=== PATIENT | female | born 1935 ===

== ENCOUNTER 2018-12-07 13:32 | Inpatient (IN) | payer MEDICARE, OTHER ==
[~2018-12-07] VITALS: Ht 149.9 cm; Wt 75.8 kg
[2018-12-07] MEDS ORDERED: ALPRAZolam 0.25 MG (XANAX) TAB PO PRN (14:30)
[2018-12-07] MEDS ORDERED: MELATONIN 3 MG TABLET PO PRN (14:30)
[2018-12-07] MEDS ORDERED: CALCIUM CARBONATE 500 MG (TUMS) TAB.CHEW PO PRN (14:30)
[2018-12-07] MEDS ORDERED: ONDANSETRON 4 MG (ZOFRAN) ORAL DISSOLVE TAB PO PRN ×2 (14:30→17:15)
[2018-12-07] MEDS ORDERED: RX-TRAMADOL 50 MG (ULTRAM) TAB PPK#4 PO PRN (14:30)
[2018-12-07] MEDS ORDERED: LOPERAMIDE 2 MG (IMODIUM) CAP PO PRN (14:30)
[2018-12-07] MEDS ORDERED: ACETAMINOPHEN 500 MG TAB (TYLENOL) PO PRN (14:30)
[2018-12-07] MEDS ORDERED: diphenhydrAMINE 25 MG TAB (BENADRYL) PO PRN (14:30)
[2018-12-07] MEDS ORDERED: CARV25TA PO (16:21)
[2018-12-07] MEDS ORDERED: TIOT4MIS5 INH (16:21)
[2018-12-07] MEDS ORDERED: PARO20TA5 PO (16:21)
[2018-12-07] MEDS ORDERED: NIAC500T2 PO (16:21)
[2018-12-07] MEDS ORDERED: LOSA100T57 PO (16:21)
[2018-12-07] MEDS ORDERED: GABA-486 PO (16:21)
[2018-12-07] MEDS ORDERED: LANS30CA PO (16:21)
[2018-12-07] MEDS ORDERED: AMLO10TA7 PO (16:21)
[2018-12-07] MEDS ORDERED: FOLI1TAB24 PO (16:21)
[2018-12-07] MEDS ORDERED: RT-ALBUINH INH (16:21)
[2018-12-07] MEDS ORDERED: MONT10TA24 PO (16:21)
[2018-12-07] MEDS ORDERED: CLON0.1T PO (16:21)
[2018-12-07] MEDS ORDERED: OXYB5TAB9 PO (16:21)
[2018-12-07] MEDS ORDERED: HYDR25TA4 PO (16:21)
--- NOTE | 2018-12-07 16:21 | NUR ---
PATIENT DID NOT ARRIVE PRIOR TO THE END OF MY SHIFT AND NO PAPERWORK HAD BEEN SENT. I UPDATED THE MED REC WITH THE EXT MED HX HOWEVER DID NOT REVIEW IT DUE TO NO BEING ABLE TO VERIFY IT. I WILL UPDATE THE MED REC IN DETAIL ON MONDAY. Addendum: 12/10/18 at 1101 by PENNY ZAVALA [facility] UPDATED MED REC THIS MORNING AFTER RECEIVING THE DISCHARGE MEDICATION LIST FROM [facility]. NOTE THE FOLLOWING CHANGES WERE MADE WHEN THE PATIENT DISCHARGED FROM [facility] TO [facility] THAT ARE NOT CURRENTLY REFLECTED ON THE HOME MED REC: START TAKING: VITAMIN D3 5000 UNITS DAILY FAMOTIDINE 20MG BID SENNA 8.6MG DAILY PRN CONSTIPATION I ADDED THE FOLLOWING MEDICATIONS TO THE HOME MED REC AT THIS TIME: MULTIVITAMIN DAILY ZOFRAN 4MG Q6H PRN TRAMADOL 50MG 2 Q6H PRN COLACE 100MG DAILY DUONEB Q4H PRN LORATADINE 10MG DAILY TYLENOL 650MG DAILY PRN ASPIRIN 325MG DAILY CALCIUM 600MG BID VOLTAREN GEL QID ADDITIONALLY THE MED LIST FROM [facility] DOES NOT ADDRESS SPIRIVA RESPIMAT HOWEVER IT WAS FILLED 09-02-18 FOR A 90 DAY SUPPLY AND HAD BEEN FILLED PRIOR TO THAT FILL. I LEFT IT ON THE MED REC AT THIS TIME. I ADJUSTED THE TIMING ON A FEW MEDICATIONS THAT I ENTERED MONDAY FROM THE MED REC: NIACIN TO HS, OXYBUTYNIN TO HS, AND ALBUTEROL Q4H PRN.
[2018-12-07] MEDS ORDERED: DOCUSATE SODIUM 100 MG (COLACE) CAP PO PRN (17:15)
[2018-12-07] MEDS ORDERED: RT-ALBUTEROL/IPRATROPIUM 3 ML (DUONEB) VIAL INH PRN (17:15)
[2018-12-07] MEDS ORDERED: RT-ALBUTEROL/IPRATROPIUM 3 ML (DUONEB) VIAL INH SCH (17:15)
--- NOTE | 2018-12-07 17:30 | NUR ---
Admitted to room 228-1, with an admitting diagnosis of debility[facility] accompanied by .DARRIAN HAINES introduced to surroundings, call light, bed controls, phone, TV, temperature control, lights, meal times, smoking policy, visitor policy, side rail policy, bathrooms and showers. Patient Rights given to patient in the handbook.DARRIAN HAINES verbalizes understanding that [facility] is not responsible for the loss or damage to any personal effects or valuables that are kept in the patients posession during their hospitalization. The following Patient Care Plans were discussed with the : Discharge Planning, ,[self care deficit, and [potential for injury]. DARRAIN HAINES verbalizes understanding of Interdisciplinary Patient Education. Patient and/or family were informed about the Rapid Response Team and its purpose. Patient received Patient Rights Booklet, which includes Privacy Act Statement and Data Collection Information Summary.
[2018-12-07] MEDS ORDERED: SENNA W/DOCUSATE (SENOKOT S) TABLET PO NR (18:00)
[2018-12-07] MEDS: CALCIUM CARBONATE 600 MG (CALCARB) TAB PO SCH (19:04)
[2018-12-07] MEDS: NIACIN ER (NIASPAN) 500 MG TAB PO SCH (20:42)
[2018-12-07] MEDS: MONTELUKAST 10 MG (SINGULAIR) TAB PO SCH (20:42)
[2018-12-07] MEDS: GABAPENTIN 100 MG (NEURONTIN) CAP PO SCH (20:42)
[2018-12-07] MEDS: FAMOTIDINE 20 MG (PEPCID) TABLET PO SCH (20:42)
[2018-12-07] MEDS: cloNIDine 0.1 MG (CATAPRES) TAB PO SCH (20:42)
[2018-12-07] MEDS: OXYBUTYNIN (DITROPAN) 5 MG TAB PO SCH (20:42)
[2018-12-07] MEDS: DICLOFENAC 1% GEL 100 GM (VOLTAREN) TUBE TOP SCH (20:43)
[2018-12-08 05:05] VITALS: BP 124/71
[2018-12-08 05:19] LABS: BASOPHILS % (AUTO) 1 % (0-10); EOSINOPHILS # (AUTO) 0.3 10^3/uL (0.0-0.3); EOSINOPHILS % (AUTO) 6 % (0-10); HEMATOCRIT 32 % (35-52); HEMOGLOBIN 10.7 G/DL (11.5-16.0); LYMPHOCYTES # (AUTO) 1.5 X 10^3 (1.0-4.0); LYMPHOCYTES % (AUTO) 27 % (12-44); MEAN CORPUSCULAR HEMOGLOBIN 31 PG (25-34); MEAN CORPUSCULAR HGB CONC 33 G/DL (32-36); MEAN CORPUSCULAR VOLUME 94 FL (80-99); MEAN PLATELET VOLUME 8.7 FL (7.4-10.4); MONOCYTES # (AUTO) 1.3 X 10^3 (0.0-1.0); MONOCYTES % (AUTO) 23 % (0-12); NEUTROPHILS # (AUTO) 2.5 X 10^3 (1.8-7.8); NEUTROPHILS % (AUTO) 44 % (42-75); PLATELET COUNT 258 10^3/uL (130-400); RED CELL DISTRIBUTION WIDTH 14.9 % (10.0-14.5); WHITE BLOOD COUNT 5.7 10^3/uL (4.3-11.0)
[2018-12-08 05:39] LABS: ALBUMIN 3.3 GM/DL (3.2-4.5); BILIRUBIN,TOTAL 0.6 MG/DL (0.1-1.0); CALCIUM 9.4 MG/DL (8.5-10.1); CREATININE SERUM 1.15 MG/DL (0.60-1.30); POTASSIUM 4.5 MMOL/L (3.6-5.0); TOTAL PROTEIN 6.1 GM/DL (6.4-8.2)
[2018-12-08 06:09] LABS: EOSINOPHILS % (MANUAL) 6 %; LYMPHOCYTES % (MANUAL) 26 %; MONOCYTES % (MANUAL) 20 %; NEUTROPHILS % (MANUAL) 48 %
[2018-12-08] MEDS: PANTOPRAZOLE 40 MG (PROTONIX) TAB PO SCH (06:21)
[2018-12-08] MEDS: CARVEDILOL 12.5 MG (COREG) TABLET PO SCH ×2 (06:21→17:59)
[2018-12-08] MEDS: CALCIUM CARBONATE 600 MG (CALCARB) TAB PO SCH ×2 (06:21→17:58)
[2018-12-08] MEDS: MULTIVIT W/MINERALS TAB (THERAGRAN M) PO SCH (06:21)
[2018-12-08 09:00] VITALS: BP 126/74
--- NOTE | 2018-12-08 09:07 | Occupational Therapy Eval ---
OT Evaluation-General/PLF Medical Diagnosis Admission Date Dec 07, 2018 at 15:13 Medical Diagnosis: debility Onset Date: Dec 04, 2018 Therapy Diagnosis Therapy Diagnosis: decr self care, weakness, decr funct mob, decr act cora Height/Weight Height (Feet): 4 Height (Inches): 11.00 Weight (Pounds): 164 Weight (Ounces): 0.0 Precautions Precautions/Isolations: Fall Prevention, Standard Precautions Safety Interventions: None Weight Bear Status Weight Bearing Restriction: Full Weight Bearing Referral Physician: Lisa Referral Reason: Evaluation/Treatment Medical History Pertinent Medical History: Arthritis (psoriatic), CAD, COPD, CVA (2018), GERD, HTN Additional Medical History Cardiac stent 2007. LILI with CPAP at night. Bilat cataract surgery. Rotator cuff repair R shoulder, R elbow fx, R humeral fx with michael, R ankle fx, kyphoplasty, 4 back surgeries, R total shoulder. Osteoporosis. Asthma. Anxiety disorder Current History Admitted to [facility] with weakness and hyponatremia. She reported an exacerbation of R shoulder pain and decreased movement aggravated at [facility]. Reviewed History: Yes Social History Home: Single Level Current Living Status: Alone Entry Into Home: [facility] ADL-Prior Level of Function Therapy Code Descriptions/Definitions Functional [place] Measure: 0=Not Assessed/NA 4=Minimal Assistance 1=Total Assistance 5=Supervision or Setup 2=Maximal Assistance 6=Modified [place] 3=Moderate Assistance 7=Complete [place] Therapy Quality Codes: 6 Independent with activity with or without an assistive device 5 Patient requires set up or clean up by helper. Patient completes activity by themselves 4 Supervision or touching assist (CGA). [place] provide cues , steadying assist 3 The helper provides less than half the effort to complete the activity 2 The helper provides more than half the effort to complete the activity 1 Dependent. The helper does all the effort to complete an activity 7 Patient refused to complete or attempt activity 9 The patient did not perform the activity before the current illness or injury 88 Not attempted due to Medical conditions or safety concerns Functional Abilities and Goals: Independent: Patient completed the activities by him/herself, with or without an assistive device, with no assistance from a helper. Needed Some Help: Patient needed partial assistance from another person to complete activities. Dependent: A helper completed the activities for the patient. Unknown: Not Applicable: ADL PLOF Comments Pt reported that she has been able to manage her basic self care needs, pay bills, manage meds but has in-home assistance 9 hours a week for cleaning, laundry, cooking, etc. She no longer drives but hopes to again some day. 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 Self Care: Independent Functional Cognition: Independent DME/Equipment: Grab Bars, Reachers, Shower OT Current Status Subjective Pt seen in room, up in w/c, agreeable to OT. Pain in low back reported as chronic and rated 5/10. Appearance Alert, cooperative Mental Status/Objective Patient Orientation: Person, Place, Time, Situation Current Glasses/Contacts: Yes Hearing Aids: No Dentures/Partials: No Hand Dominance: Right Upper Extremity ROM L shoulder limited to 80-90 degrees flex and abd, active and passive. R shoulder with almost no active movement, passive flex to approx 45 degrees, guarded. R elbow extension limited to approx -30-40 degrees. Rest of UEs grossly WFL. Arthritic changes noted in hands Upper Extremity Sensation No problems per pt report Upper Extremity Strength Grossly 4/5 within ranges, bilat. ADL-Treatment ADL-Current Per physical therapy, sit to stand mod assist. Pulling up is more comfortable to R shoulder. ADLs to follow Education OT Patient Education: Purpose of tx/functional activities, Rehab process Teaching Recipient: Patient Teaching Methods: Discussion Response to Teaching: Verbalize Understanding OT Short Term Goals Short Term Goals Time Frame: Dec 15, 2018 Eating(FIM): 7 Grooming(FIM): 6 (w/c level) Toilet/Commode Transfer(FIM): 3 Additional Short Term Goals: 1-Demonstrate ADL Tasks, 2-Verbalize Understanding , 3-ImproveStrength/Kandi 1=Demonstrate adherence to instructed precautions during ADL tasks. 2=Patient will verbalize/demonstrate understanding of assistive devices/ modifications for ADL. 3=Patient will improve strength/tolerance for activity to enable patient to perform ADL's. OT Rehabilitation Consultant Goals Correction Goals Time Frame: Dec 29, 2018 Eating (FIM): 7 Eating (QC): 6 Groomin Oral Hygiene (QC): 6 Bathing(FIM): 6 Shower/Bathe Self (QC): 6 Upper Body Dressing(FIM): 6 Upper Body Dressing (QC): 6 Lower Body Dressing(FIM): 6 Lower Body Dressing (QC): 6 On/Off Footwear (QC): 6 Toileting(FIM): 6 Toileting Hygiene (QC): 6 Toilet/Commode Transfer(FIM): 6 Toilet/Commode Transfer (QC): 6 Shower Transfer(FIM): 6 Additional Goals: 1-Demonstrate ADL Tasks, 2-Verbalize Understanding, 3- ImproveStrength/Kandi 1=Demonstrate adherence to instructed precautions during ADL tasks. 2=Patient will verbalize/demonstrate understanding of assistive devices/ modifications for ADL. 3=Patient will improve strength/tolerance for activity to enable patient to perform ADL's. OT Education/Plan Problem List/Assessment Assessment: Decreased Activ Tolerance, Decreased UE Strength, Dependent Transfers, Impaired Self-Care Skills, Restricted Funct UE ROM Pt would benefit from skilled OT to increase her independence in basic self care. Discharge Recommendations Plan/Recommendations: Continue POC Treatment Plan/Plan of Care Treatment,Training & Education: Yes Patient would benefit from OT for education, treatment and training to promote independence in ADL's, mobility, safety and/or upper extremity function for ADL' s. Plan of Care: ADL Retraining, Functional Mobility, Group Exercise/Act as Ind ( education, exercise, functional activity, activity tolerance, funct mobility), UE Funct Exercise/Act, UE Neuromus Re-Ed/Coord Treatment Duration: Dec 29, 2018 Frequency: At least 5 of 7 days/Wk (IRF) Estimated Hrs Per Day: 1.5 hours per day Agreement: Yes Rehab Potential: Good Time/GCodes Start Time: 08:30 Stop Time: 08:50 Total Time Billed (hr/min): 20 Billed Treatment Time visit, 20 minutes evaluation moderate intensity REYES SPRINGER OT Dec 08, 2018 09:07
[2018-12-08] MEDS: GABAPENTIN 100 MG (NEURONTIN) CAP PO SCH ×2 (09:09→20:41)
[2018-12-08] MEDS: LORATADINE (CLARITIN) 10 MG TAB PO SCH (09:10)
[2018-12-08] MEDS: FAMOTIDINE 20 MG (PEPCID) TABLET PO SCH ×2 (09:10→20:41)
[2018-12-08] MEDS: VITAMIN D3 5,000 UNITS (CHOLECALCIFEROL ) CAPSULE PO SCH (09:10)
[2018-12-08] MEDS: FOLIC ACID 1 MG TAB PO SCH (09:10)
[2018-12-08] MEDS: amLODIPine 10 MG (NORVASC) TAB PO SCH (09:10)
[2018-12-08] MEDS: LOSARTAN 100 MG (COZAAR) TABLET PO SCH (09:10)
[2018-12-08] MEDS: cloNIDine 0.1 MG (CATAPRES) TAB PO SCH (09:11)
--- NOTE | 2018-12-08 09:20 | NUR ---
COMPLAIN BACK PAIN AND MEDICATED WITH ULTRAM. STATES PAIN WITH MOVEMENT ONLY. BILATERAL, EQUAL WEAKNESS IN LEGS. RIGHT ARM WEAKNESS DUE TO PREVIOUS ELBOW BREAK. FEELS VOICE IS HOARSE, OTHERWISE DENIES SPEECH OR SWALLOWING DIFFICULTIES. ADMITS TO SOB WITH EXERTION.
--- NOTE | 2018-12-08 09:33 | Physical Therapy Evaluation ---
PT Evaluation-General Medical Diagnosis Admission Date Dec 07, 2018 at 15:13 Medical Diagnosis: debility Onset Date: Dec 04, 2018 Therapy Diagnosis Therapy Diagnosis: generalized weakness/debility Height/Weight Height (Feet): 4 Height (Inches): 11.00 Weight (Pounds): 164 Weight (Ounces): 0.0 Precautions Precautions/Isolations: Fall Prevention, Standard Precautions Referral Physician: Lisa Reason for Referral: Evaluation/Treatment Medical History Pertinent Medical History: Arthritis (psoriatic), CAD, COPD, CVA (2018), GERD, HTN Additional Medical History recent 4 month stay at [facility] and home x 6 weeks (patient reports she didn't do much physically when she returned home) Reviewed History: Yes Social History Home: Single Level Current Living Status: Alone Entry Into Home: Ramp Patient does not use steps prior to this admit: reports she will not perform steps Prior/Core FIM Prior Level of Function Therapy Code Descriptions/Definitions Functional [place] Measure: 0=Not Assessed/NA 4=Minimal Assistance 1=Total Assistance 5=Supervision or Setup 2=Maximal Assistance 6=Modified [place] 3=Moderate Assistance 7=Complete [place] Therapy Quality Codes: 6 Independent with activity with or without an assistive device 5 Patient requires set up or clean up by helper. Patient completes activity by themselves 4 Supervision or touching assist (CGA). [place] provide cues , steadying assist 3 The helper provides less than half the effort to complete the activity 2 The helper provides more than half the effort to complete the activity 1 Dependent. The helper does all the effort to complete an activity 7 Patient refused to complete or attempt activity 9 The patient did not perform the activity before the current illness or injury 88 Not attempted due to Medical conditions or safety concerns Functional Abilities and Goals: Independent: Patient completed the activities by him/herself, with or without an assistive device, with no assistance from a helper. Needed Some Help: Patient needed partial assistance from another person to complete activities. Dependent: A helper completed the activities for the patient. Unknown: Not Applicable: Bed Mobility: 4 Transfers (B,C,W/C) (FIM): 4 Gait: 4 Stairs: 0 Indoor Mobility (Ambulation): Needed Some Help Stairs: Needed Some Help Prior Devices Use: Walker Prior Device Use: 4WW PT Evaluation-Current Subjective Patient agrees to PT. Pain Numeric Pain Scale: 5-Moderate Pain Location: Right Location Body Site: Shoulder Pain Description: Chronic Objective Patient Orientation: Normal For Age Problem Solving: Fair ROM/Strength ROM Lower Extremities bilateral LE WFL Strenght Lower Extremities right knee flexion 3-/5/extension 3/5; hip flexion 3/5; DF/PF 4/5 left knee flexion 3-/5;extension 3/5; hip flexion 3/5; DP/PF 4/5 Integumentary/Posture Integumentary refer to nursing notes Bowel Incontinence: No Bladder Incontinence: Yes Posture slightly kyphotic Neuromuscular (Tone, Coordination, Reflexes) diminished coordination due to age and debility Sensory Vision: Functional Hearing: Functional Hand Dominance: Right Sensation Right Lower Extremit: Intact Sensation Left Lower Extremity: Intact Transfers Therapy Code Descriptions/Definitions Functional [place] Measure: 0=Not Assessed/NA 4=Minimal Assistance 1=Total Assistance 5=Supervision or Setup 2=Maximal Assistance 6=Modified [place] 3=Moderate Assistance 7=Complete [place] Therapy Quality Codes: 6 Independent with activity with or without an assistive device 5 Patient requires set up or clean up by helper. Patient completes activity by themselves 4 Supervision or touching assist (CGA). [place] provide cues , steadying assist 3 The helper provides less than half the effort to complete the activity 2 The helper provides more than half the effort to complete the activity 1 Dependent. The helper does all the effort to complete an activity 7 Patient refused to complete or attempt activity 9 The patient did not perform the activity before the current illness or injury 88 Not attempted due to Medical conditions or safety concerns Transfers (B, C, W/C) (FIM): 3 Scootin Rollin Roll Left to Right (QC): 3 Supine to/from Sit: 3 Sit to/from Stand: 3 bed t/f WC(FIM only if WC use): 3 Sit to Lying (QC): 3 Lying to Sitting/Side of Bed(Q: 3 Sit to Stand (QC): 3 Chair/Fpx-mp-Tvxta Xfer(QC): 3 Car Transfer (QC): 2 Gait Does the Patient Walk?: Yes Mode of Locomotion: Both Anticipated Mode of Locomotion: Both Gait (FIM): 1 Distance (FIM): 1=up to 49 ft Walk 10 feet (QC): 3 Walk 50 ft with 2 Turns(QC): 88 Walk 150 ft (QC): 88 Walking 10ft/uneven surface-QC: 3 Distance: 15' x 6 Gait Level of Assist: 3 Gait Persons Needed: 1 Gait Assistive Device: FWW Comments/Gait Description very slow, step to gait sequence Wheelchair Training Does the Pt Use a Wheelchair?: Yes Wheelchair (FIM): 1 Wheelchair Distance (FIM): 1=up to 49 ft Distance: 15' Wheelchair Level of Assist: 3 Wheel 50 ft with 2 turns (QC): 88 Wheel 150 ft (QC): 88 Type of Wheelchair: Manual Stairs Stairs (FIM): 0 Level of Assist: 9 1 Step (curb) (QC): 9 4 Steps (QC): 9 12 Steps (QC): 9 If not tested on admit;explain Patient reports she has not and will not utilize steps in the community Balance Sitting Static: Fair Sitting Dynamic: Fair Standing Static: Fair Standing Dynamic: Fair Treatment bilateral LE exercises in supine AAROM 15 reps x 2 sets AP, HS, SLR, abd/add; sit AP, LAQ; sit to commissioning engineer parallel bars x 8 sets with stand x 3 minutes Assessment/Needs 83 y.o. female, severely debilitated, will benefit from skilled PT to address functional strength and mobility to improve current LOF to safely return to home or care facility at maximum LOF. Rehab Potential: Fair PT Mutuel Cashier Goals Mutuel Cashier Goals PT Mutuel Cashier Goals Time Frame: Dec 29, 2018 Transfers (B,C,W/C) (FIM): 5 Sit to Lying (QC): 5 Lying-Sitting on Side/Bed(QC): 5 Sit to Stand (QC): 5 Rollin Roll Left to Right (QC): 5 Chair/Nfp-dj-Vbpoe Xfer(QC): 5 Car Transfer (QC): 5 Does the Patient Walk: Yes Gait (FIM): 2 Distance: 125' Walk 10 feet (QC): 5 Walk 10ft-Uneven Surface(QC): 5 Walk 50ft with 2 Turns (QC): 5 Walk 150 ft (QC): 88 Gait Level of Assist: 5 Gait Assistive Device: Walker 4 Wheeled, FWW Wheelchair (FIM): 2 Wheelchair distance (FIM): 1=up to 49 ft Distance: 100' Wheelchair Level of Assist: 5 Wheel 50 feet with 2 turns (QC: 5 Stairs (FIM): 1 PT Plan Problem List Problem List: Activity Tolerance, Functional Strength, Safety, Balance, Gait, Transfer, Bed Mobility Treatment/Plan Treatment Plan: Continue Plan of Care Treatment Plan: Bed Mobility, Education, Functional Activity Kandi, Functional Strength, Group Therapy, Gait, Safety, Therapeutic Exercise, Transfers Treatment Duration: Dec 01, 2018 Frequency: At least 5 of 7 days/Wk (IRF) Estimated Hrs Per Day: 1.5 hours per day Patient and/or Family Agrees t: Yes Discharge Recommendations Therapy D/C Recommendations: Assisted Living, Home Independently, Physical Therapy Home Care, Care Home Placement Time/GCodes Time In: 700 Time Out: 830 Total Billed Treatment Time: 90 Total Billed Treatment 1 visit EVModC 30 min EX x 2 30 min GT x 2 30 min NU LITTLE PT Dec 08, 2018 09:33
--- NOTE | 2018-12-08 10:03 | Occupational Ther Daily Note ---
OT Current Status-Daily Note Subjective Pt alert, finishing up with OTR/L eval. MANCILLA took over care. Pt agrees to therapy. No c/o pain. Mental Status/Objective Patient Orientation: Person, Place, Time, Situation Therapy Code Descriptions/Definitions Functional [place] Measure: 0=Not Assessed/NA 4=Minimal Assistance 1=Total Assistance 5=Supervision or Setup 2=Maximal Assistance 6=Modified [place] 3=Moderate Assistance 7=Complete [place] ADL-Treatment Therapy Code Descriptions/Definitions Functional [place] Measure: 0=Not Assessed/NA 4=Minimal Assistance 1=Total Assistance 5=Supervision or Setup 2=Maximal Assistance 6=Modified [place] 3=Moderate Assistance 7=Complete [place] Therapy Quality Codes: 6 Independent with activity with or without an assistive device 5 Patient requires set up or clean up by helper. Patient completes activity by themselves 4 Supervision or touching assist (CGA). [place] provide cues , steadying assist 3 The helper provides less than half the effort to complete the activity 2 The helper provides more than half the effort to complete the activity 1 Dependent. The helper does all the effort to complete an activity 7 Patient refused to complete or attempt activity 9 The patient did not perform the activity before the current illness or injury 88 Not attempted due to Medical conditions or safety concerns Eating (FIM): 5 Eating (QC): 5 Grooming (FIM): 6 (Sitting at sink in w/c, pt completed by self.) Oral Hygiene (QC): 6 Bathing (FIM): 3 (Using shower bench, grabbar and hand held shower pt able to complete by self. Pt will need AE for lower body bathing. Pt leans side to side to cleanse buttocks/rick area.) Bathing Location: L Arm, R Arm, L Upper Leg, R Upper Leg, Chest, Abdomen, Buttocks, Perineal Area Shower/Bathe Self (QC): 3 Upper Body (FIM): 4 (Set up and assist to pull down in back.) Upper Body Dressing (QC): 3 Lower Body Dressing (FIM): 2 (Assist to don over feet and hike up pants over hips. Pt able to stand with FWW. Assist to doff lower body clothing.) Lower Body Dressing (QC): 2 On/Off Footwear (QC): 2 Toileting (FIM): 3 (Assist to manipulate clothing. Able to cleanse self sitting on toilet.) Toileting Hygiene (QC): 3 Transfers (B, C, W/C) (FIM): 3 (Mod A for sit to standing due to decreased AROM of R UE and strength. Pt is able to pull to stand with less difficulty.) Toilet/Commode Transfer (FIM): 4 (Pulling to stand with grabbars and min A for SPT pt able to complete.) Toilet Transfer (QC): 3 Shower Transfer(FIM): 4 (Using grabbar, w/c and shower bench pt able to complete with min A with pulling to stand.) Pt takes increased time to complete ADLs due to decreased strength and AROM of UE's. Pt will need lower body AE for dressing and bathing. After therapy, pt lying in bed with call light/phone in reach. All needs met in room. OT Short Term Goals Short Term Goals Time Frame: Dec 15, 2018 Eating(FIM): 7 Grooming(FIM): 6 (w/c level) Toilet/Commode Transfer(FIM): 3 Additional Short Term Goals: 1-Demonstrate ADL Tasks, 2-Verbalize Understanding , 3-ImproveStrength/Kandi 1=Demonstrate adherence to instructed precautions during ADL tasks. 2=Patient will verbalize/demonstrate understanding of assistive devices/ modifications for ADL. 3=Patient will improve strength/tolerance for activity to enable patient to perform ADL's. OT Drafter Topographical Goals Correction Goals Time Frame: Dec 29, 2018 Eating (FIM): 7 Eating (QC): 6 Groomin Oral Hygiene (QC): 6 Bathing(FIM): 6 Shower/Bathe Self (QC): 6 Upper Body Dressing(FIM): 6 Upper Body Dressing (QC): 6 Lower Body Dressing(FIM): 6 Lower Body Dressing (QC): 6 On/Off Footwear (QC): 6 Toileting(FIM): 6 Toileting Hygiene (QC): 6 Toilet/Commode Transfer(FIM): 6 Toilet/Commode Transfer (QC): 6 Shower Transfer(FIM): 6 Additional Goals: 1-Demonstrate ADL Tasks, 2-Verbalize Understanding, 3- ImproveStrength/Kandi 1=Demonstrate adherence to instructed precautions during ADL tasks. 2=Patient will verbalize/demonstrate understanding of assistive devices/ modifications for ADL. 3=Patient will improve strength/tolerance for activity to enable patient to perform ADL's. OT Education/Plan Problem List/Assessment Pt would benefit from skilled OT to increase her independence in basic self care. Discharge Recommendations Plan/Recommendations: Continue POC Treatment Plan/Plan of Care Patient would benefit from OT for education, treatment and training to promote independence in ADL's, mobility, safety and/or upper extremity function for ADL' s. Plan of Care: ADL Retraining, Functional Mobility, Group Exercise/Act as Ind ( education, exercise, functional activity, activity tolerance, funct mobility), UE Funct Exercise/Act, UE Neuromus Re-Ed/Coord Treatment Duration: Dec 29, 2018 Frequency: At least 5 of 7 days/Wk (IRF) Estimated Hrs Per Day: 1.5 hours per day Agreement: Yes Rehab Potential: Fair Time/GCodes Start Time: 08:50 Stop Time: 10:15 Total Time Billed (hr/min): 85 Billed Treatment Time 1 visit-ADL 6 (85 min) DEEPA DE LA VEGA Dec 08, 2018 10:03
--- NOTE | 2018-12-08 10:30 | NUR ---
DR. ROBERTS HERE. INFORMED OF PATIENT STATING TAKES CLONIDINE PRN ONLY. FAUSTINO HOSE WILL BE USED PRN EDEMA.
[2018-12-08] MEDS: PARoxetine 20 MG (PAXIL) TAB PO SCH (10:53)
[2018-12-08] MEDS: DICLOFENAC 1% GEL 100 GM (VOLTAREN) TUBE TOP SCH ×4 (10:54→20:44)
[2018-12-08] MEDS ORDERED: cloNIDine 0.1 MG (CATAPRES) TAB PO PRN (11:30)
--- NOTE | 2018-12-08 12:35 | PM&R H&P / Post Admit Assess ---
History of Present Illness HPI/Chief Complaint CC: Debility HPI: This is an 83-year-old white female clinic patient of Dr. Post in [place] just recently moved from [facility] to [place] to be close to her 2 grandchildren since her daughter is a nurse in [employer] who works may shifts per week and her son lives in [place] and she previously lived in [place] from [phone] who presents after a [facility] stay for 3 days due to severe weakness. Hyponatremia noted acute on chronic while she was there which could be contributing to the weakness (I will stop HCTZ and place on fluid restriction). She had a history of a CVA July 2018 went to [facility] for 3 months and just was discharged to her own home with her grandchildren watching over her. She began having weakness full evaluation included a CT scan and multiple labs revealing no source of weakness so she was placed in physical therapy and found to meet criteria for intensive therapies with inpatient rehabilitation center at [facility] here. She usually sees cardiology for a cardiac murmur and pulmonology for severe asthma and rheumatology for psoriatic arthritis and she is just in the midst of getting that set up since moving to [place] in the last 6 months. Her May 2018. 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 She would like to return to live alone. Source: patient, old records Exam Limitations: clinical condition Date Seen 12/08/18 Time Seen by a Provider: 10:30 Attending Physician Erin Gonzalez DO PCP Pierre Post DO Referring Physician Date of Admission Dec 07, 2018 at 15:13 Home Medications & Allergies Home Medications Reviewed patient Home Medication Reconciliation performed by pharmacy medication reconciliations aircraft ordnance technician and/or nursing. Patients Allergies have been reviewed. 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) Alcohol Use: Denies Use Recreational Drug Use: No Smoking Status: Never a Smoker Physical Abuse Screen: No Sexual Abuse: No Recent Foreign Travel: No Contact w/other who traveled: No Recent Hopitalizations: Yes Recent Infectious Disease Expo: No Immunizations Up To Date Pediatric: Yes Date of Influenza Vaccine: Sep 06, 2018 Past Medical History Surgeries: Orthopedic Respiratory: Asthma Currently Using CPAP: Yes Currently Using BIPAP: No Cardiac: High Cholesterol, Hypertension, Valvular Heart Disease Neurological: Neuropathy, Stroke (07/31) Sexually Transmitted Disease: No HIV/AIDS: No Female Reproductive Disorders: Denies Gastrointestinal: Gastroesophageal Reflux Musculoskeletal: Osteoporosis, Chronic Back Pain Psoriatic arthritis HEENT: Cataract Loss of Vision: Bilateral Hearing Impairment: Denies Psychosocial: Anxiety History of Blood Disorders: Yes Adverse Reaction to Blood Lanza: No Family History Arthritis 19 FATHER Hypertension 19 FATHER 19 MOTHER Respiratory disorder 19 MOTHER Review of Systems Constitutional: see HPI, malaise, weakness EENTM: no symptoms reported Respiratory: no symptoms reported Cardiovascular: no symptoms reported Gastrointestinal: no symptoms reported Genitourinary: no symptoms reported Musculoskeletal: joint pain, muscle pain Skin: no symptoms reported Psychiatric/Neurological: No Symptoms Reported Physical Exam Physical Exam Vital Signs Vital Signs - First Documented 12/07/18 12/08/18 19:45 05:05 Temp 97.4 Pulse 57 Resp 15 B/P (MAP) 124/71 (88) Pulse Ox 95 O2 Delivery Room Air O2 Flow Rate 0.00 Capillary Refill : Height, Weight, BMI Height: 4'11.00" Weight: 164lbs. 0.0oz. 74.669494au; 33.1 BMI Method: General Appearance: No Apparent Distress, WD/WN, Chronically ill, Obese Eyes: Bilateral Eye Normal Inspection, Bilateral Eye PERRL HEENT: PERRL/EOMI, Normal ENT Inspection, Pharynx Normal Neck: Full Range of Motion, Normal Inspection, Non Tender, Supple, Carotid Bruit Respiratory: Chest Non Tender, Lungs Clear, Normal Breath Sounds, No Accessory Muscle Use, No Respiratory Distress Cardiovascular: Regular Rate, Rhythm, No Edema, No Gallop, No JVD, Normal Peripheral Pulses, Systolic Murmur Gastrointestinal: Normal Bowel Sounds, No Organomegaly, No Pulsatile Mass, Non Tender, Soft Back: Normal Inspection, No CVA Tenderness, No Vertebral Tenderness Extremity: Normal Capillary Refill, Normal Inspection, Normal Range of Motion, Non Tender, No Calf Tenderness, No Pedal Edema Neurologic/Psychiatric: Alert, Oriented x3, No Motor/Sensory Deficits, Normal Mood/Affect, Other (global weakness of extremities) Skin: Normal Color, Warm/Dry Lymphatic: No Adenopathy Results Results/Procedures Labs Laboratory Tests 12/08/18 04:30 Patient resulted labs reviewed. Assessment/Plan Admission Diagnosis Assessment: Debility Severe weakness Acute on chronic hyponatremia holding hydrochlorothiazide and placing fluid restriction Moderate persistent asthma usually sees pulmonology Psoriatic arthritis on immunosuppressive biologic managed by rheumatology Chronic cardiac murmur usually sees cardiology History of CVA July 2018 spent 3 months at [facility] Acute right shoulder pain related to therapy last month History of compression fractures of the back 4 times Plan: Start intensive therapies Evaluate right shoulder pain if becomes a restriction in therapy services Continue home medications Spiriva Ring immunological biological med from home and take every Monday Monitor cardiac and pulmonary systems closely Patient lives alone Admission Status: Inpatient Order (span 2 midnights) Reason for Inpatient Admission: IRF Diagnosis/Problems Diagnosis/Problems (1) Debility Status: Acute (2) Psoriatic arthritis Status: Chronic (3) Immunosuppression Status: Chronic (4) History of CVA (cerebrovascular accident) Status: Chronic (5) Asthma Status: Chronic Qualifiers: Asthma severity: moderate Asthma persistence: persistent Asthma complication type: unspecified Qualified Codes: J45.40 - Moderate persistent asthma, uncomplicated (6) Cardiac murmur Status: Chronic (7) Compression fracture Status: Chronic (8) Hypertension Status: Chronic Qualifiers: Hypertension type: essential hypertension Qualified Codes: I10 - Essential (primary) hypertension (9) Right anterior shoulder pain Status: Acute (10) Hyponatremia Status: Chronic (11) Weakness Status: Acute Post Admission Physician Asses Date seen by provider: Dec 08, 2018 Time seen by provider: 10:30 The preadmission screen agrees with the post admission assessment that the patient is a good candidate for inpatient rehabilitation. The patient will have a comprehensive program of inpatient rehabilitation with a goal of maximizing level of functional independence prior to discharge home to live along with 2 grandchildren involved in her care. The patient will have PT/OT ninety minutes per day, each discipline, five days a week for gait, strengthening, conditioning, balance, ADLs, any patient/family/caregiver training as necessary. Speech therapy to do cognitive assessment and treat as indicated. Rehabilitation nursing to assist with bowel, bladder, skin, wound care, medication administration, pain management. Senior Python Developer to assist with discharge planning, community reentry. SCD's for DVT prophylaxis. She appears to be well motivated to participate in three hours of therapy a day. She should be able to tolerate three hours of therapy a day from a medical standpoint. She should benefit from the three hours of therapy a day. She has a reasonable discharge plan, reasonable discharge rehabilitation goals and a supportive family. She has various comorbidities that need to be closely monitored with medications and treatments adjusted on a daily basis as needed. These include: see list above Barriers to discharge for this patient who had been independent prior to this are for her to be modified independent to supervision for ADLs and mobility skills prior to discharge home with [family], so as to lessen the burden of the caregivers. Risks for this patient include: 1. Fall 2. Fracture 3. DVT 4. Pulmonary embolism 5. Wound infection 6. Skin breakdown 7. Contractures 8. Poorly controlled pain 9. Urinary retention 10. UTI 11. Respiratory infection 12. Aspiration Estimated Length of Stay: 10 days Prognosis: Rehab prognosis appears good for goal of discharge home with family modified independent to supervision for ADLs and mobility skills. Date Identified: Dec 08, 2018 Time Identified: 10:30 General: Alert, Oriented X3, Cooperative, No Acute Distress HEENT: Atraumatic, PERRLA Neck: Supple, No JVD, No Thyromegaly, +2 Carotid Pulse No Bruit, No LAD Lungs: Clear to Auscultation, Normal Air Movement Heart: Regular Rate, Normal S1, Normal S2, Other (murmur noted) Abdomen: Normal Bowel Sounds, Soft, No Tenderness, No Hepatosplenomegaly, No Masses Extremities: No Clubbing, No Cyanosis, No Edema, Normal Pulses, No Tenderness/ Swelling Skin: No Rashes, No Breakdown, No Significant Lesion Neuro: Normal Speech, Strength at 5/5 X4 Ext (global weakness), Normal Tone, Sensation Intact, Cranial Nerves 3-12 NL, Reflexes 2+ Psych/Mental Status: Mental Status NL, Mood NL ERIN GONZALEZ DO Dec 08, 2018 12:35
[2018-12-08] MEDS ORDERED: RT-ALBUTEROL SULF 2.5 MG/3 ML PRE-MIX VIAL INH PRN (15:15)
[2018-12-08] MEDS: ASPIRIN E.C. 325 MG (ECOTRIN) TABLET PO SCH (17:59)
[2018-12-08 18:00] VITALS: BP 111/65
[2018-12-08] MEDS: NIACIN ER (NIASPAN) 500 MG TAB PO SCH (20:40)
[2018-12-08] MEDS: MONTELUKAST 10 MG (SINGULAIR) TAB PO SCH (20:41)
[2018-12-08] MEDS: OXYBUTYNIN (DITROPAN) 5 MG TAB PO SCH (20:41)
[2018-12-08] MEDS ORDERED: GABAPENTIN 100 MG (NEURONTIN) CAP PO SCH (21:00)
[2018-12-08] MEDS ORDERED: NON-FORMULARY MEDICATION 1 EA EA (Carvedilol 25 MG) PO SCH (21:00)
[2018-12-08] MEDS ORDERED: MONTELUKAST 10 MG (SINGULAIR) TAB PO SCH (21:00)
[2018-12-09 05:06] VITALS: BP 113/64
[2018-12-09] MEDS: CALCIUM CARBONATE 600 MG (CALCARB) TAB PO SCH ×2 (06:14→16:15)
[2018-12-09] MEDS: MULTIVIT W/MINERALS TAB (THERAGRAN M) PO SCH (06:14)
[2018-12-09] MEDS: PANTOPRAZOLE 40 MG (PROTONIX) TAB PO SCH (06:14)
[2018-12-09] MEDS: CARVEDILOL 12.5 MG (COREG) TABLET PO SCH ×2 (06:15→18:02)
[2018-12-09] MEDS: UMECLIDINIUM BROMIDE (INCRUSE ELLIPTA) 7'S IH SCH (07:56)
[2018-12-09] MEDS ORDERED: NON-FORMULARY MEDICATION 1 EA EA (Amlodipine Besylate 10 MG) PO SCH (09:00)
[2018-12-09] MEDS ORDERED: NON-FORMULARY MEDICATION 1 EA EA (Oxybutynin Chloride 5 MG) PO SCH (09:00)
[2018-12-09] MEDS ORDERED: FOLIC ACID 1 MG TAB PO SCH (09:00)
[2018-12-09] MEDS ORDERED: PARoxetine 20 MG (PAXIL) TAB PO SCH (09:00)
[2018-12-09] MEDS ORDERED: LOSARTAN 100 MG (COZAAR) TABLET PO SCH (09:00)
[2018-12-09] MEDS: FOLIC ACID 1 MG TAB PO SCH (09:39)
[2018-12-09] MEDS: PARoxetine 20 MG (PAXIL) TAB PO SCH (09:39)
[2018-12-09] MEDS: VITAMIN D3 5,000 UNITS (CHOLECALCIFEROL ) CAPSULE PO SCH (09:40)
[2018-12-09] MEDS: LORATADINE (CLARITIN) 10 MG TAB PO SCH (09:40)
[2018-12-09] MEDS: amLODIPine 10 MG (NORVASC) TAB PO SCH (09:40)
[2018-12-09] MEDS: LOSARTAN 100 MG (COZAAR) TABLET PO SCH (09:40)
[2018-12-09] MEDS: GABAPENTIN 100 MG (NEURONTIN) CAP PO SCH ×2 (09:40→20:13)
[2018-12-09] MEDS: FAMOTIDINE 20 MG (PEPCID) TABLET PO SCH ×2 (09:40→20:13)
[2018-12-09] MEDS: DICLOFENAC 1% GEL 100 GM (VOLTAREN) TUBE TOP SCH ×4 (09:43→20:16)
--- NOTE | 2018-12-09 12:00 | NUR ---
VOICE IS HOARSE. FEELS HAS A DRY MOUTH. REQUESTED BIOTINE AND ORDERED RECEIVED. FAMILY BROUGHT IN COPY OF LIVING WILL AND PLACED ON CHART.
[2018-12-09] MEDS: DOCUSATE SODIUM 100 MG (COLACE) CAP PO PRN ×2 (12:45→16:10)
[2018-12-09] MEDS ORDERED: PATIENT MAY USE OWN MED,SINGLE MED PO SCH (12:45)
--- NOTE | 2018-12-09 13:20 | PM&R Progress Note ---
Subjective HPI/CC On Admission Date Seen by Provider: Dec 09, 2018 Time Seen by Provider: 12:15 CC: Debility HPI: This is an 83-year-old white female clinic patient of Dr. Post in [place] just recently moved from [facility] to [place] to be close to her 2 grandchildren since her daughter is a nurse in [place] who works may shifts per week and her son lives in [place] and she previously lived in [place] from [phone] who presents after a [facility] stay for 3 days due to severe weakness. Hyponatremia noted acute on chronic while she was there which could be contributing to the weakness (I will stop HCTZ and place on fluid restriction). She had a history of a CVA July 2018 went to [facility] for 3 months and just was discharged to her own home with her grandchildren watching over her. She began having weakness full evaluation included a CT scan and multiple labs revealing no source of weakness so she was placed in physical therapy and found to meet criteria for intensive therapies with inpatient rehabilitation center at [facility] here. She usually sees cardiology for a cardiac murmur and pulmonology for severe asthma and rheumatology for psoriatic arthritis and she is just in the midst of getting that set up since moving to [place] in the last 6 months. Her May 2018. 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 She would like to return to live alone. Subjective/Events-last exam Patient doing much better Thrilled to be here to work on intensive therapy Family broad in her immunosuppressive biological injection Enbrel so she will start on that No BM for 2 days and once prune juice and cashews that usually helps her Dry mouth will be treated with Biotene No asthma related issues today Monitor closely Fluid restriction DC hydrochlorothiazide Review of Systems General: Fatigue Neurological: Weakness, Incoordination Objective Exam Vital Signs Vital Signs Date Time Temp Pulse Resp B/P (MAP) Pulse Ox O2 Delivery O2 Flow Rate FiO2 12/09/18 09:00 Room Air 12/09/18 07:56 90 12/09/18 05:06 98.5 68 20 113/64 (80) 12/08/18 05:05 0.00 Capillary Refill : General Appearance: No Apparent Distress, WD/WN, Chronically ill Respiratory: Chest Non Tender, Lungs Clear, Normal Breath Sounds, No Accessory Muscle Use, No Respiratory Distress, Decreased Breath Sounds Cardiovascular: Regular Rate, Rhythm, No Edema, No Gallop, No JVD, No Murmur, Normal Peripheral Pulses Neurologic/Psychiatric: Alert, Oriented x3, Normal Mood/Affect, Motor Weakness (lower legs global weakness) Results/Procedures Lab Patient resulted labs reviewed. Assessment/Plan Assessment and Plan Assess & Plan/Chief Complaint Assessment: Debility Severe weakness Acute on chronic hyponatremia holding hydrochlorothiazide and placing fluid restriction Moderate persistent asthma usually sees pulmonology Psoriatic arthritis on immunosuppressive biologic managed by rheumatology Chronic cardiac murmur usually sees cardiology History of CVA July 2018 spent 3 months at [facility] Acute right shoulder pain related to therapy last month History of compression fractures of the back 4 times Constipation acute Plan: Start intensive therapies Evaluate right shoulder pain if becomes a restriction in therapy services Continue home medications Spiriva Enbrel immunological biological med brought from home from family and takes every Monday Monitor cardiac and pulmonary systems closely Patient lives alone Prune juice for constipation Diagnosis/Problems Diagnosis/Problems (1) Debility Status: Acute (2) Psoriatic arthritis Status: Chronic (3) Immunosuppression Status: Chronic (4) History of CVA (cerebrovascular accident) Status: Chronic (5) Asthma Status: Chronic Qualifiers: Asthma severity: moderate Asthma persistence: persistent Asthma complication type: unspecified Qualified Codes: J45.40 - Moderate persistent asthma, uncomplicated (6) Cardiac murmur Status: Chronic (7) Compression fracture Status: Chronic (8) Hypertension Status: Chronic Qualifiers: Hypertension type: essential hypertension Qualified Codes: I10 - Essential (primary) hypertension (9) Right anterior shoulder pain Status: Acute (10) Hyponatremia Status: Chronic (11) Weakness Status: Acute (12) Constipation Status: Acute Qualifiers: Constipation type: slow transit constipation Qualified Codes: K59.01 - Slow transit constipation Clinical Quality Measures DVT/VTE Risk/Contraindication: Risk Factor Score Per Nursin RFS Level Per Nursing on Admit: 4+=Very High JANELLE ROBERTS DO Dec 09, 2018 13:20
--- NOTE | 2018-12-09 13:20 | Individualized Plan of Care ---
Individualized Plan of Care Rehab Nursing IPOC Order Admission Date Dec 07, 2018 at 15:13 Current Orders Orders Admission Order(Inpt,Obs,Sdc) (12/07/18 14:18) Vital Signs: Routine (Order) 08,16,00 (12/07/18 14:18) Sequential Compression Device 08,20 (12/07/18 14:18) Laryngologist-Inpt Rehab Con (12/07/18 14:18) Rehab Nursing Orders-Ipoc (12/07/18 14:18) Physical Therapy Rehab Orders (12/07/18 14:18) Occupational Therapy Rehab Ord (12/07/18 14:18) Speech Therapy Rehab Orders (12/07/18 14:18) General/Regular (12/07/18 Dinner) Intake & Output 06,14,22 (12/07/18 14:18) Precautions (Aru) (12/07/18 14:18) Daily Weight 06 (12/07/18 14:18) Weekly Weight (Lbs) WEEK (12/07/18 14:18) Rehab-Intensity Of Therapy (12/07/18 14:18) Code/Resuscitation (12/07/18 14:18) Initiate Admission Nursing Pro .admission (12/07/18 14:18) Acetaminophen Tablet (Tylenol Tablet) (12/07/18 14:30) Alprazolam Tablet (Xanax Tablet) (12/07/18 14:30) Calcium Carbonate Chew Tablet (Antacid C (12/07/18 14:30) Diphenhydramine Tablet (Benadryl Tablet) (12/07/18 14:30) Docusate Sodium Capsule (Colace Capsule) (12/07/18 14:30) Loperamide Capsule (Imodium Capsule) (12/07/18 14:30) Melatonin Tablet (Melatonin Tablet) (12/07/18 14:30) Ondansetron Oral Dissolve Tab (Zofran (12/07/18 14:30) Rx-Tramadol Hcl (Rx-Ultram) (12/07/18 14:30) Cbc With Automated Diff (12/08/18 06:00) Comprehensive Metabolic Panel (12/08/18 06:00) Fluid Restriction (12/07/18 14:18) Tramadol Tablet (Ultram Tablet) (12/07/18 16:15) Ambulate 08,12,20 (12/07/18 17:57) Sequential Compression Device 08,20 (12/07/18 17:57) Dvt/Vte Risk - Notifiy Physici 08 (12/07/18 17:57) Cholecalciferol Capsule/Tablet (Vitamin (12/08/18 08:00) Famotidine Tablet (Pepcid Tablet) (12/07/18 21:00) Senna S Tablet (Senokot S Tablet) (12/07/18 18:00) Clonidine Tablet (Catapres Tablet) (12/07/18 21:00) Paroxetine Tablet (Paxil Tablet) (12/08/18 09:00) Acetaminophen Tablet/Caplet (Tylenol T (12/07/18 17:15) Albuterol/Ipra Inhalation Soln (Duoneb I (12/07/18 17:15) Svn Small Volume Nebulizer (12/07/18 17:13) Amlodipine Tablet (Norvasc Tablet) (12/08/18 09:00) Aspirin Enteric Coated Tablet (Ecotrin T (12/08/18 17:00) Calcium Carbonate Tablet (Calcarb 600 Ta (12/07/18 18:00) Carvedilol Tablet (Coreg Tablet) (12/08/18 07:00) Diclofenac 1% Gel (Voltaren 1% Gel) (12/07/18 21:00) Docusate Sodium Capsule (Colace Capsule) (12/07/18 17:15) Folic Acid Tablet (Folic Acid Tablet) (12/08/18 09:00) Gabapentin Capsule/Tablet (Neurontin Cap (12/07/18 21:00) Albuterol/Ipra Inhalation Soln (Duoneb I (12/07/18 17:15) Svn Small Volume Nebulizer (12/07/18 17:13) Pantoprazole Tablet (Protonix Tablet) (12/08/18 07:00) Loratadine Tablet (Claritin Tablet) (12/08/18 09:00) Losartan Tablet (Cozaar Tablet) (12/08/18 09:00) Montelukast Tablet (Singulair Tablet) (12/07/18 21:00) Therapeutic Multivitamin Tab (Vitamins, (12/08/18 07:00) Niacin Er Tablet (Niaspan Tablet) (12/07/18 21:00) Ondansetron Oral Dissolve Tab (Zofran (12/07/18 17:15) Oxybutynin Tablet (Ditropan Tablet) (12/07/18 21:00) Tramadol Tablet (Ultram Tablet) (12/07/18 17:15) Heart Healthy (12/07/18 Dinner) Heart Healthy (12/07/18 Dinner) Manual Differential (12/08/18 04:30) Patient Visit (12/08/18 ) Pt Elizabeth Moderate Complexity (12/08/18 ) Exercise Therap, Ea 15 Min (12/08/18 ) Gait Training, Ea 15 Min (12/08/18 ) Clonidine Tablet (Catapres Tablet) (12/08/18 11:30) Sarthak Hosian (12/08/18 11:28) Albuterol Pre-Mix Nebs (Rt) (Proventil (12/08/18 15:15) Folic Acid Tablet (Folic Acid Tablet) (12/09/18 09:00) Gabapentin Capsule/Tablet (Neurontin Cap (12/08/18 21:00) Losartan Tablet (Cozaar Tablet) (12/09/18 09:00) Umeclidinium [place] Inhaler (Incruse El (12/09/18 08:00) Svn Small Volume Nebulizer (12/08/18 15:09) Saliva Stimulant Mouth [place] (Biotene Mo (12/09/18 12:45) Patient May Use Own Med,Single (Patient (12/09/18 12:45) Patient's Own Med(Rx Use Only) (Patient' (12/09/18 13:00) Rehab Nursing Orders: Ongoing Assess. of Function Status, Disease Management & Educaiton, Fall Prevention, Fluid/Electrolyte/Nutrition Mgmt, Infection Prevention, Management of Risks & Complications, Safety Management Intensity of Therapy to be met Patient to be seen: Min.3h per day/5 of 7d PT IPOC Problem List: Activity Tolerance, Functional Strength, Safety, Balance, Gait, Transfer, Bed Mobility Treatment Plan: Continue Plan of Care Bed Mobility, Education, Functional Activity Kandi, Functional Strength, Group Therapy, Gait, Safety, Therapeutic Exercise, Transfers Treatment Duration: Dec 01, 2018 Frequency: At least 5 of 7 days/Wk (IRF) Estimated Hrs Per Day: 1.5 hours per day OT IPOC Problems: Decreased Activ Tolerance, Decreased UE Strength, Dependent Transfers , Impaired Self-Care Skills, Restricted Funct UE ROM OT Treatment, Training and Edu: Yes OT Problems Pt would benefit from skilled OT to increase her independence in basic self care. Plan of Care: ADL Retraining, Functional Mobility, Group Exercise/Act as Ind ( education, exercise, functional activity, activity tolerance, funct mobility), UE Funct Exercise/Act, UE Neuromus Re-Ed/Coord Treatment Duration: Dec 29, 2018 Frequency: At least 5 of 7 days/Wk (IRF) Estimated Hrs Per Day: 1.[address] IPOC Speech Therapy Treatment Plan: Modify Plan, See Comments Treatment Duration: Dec 09, 2018 Frequency: Modified Program (IRF) Estimated Hrs Per Day: Other Laryngologist/Case Mgmt Laryngologist/Case Managemen: Discharge Planning Dietitian/Roving Department Supervisor Dietitian/Roving Department Supervisor to monitor nutritional status and make changes and/or recommendations as needed and work with speech pathology on dietary upgrades as the occur. Physician IPOC Medical Issues being managed closely and that require the 24 hour availability of a physician: Moderate persistent asthma will require close monitoring of any exacerbation while restarting all home meds Fall prevention will be managed aggressively Monitor electrolytes and blood pressure levels Medical Issues: Falls Precautions, Fluid/Electrolyte/Nutrition Balance, Infection Protection Brief Synthesis of Preadmission Screen, Post-Admission Evaluation, and Therapy Evaluations: Physical therapy will work on fall prevention and ambulation with a walker Occupational therapy will focus on increasing independent ADLs Medical Prognosis: good Anticipated Length of Stay: 10 days JANELLE ROBERTS DO Dec 09, 2018 13:20
[2018-12-09] MEDS: SALIVA STIMULANT MOUTH SPRAY (BIOTENE) 1.5 OZ MM PRN (16:10)
[2018-12-09] MEDS: ASPIRIN E.C. 325 MG (ECOTRIN) TABLET PO SCH (16:15)
[2018-12-09] MEDS: ENBREL INJECTION SQ SCH (16:28)
[2018-12-09 17:51] VITALS: BP 118/73
[2018-12-09] MEDS: MONTELUKAST 10 MG (SINGULAIR) TAB PO SCH (20:13)
[2018-12-09] MEDS: NIACIN ER (NIASPAN) 500 MG TAB PO SCH (20:13)
[2018-12-09] MEDS: OXYBUTYNIN (DITROPAN) 5 MG TAB PO SCH (20:13)
[2018-12-10] MEDS: ACETAMINOPHEN 325 MG TABLET PO PRN (02:36)
[2018-12-10 05:59] VITALS: BP 119/53
[2018-12-10] MEDS: MULTIVIT W/MINERALS TAB (THERAGRAN M) PO SCH (06:28)
[2018-12-10] MEDS: PANTOPRAZOLE 40 MG (PROTONIX) TAB PO SCH (06:28)
[2018-12-10] MEDS: CALCIUM CARBONATE 600 MG (CALCARB) TAB PO SCH ×2 (06:28→17:38)
[2018-12-10] MEDS: CARVEDILOL 12.5 MG (COREG) TABLET PO SCH ×2 (06:28→17:38)
[2018-12-10] MEDS: UMECLIDINIUM BROMIDE (INCRUSE ELLIPTA) 7'S IH SCH (07:27)
[2018-12-10 08:14] VITALS: BP 114/58
[2018-12-10] MEDS ORDERED: MILK OF MAGNESIA 400 MG/5 ML 30 ML UDC ONE (08:14)
[2018-12-10] MEDS: VITAMIN D3 5,000 UNITS (CHOLECALCIFEROL ) CAPSULE PO SCH (08:18)
[2018-12-10] MEDS: LOSARTAN 100 MG (COZAAR) TABLET PO SCH (08:18)
[2018-12-10] MEDS: amLODIPine 10 MG (NORVASC) TAB PO SCH (08:18)
[2018-12-10] MEDS: PARoxetine 20 MG (PAXIL) TAB PO SCH (08:18)
[2018-12-10] MEDS: FOLIC ACID 1 MG TAB PO SCH (08:18)
[2018-12-10] MEDS: FAMOTIDINE 20 MG (PEPCID) TABLET PO SCH ×2 (08:18→20:52)
[2018-12-10] MEDS: LORATADINE (CLARITIN) 10 MG TAB PO SCH (08:18)
[2018-12-10] MEDS: DICLOFENAC 1% GEL 100 GM (VOLTAREN) TUBE TOP SCH ×4 (08:19→20:55)
[2018-12-10] MEDS: GABAPENTIN 100 MG (NEURONTIN) CAP PO SCH ×2 (08:20→20:52)
--- NOTE | 2018-12-10 08:37 | PM&R Progress Note ---
Subjective HPI/CC On Admission Date Seen by Provider: Dec 10, 2018 Time Seen by Provider: 08:10 CC: Debility HPI: This is an 83-year-old white female clinic patient of Dr. Post in [place] just recently moved from [facility] to [place] to be close to her 2 grandchildren since her daughter is a nurse in [employer] who works may shifts per week and her son lives in [place] and she previously lived in [place] from [id number] who presents after a [facility] stay for 3 days due to severe weakness. Hyponatremia noted acute on chronic while she was there which could be contributing to the weakness (I will stop HCTZ and place on fluid restriction). She had a history of a CVA July 2018 went to [facility] for 3 months and just was discharged to her own home with her grandchildren watching over her. She began having weakness full evaluation included a CT scan and multiple labs revealing no source of weakness so she was placed in physical therapy and found to meet criteria for intensive therapies with inpatient rehabilitation center at [facility] here. She usually sees cardiology for a cardiac murmur and pulmonology for severe asthma and rheumatology for psoriatic arthritis and she is just in the midst of getting that set up since moving to [place] in the last 6 months. Her May 2018. 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 She would like to return to live alone. Subjective/Events-last exam Patient doing very well No BM yet even after prune juice so will initiate milk of magnesia since MiraLAX can be too aggressive for her Review meds Reviewed labs Denies any pain Ready to participate in therapy Still remains a fall risk Review of Systems General: Fatigue Neurological: Weakness Objective Exam Vital Signs Vital Signs Date Time Temp Pulse Resp B/P (MAP) Pulse Ox O2 Delivery O2 Flow Rate FiO2 12/10/18 08:14 66 114/58 (76) 12/10/18 08:00 Room Air 12/10/18 07:27 94 12/10/18 05:59 97.4 18 12/08/18 05:05 0.00 Capillary Refill : General Appearance: No Apparent Distress, WD/WN Neck: Full Range of Motion, Normal Inspection, Non Tender, Supple, Carotid Bruit Respiratory: Chest Non Tender, Lungs Clear, Normal Breath Sounds, No Accessory Muscle Use, No Respiratory Distress Cardiovascular: Regular Rate, Rhythm, No Edema, No Gallop, No JVD, No Murmur, Normal Peripheral Pulses Neurologic/Psychiatric: Alert, Oriented x3, No Motor/Sensory Deficits, Normal Mood/Affect, Motor Weakness (global) Skin: Normal Color, Warm/Dry Results/Procedures Lab Patient resulted labs reviewed. Assessment/Plan Assessment and Plan Assess & Plan/Chief Complaint Assessment: Debility Severe weakness Acute on chronic hyponatremia holding hydrochlorothiazide and placing fluid restriction Moderate persistent asthma usually sees pulmonology Psoriatic arthritis on immunosuppressive biologic managed by rheumatology Chronic cardiac murmur usually sees cardiology History of CVA July 2018 spent 3 months at [facility] Acute right shoulder pain related to therapy last month History of compression fractures of the back 4 times Constipation acute ordering MOM today LILI compliant on CPAP Plan: Start intensive therapies Evaluate right shoulder pain if becomes a restriction in therapy services Continue home medications Spiriva Enbrel immunological biological med brought from home from family and takes every Monday Monitor cardiac and pulmonary systems closely Patient lives alone Prune juice for constipation along with MOM Diagnosis/Problems Diagnosis/Problems (1) Debility Status: Acute (2) Psoriatic arthritis Status: Chronic (3) Immunosuppression Status: Chronic (4) History of CVA (cerebrovascular accident) Status: Chronic (5) Asthma Status: Chronic Qualifiers: Asthma severity: moderate Asthma persistence: persistent Asthma complication type: unspecified Qualified Codes: J45.40 - Moderate persistent asthma, uncomplicated (6) Cardiac murmur Status: Chronic (7) Compression fracture Status: Chronic (8) Hypertension Status: Chronic Qualifiers: Hypertension type: essential hypertension Qualified Codes: I10 - Essential (primary) hypertension (9) Right anterior shoulder pain Status: Acute (10) Hyponatremia Status: Chronic (11) Weakness Status: Acute (12) Constipation Status: Acute Qualifiers: Constipation type: slow transit constipation Qualified Codes: K59.01 - Slow transit constipation (13) LILI on CPAP Status: Chronic Clinical Quality Measures DVT/VTE Risk/Contraindication: Risk Factor Score Per Nursin RFS Level Per Nursing on Admit: 4+=Very High JANELLE ROBERTS DO Dec 10, 2018 08:37
--- NOTE | 2018-12-10 08:55 | ST Cognitive Linguistic Eval ---
Speech Evaluation-General Medical Diagnosis debility Onset Date: Dec 04, 2018 Therapy Diagnosis Therapy Diagnosis: Cognitive-communication Precautions Precautions/Isolations: Fall Prevention, Standard Precautions Medical History Pertinent Medical History: Arthritis (psoriatic), CAD, COPD, CVA (2018), GERD, HTN Reviewed History: Yes Social History Current Living Status: Alone Speech PLF-Current Status Prior Level of Function Patient lived alone prior to her stroke in July,. At that time she was able to take care of most of her daily needs. She has two grown grandchildren who are available to help her as needed. Subjective Patient was pleasant and attentive during the evaluation process. Language Eval: Auditory Comprehends Simple Yes/No Ques: Functional Indent/Objects Multiple [place]: Functional Ident/Pics in Multiple [place]: Functional Follows 1-Step Commands: Functional Follows Complex Directions: Functional Follows General Conversations: Functional Language Eval: Verbal Language Completes Spontaneous Greeting: Functional Produces Auto, Serial Info: Functional Imitates Simple Words/Phrases: Functional Word Finding: Functional Requests Basic Needs: Functional States Basic Personal Info: Functional Expresses Complex Ideas: Functional Cognitive Patient Orientation Patient is oriented to all concepts. Objective Cognitive Domain Attention: WNL Memory: WNL Problem Solving: Functional Executive Functions: WNL Objective Formal/Standardized Tests Wesley Cognitive Assessment (MOCA) Results Visuospatial/Executive: 5/5, Namin/3, Memory: Immediate: 3/3, Delayed: 3/3, Attention: 6/6, Language: 3/3, Abstraction: 2/2, Delayed Recall: 5/5, Orientation: 6/6 Oral Motor/Speech Production W Impression Within Functional Limits Communication/Social Cognition Comprehension: 7 Expression: 7 Social Interaction: 7 Problem Solvin Memory: 7 Speech Patient Assess Expression of Ideas/Wants: Expression (4) Understanding Verbal Content: Understands (4) Brief Interview-Mental Status: Yes Repetition of Three Words: Three (3) Temporal Orientation: Year: Correct (3) Temporal Orientation: Month: Accurate within 5 days(2) Temporal Orientation: Day: Correct (1) Recall : Wear to say "Sock": Yes, no cue required (2) Recall : Color: Yes, no cue required (2) Recall : Bed: Yes, no cue required (2) Memory/Recall Ability: Current season, That he or she is in a hsp/hsp unit Speech-Plan Patient/Family Goals Patient/Family Goals: Patient plans to move to assisted living post rehab. Treatment Plan Speech Therapy Treatment Plan: Discontinue ST, Goals Met Patient is not recommended for skilled ST services at this time. Treatment Duration: Dec 09, 2018 Frequency: Modified Program (IRF) Estimated Hrs Per Day: Other Rehab Potential: Fair Barriers to Learning: Patient is weak. Pt/Family Agrees to Plan: Yes Safety Risks/Education Teaching Recipient: Patient Teaching Methods: Discussion Response to Teaching: Verbalize Understanding Education Topics Provided: Safety within her room. Time Speech Therapy Time In: 08:30 Speech Therapy Time Out: 08:45 Total Billed Time: 15 Billed Treatment Time 1, SPSNDCOMP BRENDA Slater Dec 10, 2018 08:55
[2018-12-10] MEDS ORDERED: MILK OF MAGNESIA 400 MG/5 ML 30 ML UDC PO ONE (09:00)
[2018-12-10] MEDS ORDERED: IPRA3AMP31 IH (10:51)
[2018-12-10] MEDS ORDERED: TRAM50TA2 PO (10:51)
[2018-12-10] MEDS ORDERED: DICL100G18 TP (10:51)
[2018-12-10] MEDS ORDERED: LORA10TA7 PO (10:51)
[2018-12-10] MEDS ORDERED: ONDN4T PO (10:51)
[2018-12-10] MEDS ORDERED: CALC600T12 PO (10:51)
[2018-12-10] MEDS ORDERED: ACET325T38 PO (10:51)
[2018-12-10] MEDS ORDERED: MULT1CAP27 PO (10:51)
[2018-12-10] MEDS ORDERED: DOCU-143 PO (10:51)
[2018-12-10] MEDS ORDERED: ASPI-808 PO (10:51)
--- NOTE | 2018-12-10 11:20 | NUR ---
Pastoral Care Visit.
--- NOTE | 2018-12-10 12:09 | Physical Therapy Daily Note ---
PT Daily Note-Current Subjective Pt had just completed OT and agreed to PT. Pain Numeric Pain Scale: 0-No Pain Location: No Pain Reported Mental Status Patient Orientation: Person, Place, Situation, Normal For Age Transfers Therapy Code Descriptions/Definitions Functional [place] Measure: 0=Not Assessed/NA 4=Minimal Assistance 1=Total Assistance 5=Supervision or Setup 2=Maximal Assistance 6=Modified [place] 3=Moderate Assistance 7=Complete [place] Therapy Quality Codes: 6 Independent with activity with or without an assistive device 5 Patient requires set up or clean up by helper. Patient completes activity by themselves 4 Supervision or touching assist (CGA). [place] provide cues , steadying assist 3 The helper provides less than half the effort to complete the activity 2 The helper provides more than half the effort to complete the activity 1 Dependent. The helper does all the effort to complete an activity 7 Patient refused to complete or attempt activity 9 The patient did not perform the activity before the current illness or injury 88 Not attempted due to Medical conditions or safety concerns Transfers (B, C, W/C) (FIM): 3 Scootin Rollin Roll Left to Right (QC): 3 Supine to/from Sit: 3 Sit to/from Stand: 4 Sit to Lying (QC): 3 Sit to Stand (QC): 4 Weight Bearing Right Lower Extremity: Right Full Weight Bearing Left Lower Extremity: Left Full Weight Bearing Gait Training Does the Patient Walk?: Yes Gait (FIM): 1 Distance (FIM): 1=up to 49 ft Distance: 10' x 4; 15' x 3 Walk 10 feet (QC): 4 Gait Level of Assist: 4 Gait Persons Needed: 1 Gait Assistive Device: FWW Exercises Standing: Sit to Stand Standing Reps: 10 Assessment Current Status: Fair Progress Pt ranges during sit<>stand transfers from min A to CGA. Pt is mod A in bed mobility due to weakness. Pt was able to perform 2x5 of sit<>sweeping compound blender parallel bars. Pt was able to amb with FWW or in parallel bars and w/c follow close behind for 10' x4 and 15' x3. Pt with all amb needed CGA and VC for posture. Pt returned to room and is in bed with all needs met. PT Short Term Goals Short Term Goals Wheelchair Distance: 15' PT Primary Montessori Teacher Goals Shelter Goals PT Primary Montessori Teacher Goals Time Frame: Dec 29, 2018 Transfers (B,C,W/C) (FIM): 5 Sit to Lying (QC): 5 Lying-Sitting on Side/Bed(QC): 5 Sit to Stand (QC): 5 Rollin Roll Left to Right (QC): 5 Chair/Jvb-bn-Ndnkc Xfer(QC): 5 Car Transfer (QC): 5 Does the Patient Walk: Yes Gait (FIM): 2 Distance: 125' Walk 10 feet (QC): 5 Walk 10ft-Uneven Surface(QC): 5 Walk 50ft with 2 Turns (QC): 5 Walk 150 ft (QC): 88 Gait Level of Assist: 5 Gait Assistive Device: Walker 4 Wheeled, FWW Wheelchair (FIM): 2 Wheelchair distance (FIM): 1=up to 49 ft Distance: 100' Wheelchair Level of Assist: 5 Wheel 50 feet with 2 turns (QC: 5 Stairs (FIM): 1 PT Plan Problem List Problem List: Activity Tolerance, Functional Strength, Safety, Balance, Gait, Transfer, Bed Mobility, ROM Treatment/Plan Treatment Plan: Continue Plan of Care Treatment Plan: Bed Mobility, Education, Functional Activity Kandi, Functional Strength, Group Therapy, Gait, Safety, Therapeutic Exercise, Transfers Treatment Duration: Dec 01, 2018 Frequency: At least 5 of 7 days/Wk (IRF) Estimated Hrs Per Day: 1.5 hours per day Patient and/or Family Agrees t: Yes Time/GCodes Time In: 1100 Time Out: 1200 Total Billed Treatment Time: 60 Total Billed Treatment 1 visit FA x2 30 min GT x2 30 min NU LITTLE PT Dec 10, 2018 12:09
--- NOTE | 2018-12-10 12:12 | NUR ---
Initial Assessment Met with patient to discuss the inpatient rehab program. Patient confirms she was living at home alone prior to this admission. She lives in a single story home with a ramped entrance. She had in-home assistance approximately 9 hours/week for cleaning, laundry and cooking. 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 She reports her granddaughter is able to assist at discharge; however, she does work during the day. Patient is agreeable to participate in therapy. Her discharge goal is to return home.
--- NOTE | 2018-12-10 13:11 | Occupational Ther Daily Note ---
OT Current Status-Daily Note Subjective Pt in a room . Ready for OT. Pt stated , " my Rt shoulder is hurting today." Pain Numeric Pain Scale: 5-Moderate Pain Location: Right Location Body Site: Shoulder Pain Description: Ache, Throbbing Mental Status/Objective Patient Orientation: Person, Place, Time Therapy Code Descriptions/Definitions Functional [place] Measure: 0=Not Assessed/NA 4=Minimal Assistance 1=Total Assistance 5=Supervision or Setup 2=Maximal Assistance 6=Modified [place] 3=Moderate Assistance 7=Complete [place] Attachments: IV ADL-Treatment Pt seen for ADL retraining with AD, func TT, Bed mobility, trunk balancing ex & theraex BUE . Pt participated in shower retraining , LB undressing & doffing of socks with dressing stick, Pt needs min A shampoo & washing face, hairs, neck front & back, trunk front & back, perineals, buttocks, UE & LE with min A. Pt dry her body with towels with min A & paige bra, gown , with min A. Participated in strengthening ex 15 reps x 2 setsx 1 lb wts, 20 reps with red theraband & 20 reps with hand grippers Pt fatigue soon needs frequent rest periods . Therapy Code Descriptions/Definitions Functional [place] Measure: 0=Not Assessed/NA 4=Minimal Assistance 1=Total Assistance 5=Supervision or Setup 2=Maximal Assistance 6=Modified [place] 3=Moderate Assistance 7=Complete [place] Therapy Quality Codes: 6 Independent with activity with or without an assistive device 5 Patient requires set up or clean up by helper. Patient completes activity by themselves 4 Supervision or touching assist (CGA). [place] provide cues , steadying assist 3 The helper provides less than half the effort to complete the activity 2 The helper provides more than half the effort to complete the activity 1 Dependent. The helper does all the effort to complete an activity 7 Patient refused to complete or attempt activity 9 The patient did not perform the activity before the current illness or injury 88 Not attempted due to Medical conditions or safety concerns Eating (FIM): 7 Eating (QC): 6 Grooming (FIM): 5 Oral Hygiene (QC): 5 Bathing (FIM): 4 Bathing Location: L Arm, R Arm, L Upper Leg, R Upper Leg, L Lower Leg ( including foot), R Lower Leg (including foot), Chest, Abdomen, Buttocks, Perineal Area Shower/Bathe Self (QC): 4 Upper Body (FIM): 4 Upper Body Dressing (QC): 4 Lower Body Dressing (FIM): 3 Lower Body Dressing (QC): 3 On/Off Footwear (QC): 4 Toileting (FIM): 4 Toileting Hygiene (QC): 4 Transfers (B, C, W/C) (FIM): 4 Toilet/Commode Transfer (FIM): 4 Toilet Transfer (QC): 4 Tub Transfer(FIM): 0 Shower Transfer(FIM): 4 Education OT Patient Education: Correct positioning, Energy conservation, Modified ADL techniques, Safety issues, Transfer techniques Teaching Recipient: Patient Teaching Methods: Demonstration, Discussion Response to Teaching: Verbalize Understanding, Return Demonstration OT Short Term Goals Short Term Goals Time Frame: Dec 15, 2018 Eating(FIM): 7 Grooming(FIM): 6 (w/c level) Toilet/Commode Transfer(FIM): 3 Additional Short Term Goals: 1-Demonstrate ADL Tasks, 2-Verbalize Understanding , 3-ImproveStrength/Kandi 1=Demonstrate adherence to instructed precautions during ADL tasks. 2=Patient will verbalize/demonstrate understanding of assistive devices/ modifications for ADL. 3=Patient will improve strength/tolerance for activity to enable patient to perform ADL's. OT Jail Goals Jail Goals Time Frame: Dec 29, 2018 Eating (FIM): 7 Eating (QC): 6 Groomin Oral Hygiene (QC): 6 Bathing(FIM): 6 Shower/Bathe Self (QC): 6 Upper Body Dressing(FIM): 6 Upper Body Dressing (QC): 6 Lower Body Dressing(FIM): 6 Lower Body Dressing (QC): 6 On/Off Footwear (QC): 6 Toileting(FIM): 6 Toileting Hygiene (QC): 6 Toilet/Commode Transfer(FIM): 6 Toilet/Commode Transfer (QC): 6 Shower Transfer(FIM): 6 Additional Goals: 1-Demonstrate ADL Tasks, 2-Verbalize Understanding, 3- ImproveStrength/Kandi 1=Demonstrate adherence to instructed precautions during ADL tasks. 2=Patient will verbalize/demonstrate understanding of assistive devices/ modifications for ADL. 3=Patient will improve strength/tolerance for activity to enable patient to perform ADL's. OT Education/Plan Problem List/Assessment Assessment: Decreased Activ Tolerance, Decreased Safety Aware, Decreased UE Strength, Dependent Transfers, Impaired Bed Mobility, Impaired Funct Balance, Impaired Self-Care Skills Pt would benefit from skilled OT to increase her independence in basic self care. Discharge Recommendations Plan/Recommendations: Continue POC Therapy D/C Recommendations: Home w/ Family Support Equpiment Recommendations-D/C: Bath Chair, Extended Shower Sprayer, Bottle House Cleaners Supervisor, Dressing Stick, [place] Barriers to Progress Fatigue soon, aging , weakness, Patient/Family Goals To return home Independently with AD . Treatment Plan/Plan of Care Treatment,Training & Education: Yes Patient would benefit from OT for education, treatment and training to promote independence in ADL's, mobility, safety and/or upper extremity function for ADL' s. Plan of Care: ADL Retraining, Functional Mobility, Group Exercise/Act as Ind ( education, exercise, functional activity, activity tolerance, funct mobility), UE Funct Exercise/Act, UE Neuromus Re-Ed/Coord Treatment Duration: Dec 29, 2018 Frequency: At least 5 of 7 days/Wk (IRF) Estimated Hrs Per Day: 1.5 hours per day Agreement: Yes Rehab Potential: Fair Time/GCodes Start Time: 10:00 Stop Time: 12:30 Total Time Billed (hr/min): 90 ([id number]=60 min & [id number] 30 min Total 90 min) Billed Treatment Time 1, ADLs 60 min , Ex 30 min Total 90 min EMELY CURRAN OT Dec 10, 2018 13:11
--- NOTE | 2018-12-10 14:48 | Physical Therapy Daily Note ---
PT Daily Note-Current Subjective Pt was asleep in bed and was awaken by knocking. Pt agreed to PT. Pt reported she needed to use restroom before we began. Pain Numeric Pain Scale: 0-No Pain Location: No Pain Reported Mental Status Patient Orientation: Person, Place, Situation, Normal For Age Transfers Therapy Code Descriptions/Definitions Functional [place] Measure: 0=Not Assessed/NA 4=Minimal Assistance 1=Total Assistance 5=Supervision or Setup 2=Maximal Assistance 6=Modified [place] 3=Moderate Assistance 7=Complete [place] Therapy Quality Codes: 6 Independent with activity with or without an assistive device 5 Patient requires set up or clean up by helper. Patient completes activity by themselves 4 Supervision or touching assist (CGA). [place] provide cues , steadying assist 3 The helper provides less than half the effort to complete the activity 2 The helper provides more than half the effort to complete the activity 1 Dependent. The helper does all the effort to complete an activity 7 Patient refused to complete or attempt activity 9 The patient did not perform the activity before the current illness or injury 88 Not attempted due to Medical conditions or safety concerns Transfers (B, C, W/C) (FIM): 4 Scootin Rollin Roll Left to Right (QC): 5 Supine to/from Sit: 4 Sit to/from Stand: 4 Sit to Stand (QC): 4 Weight Bearing Right Lower Extremity: Right Full Weight Bearing Left Lower Extremity: Left Full Weight Bearing Gait Training Does the Patient Walk?: Yes Gait (FIM): 1 Distance (FIM): 1=up to 49 ft Distance: 15'x1 25'x1 Walk 10 feet (QC): 4 Gait Level of Assist: 4 Gait Persons Needed: 1 Gait Assistive Device: FWW Wheelchair Training Does the Pt Use a Wheelchair?: Yes Wheelchair (FIM): 0 Wheelchair Distance: 0=does not occure Type of Wheelchair: Manual PT manually pushes w/c Assessment Current Status: Fair Progress Pt was able to transfer from EOB to w/c with min A. Pt performed bathroom skills with min A. Pt was able to transfer from toile to w/c with min A. Pt then was able to amb 15' with FWW with CGA and w/c followed closely behind. Pts sit<>stand transfer is min A. Pt required sitting recovery periods in between amb. Pt was able to amb 25' with FWW and CGA with w/c followed behind. Pt was returned to room in w/c with all needs met. PT Short Term Goals Short Term Goals Wheelchair Distance: 15' PT Boat Finisher Goals Fdc Goals PT Fdc Goals Time Frame: Dec 29, 2018 Transfers (B,C,W/C) (FIM): 5 Sit to Lying (QC): 5 Lying-Sitting on Side/Bed(QC): 5 Sit to Stand (QC): 5 Rollin Roll Left to Right (QC): 5 Chair/Xxf-yi-Hwivm Xfer(QC): 5 Car Transfer (QC): 5 Does the Patient Walk: Yes Gait (FIM): 2 Distance: 125' Walk 10 feet (QC): 5 Walk 10ft-Uneven Surface(QC): 5 Walk 50ft with 2 Turns (QC): 5 Walk 150 ft (QC): 88 Gait Level of Assist: 5 Gait Assistive Device: Walker 4 Wheeled, FWW Wheelchair (FIM): 2 Wheelchair distance (FIM): 1=up to 49 ft Distance: 100' Wheelchair Level of Assist: 5 Wheel 50 feet with 2 turns (QC: 5 Stairs (FIM): 1 PT Plan Problem List Problem List: Activity Tolerance, Functional Strength, Safety, Balance, Gait, Transfer, Bed Mobility, ROM Treatment/Plan Treatment Plan: Continue Plan of Care Treatment Plan: Bed Mobility, Education, Functional Activity Kandi, Functional Strength, Group Therapy, Gait, Safety, Therapeutic Exercise, Transfers Treatment Duration: Dec 01, 2018 Frequency: At least 5 of 7 days/Wk (IRF) Estimated Hrs Per Day: 1.5 hours per day Patient and/or Family Agrees t: Yes Time/GCodes Time In: 1330 Time Out: 1400 Total Billed Treatment Time: 30 Total Billed Treatment 1 visit GT 15 min FA 15 min NU LITTLE PT Dec 10, 2018 14:47
[2018-12-10 17:37] VITALS: BP 137/67
[2018-12-10] MEDS: ASPIRIN E.C. 325 MG (ECOTRIN) TABLET PO SCH (17:39)
[2018-12-10] MEDS: MONTELUKAST 10 MG (SINGULAIR) TAB PO SCH (20:52)
[2018-12-10] MEDS: OXYBUTYNIN (DITROPAN) 5 MG TAB PO SCH (20:52)
[2018-12-10] MEDS: NIACIN ER (NIASPAN) 500 MG TAB PO SCH (20:52)
[2018-12-11] MEDS: ACETAMINOPHEN 325 MG TABLET PO PRN (03:15)
[2018-12-11 05:25] VITALS: BP 124/70
[2018-12-11] MEDS: UMECLIDINIUM BROMIDE (INCRUSE ELLIPTA) 7'S IH SCH (06:18)
[2018-12-11] MEDS: CARVEDILOL 12.5 MG (COREG) TABLET PO SCH ×2 (06:29→16:56)
[2018-12-11] MEDS: PANTOPRAZOLE 40 MG (PROTONIX) TAB PO SCH (06:29)
[2018-12-11] MEDS: MULTIVIT W/MINERALS TAB (THERAGRAN M) PO SCH (06:29)
[2018-12-11] MEDS: CALCIUM CARBONATE 600 MG (CALCARB) TAB PO SCH ×2 (06:29→16:56)
--- NOTE | 2018-12-11 08:28 | PM&R Progress Note ---
Subjective HPI/CC On Admission Date Seen by Provider: Dec 11, 2018 Time Seen by Provider: 08:35 CC: Debility HPI: This is an 83-year-old white female clinic patient of Dr. Post in [place] just recently moved from [facility] to [place] to be close to her 2 grandchildren since her daughter is a nurse in [employer] who works may shifts per week and her son lives in [place] and she previously lived in [place] from [id number] who presents after a [facility] stay for 3 days due to severe weakness. Hyponatremia noted acute on chronic while she was there which could be contributing to the weakness (I will stop HCTZ and place on fluid restriction). She had a history of a CVA July 2018 went to [facility] for 3 months and just was discharged to her own home with her grandchildren watching over her. She began having weakness full evaluation included a CT scan and multiple labs revealing no source of weakness so she was placed in physical therapy and found to meet criteria for intensive therapies with inpatient rehabilitation center at [facility] here. She usually sees cardiology for a cardiac murmur and pulmonology for severe asthma and rheumatology for psoriatic arthritis and she is just in the midst of getting that set up since moving to [place] in the last 6 months. Her May 2018. 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 She would like to return to live alone. Subjective/Events-last exam Incontinence noted because it is hard for her to get around Unsure of how much she can succeed in inpatient rehab May need [place] [facility] Still needs a bowel movement so we'll aggressively treat that Low grade fever at 99.6 Crackles noted in the right lower lobe so will initiate IS and nebulizer treatments twice daily of Albuterol Checking CBC CMP due to hyponatremia Participating in therapy Right shoulder pain so will consult Dr Duff and he has requested xrays so those were ordered for hime Review of Systems General: Fatigue Genitourinary: Incontinence Musculoskeletal: arm pain Objective Exam Vital Signs Vital Signs Date Time Temp Pulse Resp B/P (MAP) Pulse Ox O2 Delivery O2 Flow Rate FiO2 12/11/18 19:17 94 Room Air 12/11/18 17:52 97.6 71 20 127/52 (77) 12/08/18 05:05 0.00 Capillary Refill : General Appearance: No Apparent Distress, WD/WN Respiratory: Chest Non Tender, Normal Breath Sounds, No Accessory Muscle Use, No Respiratory Distress, Crackles (RLL) Cardiovascular: Regular Rate, Rhythm, No Edema, No Gallop, No JVD, No Murmur, Normal Peripheral Pulses Neurologic/Psychiatric: Alert, Oriented x3, No Motor/Sensory Deficits, Normal Mood/Affect Skin: Normal Color, Warm/Dry Results/Procedures Lab Laboratory Tests 12/11/18 09:14 Patient resulted labs reviewed. Assessment/Plan Assessment and Plan Assess & Plan/Chief Complaint Assessment: Debility Severe weakness due to CVA 07/31 and hyponatremia and psoriatic arthritis Acute on chronic hyponatremia holding hydrochlorothiazide and placing fluid restriction and sodium level decreased to 131 Moderate persistent asthma usually sees pulmonology and noted crackles RLL so start Nebs and IS Psoriatic arthritis on immunosuppressive biologic managed by rheumatology Chronic cardiac murmur usually sees cardiology History of CVA July 2018 spent 3 months at [facility] Acute right shoulder pain related to therapy last month History of compression fractures of the back 4 times Constipation acute ordering more meds today LILI compliant on CPAP Plan: Start intensive therapies Evaluate right shoulder pain with xrays and consult Dr Duff because it is causing a restriction in therapy services Continue home medications Spiriva Enbrel immunological biological med brought from home from family and takes every Monday Monitor cardiac and pulmonary systems closely Patient lives alone Prune juice for constipation along with more meds Monitor incontinence IS Nebs monitor crackles RLL Diagnosis/Problems Diagnosis/Problems (1) Debility Status: Acute (2) Psoriatic arthritis Status: Chronic (3) Immunosuppression Status: Chronic (4) History of CVA (cerebrovascular accident) Status: Chronic (5) Asthma Status: Chronic Qualifiers: Asthma severity: moderate Asthma persistence: persistent Asthma complication type: unspecified Qualified Codes: J45.40 - Moderate persistent asthma, uncomplicated (6) Cardiac murmur Status: Chronic (7) Compression fracture Status: Chronic (8) Hypertension Status: Chronic Qualifiers: Hypertension type: essential hypertension Qualified Codes: I10 - Essential (primary) hypertension (9) Right anterior shoulder pain Status: Acute (10) Hyponatremia Status: Chronic (11) Weakness Status: Acute (12) Constipation Status: Acute Qualifiers: Constipation type: slow transit constipation Qualified Codes: K59.01 - Slow transit constipation (13) LILI on CPAP Status: Chronic (14) Lung crackles Status: Acute (15) Shoulder pain, right Status: Acute Qualifiers: Chronicity: acute Qualified Codes: M25.511 - Pain in right shoulder (16) Incontinence Status: Chronic Qualifiers: Incontinence type: urinary Urinary Incontinence type: unspecified incontinence Qualified Codes: R32 - Unspecified urinary incontinence Clinical Quality Measures DVT/VTE Risk/Contraindication: Risk Factor Score Per Nursin RFS Level Per Nursing on Admit: 4+=Very High JANELLE ROBERTS DO Dec 11, 2018 08:28
[2018-12-11 09:21] LABS: BASOPHILS % (AUTO) 0 % (0-10); EOSINOPHILS # (AUTO) 0.3 10^3/uL (0.0-0.3); EOSINOPHILS % (AUTO) 3 % (0-10); HEMATOCRIT 33 % (35-52); LYMPHOCYTES # (AUTO) 1.5 X 10^3 (1.0-4.0); LYMPHOCYTES % (AUTO) 14 % (12-44); MEAN CORPUSCULAR HEMOGLOBIN 31 PG (25-34); MEAN CORPUSCULAR HGB CONC 33 G/DL (32-36); MEAN CORPUSCULAR VOLUME 94 FL (80-99); MEAN PLATELET VOLUME 8.3 FL (7.4-10.4); MONOCYTES # (AUTO) 1.1 X 10^3 (0.0-1.0); MONOCYTES % (AUTO) 10 % (0-12); NEUTROPHILS % (AUTO) 73 % (42-75); PLATELET COUNT 217 10^3/uL (130-400); RED CELL DISTRIBUTION WIDTH 14.7 % (10.0-14.5); WHITE BLOOD COUNT 10.8 10^3/uL (4.3-11.0)
[2018-12-11 09:26] VITALS: BP 116/65
[2018-12-11] MEDS: FAMOTIDINE 20 MG (PEPCID) TABLET PO SCH (09:28)
[2018-12-11] MEDS: LORATADINE (CLARITIN) 10 MG TAB PO SCH (09:28)
[2018-12-11] MEDS: LOSARTAN 100 MG (COZAAR) TABLET PO SCH (09:28)
[2018-12-11] MEDS: GABAPENTIN 100 MG (NEURONTIN) CAP PO SCH ×2 (09:28→20:56)
[2018-12-11] MEDS: VITAMIN D3 5,000 UNITS (CHOLECALCIFEROL ) CAPSULE PO SCH (09:28)
[2018-12-11] MEDS: PARoxetine 20 MG (PAXIL) TAB PO SCH (09:28)
[2018-12-11] MEDS: amLODIPine 10 MG (NORVASC) TAB PO SCH (09:28)
[2018-12-11] MEDS: FOLIC ACID 1 MG TAB PO SCH (09:28)
[2018-12-11] MEDS: DICLOFENAC 1% GEL 100 GM (VOLTAREN) TUBE TOP SCH ×4 (09:30→20:57)
[2018-12-11 09:40] LABS: ALBUMIN 3.5 GM/DL (3.2-4.5); BILIRUBIN,TOTAL 1.3 MG/DL (0.1-1.0); CALCIUM 9.9 MG/DL (8.5-10.1); CREATININE SERUM 1.17 MG/DL (0.60-1.30); POTASSIUM 4.5 MMOL/L (3.6-5.0); TOTAL PROTEIN 6.6 GM/DL (6.4-8.2)
--- NOTE | 2018-12-11 11:24 | Diagnostic Imaging Report ---
Indication: Pain Findings: Postsurgical changes of the proximal humerus present. No hardware fracture. There is advanced arthritic changes to the glenohumeral joint as well as degenerative changes to the AC joint. IMPRESSION: Severe arthritis. No acute bony or hardware fracture identified. Dictated by: Dictated on workstation # [id number]
--- NOTE | 2018-12-11 11:58 | Physical Therapy Daily Note ---
PT Daily Note-Current Subjective Patient in bed pre tx, agrees to PT reluctantly, has pain of 4/10 in arms, legs , and low back. Appearance Patient BTB post tx with nurse call, phone, tray, all needs met. Mental Status Patient Orientation: Person, Place, Situation Transfers Therapy Code Descriptions/Definitions Functional [place] Measure: 0=Not Assessed/NA 4=Minimal Assistance 1=Total Assistance 5=Supervision or Setup 2=Maximal Assistance 6=Modified [place] 3=Moderate Assistance 7=Complete [place] Therapy Quality Codes: 6 Independent with activity with or without an assistive device 5 Patient requires set up or clean up by helper. Patient completes activity by themselves 4 Supervision or touching assist (CGA). [employer] provide cues , steadying assist 3 The helper provides less than half the effort to complete the activity 2 The helper provides more than half the effort to complete the activity 1 Dependent. The helper does all the effort to complete an activity 7 Patient refused to complete or attempt activity 9 The patient did not perform the activity before the current illness or injury 88 Not attempted due to Medical conditions or safety concerns Transfers (B, C, W/C) (FIM): 3 Scootin Rollin Supine to/from Sit: 3 Bed to/from Chair: 4 Weight Bearing Right Lower Extremity: Right Full Weight Bearing Left Lower Extremity: Left Full Weight Bearing Gait Training Gait (FIM): 1 Distance: 12'x2 Gait Level of Assist: 4 Gait Persons Needed: 1 Gait Assistive Device: FWW Patient needs wheelchair follow. Patient ambulates very slowly, has significant [place] gait and states that it feels like her left knee will buckle. Exercises Seated Therapy Exercises: Ankle pumps, Hip flexion, Hip abd/add Seated Reps: 20 LAQ alternating for 5 min Treatments bed mobility and transfers, ambulation, functional strengthening Assessment Current Status: Poor Progress Patient has poor endurance and poor motivation. Performs all activities and mobility extremely slowly. PT Shelter Goals Pipe Fitter Soft Copper Goals PT Shelter Goals Time Frame: Dec 29, 2018 Transfers (B,C,W/C) (FIM): 5 Sit to Lying (QC): 5 Lying-Sitting on Side/Bed(QC): 5 Sit to Stand (QC): 5 Rollin Roll Left to Right (QC): 5 Chair/Pyk-zu-Oagxc Xfer(QC): 5 Car Transfer (QC): 5 Does the Patient Walk: Yes Gait (FIM): 2 Distance: 125' Walk 10 feet (QC): 5 Walk 10ft-Uneven Surface(QC): 5 Walk 50ft with 2 Turns (QC): 5 Walk 150 ft (QC): 88 Gait Level of Assist: 5 Gait Assistive Device: Walker 4 Wheeled, FWW Wheelchair (FIM): 2 Wheelchair distance (FIM): 1=up to 49 ft Distance: 100' Wheelchair Level of Assist: 5 Wheel 50 feet with 2 turns (QC: 5 Stairs (FIM): 1 PT Plan Problem List Problem List: Activity Tolerance, Functional Strength, Safety, Balance, Gait, Transfer, Bed Mobility, ROM Treatment/Plan Treatment Plan: Continue Plan of Care Treatment Plan: Bed Mobility, Education, Functional Activity Kandi, Functional Strength, Group Therapy, Gait, Safety, Therapeutic Exercise, Transfers Treatment Duration: Dec 01, 2018 Frequency: At least 5 of 7 days/Wk (IRF) Estimated Hrs Per Day: 1.5 hours per day Patient and/or Family Agrees t: Yes Safety Risks/Education Patient Education: Gait Training, Transfer Techniques, Correct Positioning, Safety Issues Teaching Recipient: Patient Teaching Methods: Demonstration, Discussion Response to Teaching: Reinforcement Needed Time/GCodes Time In: 1100 Time Out: 1200 Total Billed Treatment Time: 60 Total Billed Treatment 1 visit EX 15' GT 20' FA 25' KATELYN CHANDRA PT Dec 11, 2018 11:58
--- NOTE | 2018-12-11 12:49 | Occupational Ther Daily Note ---
OT Current Status-Daily Note Subjective Pt agreeable to treatment this am. Pt reports chronic pain in back and right UE , but does not rate. Mental Status/Objective Therapy Code Descriptions/Definitions Functional [place] Measure: 0=Not Assessed/NA 4=Minimal Assistance 1=Total Assistance 5=Supervision or Setup 2=Maximal Assistance 6=Modified [place] 3=Moderate Assistance 7=Complete [place] ADL-Treatment Pt declined shower or sponge bath this morning. States she got cleaned up, dressed, and completed grooming with assist from nursing already today. Reviewed use of adaptive equipment for LE dressing. Pt able to doff socks with SBA using dressing stick. Pt donned socks with SBA and increased time using sock aid. Don right shoe with SBA. Pt required minimal assistance to don left shoe. Sit to stand with minimal assistance. Pt states she doesn't feel like she can ambulate to bathroom at this time secondary to weakness and fatigue. Transfer to w/c with minimal assistance using FWW. To restroom via w/c. Transfer w/c<-> toilet with minimal assistance using grab bars for safety. Pt able to complete toileting hygiene, but requires assist for clothing management. Sat at sink to wash hands with SBA. Therapy Code Descriptions/Definitions Functional [place] Measure: 0=Not Assessed/NA 4=Minimal Assistance 1=Total Assistance 5=Supervision or Setup 2=Maximal Assistance 6=Modified [place] 3=Moderate Assistance 7=Complete [place] Therapy Quality Codes: 6 Independent with activity with or without an assistive device 5 Patient requires set up or clean up by helper. Patient completes activity by themselves 4 Supervision or touching assist (CGA). [place] provide cues , steadying assist 3 The helper provides less than half the effort to complete the activity 2 The helper provides more than half the effort to complete the activity 1 Dependent. The helper does all the effort to complete an activity 7 Patient refused to complete or attempt activity 9 The patient did not perform the activity before the current illness or injury 88 Not attempted due to Medical conditions or safety concerns Eating (FIM): 6 (Pt able to open containers and feed self) On/Off Footwear (QC): 3 Toileting (FIM): 2 Toilet/Commode Transfer (FIM): 4 Toilet Transfer (QC): 3 Other Treatment Pt completed UE activity to increase strength and activity tolerance needed for functional task completion. Pt performed left elbow flex/ext x15 reps with minimal resistance theraband. Bilateral hand tack driller exercises x20 reps with moderate resistance therapy foam. Pt complete putty activity with bilateral hands to increase strength and manipulation skills. Pt able to remove small beads from putty with increased time. Pt performed sit to stand x5 trials to increase safety for transfers. Pt requires skilled cues for safety. Transfer chair to EOB with minimal assistance using FWW. Sit to supine with assist for LE. Pt resting in bed with needs met after session. OT Short Term Goals Short Term Goals Time Frame: Dec 15, 2018 Eating(FIM): 7 Grooming(FIM): 6 (w/c level) Toilet/Commode Transfer(FIM): 3 Additional Short Term Goals: 1-Demonstrate ADL Tasks, 2-Verbalize Understanding , 3-ImproveStrength/Kandi 1=Demonstrate adherence to instructed precautions during ADL tasks. 2=Patient will verbalize/demonstrate understanding of assistive devices/ modifications for ADL. 3=Patient will improve strength/tolerance for activity to enable patient to perform ADL's. OT Care Home Goals Care Home Goals Time Frame: Dec 29, 2018 Eating (FIM): 7 Eating (QC): 6 Groomin Oral Hygiene (QC): 6 Bathing(FIM): 6 Shower/Bathe Self (QC): 6 Upper Body Dressing(FIM): 6 Upper Body Dressing (QC): 6 Lower Body Dressing(FIM): 6 Lower Body Dressing (QC): 6 On/Off Footwear (QC): 6 Toileting(FIM): 6 Toileting Hygiene (QC): 6 Toilet/Commode Transfer(FIM): 6 Toilet/Commode Transfer (QC): 6 Shower Transfer(FIM): 6 Additional Goals: 1-Demonstrate ADL Tasks, 2-Verbalize Understanding, 3- ImproveStrength/Kandi 1=Demonstrate adherence to instructed precautions during ADL tasks. 2=Patient will verbalize/demonstrate understanding of assistive devices/ modifications for ADL. 3=Patient will improve strength/tolerance for activity to enable patient to perform ADL's. OT Education/Plan Discharge Recommendations Plan/Recommendations: Continue POC Treatment Plan/Plan of Care Patient would benefit from OT for education, treatment and training to promote independence in ADL's, mobility, safety and/or upper extremity function for ADL' s. Plan of Care: ADL Retraining, Functional Mobility, Group Exercise/Act as Ind ( education, exercise, functional activity, activity tolerance, funct mobility), UE Funct Exercise/Act, UE Neuromus Re-Ed/Coord Treatment Duration: Dec 29, 2018 Frequency: At least 5 of 7 days/Wk (IRF) Estimated Hrs Per Day: 1.5 hours per day Agreement: Yes Rehab Potential: Fair Time/GCodes Start Time: 09:00 Stop Time: 10:30 Total Time Billed (hr/min): 90 Billed Treatment Time 1 visit, ADLx2(35minutes), FAx2(30minutes), EXx2(25minutes) DALILA FOLEY OT Dec 11, 2018 12:49
[2018-12-11] MEDS: DOCUSATE SODIUM 100 MG (COLACE) CAP PO PRN (13:48)
--- NOTE | 2018-12-11 15:04 | Physical Therapy Daily Note ---
PT Daily Note-Current Subjective Patient in wheelchair at bedside pre tx, agrees to PT, no complaints of pain. Appearance Patient in bed post tx with nurse call, phone, tray, all needs met. Mental Status Patient Orientation: Person, Place, Situation Transfers Therapy Code Descriptions/Definitions Functional [place] Measure: 0=Not Assessed/NA 4=Minimal Assistance 1=Total Assistance 5=Supervision or Setup 2=Maximal Assistance 6=Modified [place] 3=Moderate Assistance 7=Complete [place] Therapy Quality Codes: 6 Independent with activity with or without an assistive device 5 Patient requires set up or clean up by helper. Patient completes activity by themselves 4 Supervision or touching assist (CGA). [place] provide cues , steadying assist 3 The helper provides less than half the effort to complete the activity 2 The helper provides more than half the effort to complete the activity 1 Dependent. The helper does all the effort to complete an activity 7 Patient refused to complete or attempt activity 9 The patient did not perform the activity before the current illness or injury 88 Not attempted due to Medical conditions or safety concerns Transfers (B, C, W/C) (FIM): 3 Scootin Rollin Supine to/from Sit: 3 Sit to/from Stand: 4 Bed to/from Chair: 4 Patient performs bed mobility and transfers extremely slowly, needs a lot of extra time for this Weight Bearing Right Lower Extremity: Right Full Weight Bearing Left Lower Extremity: Left Full Weight Bearing Exercises NuStep Minutes: 15 NuStep Workload: 4 Treatments bed mobility and transfers, functional strengthening Assessment Current Status: Poor Progress extremely slow with all mobility PT Eyeglass Lens Grinder Goals Half-Way Goals PT Eyeglass Lens Grinder Goals Time Frame: Dec 29, 2018 Transfers (B,C,W/C) (FIM): 5 Sit to Lying (QC): 5 Lying-Sitting on Side/Bed(QC): 5 Sit to Stand (QC): 5 Rollin Roll Left to Right (QC): 5 Chair/Bpw-cq-Woksz Xfer(QC): 5 Car Transfer (QC): 5 Does the Patient Walk: Yes Gait (FIM): 2 Distance: 125' Walk 10 feet (QC): 5 Walk 10ft-Uneven Surface(QC): 5 Walk 50ft with 2 Turns (QC): 5 Walk 150 ft (QC): 88 Gait Level of Assist: 5 Gait Assistive Device: Walker 4 Wheeled, FWW Wheelchair (FIM): 2 Wheelchair distance (FIM): 1=up to 49 ft Distance: 100' Wheelchair Level of Assist: 5 Wheel 50 feet with 2 turns (QC: 5 Stairs (FIM): 1 PT Plan Problem List Problem List: Activity Tolerance, Functional Strength, Safety, Balance, Gait, Transfer, Bed Mobility, ROM Treatment/Plan Treatment Plan: Continue Plan of Care Treatment Plan: Bed Mobility, Education, Functional Activity Kandi, Functional Strength, Group Therapy, Gait, Safety, Therapeutic Exercise, Transfers Treatment Duration: Dec 01, 2018 Frequency: At least 5 of 7 days/Wk (IRF) Estimated Hrs Per Day: 1.5 hours per day Patient and/or Family Agrees t: Yes Safety Risks/Education Patient Education: Transfer Techniques, Correct Positioning, Safety Issues Teaching Recipient: Patient Teaching Methods: Demonstration, Discussion Response to Teaching: Reinforcement Needed Time/GCodes Time In: 1430 Time Out: 1500 Total Billed Treatment Time: 30 Total Billed Treatment 1 visit EX 15' FA 15' KATELYN CHANDRA PT Dec 11, 2018 15:04
[2018-12-11] MEDS: MILK OF MAGNESIA 400 MG/5 ML 30 ML UDC PO PRN (15:10)
[2018-12-11] MEDS: ASPIRIN E.C. 325 MG (ECOTRIN) TABLET PO SCH (16:56)
[2018-12-11 17:52] VITALS: BP 127/52
--- NOTE | 2018-12-11 18:00 | CONSULTATION REPORT ---
DATE OF SERVICE: 12/11/2018 INPATIENT CONSULTATION REASON FOR CONSULTATION: Right shoulder pain. HISTORY OF PRESENT ILLNESS: The patient is an 83-year-old female who 15 years ago underwent open reduction internal fixation for right shoulder fracture. The following year, she sustained a right distal humerus fracture, which was treated nonoperatively. She reports that she is at her baseline regarding motion in her shoulder and elbow and that she has had no new injuries; however, she reports that she has had pain with physical therapy and occupational therapy activities while admitted on the rehabilitation unit. She denies recent injuries or falls. She denies paresthesias. Radiographs were obtained, which revealed a well-healed proximal humerus fracture with an appropriately placed internal fixation with posttraumatic arthrosis noted in the right shoulder. PHYSICAL EXAMINATION: The patient active forward elevation is 120 degrees, external rotation 60 degrees. She has an arc of motion of the right elbow approximately 70 degrees. Shoulder is stable with glenohumeral rotation as the elbow with flexion and extension. IMPRESSION: Posttraumatic right shoulder and elbow arthrosis. RECOMMENDATIONS: I would recommend limited activities with the right upper extremity when limited by pain as per the patient. If the patient is having increased pain with her physical and occupational therapy, I would recommend avoiding inciting activities until the pain is relieved. I would not recommend any other intervention currently. Thank you for the consultation. Job ID: [id number] DocumentID: [id number] Dictated Date: 12/11/2018 15:40:41 911 Telecommunicator Date: 12/11/2018 17:59:37 Dictated By: CHRISSY RYDER MD
[2018-12-11] MEDS: RT-ALBUTEROL SULF 2.5 MG/3 ML PRE-MIX VIAL INH SCH (19:17)
[2018-12-11] MEDS: OXYBUTYNIN (DITROPAN) 5 MG TAB PO SCH (20:56)
[2018-12-11] MEDS: NIACIN ER (NIASPAN) 500 MG TAB PO SCH (20:56)
[2018-12-11] MEDS: MONTELUKAST 10 MG (SINGULAIR) TAB PO SCH (20:56)
[2018-12-12 06:14] VITALS: BP 130/73
[2018-12-12] MEDS: PANTOPRAZOLE 40 MG (PROTONIX) TAB PO SCH (06:28)
[2018-12-12] MEDS: CALCIUM CARBONATE 600 MG (CALCARB) TAB PO SCH ×2 (06:28→17:04)
[2018-12-12] MEDS: CARVEDILOL 12.5 MG (COREG) TABLET PO SCH ×2 (06:28→17:04)
[2018-12-12] MEDS: MULTIVIT W/MINERALS TAB (THERAGRAN M) PO SCH (06:28)
[2018-12-12] MEDS: RT-ALBUTEROL SULF 2.5 MG/3 ML PRE-MIX VIAL INH SCH (06:49)
[2018-12-12] MEDS: UMECLIDINIUM BROMIDE (INCRUSE ELLIPTA) 7'S IH SCH (06:52)
[2018-12-12 08:00] VITALS: BP 111/58
--- NOTE | 2018-12-12 09:00 | NUR ---
PATIENT STATES FEELS BETTER OVERALL, BUT LEGS STILL VERY WEAK.
[2018-12-12] MEDS: LORATADINE (CLARITIN) 10 MG TAB PO SCH (09:06)
[2018-12-12] MEDS: VITAMIN D3 5,000 UNITS (CHOLECALCIFEROL ) CAPSULE PO SCH (09:06)
[2018-12-12] MEDS: PARoxetine 20 MG (PAXIL) TAB PO SCH (09:06)
[2018-12-12] MEDS: FAMOTIDINE 20 MG (PEPCID) TABLET PO SCH (09:06)
[2018-12-12] MEDS: GABAPENTIN 100 MG (NEURONTIN) CAP PO SCH ×2 (09:06→21:04)
[2018-12-12] MEDS: amLODIPine 10 MG (NORVASC) TAB PO SCH (09:06)
[2018-12-12] MEDS: LOSARTAN 100 MG (COZAAR) TABLET PO SCH (09:06)
[2018-12-12] MEDS: FOLIC ACID 1 MG TAB PO SCH (09:07)
--- NOTE | 2018-12-12 09:07 | PM&R Progress Note ---
Subjective HPI/CC On Admission Date Seen by Provider: Dec 12, 2018 Time Seen by Provider: 08:30 CC: Debility HPI: This is an 83-year-old white female clinic patient of Dr. Post in [place] just recently moved from [facility] to [place] to be close to her 2 grandchildren since her daughter is a nurse in [employer] who works may shifts per week and her son lives in [place] and she previously lived in [place] from [phone] who presents after a [facility] stay for 3 days due to severe weakness. Hyponatremia noted acute on chronic while she was there which could be contributing to the weakness (I will stop HCTZ and place on fluid restriction). She had a history of a CVA July 2018 went to [facility] for 3 months and just was discharged to her own home with her grandchildren watching over her. She began having weakness full evaluation included a CT scan and multiple labs revealing no source of weakness so she was placed in physical therapy and found to meet criteria for intensive therapies with inpatient rehabilitation center at [facility] here. She usually sees cardiology for a cardiac murmur and pulmonology for severe asthma and rheumatology for psoriatic arthritis and she is just in the midst of getting that set up since moving to [place] in the last 6 months. Her May 2018. 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 She would like to return to live alone. Subjective/Events-last exam Remains 2 person assist making it difficult to assume the patient will return to independent living Likely will need NHP No BM since and last one was 12/07 so will initiate suppository and SSE Lungs are better and no crackles noted after IS and Nebs ordered Checked all meds and labs Complex medical issues Review of Systems General: Fatigue Pulmonary: Dyspnea Genitourinary: Incontinence Neurological: Weakness, Incoordination Objective Exam Vital Signs Vital Signs Date Time Temp Pulse Resp B/P (MAP) Pulse Ox O2 Delivery O2 Flow Rate FiO2 12/12/18 06:54 92 Room Air 12/12/18 06:14 97.0 64 20 130/73 (92) 12/08/18 05:05 0.00 Capillary Refill : Less Than 3 Seconds General Appearance: No Apparent Distress, WD/WN, Chronically ill, Obese Respiratory: Chest Non Tender, Lungs Clear, Normal Breath Sounds, No Accessory Muscle Use, No Respiratory Distress Cardiovascular: Regular Rate, Rhythm, No Edema, No Gallop, No JVD, No Murmur, Normal Peripheral Pulses Neurologic/Psychiatric: Alert, Oriented x3, No Motor/Sensory Deficits, Normal Mood/Affect, Motor Weakness (generalized weakness) Results/Procedures Lab Patient resulted labs reviewed. Assessment/Plan Assessment and Plan Assess & Plan/Chief Complaint Assessment: Debility Severe weakness due to CVA 07/31 and hyponatremia and psoriatic arthritis Acute on chronic hyponatremia holding hydrochlorothiazide and placing fluid restriction and sodium level decreased to 131 so will monitor closely for now Moderate persistent asthma usually sees pulmonology and noted crackles on Monday in RLL so started Nebs and IS and now improved Psoriatic arthritis on immunosuppressive biologic managed by rheumatology Chronic cardiac murmur usually sees cardiology History of CVA July 2018 spent 3 months at [facility] Acute right shoulder pain related to therapy last month History of compression fractures of the back 4 times Constipation acute ordering more meds today along with supp and SSE LILI compliant on CPAP Plan: Start intensive therapies Evaluate right shoulder pain with xrays and consult Dr Duff because it is causing a restriction in therapy services Continue home medications Spiriva Enbrel immunological biological med brought from home from family and takes every Monday Monitor cardiac and pulmonary systems closely Patient lives alone Prune juice for constipation along with more meds Monitor incontinence IS Nebs monitor crackles RLL on Monday now improved on Nebs and IS Disposition? Resolve constipation Diagnosis/Problems Diagnosis/Problems (1) Debility Status: Acute (2) Psoriatic arthritis Status: Chronic (3) Immunosuppression Status: Chronic (4) History of CVA (cerebrovascular accident) Status: Chronic (5) Asthma Status: Chronic Qualifiers: Asthma severity: moderate Asthma persistence: persistent Asthma complication type: unspecified Qualified Codes: J45.40 - Moderate persistent asthma, uncomplicated (6) Cardiac murmur Status: Chronic (7) Compression fracture Status: Chronic (8) Hypertension Status: Chronic Qualifiers: Hypertension type: essential hypertension Qualified Codes: I10 - Essential (primary) hypertension (9) Right anterior shoulder pain Status: Acute (10) Hyponatremia Status: Chronic (11) Weakness Status: Acute (12) Constipation Status: Acute Qualifiers: Constipation type: slow transit constipation Qualified Codes: K59.01 - Slow transit constipation (13) LILI on CPAP Status: Chronic (14) Lung crackles Status: Acute (15) Shoulder pain, right Status: Acute Qualifiers: Chronicity: acute Qualified Codes: M25.511 - Pain in right shoulder (16) Incontinence Status: Chronic Qualifiers: Incontinence type: urinary Urinary Incontinence type: unspecified incontinence Qualified Codes: R32 - Unspecified urinary incontinence Clinical Quality Measures DVT/VTE Risk/Contraindication: Risk Factor Score Per Nursin RFS Level Per Nursing on Admit: 4+=Very High JANELLE ROBERTS DO Dec 12, 2018 09:07
[2018-12-12] MEDS: DICLOFENAC 1% GEL 100 GM (VOLTAREN) TUBE TOP SCH ×4 (09:09→21:04)
[2018-12-12] MEDS: BISACODYL 10 MG SUPP (DULCOLAX) PR SCH (10:00)
--- NOTE | 2018-12-12 11:00 | NUR ---
HAD BEEN 5 DAYS SINCE LAST BM. DULCOLAX SUPPOSITORY HAD BEEN OFFERED TO PATIENT, BUT SHE WANTED TO HOLD OFF. STATES NOW DID HAVE A LARGE BM.
--- NOTE | 2018-12-12 12:00 | Occupational Ther Daily Note ---
OT Current Status-Daily Note Subjective No pain reported. Appearance Pt. agrees to ADL treatment. Mental Status/Objective Patient Orientation: Person, Place, Time, Situation Therapy Code Descriptions/Definitions Functional [place] Measure: 0=Not Assessed/NA 4=Minimal Assistance 1=Total Assistance 5=Supervision or Setup 2=Maximal Assistance 6=Modified [place] 3=Moderate Assistance 7=Complete [place] ADL-Treatment Therapy Code Descriptions/Definitions Functional [place] Measure: 0=Not Assessed/NA 4=Minimal Assistance 1=Total Assistance 5=Supervision or Setup 2=Maximal Assistance 6=Modified [place] 3=Moderate Assistance 7=Complete [place] Therapy Quality Codes: 6 Independent with activity with or without an assistive device 5 Patient requires set up or clean up by helper. Patient completes activity by themselves 4 Supervision or touching assist (CGA). [place] provide cues , steadying assist 3 The helper provides less than half the effort to complete the activity 2 The helper provides more than half the effort to complete the activity 1 Dependent. The helper does all the effort to complete an activity 7 Patient refused to complete or attempt activity 9 The patient did not perform the activity before the current illness or injury 88 Not attempted due to Medical conditions or safety concerns Grooming (FIM): 5 (SBA at wheelchair level to brush hair, teeth, and wash face. ) Oral Hygiene (QC): 4 Bathing (FIM): 3 (Pt. transferred to shower. OT ran water away from pt., but water did not heat up. This was reported and OT brought in goins of hot water for spongebath. Pt. requires assistance to wash rick areas thoroughly, and bilateral feet. Pt. is able to wash all other parts.) Shower/Bathe Self (QC): 3 Upper Body (FIM): 3 (Pt. requires assistance to don bra and shirt due to poor shoulder ROM.) Upper Body Dressing (QC): 3 Lower Body Dressing (FIM): 2 (Pt. requires assistance to don brief over hips, socks, and shoes.) Lower Body Dressing (QC): 2 On/Off Footwear (QC): 3 Toileting (FIM): 4 Toileting Hygiene (QC): 4 Transfers (B, C, W/C) (FIM): 3 (Mod assist for sit-stand at first. With multiple trials and then practice at parallel bar in gym, pt. able to stand with min assist/CGA.) Toilet/Commode Transfer (FIM): 3 Toilet Transfer (QC): 3 Education OT Patient Education: Correct positioning, Modified ADL techniques, Progress toward Goal/Update tx plan, Purpose of tx/functional activities, Reviewed precautions, Rehab process, Transfer techniques Teaching Recipient: Patient Teaching Methods: Demonstration, Discussion Response to Teaching: Verbalize Understanding, Return Demonstration OT Short Term Goals Short Term Goals Time Frame: Dec 15, 2018 Eating(FIM): 7 Grooming(FIM): 6 (w/c level) Toilet/Commode Transfer(FIM): 3 Additional Short Term Goals: 1-Demonstrate ADL Tasks, 2-Verbalize Understanding , 3-ImproveStrength/Kandi 1=Demonstrate adherence to instructed precautions during ADL tasks. 2=Patient will verbalize/demonstrate understanding of assistive devices/ modifications for ADL. 3=Patient will improve strength/tolerance for activity to enable patient to perform ADL's. OT Coremaker Machine Goals Coremaker Machine Goals Time Frame: Dec 29, 2018 Eating (FIM): 7 Eating (QC): 6 Groomin Oral Hygiene (QC): 6 Bathing(FIM): 6 Shower/Bathe Self (QC): 6 Upper Body Dressing(FIM): 6 Upper Body Dressing (QC): 6 Lower Body Dressing(FIM): 6 Lower Body Dressing (QC): 6 On/Off Footwear (QC): 6 Toileting(FIM): 6 Toileting Hygiene (QC): 6 Toilet/Commode Transfer(FIM): 6 Toilet/Commode Transfer (QC): 6 Shower Transfer(FIM): 6 Additional Goals: 1-Demonstrate ADL Tasks, 2-Verbalize Understanding, 3- ImproveStrength/Kandi 1=Demonstrate adherence to instructed precautions during ADL tasks. 2=Patient will verbalize/demonstrate understanding of assistive devices/ modifications for ADL. 3=Patient will improve strength/tolerance for activity to enable patient to perform ADL's. OT Education/Plan Problem List/Assessment Assessment: Decreased Activ Tolerance, Decreased UE Strength, Dependent Transfers, Impaired Bed Mobility, Impaired Funct Balance, Impaired I ADL's, Impaired Self-Care Skills Discharge Recommendations Plan/Recommendations: Continue POC Therapy D/C Recommendations: Assisted Living, Home w/ Family Support, Occupational Therapy Home Care, Scheduled Assistance Equpiment Recommendations-D/C: Dressing Stick Treatment Plan/Plan of Care Treatment,Training & Education: Yes Patient would benefit from OT for education, treatment and training to promote independence in ADL's, mobility, safety and/or upper extremity function for ADL' s. Plan of Care: ADL Retraining, Functional Mobility, Group Exercise/Act as Ind ( education, exercise, functional activity, activity tolerance, funct mobility), UE Funct Exercise/Act, UE Neuromus Re-Ed/Coord Treatment Duration: Dec 29, 2018 Frequency: At least 5 of 7 days/Wk (IRF) Estimated Hrs Per Day: 1.5 hours per day Agreement: Yes Rehab Potential: Fair Time/GCodes Start Time: 09:30 Stop Time: 11:00 Total Time Billed (hr/min): 90 Billed Treatment Time 1, ADL x 60minutes, FA x 30minutes KATHIE HEMPHILL OT Dec 12, 2018 12:00
--- NOTE | 2018-12-12 12:09 | Physical Therapy Daily Note ---
PT Daily Note-Current Subjective Pt. remarks that she is tired and ready to lay down after rx but wants to give it all she can Pain Numeric Pain Scale: 3 Location: Left Location Body Site: Shoulder Pain Description: Ache Mental Status Patient Orientation: Normal For Age Transfers Therapy Code Descriptions/Definitions Functional [place] Measure: 0=Not Assessed/NA 4=Minimal Assistance 1=Total Assistance 5=Supervision or Setup 2=Maximal Assistance 6=Modified [place] 3=Moderate Assistance 7=Complete [place] Therapy Quality Codes: 6 Independent with activity with or without an assistive device 5 Patient requires set up or clean up by helper. Patient completes activity by themselves 4 Supervision or touching assist (CGA). [place] provide cues , steadying assist 3 The helper provides less than half the effort to complete the activity 2 The helper provides more than half the effort to complete the activity 1 Dependent. The helper does all the effort to complete an activity 7 Patient refused to complete or attempt activity 9 The patient did not perform the activity before the current illness or injury 88 Not attempted due to Medical conditions or safety concerns Transfers (B, C, W/C) (FIM): 5 Scootin Rollin Supine to/from Sit: 5 Sit to/from Stand: 5 Weight Bearing Right Lower Extremity: Right Full Weight Bearing Left Lower Extremity: Left Full Weight Bearing Gait Training Does the Patient Walk?: Yes Gait (FIM): 2 Distance (FIM): 6=250-56 ft (60ft, 20 ft 10 ft) Gait Level of Assist: 4 Gait Persons Needed: 1 Gait Assistive Device: FWW slow, antalgic, Wheelchair Training Does the Pt Use a Wheelchair?: Yes Wheelchair (FIM): 2 Wheelchair Distance: 7=574-80 ft (50ft) Wheelchair Level of Assist: 2 Type of Wheelchair: Manual educated in using feet to propel and turn as she can Exercises Supine Ex: Bridging, Ankle pumps, Quad Set, Rolling, Glut sets, Heel Slides, Short Arc Quads, Scooting, Straight leg raise, Hip abd/add Supine Reps: 15 Seated Therapy Exercises: Sit to stand, Long arc quads Seated Reps: 8 Assessment Current Status: Good Progress fatigues but gives good effort PT Merchandise Stocker Goals Merchandise Stocker Goals PT Custodial Goals Time Frame: Dec 29, 2018 Transfers (B,C,W/C) (FIM): 5 Sit to Lying (QC): 5 Lying-Sitting on Side/Bed(QC): 5 Sit to Stand (QC): 5 Rollin Roll Left to Right (QC): 5 Chair/Haw-qz-Xgods Xfer(QC): 5 Car Transfer (QC): 5 Does the Patient Walk: Yes Gait (FIM): 2 Distance: 125' Walk 10 feet (QC): 5 Walk 10ft-Uneven Surface(QC): 5 Walk 50ft with 2 Turns (QC): 5 Walk 150 ft (QC): 88 Gait Level of Assist: 5 Gait Assistive Device: Walker 4 Wheeled, FWW Wheelchair (FIM): 2 Wheelchair distance (FIM): 1=up to 49 ft Distance: 100' Wheelchair Level of Assist: 5 Wheel 50 feet with 2 turns (QC: 5 Stairs (FIM): 1 PT Plan Treatment/Plan Treatment Plan: Continue Plan of Care Treatment Plan: Bed Mobility, Education, Functional Activity Kandi, Functional Strength, Group Therapy, Gait, Safety, Therapeutic Exercise, Transfers Treatment Duration: Dec 01, 2018 Frequency: At least 5 of 7 days/Wk (IRF) Estimated Hrs Per Day: 1.5 hours per day Patient and/or Family Agrees t: Yes Safety Risks/Education Patient Education: Gait Training, Transfer Techniques, Correct Positioning, W/ C Management, Disease Process, Safety Issues Teaching Recipient: Patient Teaching Methods: Demonstration, Discussion Response to Teaching: Verbalize Understanding, Return Demonstration, Reinforcement Needed Time/GCodes Time In: 1100 Time Out: 1200 Total Billed Treatment Time: 60 Total Billed Treatment 1,EX25m,FA15m,GT20m G Codes Necessary: AMANDA Hall WEALTH MANAGEMENT ADVISOR Dec 12, 2018 12:09
--- NOTE | 2018-12-12 13:49 | Physical Therapy Daily Note ---
PT Daily Note-Current Subjective Pt. in bed, requests to get up to go to bathroom and agrees to some gait. Pt. comments that she is discouraged that she is struggling this afternoon with walking Pain Location: No Pain Reported Mental Status Patient Orientation: Normal For Age Transfers Therapy Code Descriptions/Definitions Functional [place] Measure: 0=Not Assessed/NA 4=Minimal Assistance 1=Total Assistance 5=Supervision or Setup 2=Maximal Assistance 6=Modified [place] 3=Moderate Assistance 7=Complete [place] Therapy Quality Codes: 6 Independent with activity with or without an assistive device 5 Patient requires set up or clean up by helper. Patient completes activity by themselves 4 Supervision or touching assist (CGA). [place] provide cues , steadying assist 3 The helper provides less than half the effort to complete the activity 2 The helper provides more than half the effort to complete the activity 1 Dependent. The helper does all the effort to complete an activity 7 Patient refused to complete or attempt activity 9 The patient did not perform the activity before the current illness or injury 88 Not attempted due to Medical conditions or safety concerns in out bed CGA to min assist, on off toilet CGA to min, SPTs bed to w/c min assist, pt. listing to right Weight Bearing Right Lower Extremity: Right Full Weight Bearing Left Lower Extremity: Left Full Weight Bearing Gait Training Gait Assistive Device: FWW 15ft,10ft, min to mod assist for balance and stability. pt. listing and swaying somewhat to right. needed w/c at one poimt as well as sitting several times to rest. Treatments pts. brief needed changed secondary to much incont of urine. pt. needed assist to clean etc..pt. to sink in w/c for cleansing hands with assist to push soap dispenser and retrieve paper towels Assessment Current Status: Fair Progress fatigued easily this afternoon and required more assist for gait and TRF stability PT Custodial Goals Fur Operator Goals PT Fur Operator Goals Time Frame: Dec 29, 2018 Transfers (B,C,W/C) (FIM): 5 Sit to Lying (QC): 5 Lying-Sitting on Side/Bed(QC): 5 Sit to Stand (QC): 5 Rollin Roll Left to Right (QC): 5 Chair/Auf-rt-Atdsc Xfer(QC): 5 Car Transfer (QC): 5 Does the Patient Walk: Yes Gait (FIM): 2 Distance: 125' Walk 10 feet (QC): 5 Walk 10ft-Uneven Surface(QC): 5 Walk 50ft with 2 Turns (QC): 5 Walk 150 ft (QC): 88 Gait Level of Assist: 5 Gait Assistive Device: Walker 4 Wheeled, FWW Wheelchair (FIM): 2 Wheelchair distance (FIM): 1=up to 49 ft Distance: 100' Wheelchair Level of Assist: 5 Wheel 50 feet with 2 turns (QC: 5 Stairs (FIM): 1 PT Plan Treatment/Plan Treatment Plan: Continue Plan of Care Treatment Plan: Bed Mobility, Education, Functional Activity Kandi, Functional Strength, Group Therapy, Gait, Safety, Therapeutic Exercise, Transfers Treatment Duration: Dec 01, 2018 Frequency: At least 5 of 7 days/Wk (IRF) Estimated Hrs Per Day: 1.5 hours per day Patient and/or Family Agrees t: Yes Safety Risks/Education Patient Education: Gait Training, Transfer Techniques, Correct Positioning, Disease Process, Safety Issues Teaching Recipient: Patient Teaching Methods: Demonstration, Discussion Response to Teaching: Verbalize Understanding, Return Demonstration, Reinforcement Needed Time/GCodes Time In: 1320 Time Out: 1350 Total Billed Treatment Time: 30 Total Billed Treatment 1,FA15m,GT15m G Codes Necessary: AMANDA Hall MASONRY INSPECTOR Dec 12, 2018 13:49
--- NOTE | 2018-12-12 14:00 | NUR ---
REQUEST FOR LAST ECHO FAXED TO [facility] AND COPY RECEIVED AND PUT ON CHART.
--- NOTE | 2018-12-12 14:15 | NUR ---
PATIENT INFORMED FLUID RESTRICTION HAS BEEN DECREASED TO 1200 CC/DAY. VOICES UNDERSTANDING.
--- NOTE | 2018-12-12 16:03 | NUR ---
Weekly team conference Discussed weekly team conference with patient. Patient is agreeable for reevaluation next week. Patient is considering discharge to [facility] in [facility] and requests a list of facilities.
--- NOTE | 2018-12-12 17:00 | NUR ---
DR. ROBERTS NOTIFIED OF PATIENT COMPLAINING OF DARK, STRONG-SMELLING URINE. TEMP. 99.8.
[2018-12-12] MEDS: ASPIRIN E.C. 325 MG (ECOTRIN) TABLET PO SCH (17:04)
[2018-12-12 17:30] VITALS: BP 105/56
[2018-12-12 18:39] LABS: BILIRUBIN,URINE NEGATIVE (NEGATIVE); CLARITY,URINE SLIGHTLY CLOUDY; COLOR,URINE YELLOW; GLUCOSE, URINE (UA) NEGATIVE (NEGATIVE); KETONES,URINE NEGATIVE (NEGATIVE); LEUKOCYTE ESTERASE ,URINE 3+ (NEGATIVE); NITRITE,URINE NEGATIVE (NEGATIVE); PH,URINE 7 (5-9); PROTEIN,URINE 2+ (NEGATIVE); UROBILINOGEN,URINE NORMAL (NORMAL)
[2018-12-12 18:45] LABS: BACTERIA,URINE LARGE /HPF; WBC,URINE >100 /HPF
--- NOTE | 2018-12-12 19:00 | NUR ---
DR. ROBERTS NOTIFIED OF URINE RESULTS. CIPRO TO BE STARTED. CIPRO DOSAGE CHANGED BY PHARMACY DUE TO RENAL DOSING.
[2018-12-12] MEDS ORDERED: CIPROFLOXACIN 500 MG (CIPRO) TABLET PO SCH (21:00)
[2018-12-12] MEDS: ACETAMINOPHEN 325 MG TABLET PO PRN (21:04)
[2018-12-12] MEDS: OXYBUTYNIN (DITROPAN) 5 MG TAB PO SCH (21:04)
[2018-12-12] MEDS: CIPROFLOXACIN 500 MG (CIPRO) TABLET PO SCH (21:04)
[2018-12-12] MEDS: MONTELUKAST 10 MG (SINGULAIR) TAB PO SCH (21:04)
[2018-12-12] MEDS: NIACIN ER (NIASPAN) 500 MG TAB PO SCH (21:05)
[2018-12-13] MEDS: ACETAMINOPHEN 325 MG TABLET PO PRN (03:23)
[2018-12-13] MEDS: RT-ALBUTEROL SULF 2.5 MG/3 ML PRE-MIX VIAL INH SCH ×3 (04:45→20:23)
[2018-12-13 05:00] VITALS: BP 111/66
[2018-12-13] MEDS: MULTIVIT W/MINERALS TAB (THERAGRAN M) PO SCH (06:00)
[2018-12-13] MEDS: CALCIUM CARBONATE 600 MG (CALCARB) TAB PO SCH ×2 (06:00→17:20)
[2018-12-13] MEDS: CARVEDILOL 12.5 MG (COREG) TABLET PO SCH ×2 (06:00→17:20)
[2018-12-13] MEDS: PANTOPRAZOLE 40 MG (PROTONIX) TAB PO SCH (06:00)
[2018-12-13] MEDS: UMECLIDINIUM BROMIDE (INCRUSE ELLIPTA) 7'S IH SCH (06:53)
[2018-12-13] MEDS: LOSARTAN 100 MG (COZAAR) TABLET PO SCH (08:04)
[2018-12-13] MEDS: FAMOTIDINE 20 MG (PEPCID) TABLET PO SCH (08:04)
[2018-12-13] MEDS: LORATADINE (CLARITIN) 10 MG TAB PO SCH (08:05)
[2018-12-13] MEDS: VITAMIN D3 5,000 UNITS (CHOLECALCIFEROL ) CAPSULE PO SCH (08:05)
[2018-12-13] MEDS: amLODIPine 10 MG (NORVASC) TAB PO SCH (08:05)
[2018-12-13] MEDS: BISACODYL 10 MG SUPP (DULCOLAX) PR SCH (08:05)
[2018-12-13] MEDS: FOLIC ACID 1 MG TAB PO SCH (08:05)
[2018-12-13] MEDS: PARoxetine 20 MG (PAXIL) TAB PO SCH (08:05)
[2018-12-13] MEDS: GABAPENTIN 100 MG (NEURONTIN) CAP PO SCH ×2 (08:05→20:09)
[2018-12-13] MEDS: DICLOFENAC 1% GEL 100 GM (VOLTAREN) TUBE TOP SCH ×4 (08:12→20:08)
--- NOTE | 2018-12-13 08:42 | PM&R Progress Note ---
Subjective HPI/CC On Admission Date Seen by Provider: Dec 13, 2018 Time Seen by Provider: 09:00 CC: Debility HPI: This is an 83-year-old white female clinic patient of Dr. Post in [place] just recently moved from [facility] to [place] to be close to her 2 grandchildren since her daughter is a nurse in [place] who works may shifts per week and her son lives in [place] and she previously lived in [place] from [id number] who presents after a [facility] stay for 3 days due to severe weakness. Hyponatremia noted acute on chronic while she was there which could be contributing to the weakness (I will stop HCTZ and place on fluid restriction). She had a history of a CVA July 2018 went to [facility] for 3 months and just was discharged to her own home with her grandchildren watching over her. She began having weakness full evaluation included a CT scan and multiple labs revealing no source of weakness so she was placed in physical therapy and found to meet criteria for intensive therapies with inpatient rehabilitation center at [facility] here. She usually sees cardiology for a cardiac murmur and pulmonology for severe asthma and rheumatology for psoriatic arthritis and she is just in the midst of getting that set up since moving to [place] in the last 6 months. Her May 2018. 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 She would like to return to live alone. Subjective/Events-last exam Patient doing well Hyponatremia concern so I will have medications evaluated and we have lowered fluid restriction to 1200 mL a day UTI diagnosed placed on Cipro empirically Lungs are doing well Looking into assisted living Denies any pain Constipation yesterday resolved Checked meds and labs Review of Systems General: Fatigue Genitourinary: Incontinence Objective Exam Vital Signs Vital Signs Date Time Temp Pulse Resp B/P (MAP) Pulse Ox O2 Delivery O2 Flow Rate FiO2 12/13/18 09:00 Room Air 12/13/18 06:51 93 12/13/18 05:00 97.8 61 16 111/66 (81) 12/08/18 05:05 0.00 Capillary Refill : Less Than 3 Seconds General Appearance: No Apparent Distress, WD/WN, Chronically ill, Obese HEENT: PERRL/EOMI, Normal ENT Inspection, Pharynx Normal Neck: Full Range of Motion, Normal Inspection, Non Tender, Supple, Carotid Bruit Respiratory: Chest Non Tender, Lungs Clear, Normal Breath Sounds, No Accessory Muscle Use, No Respiratory Distress Cardiovascular: Regular Rate, Rhythm, No Edema, No Gallop, No JVD, No Murmur, Normal Peripheral Pulses Gastrointestinal: Normal Bowel Sounds, No Organomegaly, No Pulsatile Mass, Non Tender, Soft Back: Normal Inspection, No CVA Tenderness, No Vertebral Tenderness Extremity: Normal Capillary Refill, Normal Inspection, Normal Range of Motion, Non Tender, No Calf Tenderness, No Pedal Edema Neurologic/Psychiatric: Alert, Oriented x3, No Motor/Sensory Deficits, Normal Mood/Affect, Motor Weakness (generalized weakness) Skin: Normal Color, Warm/Dry Lymphatic: No Adenopathy Results/Procedures Lab Laboratory Tests 12/13/18 09:05 Patient resulted labs reviewed. Assessment/Plan Assessment and Plan Assess & Plan/Chief Complaint Assessment: Debility Severe weakness due to CVA 07/31 and hyponatremia and psoriatic arthritis Acute on chronic hyponatremia holding hydrochlorothiazide and placing fluid restriction and sodium level decreased to 131 so will monitor closely for now but 128 today so will check over her meds for source Moderate persistent asthma usually sees pulmonology and noted crackles on Monday in RLL so started Nebs and IS and now improved Psoriatic arthritis on immunosuppressive biologic managed by rheumatology Chronic cardiac murmur usually sees cardiology History of CVA July 2018 spent 3 months at [facility] Acute right shoulder pain related to therapy last month History of compression fractures of the back 4 times Constipation - resolved LILI compliant on CPAP Acute UTI Plan: Start intensive therapies Evaluate right shoulder pain with xrays and consult Dr Duff because it is causing a restriction in therapy services Continue home medications Spiriva Enbrel immunological biological med brought from home from family and takes every Monday Monitor cardiac and pulmonary systems closely Patient lives alone Prune juice for constipation along with more meds Monitor incontinence IS Nebs monitor crackles RLL on Monday now improved on Nebs and IS Disposition? UTI tx Evaluate meds for hyponatremia source (1) Debility (2) Psoriatic arthritis (3) Immunosuppression (4) History of CVA (cerebrovascular accident) (5) Asthma (6) Cardiac murmur (7) Compression fracture (8) Hypertension (9) Right anterior shoulder pain (10) Hyponatremia (11) Weakness (12) LILI on CPAP (13) Lung crackles (14) Shoulder pain, right (15) Incontinence (16) UTI (urinary tract infection) Clinical Quality Measures DVT/VTE Risk/Contraindication: Risk Factor Score Per Nursin RFS Level Per Nursing on Admit: 4+=Very High JANELLE ROBERTS DO Dec 13, 2018 08:42
[2018-12-13 09:21] LABS: BASOPHILS % (AUTO) 1 % (0-10); EOSINOPHILS # (AUTO) 0.4 10^3/uL (0.0-0.3); EOSINOPHILS % (AUTO) 5 % (0-10); HEMATOCRIT 31 % (35-52); HEMOGLOBIN 10.1 G/DL (11.5-16.0); LYMPHOCYTES # (AUTO) 1.2 X 10^3 (1.0-4.0); LYMPHOCYTES % (AUTO) 14 % (12-44); MEAN CORPUSCULAR HEMOGLOBIN 32 PG (25-34); MEAN CORPUSCULAR HGB CONC 32 G/DL (32-36); MEAN CORPUSCULAR VOLUME 98 FL (80-99); MEAN PLATELET VOLUME 8.5 FL (7.4-10.4); MONOCYTES # (AUTO) 0.8 X 10^3 (0.0-1.0); MONOCYTES % (AUTO) 9 % (0-12); NEUTROPHILS # (AUTO) 6.1 X 10^3 (1.8-7.8); NEUTROPHILS % (AUTO) 72 % (42-75); PLATELET COUNT 188 10^3/uL (130-400); RED CELL DISTRIBUTION WIDTH 14.6 % (10.0-14.5); WHITE BLOOD COUNT 8.4 10^3/uL (4.3-11.0)
[2018-12-13 09:43] LABS: ALBUMIN 3.1 GM/DL (3.2-4.5); BILIRUBIN,TOTAL 0.8 MG/DL (0.1-1.0); CALCIUM 9.7 MG/DL (8.5-10.1); CREATININE SERUM 1.26 MG/DL (0.60-1.30); POTASSIUM 4.1 MMOL/L (3.6-5.0); TOTAL PROTEIN 5.9 GM/DL (6.4-8.2)
--- NOTE | 2018-12-13 12:04 | Physical Therapy Daily Note ---
PT Daily Note-Current Subjective Pt sitting in W/C in room upon arrival. Pt agrees to PT. Pain Location: Right, Left Location Body Site: Shoulder Pain Description: Ache Mental Status Patient Orientation: Person, Place, Situation Transfers Therapy Code Descriptions/Definitions Functional [place] Measure: 0=Not Assessed/NA 4=Minimal Assistance 1=Total Assistance 5=Supervision or Setup 2=Maximal Assistance 6=Modified [place] 3=Moderate Assistance 7=Complete [place] Therapy Quality Codes: 6 Independent with activity with or without an assistive device 5 Patient requires set up or clean up by helper. Patient completes activity by themselves 4 Supervision or touching assist (CGA). [place] provide cues , steadying assist 3 The helper provides less than half the effort to complete the activity 2 The helper provides more than half the effort to complete the activity 1 Dependent. The helper does all the effort to complete an activity 7 Patient refused to complete or attempt activity 9 The patient did not perform the activity before the current illness or injury 88 Not attempted due to Medical conditions or safety concerns Scootin Sit to/from Stand: 4 Sit to Stand (QC): 4 Weight Bearing Right Lower Extremity: Right Full Weight Bearing Left Lower Extremity: Left Full Weight Bearing Gait Training Does the Patient Walk?: Yes Distance (FIM): 2=044-50 ft Distance: 5', 20', 25' Walk 10 feet (QC): 3 Gait Level of Assist: 3 Gait Persons Needed: 1 Gait Assistive Device: FWW Pt fatigues easily and has antalgic gait pattern. Pt leans heavily to L side when ambulating, unable to correct with VC or PC. Wheelchair Training Does the Pt Use a Wheelchair?: Yes Wheelchair Distance: 3=150 ft Distance: 75', 75' Wheelchair Level of Assist: 4 Wheel 50 ft with 2 turns (QC): 4 Wheel 150 ft (QC): 4 Type of Wheelchair: Manual Exercises Seated Therapy Exercises: Ankle pumps, Long arc quads, Hip flexion, Kicking activity Seated Reps: 15 Treatments Pt transfers from W/C to standing and attempts ambulation. Pt only able to ambulate short distance before needing to sit in W/C due to "jelly legs". Pt completes Seated Ex in W/C. Pt then propels W/C with both UE & LE. Pt attempts ambulation again. Pt returns to room in W/C to rest and order lunch. Pt has all needs met. Assessment Current Status: Fair Progress Pt fatigues easily, demonstrates weakness and difficulty initiating movement. PT Prison Goals Economic Historian Goals PT Economic Historian Goals Time Frame: Dec 29, 2018 Transfers (B,C,W/C) (FIM): 5 Sit to Lying (QC): 5 Lying-Sitting on Side/Bed(QC): 5 Sit to Stand (QC): 5 Rollin Roll Left to Right (QC): 5 Chair/[id number] Xfer(QC): 5 Car Transfer (QC): 5 Does the Patient Walk: Yes Gait (FIM): 2 Distance: 125' Walk 10 feet (QC): 5 Walk 10ft-Uneven Surface(QC): 5 Walk 50ft with 2 Turns (QC): 5 Walk 150 ft (QC): 88 Gait Level of Assist: 5 Gait Assistive Device: Walker 4 Wheeled, FWW Wheelchair (FIM): 2 Wheelchair distance (FIM): 1=up to 49 ft Distance: 100' Wheelchair Level of Assist: 5 Wheel 50 feet with 2 turns (QC: 5 Stairs (FIM): 1 PT Plan Problem List Problem List: Activity Tolerance, Functional Strength, Safety, Balance, Gait, Transfer Treatment/Plan Treatment Plan: Continue Plan of Care Treatment Plan: Bed Mobility, Education, Functional Activity Kandi, Functional Strength, Group Therapy, Gait, Safety, Therapeutic Exercise, Transfers Treatment Duration: Dec 01, 2018 Frequency: At least 5 of 7 days/Wk (IRF) Estimated Hrs Per Day: 1.5 hours per day Patient and/or Family Agrees t: Yes Safety Risks/Education Patient Education: Gait Training, Transfer Techniques, Correct Positioning, Safety Issues Teaching Recipient: Patient Teaching Methods: Discussion Response to Teaching: Verbalize Understanding Time/GCodes Time In: 1100 Time Out: 1200 Total Billed Treatment Time: 60 Total Billed Treatment 1, WCH (15m), FA (10m), GT (20m) & EX (15m) G Codes Necessary: BOGDAN Gupta WATER PIPE INSTALLER Dec 13, 2018 12:04
--- NOTE | 2018-12-13 15:14 | Occupational Ther Daily Note ---
OT Current Status-Daily Note Subjective No pain reported. Appearance Pt. in bed. Agrees to shower. Mental Status/Objective Patient Orientation: Person, Place, Time, Situation Therapy Code Descriptions/Definitions Functional [place] Measure: 0=Not Assessed/NA 4=Minimal Assistance 1=Total Assistance 5=Supervision or Setup 2=Maximal Assistance 6=Modified [place] 3=Moderate Assistance 7=Complete [place] ADL-Treatment Therapy Code Descriptions/Definitions Functional [place] Measure: 0=Not Assessed/NA 4=Minimal Assistance 1=Total Assistance 5=Supervision or Setup 2=Maximal Assistance 6=Modified [place] 3=Moderate Assistance 7=Complete [place] Therapy Quality Codes: 6 Independent with activity with or without an assistive device 5 Patient requires set up or clean up by helper. Patient completes activity by themselves 4 Supervision or touching assist (CGA). [place] provide cues , steadying assist 3 The helper provides less than half the effort to complete the activity 2 The helper provides more than half the effort to complete the activity 1 Dependent. The helper does all the effort to complete an activity 7 Patient refused to complete or attempt activity 9 The patient did not perform the activity before the current illness or injury 88 Not attempted due to Medical conditions or safety concerns Grooming (FIM): 5 (Set up at sink while seated to brush teeth and hair.) Oral Hygiene (QC): 5 Bathing (FIM): 5 (SBA in shower.) Shower/Bathe Self (QC): 4 Upper Body (FIM): 4 (Pt. requires assistance to don bra, but is able to don her shirt.) Upper Body Dressing (QC): 4 Lower Body Dressing (FIM): 4 (Min assist in stance to pull brief and pants over hips. SBA to don socks with sock aide, and SBA to don shoes.) Lower Body Dressing (QC): 4 On/Off Footwear (QC): 4 Toileting (FIM): 5 Toileting Hygiene (QC): 4 Transfers (B, C, W/C) (FIM): 4 (Min assist sit-stand.) Toilet/Commode Transfer (FIM): 4 Toilet Transfer (QC): 4 Shower Transfer(FIM): 4 Education OT Patient Education: Correct positioning, Modified ADL techniques, Progress toward Goal/Update tx plan, Purpose of tx/functional activities, Reviewed precautions, Rehab process, Transfer techniques Teaching Recipient: Patient Teaching Methods: Demonstration, Discussion Response to Teaching: Verbalize Understanding, Return Demonstration OT Short Term Goals Short Term Goals Time Frame: Dec 15, 2018 Eating(FIM): 7 Grooming(FIM): 6 (w/c level) Toilet/Commode Transfer(FIM): 3 Additional Short Term Goals: 1-Demonstrate ADL Tasks, 2-Verbalize Understanding , 3-ImproveStrength/Kandi 1=Demonstrate adherence to instructed precautions during ADL tasks. 2=Patient will verbalize/demonstrate understanding of assistive devices/ modifications for ADL. 3=Patient will improve strength/tolerance for activity to enable patient to perform ADL's. OT [facility] Goals Systems Programmer Analyst Goals Time Frame: Dec 29, 2018 Eating (FIM): 7 Eating (QC): 6 Groomin Oral Hygiene (QC): 6 Bathing(FIM): 6 Shower/Bathe Self (QC): 6 Upper Body Dressing(FIM): 6 Upper Body Dressing (QC): 6 Lower Body Dressing(FIM): 6 Lower Body Dressing (QC): 6 On/Off Footwear (QC): 6 Toileting(FIM): 6 Toileting Hygiene (QC): 6 Toilet/Commode Transfer(FIM): 6 Toilet/Commode Transfer (QC): 6 Shower Transfer(FIM): 6 Additional Goals: 1-Demonstrate ADL Tasks, 2-Verbalize Understanding, 3- ImproveStrength/Kandi 1=Demonstrate adherence to instructed precautions during ADL tasks. 2=Patient will verbalize/demonstrate understanding of assistive devices/ modifications for ADL. 3=Patient will improve strength/tolerance for activity to enable patient to perform ADL's. OT Education/Plan Problem List/Assessment Assessment: Decreased Activ Tolerance, Dependent Transfers, Impaired Bed Mobility, Impaired Funct Balance, Impaired I ADL's, Impaired Self-Care Skills, Restricted Funct UE ROM Discharge Recommendations Plan/Recommendations: Continue POC Therapy D/C Recommendations: Assisted Living Equpiment Recommendations-D/C: Dressing Stick Treatment Plan/Plan of Care Treatment,Training & Education: Yes Patient would benefit from OT for education, treatment and training to promote independence in ADL's, mobility, safety and/or upper extremity function for ADL' s. Plan of Care: ADL Retraining, Functional Mobility, Group Exercise/Act as Ind ( education, exercise, functional activity, activity tolerance, funct mobility), UE Funct Exercise/Act, UE Neuromus Re-Ed/Coord Treatment Duration: Dec 29, 2018 Frequency: At least 5 of 7 days/Wk (IRF) Estimated Hrs Per Day: 1.5 hours per day Agreement: Yes Rehab Potential: Fair Time/GCodes Start Time: 09:30 Stop Time: 10:30 Total Time Billed (hr/min): 60 Billed Treatment Time 1, ADL x 4 KATHIE HEMPHILL OT Dec 13, 2018 15:14
--- NOTE | 2018-12-13 15:18 | Physical Therapy Daily Note ---
PT Daily Note-Current Subjective Pt sitting in W/C in Therapy Gym after just finishing with OT. Pt agrees to PT. Pain Location: No Pain Reported Mental Status Patient Orientation: Person, Place, Situation Transfers Therapy Code Descriptions/Definitions Functional [place] Measure: 0=Not Assessed/NA 4=Minimal Assistance 1=Total Assistance 5=Supervision or Setup 2=Maximal Assistance 6=Modified [place] 3=Moderate Assistance 7=Complete [place] Therapy Quality Codes: 6 Independent with activity with or without an assistive device 5 Patient requires set up or clean up by helper. Patient completes activity by themselves 4 Supervision or touching assist (CGA). [place] provide cues , steadying assist 3 The helper provides less than half the effort to complete the activity 2 The helper provides more than half the effort to complete the activity 1 Dependent. The helper does all the effort to complete an activity 7 Patient refused to complete or attempt activity 9 The patient did not perform the activity before the current illness or injury 88 Not attempted due to Medical conditions or safety concerns Sit to/from Stand: 4 Sit to Stand (QC): 4 Weight Bearing Right Lower Extremity: Right Full Weight Bearing Left Lower Extremity: Left Full Weight Bearing Wheelchair Training Does the Pt Use a Wheelchair?: Yes Wheelchair Distance: 3=150 ft Distance: 150' Wheelchair Level of Assist: 4 Wheel 50 ft with 2 turns (QC): 4 Wheel 150 ft (QC): 4 Type of Wheelchair: Manual Exercises Seated Therapy Exercises: Ankle pumps, Long arc quads, Hip flexion, Kicking activity Treatments ASSEMBLER CARDS AND ANNOUNCEMENTS goes over HEP for Supine & Seated Ex, giving pt a copy per request. Pt & and ASSEMBLER CARDS AND ANNOUNCEMENTS discuss how ARU discharge works and how progression is shown per pt question. Pt propels W/C back to room with some assistance from ASSEMBLER CARDS AND ANNOUNCEMENTS. Pt asks to toilet at end of tx. Pt has all needs met. Assessment Current Status: Fair Progress Pt struggles with fatiguing easily and weakness especially with standing & ambulation. PT Short Term Goals Short Term Goals Wheelchair Distance: 75', 75' PT Study Hall Supervisor Goals Group Home Goals PT Group Home Goals Time Frame: Dec 29, 2018 Transfers (B,C,W/C) (FIM): 5 Sit to Lying (QC): 5 Lying-Sitting on Side/Bed(QC): 5 Sit to Stand (QC): 5 Rollin Roll Left to Right (QC): 5 Chair/Evf-ty-Grspe Xfer(QC): 5 Car Transfer (QC): 5 Does the Patient Walk: Yes Gait (FIM): 2 Distance: 125' Walk 10 feet (QC): 5 Walk 10ft-Uneven Surface(QC): 5 Walk 50ft with 2 Turns (QC): 5 Walk 150 ft (QC): 88 Gait Level of Assist: 5 Gait Assistive Device: Walker 4 Wheeled, FWW Wheelchair (FIM): 2 Wheelchair distance (FIM): 1=up to 49 ft Distance: 100' Wheelchair Level of Assist: 5 Wheel 50 feet with 2 turns (QC: 5 Stairs (FIM): 1 PT Plan Problem List Problem List: Activity Tolerance, Functional Strength, Safety, Balance, Gait, Transfer Treatment/Plan Treatment Plan: Continue Plan of Care Treatment Plan: Bed Mobility, Education, Functional Activity Kandi, Functional Strength, Group Therapy, Gait, Safety, Therapeutic Exercise, Transfers Treatment Duration: Dec 01, 2018 Frequency: At least 5 of 7 days/Wk (IRF) Estimated Hrs Per Day: 1.5 hours per day Patient and/or Family Agrees t: Yes Safety Risks/Education Patient Education: Gait Training, Transfer Techniques, Issued Written HEP, Correct Positioning, Disease Process, Safety Issues Teaching Recipient: Patient Teaching Methods: Discussion Response to Teaching: Verbalize Understanding Time/GCodes Time In: 1340 Time Out: 1410 Total Billed Treatment Time: 30 Total Billed Treatment 1, WCH (15m) & FA (15m) G Codes Necessary: BOGDAN Gupta ASSEMBLER CARDS AND ANNOUNCEMENTS Dec 13, 2018 15:18
--- NOTE | 2018-12-13 15:19 | Occupational Ther Daily Note ---
OT Current Status-Daily Note Subjective No pain reported. Appearance Pt. up in chair. Agrees to work with OT. Mental Status/Objective Patient Orientation: Person, Place Therapy Code Descriptions/Definitions Functional [place] Measure: 0=Not Assessed/NA 4=Minimal Assistance 1=Total Assistance 5=Supervision or Setup 2=Maximal Assistance 6=Modified [place] 3=Moderate Assistance 7=Complete [place] ADL-Treatment Therapy Code Descriptions/Definitions Functional [place] Measure: 0=Not Assessed/NA 4=Minimal Assistance 1=Total Assistance 5=Supervision or Setup 2=Maximal Assistance 6=Modified [place] 3=Moderate Assistance 7=Complete [place] Therapy Quality Codes: 6 Independent with activity with or without an assistive device 5 Patient requires set up or clean up by helper. Patient completes activity by themselves 4 Supervision or touching assist (CGA). [place] provide cues , steadying assist 3 The helper provides less than half the effort to complete the activity 2 The helper provides more than half the effort to complete the activity 1 Dependent. The helper does all the effort to complete an activity 7 Patient refused to complete or attempt activity 9 The patient did not perform the activity before the current illness or injury 88 Not attempted due to Medical conditions or safety concerns Transfers (B, C, W/C) (FIM): 4 (CGA sit-stand) Other Treatment Pt. went to therapy gym via wheelchair. OT provided gentle stretch to right UE. Pt. very limited and tight. However, very guarded with this arm and so stretch not completed. Pt. is asked what her goals are regarding getting home. Pt. states that her biggest issue is sit-stand and balance. Worked on standing at parallel bar multiple times with cues to position self correctly before transfer is completed. Stood with CGA sit-stand. Noted that left LE seems weaker than right, and pt. has difficulty with shifting weight onto that leg. PT came in to work with pt. Education OT Patient Education: Correct positioning, Modified ADL techniques, Progress toward Goal/Update tx plan, Purpose of tx/functional activities, Reviewed precautions, Rehab process, Transfer techniques Teaching Recipient: Patient Teaching Methods: Demonstration, Discussion Response to Teaching: Verbalize Understanding, Return Demonstration OT Short Term Goals Short Term Goals Time Frame: Dec 15, 2018 Eating(FIM): 7 Grooming(FIM): 6 (w/c level) Toilet/Commode Transfer(FIM): 3 Additional Short Term Goals: 1-Demonstrate ADL Tasks, 2-Verbalize Understanding , 3-ImproveStrength/Kandi 1=Demonstrate adherence to instructed precautions during ADL tasks. 2=Patient will verbalize/demonstrate understanding of assistive devices/ modifications for ADL. 3=Patient will improve strength/tolerance for activity to enable patient to perform ADL's. OT Central Office Technician Goals Central Office Technician Goals Time Frame: Dec 29, 2018 Eating (FIM): 7 Eating (QC): 6 Groomin Oral Hygiene (QC): 6 Bathing(FIM): 6 Shower/Bathe Self (QC): 6 Upper Body Dressing(FIM): 6 Upper Body Dressing (QC): 6 Lower Body Dressing(FIM): 6 Lower Body Dressing (QC): 6 On/Off Footwear (QC): 6 Toileting(FIM): 6 Toileting Hygiene (QC): 6 Toilet/Commode Transfer(FIM): 6 Toilet/Commode Transfer (QC): 6 Shower Transfer(FIM): 6 Additional Goals: 1-Demonstrate ADL Tasks, 2-Verbalize Understanding, 3- ImproveStrength/Kandi 1=Demonstrate adherence to instructed precautions during ADL tasks. 2=Patient will verbalize/demonstrate understanding of assistive devices/ modifications for ADL. 3=Patient will improve strength/tolerance for activity to enable patient to perform ADL's. OT Education/Plan Problem List/Assessment Assessment: Decreased Activ Tolerance, Decreased UE Strength, Dependent Transfers, Impaired Funct Balance, Impaired I ADL's, Impaired Self-Care Skills, Restricted Funct UE ROM Discharge Recommendations Plan/Recommendations: Continue POC Therapy D/C Recommendations: Assisted Living Treatment Plan/Plan of Care Treatment,Training & Education: Yes Patient would benefit from OT for education, treatment and training to promote independence in ADL's, mobility, safety and/or upper extremity function for ADL' s. Plan of Care: ADL Retraining, Functional Mobility, Group Exercise/Act as Ind ( education, exercise, functional activity, activity tolerance, funct mobility), UE Funct Exercise/Act, UE Neuromus Re-Ed/Coord Treatment Duration: Dec 29, 2018 Frequency: At least 5 of 7 days/Wk (IRF) Estimated Hrs Per Day: 1.5 hours per day Agreement: Yes Rehab Potential: Fair Time/GCodes Start Time: 13:10 Stop Time: 13:40 Total Time Billed (hr/min): 30 Billed Treatment Time 1, Ex x 15minutes, FA x 15minutes KATHIE HEMPHILL OT Dec 13, 2018 15:19
[2018-12-13] MEDS: CIPROFLOXACIN 500 MG (CIPRO) TABLET PO SCH (15:52)
[2018-12-13] MEDS: ASPIRIN E.C. 325 MG (ECOTRIN) TABLET PO SCH (17:20)
[2018-12-13 18:00] VITALS: BP 130/72
[2018-12-13] MEDS: MONTELUKAST 10 MG (SINGULAIR) TAB PO SCH (20:08)
[2018-12-13] MEDS: NIACIN ER (NIASPAN) 500 MG TAB PO SCH (20:08)
[2018-12-13] MEDS: OXYBUTYNIN (DITROPAN) 5 MG TAB PO SCH (20:09)
[2018-12-14 05:04] VITALS: BP 104/62
[2018-12-14] MEDS: PANTOPRAZOLE 40 MG (PROTONIX) TAB PO SCH (06:09)
[2018-12-14] MEDS: MULTIVIT W/MINERALS TAB (THERAGRAN M) PO SCH (06:09)
[2018-12-14] MEDS: CALCIUM CARBONATE 600 MG (CALCARB) TAB PO SCH ×2 (06:09→19:36)
[2018-12-14] MEDS: CARVEDILOL 12.5 MG (COREG) TABLET PO SCH ×2 (06:09→19:37)
[2018-12-14] MEDS: RT-ALBUTEROL SULF 2.5 MG/3 ML PRE-MIX VIAL INH SCH ×2 (06:34→19:50)
[2018-12-14] MEDS: UMECLIDINIUM BROMIDE (INCRUSE ELLIPTA) 7'S IH SCH (06:37)
--- NOTE | 2018-12-14 08:40 | PM&R Progress Note ---
Subjective HPI/CC On Admission Date Seen by Provider: Dec 14, 2018 Time Seen by Provider: 09:00 CC: Debility HPI: This is an 83-year-old white female clinic patient of Dr. Post in [place] just recently moved from [facility] to [place] to be close to her 2 grandchildren since her daughter is a nurse in [employer] who works may shifts per week and her son lives in [place] and she previously lived in [place] from [id number] who presents after a [facility] stay for 3 days due to severe weakness. Hyponatremia noted acute on chronic while she was there which could be contributing to the weakness (I will stop HCTZ and place on fluid restriction). She had a history of a CVA July 2018 went to [facility] for 3 months and just was discharged to her own home with her grandchildren watching over her. She began having weakness full evaluation included a CT scan and multiple labs revealing no source of weakness so she was placed in physical therapy and found to meet criteria for intensive therapies with inpatient rehabilitation center at [facility] here. She usually sees cardiology for a cardiac murmur and pulmonology for severe asthma and rheumatology for psoriatic arthritis and she is just in the midst of getting that set up since moving to [place] in the last 6 months. Her May 2018. 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 She would like to return to live alone. Subjective/Events-last exam Patient doing well Hyponatremia treated with 1200 mL a day UTI treated with Cipro empirically and UCx revealed sensitive so we will maintain that for 7 days Lungs are doing well Looking into assisted living Denies any pain Constipation will be monitored Checked meds and labs Talked about aortic stenosis so I have consulted Dr Myers since I reviewed the ECHO and I need opinion whether could be contributing to her weakness Review of Systems General: Fatigue Objective Exam Vital Signs Vital Signs Date Time Temp Pulse Resp B/P (MAP) Pulse Ox O2 Delivery O2 Flow Rate FiO2 12/14/18 19:50 93 Room Air 12/14/18 19:04 76 12/14/18 17:41 99.5 20 131/74 (93) 12/08/18 05:05 0.00 Capillary Refill : Less Than 3 Seconds General Appearance: No Apparent Distress, WD/WN, Chronically ill, Obese HEENT: PERRL/EOMI, Normal ENT Inspection, Pharynx Normal Neck: Full Range of Motion, Normal Inspection, Non Tender, Supple, Carotid Bruit Respiratory: Chest Non Tender, Lungs Clear, Normal Breath Sounds, No Accessory Muscle Use, No Respiratory Distress Cardiovascular: Regular Rate, Rhythm, No Edema, No Gallop, No JVD, No Murmur, Normal Peripheral Pulses, Systolic Murmur Gastrointestinal: Normal Bowel Sounds, No Organomegaly, No Pulsatile Mass, Non Tender, Soft Back: Normal Inspection, No CVA Tenderness, No Vertebral Tenderness Extremity: Normal Capillary Refill, Normal Inspection, Normal Range of Motion, Non Tender, No Calf Tenderness, No Pedal Edema Neurologic/Psychiatric: Alert, Oriented x3, No Motor/Sensory Deficits, Normal Mood/Affect, Motor Weakness (generalized weakness) Skin: Normal Color, Warm/Dry Lymphatic: No Adenopathy Results/Procedures Lab Patient resulted labs reviewed. Assessment/Plan Assessment and Plan Assess & Plan/Chief Complaint Assessment: Debility Severe weakness due to CVA 07/31 and hyponatremia and psoriatic arthritis Acute on chronic hyponatremia holding hydrochlorothiazide and placing fluid restriction and sodium level decreased to 131 so will monitor closely for now but 128 repeat Moderate persistent asthma usually sees pulmonology and noted crackles on Monday in RLL so started Nebs and IS and now improved Psoriatic arthritis on immunosuppressive biologic managed by rheumatology Chronic cardiac murmur usually sees cardiology History of CVA July 2018 spent 3 months at [facility] Acute right shoulder pain related to therapy last month History of compression fractures of the back 4 times Constipation - resolved LILI compliant on CPAP Acute UTI Plan: Maintain intensive therapies Evaluate right shoulder pain with xrays and consult Dr Duff because it is causing a restriction in therapy services Continue home medications Spiriva Enbrel immunological biological med brought from home from family and takes every Monday Monitor cardiac and pulmonary systems closely Patient lives alone Prune juice for constipation along with more meds prn Monitor incontinence IS Nebs monitor crackles RLL on Monday now improved on Nebs and IS Disposition? UTI tx to complete 7 days on Cipro Monitor hyponatremia source (1) Debility (2) Psoriatic arthritis (3) Immunosuppression (4) History of CVA (cerebrovascular accident) (5) Asthma (6) Cardiac murmur (7) Compression fracture (8) Hypertension (9) Right anterior shoulder pain (10) Hyponatremia (11) Weakness (12) LILI on CPAP (13) Lung crackles (14) Shoulder pain, right (15) Incontinence (16) UTI (urinary tract infection) Clinical Quality Measures DVT/VTE Risk/Contraindication: Risk Factor Score Per Nursin RFS Level Per Nursing on Admit: 4+=Very High JANELLE ROBERTS DO Dec 14, 2018 08:40
[2018-12-14] MEDS: LORATADINE (CLARITIN) 10 MG TAB PO SCH (09:18)
[2018-12-14] MEDS: LOSARTAN 100 MG (COZAAR) TABLET PO SCH (09:18)
[2018-12-14] MEDS: FOLIC ACID 1 MG TAB PO SCH (09:18)
[2018-12-14] MEDS: GABAPENTIN 100 MG (NEURONTIN) CAP PO SCH ×2 (09:19→21:00)
[2018-12-14] MEDS: PARoxetine 20 MG (PAXIL) TAB PO SCH (09:20)
[2018-12-14] MEDS: FAMOTIDINE 20 MG (PEPCID) TABLET PO SCH (09:20)
[2018-12-14] MEDS: amLODIPine 10 MG (NORVASC) TAB PO SCH (09:20)
[2018-12-14] MEDS: DOCUSATE SODIUM 100 MG (COLACE) CAP PO PRN (09:21)
[2018-12-14] MEDS: BISACODYL 10 MG SUPP (DULCOLAX) PR SCH (09:42)
[2018-12-14] MEDS: CIPROFLOXACIN 500 MG (CIPRO) TABLET PO SCH (09:42)
[2018-12-14] MEDS: VITAMIN D3 5,000 UNITS (CHOLECALCIFEROL ) CAPSULE PO SCH (09:42)
[2018-12-14] MEDS: DICLOFENAC 1% GEL 100 GM (VOLTAREN) TUBE TOP SCH ×4 (09:43→21:01)
--- NOTE | 2018-12-14 10:33 | Consultation-Cardiology ---
HPI-Cardiology Cardiology Consultation: Date of Consultation 12/14/18 Time Seen by a Provider: 10:15 Date of Admission 12-07-18 Attending Physician Erin Gonzalez DO Admitting Physician Pierre Post DO Consulting Physician KODI MATSON HPI: Chief Complaint: Murmur Ms. Arango is an 83 year old female admitted to [facility] from [facility], [place], [place] d/t debility. We have been asked to see her in consult d/t cardiac murmur. She reports she has recently moved to [place], [place] from [place], [place] and had not yet established care with physician services. She states she had a CVA in July 2018 for which she was treated at [facility] [place] [facility] in [place], [place]. She reports she then went to rehab facility in [place] and then went home in October 2018. She reports she became increasingly weak and therefore, went back to [facility] in November 2018. She has subsequently been sent here for strengthening. She reports the source of the stroke is unknown to her. She report she did see cardiology services in [place], [place], Dr. De Guzman prior to moving to [place]. She denies any c/o CP, dyspnea, syncope or near syncope. No c/o LE swelling. She reports she does have sleep apnea and is compliant with her CPAP tx. She report occ episodes of palpitations which last only a few seconds. She denies any assoc symptoms with the palpitations. She reports the last episode she believes was prior to 2017, but she is unsure. Her main complaint is generalize weakness. Review of Systems-Cardiology Review of Systems Constitutional: No chills, No fever; malaise Eyes: No vision change Ears/Nose/Throat: No epistaxis, No recent hearing loss Respiratory: As described under HPI Cardiovascular: As described under HPI Gastrointestinal: No constipation, No diarrhea, No nausea, No vomiting Genitourinary: No dysuria, No hematuria Musculoskeletal: As describe under HPI Skin: No rash, No ulcerations Psychiatric/Neurological: No seizure, No focal weakness, No syncope Hematologic: No bleeding abnormalities [id number] Hx Patient Social History Marrital Status: (05/30) 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 Family Medical History Family Medical History: She reports her mother had a CVA and COPD. No h/o premature CAD or SCD. Family History: Arthritis 19 FATHER Hypertension 19 FATHER 19 MOTHER Respiratory disorder 19 MOTHER Allergies and Home Medications Allergies Coded Allergies: cephalexin (Verified Allergy, Unknown, 12/12/18) codeine (Verified Allergy, Unknown, 12/12/18) mushroom (Unverified Allergy, Unknown, 12/17/18) FROM UNCODED ALLERGIES pork derived (porcine) (Verified Allergy, Unknown, 12/09/18) promethazine (Verified Allergy, Unknown, 12/12/18) vancomycin (Verified Allergy, Unknown, 12/12/18) Uncoded Allergies: SEPTRA DS (Allergy, Unknown, 12/12/18) [id number]-IFH-LFS REDUCTASE INHIBITORS (Allergy, Unknown, 12/12/18) ADHESIVE TAPE-SILICONES (Adverse Reaction, Unknown, 12/12/18) MERCURY (BULK) (Adverse Reaction, Unknown, 12/12/18) Home Medications Acetaminophen 325 Mg Tablet, 650 MG PO DAILY PRN for PAIN-MILD, (Reported) Albuterol Sulfate 1 Puff Puff, 2 PUFF INH Q6H PRN for SHORTNESS OF BREATH, ( Reported) Amlodipine Besylate 10 Mg Tablet, 10 MG PO DAILY, (Reported) Aspirin 325 Mg Tablet, 325 MG PO 1800, (Reported) Calcium Carbonate 600 Mg Tablet, 600 MG PO BID, (Reported) Carvedilol 25 Mg Tablet, 25 MG PO BID, (Reported) Clonidine HCl 0.1 Mg Tablet, 0.1 MG PO TID, (Reported) Diclofenac Sodium 100 Gm Gel..gram., TP QID PRN for JOINT PAIN, (Reported) Docusate Sodium 100 Mg Capsule, 100 MG PO DAILY, (Reported) Folic Acid 1 Mg Tablet, 1 MG PO DAILY, (Reported) Gabapentin 100 Mg Capsule, 200 MG PO BID, (Reported) Hydrochlorothiazide 25 Mg Tablet, 25 MG PO DAILY, (Reported) Ipratropium/Albuterol Sulfate 3 Ml Ampul.neb, 3 ML IH Q4H PRN for SHORTNESS OF BREATH, (Reported) Lansoprazole 30 Mg Capsule.dr, 30 MG PO BID, (Reported) Loratadine 10 Mg Tablet, 10 MG PO DAILY, (Reported) Losartan Potassium 100 Mg Tablet, 100 MG PO DAILY, (Reported) Montelukast Sodium 10 Mg Tablet, 10 MG PO HS, (Reported) Multivitamin 1 Each Capsule, 1 CAP PO DAILY, (Reported) Niacin 500 Mg Tab.er.24h, 500 MG PO HS, (Reported) Ondansetron HCl 4 Mg Tab, 4 MG PO Q6H PRN for NAUSEA/VOMITING-1ST LINE, ( Reported) Oxybutynin Chloride 5 Mg Tablet, 5 MG PO HS, (Reported) Paroxetine HCl 20 Mg Tablet, 20 MG PO DAILY, (Reported) Tiotropium [place] 4 Gm Mist.inhal, 2 PUFF INH DAILY, (Reported) Tramadol HCl 50 Mg Tablet, 100 MG PO Q6H PRN for PAIN-MODERATE, (Reported) TAKES 2 (50MG) TABLETS Patient Home Medication List Home Medication List Reviewed: Yes Physical Exam-Cardiology Physical Exam Vital Signs/I&O 12/17/18 12/17/18 12/17/18 12/17/18 01:00 06:10 07:00 08:31 Temp 97.2 Pulse 64 60 63 73 Resp 20 B/P (MAP) 136/63 (87) 122/63 (82) Pulse Ox 98 O2 Delivery NIV CPAP 12/17/18 09:00 O2 Delivery Room Air 12/17/18 00:00 Intake Total 850 ml Balance 850 ml Capillary Refill : Less Than 3 Seconds Constitutional: AAO x 3, well-developed, well-nourished HEENT: PERRL, hearing is well preserved, oral hygience is good Neck: carotid bruit (bruit vs transmitted murmur), carotid pulses are 2 + bilaterally Respiratory: No accessory muscle use, No respiratory distress; chest expansion is symmetric, chest is bilaterally symmetric, lungs clear to auscultation Cardiovascular: regular rate-rhythm; No JVD; S1 and S2, systolic murmur (3/6 MSM) Gastrointestinal: No tender; soft, audible bowel sounds Rectal: deferred Extremities: no lower extremity edema bilateral Neurologic/Psychiatric: grossly intact Data Review Labs Microbiology 12/12/18 Urine Culture - Final, Complete Escherichia coli A/P-Cardiology Assessment/Admission Diagnosis H/O CVA in July 2018 - details unknown - treated at [facility] [place] [facility] in [place], [place] General weakness/debility since CVA in Jul 2018 Echocardiogram of Jul 17, [address] Carroll at [facility] [place] [facility] in [place], [place] - LVEF 60 % with mild diastolic dysfunction. Mild LVH. Mitral annular calcification with mil to mod mitral valve regurg. Mild LA enlargement. Mod aortic sclerosis with mod aortic stenosis and mild aortic insufficiency with normal aortic root size. Normal RV function with preserved pulmonary pressures Reports h/o stent x 2 in 2007 at [facility] in [place], [place] by Dr. De Guzman - reports last MPI greater than one year ago Reports episodes of palpitations for several years, infrequent LILI - CPAP tx HTN CKD stage 3 HLD - statin tx UTI - management per medical services Reports h/o asthma Anxiety Back pain - h/o back surgeries x 3 H/O right arm surgery x 3 and left arm surgery x1 Discussion and Recomendations Review of available records reviewed - we will request records from July 2018 admission (CVA) We have reviewed the echocardiogram from July [address] Nascimento We are continuing her current medication regimen Monitor lab Further recs will be based on her hospital course We would like to thank Dr. Gonzalez for this consult Clinical Quality Measures DVT/VTE Risk/Contraindication: Risk Factor Score Per Nursin RFS Level Per Nursing on Admit: 4+=Very High KODI DUMONT Dec 14, 2018 10:33
--- NOTE | 2018-12-14 11:48 | Occupational Ther Daily Note ---
OT Current Status-Daily Note Subjective Pt sitting in chair, agrees to treatment. Pt reports 3/10 back pain. Mental Status/Objective Therapy Code Descriptions/Definitions Functional [place] Measure: 0=Not Assessed/NA 4=Minimal Assistance 1=Total Assistance 5=Supervision or Setup 2=Maximal Assistance 6=Modified [place] 3=Moderate Assistance 7=Complete [place] ADL-Treatment Pt requests shower this am. Sit to stand from chair with minimal assistance. Pt takes a few steps with FWW before stating she couldn't go any further secondary to weakness. Transfer to w/c. To bathroom via w/c. Pt transferred to toilet with minimal assistance using grab bars. Pt able to manage clothing down and complete toileting hygiene. Pt takes steps to walk in shower with FWW, slow pace. Transfer to shower bench with minimal assistance using grab bars for safety. Seated bathing completed using hand held shower. Pt able to wash all areas with min assist for safety during lower body bathing. Don bra with assist to hook. Don pullover shirt with set up. Pt uses dressing stick to start Depends and pants over feet with increased time. Pt stood with minimal assistance for pant hike. Pt fatigues quickly and requires multiple stands to complete pant hike. Don socks with SBA using sock aid. Don slip on shoes with set up. Grooming tasks completed seated in w/c at sink. Pt brushed teeth and combed hair with set up. Transfer to EOB with FWW. Sit to supine with SBA. Pt requires increased time for all tasks. Rest breaks throughout session. Pt resting in bed with needs met after session. Therapy Code Descriptions/Definitions Functional [place] Measure: 0=Not Assessed/NA 4=Minimal Assistance 1=Total Assistance 5=Supervision or Setup 2=Maximal Assistance 6=Modified [place] 3=Moderate Assistance 7=Complete [place] Therapy Quality Codes: 6 Independent with activity with or without an assistive device 5 Patient requires set up or clean up by helper. Patient completes activity by themselves 4 Supervision or touching assist (CGA). [place] provide cues , steadying assist 3 The helper provides less than half the effort to complete the activity 2 The helper provides more than half the effort to complete the activity 1 Dependent. The helper does all the effort to complete an activity 7 Patient refused to complete or attempt activity 9 The patient did not perform the activity before the current illness or injury 88 Not attempted due to Medical conditions or safety concerns Grooming (FIM): 5 Oral Hygiene (QC): 5 Bathing (FIM): 4 Upper Body (FIM): 4 Lower Body Dressing (FIM): 4 Lower Body Dressing (QC): 3 Toilet/Commode Transfer (FIM): 4 Shower Transfer(FIM): 4 OT Short Term Goals Short Term Goals Time Frame: Dec 15, 2018 Eating(FIM): 7 Grooming(FIM): 6 (w/c level) Toilet/Commode Transfer(FIM): 3 Additional Short Term Goals: 1-Demonstrate ADL Tasks, 2-Verbalize Understanding , 3-ImproveStrength/Kandi 1=Demonstrate adherence to instructed precautions during ADL tasks. 2=Patient will verbalize/demonstrate understanding of assistive devices/ modifications for ADL. 3=Patient will improve strength/tolerance for activity to enable patient to perform ADL's. OT Usp Goals News Production Assistant Goals Time Frame: Dec 29, 2018 Eating (FIM): 7 Eating (QC): 6 Groomin Oral Hygiene (QC): 6 Bathing(FIM): 6 Shower/Bathe Self (QC): 6 Upper Body Dressing(FIM): 6 Upper Body Dressing (QC): 6 Lower Body Dressing(FIM): 6 Lower Body Dressing (QC): 6 On/Off Footwear (QC): 6 Toileting(FIM): 6 Toileting Hygiene (QC): 6 Toilet/Commode Transfer(FIM): 6 Toilet/Commode Transfer (QC): 6 Shower Transfer(FIM): 6 Additional Goals: 1-Demonstrate ADL Tasks, 2-Verbalize Understanding, 3- ImproveStrength/Kandi 1=Demonstrate adherence to instructed precautions during ADL tasks. 2=Patient will verbalize/demonstrate understanding of assistive devices/ modifications for ADL. 3=Patient will improve strength/tolerance for activity to enable patient to perform ADL's. OT Education/Plan Discharge Recommendations Plan/Recommendations: Continue POC Treatment Plan/Plan of Care Patient would benefit from OT for education, treatment and training to promote independence in ADL's, mobility, safety and/or upper extremity function for ADL' s. Plan of Care: ADL Retraining, Functional Mobility, Group Exercise/Act as Ind ( education, exercise, functional activity, activity tolerance, funct mobility), UE Funct Exercise/Act, UE Neuromus Re-Ed/Coord Treatment Duration: Dec 29, 2018 Frequency: At least 5 of 7 days/Wk (IRF) Estimated Hrs Per Day: 1.5 hours per day Agreement: Yes Rehab Potential: Fair Time/GCodes Start Time: 08:00 Stop Time: 09:30 Total Time Billed (hr/min): 90 Billed Treatment Time 1 visit, ADLx6(90minutes) DALILA FOLEY OT Dec 14, 2018 11:48
--- NOTE | 2018-12-14 12:22 | Physical Therapy Daily Note ---
PT Daily Note-Current Subjective Pt. agrees to Rx. States she is having trouble having BM, has had a suppository and asks x 2 to sit on toilet during Rx. Pt. appears discouraged today, states she just lost her in March and has been slowly weaker herself and feels she may not live more than a few weeks or months. Pain Numeric Pain Scale: 3 Location: Medial Location Body Site: Back Pain Description: Ache Mental Status Patient Orientation: Normal For Age Transfers Therapy Code Descriptions/Definitions Functional [place] Measure: 0=Not Assessed/NA 4=Minimal Assistance 1=Total Assistance 5=Supervision or Setup 2=Maximal Assistance 6=Modified [place] 3=Moderate Assistance 7=Complete [place] Therapy Quality Codes: 6 Independent with activity with or without an assistive device 5 Patient requires set up or clean up by helper. Patient completes activity by themselves 4 Supervision or touching assist (CGA). [place] provide cues , steadying assist 3 The helper provides less than half the effort to complete the activity 2 The helper provides more than half the effort to complete the activity 1 Dependent. The helper does all the effort to complete an activity 7 Patient refused to complete or attempt activity 9 The patient did not perform the activity before the current illness or injury 88 Not attempted due to Medical conditions or safety concerns Transfers (B, C, W/C) (FIM): 4 Scootin Rollin Supine to/from Sit: 5 Sit to/from Stand: 4 Bed to/from Chair: 4 Weight Bearing Right Lower Extremity: Right Full Weight Bearing Left Lower Extremity: Left Full Weight Bearing Gait Training Does the Patient Walk?: Yes Gait (FIM): 1 Distance (FIM): 1=up to 49 ft (40ft,25x3) Gait Level of Assist: 4 Gait Persons Needed: 1 Gait Assistive Device: FWW slow, instructed to broaden MEIR and stablize at left hip as pt. lists and leans left with weight bearing on LLE, close follow with w/c Wheelchair Training Does the Pt Use a Wheelchair?: Yes Wheelchair (FIM): 2 Wheelchair Distance: 2=050-80 ft (75x2) Wheelchair Level of Assist: 4 (needs assist with brakes as well as some turns) Type of Wheelchair: Manual ses feet and hands, needs frequent rest, arms/shoulders fatigue and are painful Exercises Supine Ex: Bridging, Ankle pumps, Quad Set, Rolling, Glut sets, Heel Slides, Short Arc Quads, Scooting, Straight leg raise, Hip abd/add Supine Reps: 20 Seated Therapy Exercises: Ankle pumps, Sit to stand, Long arc quads Seated Reps: 12 Treatments TRFs, gait and ther ex as well as toileting with mod assist for pants up down, mod assist to doff and paige brief and max assist to clean Assessment Current Status: Good Progress very slow inconsistent progress, dependent for all mobility, at risk for falls PT Short Term Goals Short Term Goals Wheelchair Distance: 150' PT Silverware Supervisor Goals Silverware Supervisor Goals PT Half-Way Goals Time Frame: Dec 29, 2018 Transfers (B,C,W/C) (FIM): 5 Sit to Lying (QC): 5 Lying-Sitting on Side/Bed(QC): 5 Sit to Stand (QC): 5 Rollin Roll Left to Right (QC): 5 Chair/Lrg-in-Wkdds Xfer(QC): 5 Car Transfer (QC): 5 Does the Patient Walk: Yes Gait (FIM): 2 Distance: 125' Walk 10 feet (QC): 5 Walk 10ft-Uneven Surface(QC): 5 Walk 50ft with 2 Turns (QC): 5 Walk 150 ft (QC): 88 Gait Level of Assist: 5 Gait Assistive Device: Walker 4 Wheeled, FWW Wheelchair (FIM): 2 Wheelchair distance (FIM): 1=up to 49 ft Distance: 100' Wheelchair Level of Assist: 5 Wheel 50 feet with 2 turns (QC: 5 Stairs (FIM): 1 PT Plan Treatment/Plan Treatment Plan: Continue Plan of Care Treatment Plan: Bed Mobility, Education, Functional Activity Kandi, Functional Strength, Group Therapy, Gait, Safety, Therapeutic Exercise, Transfers Treatment Duration: Dec 01, 2018 Frequency: At least 5 of 7 days/Wk (IRF) Estimated Hrs Per Day: 1.5 hours per day Patient and/or Family Agrees t: Yes Safety Risks/Education Patient Education: Gait Training, Transfer Techniques, Correct Positioning, W/ C Management, Disease Process, Safety Issues Teaching Recipient: Patient Teaching Methods: Demonstration, Discussion Response to Teaching: Verbalize Understanding, Return Demonstration, Reinforcement Needed Time/GCodes Time In: 1100 Time Out: 1230 Total Billed Treatment Time: 90 Total Billed Treatment 1,FA30m,EX35m,GT25m G Codes Necessary: No LUEBBER, AMANDA A QUILLER HAND Dec 14, 2018 12:22
--- NOTE | 2018-12-14 15:36 | Consultation-Cardiology ---
HPI-Cardiology Cardiology Consultation: Date of Consultation 12/14/18 Time Seen by a Provider: 15:05 Date of Admission Attending Physician Erin Gonzalez DO Admitting Physician Pierre Post DO Consulting Physician AMA HASKINS MD, MA, FACP, FACC, [facility], CCDS Physician requesting consult: Dr Gonzalez HPI: Chief Complaint: Reason for consultation: Murmur Ms. Arango is an 83 year old female admitted to [facility] from [place], [place] d/t debility. We have been asked to see her in consult d/t cardiac murmur. She reports she has recently moved to [place], [place] from [place], [place] and had not yet established care with physician services. She states she had a CVA in July 2018 for which she was treated at [facility] in [place], [place]. She reports she then went to rehab facility in [place] and then went home in October 2018. She reports she became increasingly weak and therefore, went back to [facility] in November 2018. She has subsequently been sent here for strengthening. She reports the source of the stroke is unknown to her. She report she did see cardiology services in [place], [place], Dr. De Guzman prior to moving to [place]. She denies any c/o CP, dyspnea, syncope or near syncope. No c/o LE swelling. She reports she does have sleep apnea and is compliant with her CPAP tx. She report occ episodes of palpitations which last only a few seconds. She denies any assoc symptoms with the palpitations. She reports the last episode she believes was prior to 2017, but she is unsure. Her main complaint is generalize weakness. Review of Systems-Cardiology Review of Systems Constitutional: No chills, No fever; malaise Eyes: No vision change Ears/Nose/Throat: No epistaxis, No recent hearing loss Respiratory: As described under HPI Cardiovascular: As described under HPI Gastrointestinal: No constipation, No diarrhea, No nausea, No vomiting Genitourinary: No dysuria, No hematuria Musculoskeletal: As describe under HPI Skin: No rash, No ulcerations Psychiatric/Neurological: No seizure, No focal weakness, No syncope Hematologic: No bleeding abnormalities BMW-[id number]-Jumlun Hx Patient Social History Marrital Status: (05/30) 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 Family Medical History Family Medical History: She reports her mother had a CVA and COPD. No h/o premature CAD or SCD. Family History: Arthritis 19 FATHER Hypertension 19 FATHER 19 MOTHER Respiratory disorder 19 MOTHER Allergies and Home Medications Allergies Coded Allergies: cephalexin (Verified Allergy, Unknown, 12/12/18) codeine (Verified Allergy, Unknown, 12/12/18) pork derived (porcine) (Verified Allergy, Unknown, 12/09/18) promethazine (Verified Allergy, Unknown, 12/12/18) vancomycin (Verified Allergy, Unknown, 12/12/18) Uncoded Allergies: SEPTRA DS (Allergy, Unknown, 12/12/18) [id number] REDUCTASE INHIBITORS (Allergy, Unknown, 12/12/18) mushr (Allergy, Unknown, 12/09/18) ADHESIVE TAPE-SILICONES (Adverse Reaction, Unknown, 12/12/18) MERCURY (BULK) (Adverse Reaction, Unknown, 12/12/18) Home Medications Acetaminophen 325 Mg Tablet, 650 MG PO DAILY PRN for PAIN-MILD, (Reported) Albuterol Sulfate 1 Puff Puff, 2 PUFF INH Q6H PRN for SHORTNESS OF BREATH, ( Reported) Amlodipine Besylate 10 Mg Tablet, 10 MG PO DAILY, (Reported) Aspirin 325 Mg Tablet, 325 MG PO 1800, (Reported) Calcium Carbonate 600 Mg Tablet, 600 MG PO BID, (Reported) Carvedilol 25 Mg Tablet, 25 MG PO BID, (Reported) Clonidine HCl 0.1 Mg Tablet, 0.1 MG PO TID, (Reported) Diclofenac Sodium 100 Gm Gel..gram., TP QID PRN for JOINT PAIN, (Reported) Docusate Sodium 100 Mg Capsule, 100 MG PO DAILY, (Reported) Folic Acid 1 Mg Tablet, 1 MG PO DAILY, (Reported) Gabapentin 100 Mg Capsule, 200 MG PO BID, (Reported) Hydrochlorothiazide 25 Mg Tablet, 25 MG PO DAILY, (Reported) Ipratropium/Albuterol Sulfate 3 Ml Ampul.neb, 3 ML IH Q4H PRN for SHORTNESS OF BREATH, (Reported) Lansoprazole 30 Mg Capsule.dr, 30 MG PO BID, (Reported) Loratadine 10 Mg Tablet, 10 MG PO DAILY, (Reported) Losartan Potassium 100 Mg Tablet, 100 MG PO DAILY, (Reported) Montelukast Sodium 10 Mg Tablet, 10 MG PO HS, (Reported) Multivitamin 1 Each Capsule, 1 CAP PO DAILY, (Reported) Niacin 500 Mg Tab.er.24h, 500 MG PO HS, (Reported) Ondansetron HCl 4 Mg Tab, 4 MG PO Q6H PRN for NAUSEA/VOMITING-1ST LINE, ( Reported) Oxybutynin Chloride 5 Mg Tablet, 5 MG PO HS, (Reported) Paroxetine HCl 20 Mg Tablet, 20 MG PO DAILY, (Reported) Tiotropium [place] 4 Gm Mist.inhal, 2 PUFF INH DAILY, (Reported) Tramadol HCl 50 Mg Tablet, 100 MG PO Q6H PRN for PAIN-MODERATE, (Reported) TAKES 2 (50MG) TABLETS Patient Home Medication List Home Medication List Reviewed: Yes Physical Exam-Cardiology Physical Exam Vital Signs/I&O 12/14/18 12/14/18 12/14/18 05:04 06:37 14:16 Temp 98.6 Pulse 62 69 Resp 16 B/P (MAP) 104/62 (76) Pulse Ox 94 91 O2 Delivery Room Air Room Air 12/14/18 00:00 Intake Total 720 ml Balance 720 ml Capillary Refill : Less Than 3 Seconds Constitutional: AAO x 3, well-developed, well-nourished HEENT: PERRL, hearing is well preserved, oral hygience is good Neck: carotid bruit (bruit vs transmitted murmur), carotid pulses are 2 + bilaterally Respiratory: No accessory muscle use, No respiratory distress; chest expansion is symmetric, chest is bilaterally symmetric, lungs clear to auscultation Cardiovascular: regular rate-rhythm; No JVD; S1 and S2, systolic murmur (3/6 MSM) Gastrointestinal: No tender; soft, audible bowel sounds Rectal: deferred Extremities: no lower extremity edema bilateral Neurologic/Psychiatric: grossly intact Data Review Labs Laboratory Tests 12/14/18 09:40: Microbiology 12/12/18 Urine Culture - Final, Complete Escherichia coli Laboratory Tests 12/13/18 09:05 A/P-Cardiology Assessment/Admission Diagnosis Hyponatremia of undetermined etiology, managed by Dr Gonzalez H/O CVA in July 2018 - details unknown - treated at [facility] in [place], [place] General weakness/debility since CVA in Jul 2018 Echocardiogram of Jul 17, [address] Hooper at [facility] in [place], [place] - LVEF 60 % with mild diastolic dysfunction. Mild LVH. Mitral annular calcification with mil to mod mitral valve regurg. Mild LA enlargement. Mod aortic sclerosis with mod aortic stenosis and mild aortic insufficiency with normal aortic root size. Normal RV function with preserved pulmonary pressures Reports h/o stent x 2 in 2007 at [facility] in [place], [place] by Dr. De Guzman - reports last MPI greater than one year ago Reports episodes of palpitations for several years, infrequent LILI - CPAP tx HTN CKD stage 3 HLD - statin tx UTI - management per medical services Reports h/o asthma Anxiety Back pain - h/o back surgeries x 3 H/O right arm surgery x 3 and left arm surgery x1 Discussion and Recomendations * Available records reviewed - we will request records from July 2018 admission (CVA) * We have reviewed the echocardiogram from July [address] Parish * We are continuing her current medication regimen Monitor lab * Further recs will be based on her hospital course * We would like to thank Dr. Gonzalez for this consult Clinical Quality Measures DVT/VTE Risk/Contraindication: Risk Factor Score Per Nursin RFS Level Per Nursing on Admit: 4+=Very High AMA HASKINS MD FACP FAC CCDS Dec 14, 2018 15:36
[2018-12-14 17:41] VITALS: BP 131/74
[2018-12-14] MEDS: ASPIRIN E.C. 325 MG (ECOTRIN) TABLET PO SCH (19:37)
[2018-12-14] MEDS: OXYBUTYNIN (DITROPAN) 5 MG TAB PO SCH (21:00)
[2018-12-14] MEDS: NIACIN ER (NIASPAN) 500 MG TAB PO SCH (21:00)
[2018-12-14] MEDS: MONTELUKAST 10 MG (SINGULAIR) TAB PO SCH (21:00)
[2018-12-15] MEDS: ACETAMINOPHEN 325 MG TABLET PO PRN (00:20)
[2018-12-15] MEDS: CIPROFLOXACIN 500 MG (CIPRO) TABLET PO SCH ×2 (03:52→19:48)
[2018-12-15 06:00] VITALS: BP 129/64
[2018-12-15] MEDS: CARVEDILOL 12.5 MG (COREG) TABLET PO SCH ×2 (07:02→16:25)
[2018-12-15] MEDS: PANTOPRAZOLE 40 MG (PROTONIX) TAB PO SCH (07:02)
[2018-12-15] MEDS: MULTIVIT W/MINERALS TAB (THERAGRAN M) PO SCH (07:02)
[2018-12-15] MEDS: CALCIUM CARBONATE 600 MG (CALCARB) TAB PO SCH ×2 (07:02→16:23)
[2018-12-15] MEDS: VITAMIN D3 5,000 UNITS (CHOLECALCIFEROL ) CAPSULE PO SCH (09:38)
[2018-12-15] MEDS: LORATADINE (CLARITIN) 10 MG TAB PO SCH (09:39)
[2018-12-15] MEDS: FOLIC ACID 1 MG TAB PO SCH (09:39)
[2018-12-15] MEDS: RT-ALBUTEROL SULF 2.5 MG/3 ML PRE-MIX VIAL INH SCH ×2 (09:39→19:12)
[2018-12-15] MEDS: FAMOTIDINE 20 MG (PEPCID) TABLET PO SCH (09:39)
[2018-12-15] MEDS: LOSARTAN 100 MG (COZAAR) TABLET PO SCH (09:39)
[2018-12-15] MEDS: PARoxetine 20 MG (PAXIL) TAB PO SCH (09:39)
[2018-12-15] MEDS: UMECLIDINIUM BROMIDE (INCRUSE ELLIPTA) 7'S IH SCH (09:39)
[2018-12-15] MEDS: amLODIPine 10 MG (NORVASC) TAB PO SCH (09:39)
[2018-12-15] MEDS: GABAPENTIN 100 MG (NEURONTIN) CAP PO SCH ×2 (09:39→19:48)
[2018-12-15] MEDS: BISACODYL 10 MG SUPP (DULCOLAX) PR SCH (09:40)
[2018-12-15] MEDS: DICLOFENAC 1% GEL 100 GM (VOLTAREN) TUBE TOP SCH ×4 (09:40→19:49)
--- NOTE | 2018-12-15 11:01 | Physical Therapy Daily Note ---
PT Daily Note-Current Subjective Pt laying Supine in bed upon arrival. Pt agrees to PT. Pt reports needing restroom at start of tx. Pain Numeric Pain Scale: 5-Moderate Pain Location: Right, Left Location Body Site: Knee Pain Description: Ache Mental Status Patient Orientation: Person, Place, Time, Situation Attachments: Other-See Comments (Telemetry) Transfers Therapy Code Descriptions/Definitions Functional [place] Measure: 0=Not Assessed/NA 4=Minimal Assistance 1=Total Assistance 5=Supervision or Setup 2=Maximal Assistance 6=Modified [place] 3=Moderate Assistance 7=Complete [place] Therapy Quality Codes: 6 Independent with activity with or without an assistive device 5 Patient requires set up or clean up by helper. Patient completes activity by themselves 4 Supervision or touching assist (CGA). Hinkley provide cues , steadying assist 3 The helper provides less than half the effort to complete the activity 2 The helper provides more than half the effort to complete the activity 1 Dependent. The helper does all the effort to complete an activity 7 Patient refused to complete or attempt activity 9 The patient did not perform the activity before the current illness or injury 88 Not attempted due to Medical conditions or safety concerns Scootin Rollin Supine to/from Sit: 3 Sit to/from Stand: 3 Sit to Lying (QC): 3 Sit to Stand (QC): 3 Weight Bearing Right Lower Extremity: Right Full Weight Bearing Left Lower Extremity: Left Full Weight Bearing Wheelchair Training Does the Pt Use a Wheelchair?: Yes Wheelchair Distance: 6=860-72 ft Distance: 50' Wheelchair Level of Assist: 4 Wheel 50 ft with 2 turns (QC): 4 Type of Wheelchair: Manual Treatments Pt transfers from Supine to EOB at Min-Mod A. Pt then completes SPT at Min A to W/C. Pt assists with propelling W/C to restroom. After toileting, pt is fatigued and needs assistance with donning brief. Pt SPT back to W/C to rest. RT arriving for breathing tx at end of tx. Pt has all needs met. Assessment Current Status: Fair Progress Pt fatigues easily and needs frequent rest breaks due to weakness, pain & fatigue. PT Short Term Goals Short Term Goals Wheelchair Distance: 150' PT Pet House Sitter Goals Detention Goals PT Detention Goals Time Frame: Dec 29, 2018 Transfers (B,C,W/C) (FIM): 5 Sit to Lying (QC): 5 Lying-Sitting on Side/Bed(QC): 5 Sit to Stand (QC): 5 Rollin Roll Left to Right (QC): 5 Chair/Zsm-xj-Kzhol Xfer(QC): 5 Car Transfer (QC): 5 Does the Patient Walk: Yes Gait (FIM): 2 Distance: 125' Walk 10 feet (QC): 5 Walk 10ft-Uneven Surface(QC): 5 Walk 50ft with 2 Turns (QC): 5 Walk 150 ft (QC): 88 Gait Level of Assist: 5 Gait Assistive Device: Walker 4 Wheeled, FWW Wheelchair (FIM): 2 Wheelchair distance (FIM): 1=up to 49 ft Distance: 100' Wheelchair Level of Assist: 5 Wheel 50 feet with 2 turns (QC: 5 Stairs (FIM): 1 PT Plan Problem List Problem List: Activity Tolerance, Functional Strength, Safety, Balance, Gait, Transfer, Bed Mobility Treatment/Plan Treatment Plan: Continue Plan of Care Treatment Plan: Bed Mobility, Education, Functional Activity Kandi, Functional Strength, Group Therapy, Gait, Safety, Therapeutic Exercise, Transfers Treatment Duration: Dec 01, 2018 Frequency: At least 5 of 7 days/Wk (IRF) Estimated Hrs Per Day: 1.5 hours per day Patient and/or Family Agrees t: Yes Safety Risks/Education Patient Education: Transfer Techniques, Correct Positioning, W/C Management, Safety Issues Teaching Recipient: Patient Teaching Methods: Discussion Response to Teaching: Verbalize Understanding Time/GCodes Time In: 845 Time Out: 915 Total Billed Treatment Time: 30 Total Billed Treatment 1, FA x2 (30m) G Codes Necessary: BOGDAN Gupta PTA Dec 15, 2018 11:01
--- NOTE | 2018-12-15 11:06 | PM&R Progress Note ---
Subjective HPI/CC On Admission Date Seen by Provider: Dec 15, 2018 Time Seen by Provider: 10:15 CC: Debility HPI: This is an 83-year-old white female clinic patient of Dr. Post in [place] just recently moved from [facility] to [place] to be close to her 2 grandchildren since her daughter is a nurse in [place] who works may shifts per week and her son lives in [place] and she previously lived in [place] from [phone] who presents after a [facility] stay for 3 days due to severe weakness. Hyponatremia noted acute on chronic while she was there which could be contributing to the weakness (I will stop HCTZ and place on fluid restriction). She had a history of a CVA July 2018 went to [facility] for 3 months and just was discharged to her own home with her grandchildren watching over her. She began having weakness full evaluation included a CT scan and multiple labs revealing no source of weakness so she was placed in physical therapy and found to meet criteria for intensive therapies with inpatient rehabilitation center at [facility] here. She usually sees cardiology for a cardiac murmur and pulmonology for severe asthma and rheumatology for psoriatic arthritis and she is just in the midst of getting that set up since moving to [place] in the last 6 months. Her May 2018. 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 She would like to return to live alone. Subjective/Events-last exam Patient doing well Hyponatremia treated with 1200 mL a day so will check labs tomorrow UTI treated with Cipro empirically and UCx revealed sensitive so we will maintain that for 7 days Lungs are doing well Looking into assisted living options Denies any pain Constipation will be monitored Checked meds and labs Aortic stenosis managed by service delivery management consultant Dr Myers since I reviewed the ECHO and I needed opinion whether could be contributing to her weakness Telemetry now Review of Systems General: Fatigue Objective Exam Vital Signs Vital Signs Date Time Temp Pulse Resp B/P (MAP) Pulse Ox O2 Delivery O2 Flow Rate FiO2 12/15/18 09:40 94 Room Air 12/15/18 07:00 62 12/15/18 06:00 99.3 18 129/64 (85) Capillary Refill : Less Than 3 Seconds General Appearance: No Apparent Distress, WD/WN, Chronically ill, Obese HEENT: PERRL/EOMI, Normal ENT Inspection, Pharynx Normal Neck: Full Range of Motion, Normal Inspection, Non Tender, Supple, Carotid Bruit Respiratory: Chest Non Tender, Lungs Clear, Normal Breath Sounds, No Accessory Muscle Use, No Respiratory Distress Cardiovascular: Regular Rate, Rhythm, No Edema, No Gallop, No JVD, No Murmur, Normal Peripheral Pulses, Systolic Murmur Gastrointestinal: Normal Bowel Sounds, No Organomegaly, No Pulsatile Mass, Non Tender, Soft Back: Normal Inspection, No CVA Tenderness, No Vertebral Tenderness Extremity: Normal Capillary Refill, Normal Inspection, Normal Range of Motion, Non Tender, No Calf Tenderness, No Pedal Edema Neurologic/Psychiatric: Alert, Oriented x3, No Motor/Sensory Deficits, Normal Mood/Affect, Motor Weakness (generalized weakness) Skin: Normal Color, Warm/Dry Lymphatic: No Adenopathy Results/Procedures Lab Patient resulted labs reviewed. Assessment/Plan Assessment and Plan Assess & Plan/Chief Complaint Assessment: Debility Severe weakness due to CVA 07/31 and hyponatremia and psoriatic arthritis and aortic stenosis Acute on chronic hyponatremia holding hydrochlorothiazide and placing fluid restriction and sodium level decreased to 131 so will monitor closely for now but 128 repeat Moderate persistent asthma usually sees pulmonology and noted crackles on Monday in RLL so started Nebs and IS and now improved Psoriatic arthritis on immunosuppressive biologic managed by rheumatology Chronic cardiac murmur usually sees cardiology History of CVA July 2018 spent 3 months at [facility] Acute right shoulder pain related to therapy last month History of compression fractures of the back 4 times Constipation - resolved LILI compliant on CPAP Acute UTI on Cipro Plan: Maintain intensive therapies Appreciate right shoulder pain evaluation with xrays and consult Dr Duff because it was causing a restriction in therapy services Continue home medications Spiriva Enbrel immunological biological med brought from home from family and takes every Monday Monitor cardiac and pulmonary systems closely Patient lives alone Prune juice for constipation along with more meds prn Monitor incontinence IS Nebs monitor crackles RLL on Monday now improved on Nebs and IS Disposition? UTI tx to complete 7 days on Cipro Monitor hyponatremia source and check labs in am (1) Debility (2) Psoriatic arthritis (3) Immunosuppression (4) History of CVA (cerebrovascular accident) (5) Asthma (6) Cardiac murmur (7) Compression fracture (8) Hypertension (9) Right anterior shoulder pain (10) Hyponatremia (11) Weakness (12) LILI on CPAP (13) Lung crackles (14) Shoulder pain, right (15) Incontinence (16) UTI (urinary tract infection) Clinical Quality Measures DVT/VTE Risk/Contraindication: Risk Factor Score Per Nursin RFS Level Per Nursing on Admit: 4+=Very High JANELLE ROBERTS DO Dec 15, 2018 11:06
[2018-12-15] MEDS: ASPIRIN E.C. 325 MG (ECOTRIN) TABLET PO SCH (16:23)
[2018-12-15 18:35] VITALS: BP 111/66
--- NOTE | 2018-12-15 19:29 | Progress Note-Cardiology ---
Cardiology SOAP Progress Note Subjective: No cp or palp or syncope Mod exertional shortness of breath Gen malaise Objective: I&O/Vital Signs 12/15/18 12/15/18 12/15/18 12/15/18 09:00 09:40 13:00 18:35 Temp 97.7 Pulse 67 74 Resp 18 B/P (MAP) 111/66 (81) Pulse Ox 94 94 O2 Delivery Room Air Room Air Room Air 12/15/18 12/15/18 18:53 19:13 Temp 99.5 Pulse Ox 91 O2 Delivery Room Air 12/15/18 00:00 Intake Total 420 ml Balance 420 ml Weight (Pounds): 167 Weight (Ounces): 0.0 Weight (Calculated Kilograms): [id number] Constitutional: AAO x 3, well-developed, well-nourished Respiratory: No accessory muscle use, No respiratory distress; chest expansion is symmetric, chest is bilaterally symmetric, lungs clear to auscultation Cardiovascular: regular rate-rhythm; No JVD; S1 and S2, systolic murmur (3/6 MSM) Gastrointestional: No tender; soft, audible bowel sounds Extremities: no lower extremity edema bilateral Neurologic/Psychiatric: grossly intact Results/Procedures: Labs Microbiology 12/12/18 Urine Culture - Final, Complete Escherichia coli A/P: Assessment: Hyponatremia of undetermined etiology, managed by Dr Gonzalez H/O CVA in July 2018 - details unknown - treated at [facility] in [place], [place] General weakness/debility since CVA in Jul 2018 Echocardiogram of Jul 17, [address] Hooper at [facility] in [place], [place] - LVEF 60 % with mild diastolic dysfunction. Mild LVH. Mitral annular calcification with mil to mod mitral valve regurg. Mild LA enlargement. Mod aortic sclerosis with mod aortic stenosis and mild aortic insufficiency with normal aortic root size. Normal RV function with preserved pulmonary pressures Reports h/o stent x 2 in 2007 at [facility] in [place], [place] by Dr. De Guzman - reports last MPI greater than one year ago Reports episodes of palpitations for several years, infrequent LILI - CPAP tx HTN CKD stage 3 HLD - statin tx UTI - management per medical services Reports h/o asthma Anxiety Back pain - h/o back surgeries x 3 H/o right arm surgery x 3 and left arm surgery x1 Plan: * Continue current regimen * Continue tele * Monitor labs AMA HASKINS MD FACP FAC CCDS Dec 15, 2018 19:29
[2018-12-15] MEDS: DOCUSATE SODIUM 100 MG (COLACE) CAP PO PRN (19:48)
[2018-12-15] MEDS: MONTELUKAST 10 MG (SINGULAIR) TAB PO SCH (19:48)
[2018-12-15] MEDS: NIACIN ER (NIASPAN) 500 MG TAB PO SCH (19:48)
[2018-12-15] MEDS: OXYBUTYNIN (DITROPAN) 5 MG TAB PO SCH (19:48)
[2018-12-16 05:20] VITALS: BP 128/68
[2018-12-16 06:44] LABS: BASOPHILS # (AUTO) 0.1 10^3/uL (0.0-0.1); BASOPHILS % (AUTO) 1 % (0-10); EOSINOPHILS # (AUTO) 0.6 10^3/uL (0.0-0.3); EOSINOPHILS % (AUTO) 9 % (0-10); HEMATOCRIT 32 % (35-52); HEMOGLOBIN 10.6 G/DL (11.5-16.0); LYMPHOCYTES # (AUTO) 1.6 X 10^3 (1.0-4.0); LYMPHOCYTES % (AUTO) 25 % (12-44); MEAN CORPUSCULAR HEMOGLOBIN 32 PG (25-34); MEAN CORPUSCULAR HGB CONC 34 G/DL (32-36); MEAN CORPUSCULAR VOLUME 96 FL (80-99); MEAN PLATELET VOLUME 8.8 FL (7.4-10.4); MONOCYTES # (AUTO) 1.1 X 10^3 (0.0-1.0); MONOCYTES % (AUTO) 16 % (0-12); NEUTROPHILS # (AUTO) 3.2 X 10^3 (1.8-7.8); NEUTROPHILS % (AUTO) 49 % (42-75); PLATELET COUNT 233 10^3/uL (130-400); RED CELL DISTRIBUTION WIDTH 14.8 % (10.0-14.5); WHITE BLOOD COUNT 6.6 10^3/uL (4.3-11.0)
[2018-12-16 07:06] LABS: ALBUMIN 3.2 GM/DL (3.2-4.5); BILIRUBIN,TOTAL 0.6 MG/DL (0.1-1.0); CREATININE SERUM 1.32 MG/DL (0.60-1.30); POTASSIUM 4.7 MMOL/L (3.6-5.0); TOTAL PROTEIN 6.2 GM/DL (6.4-8.2)
[2018-12-16] MEDS: MULTIVIT W/MINERALS TAB (THERAGRAN M) PO SCH (07:48)
[2018-12-16] MEDS: PANTOPRAZOLE 40 MG (PROTONIX) TAB PO SCH (07:48)
[2018-12-16] MEDS: CALCIUM CARBONATE 600 MG (CALCARB) TAB PO SCH ×2 (07:48→17:05)
[2018-12-16] MEDS: CARVEDILOL 12.5 MG (COREG) TABLET PO SCH ×2 (07:49→17:05)
[2018-12-16 09:48] VITALS: BP 145/77
--- NOTE | 2018-12-16 09:50 | NUR ---
Max Ax2 to transfer from bed to BSC, pt very stiff, & retropulsive, pt inct of urine upon standing.
[2018-12-16] MEDS: FAMOTIDINE 20 MG (PEPCID) TABLET PO SCH (09:51)
[2018-12-16] MEDS: PARoxetine 20 MG (PAXIL) TAB PO SCH (09:51)
[2018-12-16] MEDS: LORATADINE (CLARITIN) 10 MG TAB PO SCH (09:51)
[2018-12-16] MEDS: VITAMIN D3 5,000 UNITS (CHOLECALCIFEROL ) CAPSULE PO SCH (09:51)
[2018-12-16] MEDS: DOCUSATE SODIUM 100 MG (COLACE) CAP PO PRN ×2 (09:51→21:16)
[2018-12-16] MEDS: FOLIC ACID 1 MG TAB PO SCH (09:52)
[2018-12-16] MEDS: amLODIPine 10 MG (NORVASC) TAB PO SCH (09:52)
[2018-12-16] MEDS: GABAPENTIN 100 MG (NEURONTIN) CAP PO SCH ×2 (09:52→21:15)
[2018-12-16] MEDS: LOSARTAN 100 MG (COZAAR) TABLET PO SCH (09:52)
[2018-12-16] MEDS: DICLOFENAC 1% GEL 100 GM (VOLTAREN) TUBE TOP SCH ×4 (09:52→21:18)
--- NOTE | 2018-12-16 09:53 | NUR ---
pt states her PCP is Dr. Natanael Ruiz in [place]
[2018-12-16] MEDS: BISACODYL 10 MG SUPP (DULCOLAX) PR SCH (10:12)
[2018-12-16] MEDS: SALIVA STIMULANT MOUTH SPRAY (BIOTENE) 1.5 OZ MM PRN (10:33)
--- NOTE | 2018-12-16 12:50 | PM&R Progress Note ---
Subjective HPI/CC On Admission Date Seen by Provider: Dec 16, 2018 Time Seen by Provider: 12:30 CC: Debility HPI: This is an 83-year-old white female clinic patient of Dr. Post in [place] just recently moved from [facility] to [place] to be close to her 2 grandchildren since her daughter is a nurse in [employer] who works may shifts per week and her son lives in [place] and she previously lived in [place] from [phone] who presents after a [facility] stay for 3 days due to severe weakness. Hyponatremia noted acute on chronic while she was there which could be contributing to the weakness (I will stop HCTZ and place on fluid restriction). She had a history of a CVA July 2018 went to [facility] for 3 months and just was discharged to her own home with her grandchildren watching over her. She began having weakness full evaluation included a CT scan and multiple labs revealing no source of weakness so she was placed in physical therapy and found to meet criteria for intensive therapies with inpatient rehabilitation center at [facility] here. She usually sees cardiology for a cardiac murmur and pulmonology for severe asthma and rheumatology for psoriatic arthritis and she is just in the midst of getting that set up since moving to [place] in the last 6 months. Her May 2018. 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 She would like to return to live alone. Subjective/Events-last exam Patient doing well overall except weak legs Hyponatremia treated with 1200 mL a day and now 134 UTI treated with Cipro empirically and UCx revealed sensitive so we will maintain that for full 7 days Lungs are doing well Nebs tolerated Grandson at bedside Looking into assisted living options Denies any pain Constipation will be monitored given Colace Checked meds and labs Aortic stenosis managed by care consultant Dr Myers since I reviewed the ECHO and I needed opinion whether could be contributing to her weakness Telemetry now Very hard transfer Incontinence still present even while UTI treated Review of Systems General: Fatigue Neurological: Weakness, Incoordination Objective Exam Vital Signs Vital Signs Date Time Temp Pulse Resp B/P (MAP) Pulse Ox O2 Delivery O2 Flow Rate FiO2 12/16/18 13:00 71 12/16/18 09:48 97.6 20 145/77 (99) 98 Room Air Capillary Refill : Less Than 3 Seconds General Appearance: No Apparent Distress, WD/WN, Chronically ill, Obese HEENT: PERRL/EOMI, Normal ENT Inspection, Pharynx Normal Neck: Full Range of Motion, Normal Inspection, Non Tender, Supple, Carotid Bruit Respiratory: Chest Non Tender, Lungs Clear, Normal Breath Sounds, No Accessory Muscle Use, No Respiratory Distress Cardiovascular: Regular Rate, Rhythm, No Edema, No Gallop, No JVD, No Murmur, Normal Peripheral Pulses, Systolic Murmur Gastrointestinal: Normal Bowel Sounds, No Organomegaly, No Pulsatile Mass, Non Tender, Soft Back: Normal Inspection, No CVA Tenderness, No Vertebral Tenderness Extremity: Normal Capillary Refill, Normal Inspection, Normal Range of Motion, Non Tender, No Calf Tenderness, No Pedal Edema Neurologic/Psychiatric: Alert, Oriented x3, No Motor/Sensory Deficits, Normal Mood/Affect, Motor Weakness (generalized weakness of legs) Skin: Normal Color, Warm/Dry Lymphatic: No Adenopathy Results/Procedures Lab Laboratory Tests 12/16/18 05:39 Patient resulted labs reviewed. Assessment/Plan Assessment and Plan Assess & Plan/Chief Complaint Assessment: Debility Severe weakness due to CVA 07/31 and hyponatremia and psoriatic arthritis and aortic stenosis Acute on chronic hyponatremia holding hydrochlorothiazide and placing fluid restriction and sodium level decreased to 134 so will monitor closely Moderate persistent asthma usually sees pulmonology and noted crackles on Monday in RLL so started Nebs and IS and now improved Psoriatic arthritis on immunosuppressive biologic managed by rheumatology Chronic cardiac murmur usually sees cardiology History of CVA July 2018 spent 3 months at [facility] Acute right shoulder pain related to therapy last month History of compression fractures of the back 4 times Constipation - resolved LILI compliant on CPAP Acute UTI on Cipro Plan: Maintain intensive therapies Appreciate right shoulder pain evaluation with xrays and consult Dr Duff because it was causing a restriction in therapy services Continue home medications Spiriva Enbrel immunological biological med brought from home from family and takes every Monday Monitor cardiac and pulmonary systems closely Patient lives alone Prune juice for constipation along with more meds prn Monitor incontinence IS Nebs monitor crackles RLL on Monday now improved on Nebs and IS Disposition? UTI tx to complete 7 days on Cipro Monitor hyponatremia (1) Debility (2) Psoriatic arthritis (3) Immunosuppression (4) History of CVA (cerebrovascular accident) (5) Asthma (6) Cardiac murmur (7) Compression fracture (8) Hypertension (9) Right anterior shoulder pain (10) Hyponatremia (11) Weakness (12) LILI on CPAP (13) Lung crackles (14) Shoulder pain, right (15) Incontinence (16) UTI (urinary tract infection) Clinical Quality Measures DVT/VTE Risk/Contraindication: Risk Factor Score Per Nursin RFS Level Per Nursing on Admit: 4+=Very High JANELLE ROBERTS DO Dec 16, 2018 12:50
[2018-12-16] MEDS: CIPROFLOXACIN 500 MG (CIPRO) TABLET PO SCH (15:41)
--- NOTE | 2018-12-16 16:09 | Progress Note-Cardiology ---
Cardiology SOAP Progress Note Subjective: No cp or palp or syncope or shortness of breath at rest Objective: I&O/Vital Signs 12/16/18 12/16/18 12/16/18 12/16/18 05:20 07:00 08:32 09:48 Temp 97.7 97.6 Pulse 67 62 67 Resp 18 20 B/P (MAP) 128/68 (88) 145/77 (99) Pulse Ox 96 98 O2 Delivery Room Air Room Air Room Air 12/16/18 13:00 Pulse 71 12/16/18 00:00 Intake Total 760 ml Balance 760 ml Weight (Pounds): 167 Weight (Ounces): 0.0 Weight (Calculated Kilograms): 75.277691 Constitutional: AAO x 3, well-developed, well-nourished Respiratory: No accessory muscle use, No respiratory distress; chest expansion is symmetric, chest is bilaterally symmetric, lungs clear to auscultation Cardiovascular: regular rate-rhythm; No JVD; S1 and S2, systolic murmur (3/6 MSM) Gastrointestional: No tender; soft, audible bowel sounds Extremities: no lower extremity edema bilateral Neurologic/Psychiatric: grossly intact Results/Procedures: Labs Laboratory Tests 12/16/18 05:39: White Blood Count 6.6, Red Blood Count 3.30L, Hemoglobin 10.6L, Hematocrit 32L, Mean Corpuscular Volume 96, Mean Corpuscular Hemoglobin 32, Mean Corpuscular Hemoglobin Concent 34, Red Cell Distribution Width 14.8H, Platelet Count 233, Mean Platelet Volume 8.8, Neutrophils (%) (Auto) 49, Lymphocytes (%) (Auto) 25, Monocytes (%) (Auto) 16H, Eosinophils (%) (Auto) 9, Basophils (%) (Auto) 1, Neutrophils # (Auto) 3.2, Lymphocytes # (Auto) 1.6, Monocytes # (Auto) 1.1H, Eosinophils # (Auto) 0.6H, Basophils # (Auto) 0.1, Sodium Level 134L, Potassium Level 4.7, Chloride Level 100, Carbon Dioxide Level 23, Anion Gap 11, Blood Urea Nitrogen 27H, Creatinine 1.32H, Estimat Glomerular Filtration Rate 39, BUN/ Creatinine Ratio 20, Glucose Level 89, Calcium Level 10.0, Corrected Calcium 10.6H, Total Bilirubin 0.6, Aspartate Amino Transf (AST/SGOT) 20, Alanine Aminotransferase (ALT/SGPT) 17, Alkaline Phosphatase 65, Total Protein 6.2L, Albumin 3.2 Microbiology 12/12/18 Urine Culture - Final, Complete Escherichia coli Laboratory Tests 12/16/18 05:39 A/P: Assessment: Hyponatremia of undetermined etiology, managed by Dr Gonzalez H/O CVA in July 2018 - details unknown - treated at [facility] in [place], [place] General weakness/debility since CVA in Jul 2018 Echocardiogram of Jul 17, [address] Hooper at [facility] in [place], [place] - LVEF 60 % with mild diastolic dysfunction. Mild LVH. Mitral annular calcification with mil to mod mitral valve regurg. Mild LA enlargement. Mod aortic sclerosis with mod aortic stenosis and mild aortic insufficiency with normal aortic root size. Normal RV function with preserved pulmonary pressures Reports h/o stent x 2 in 2007 at [facility] in [place], [place] by Dr. De Guzman - reports last MPI greater than one year ago Reports episodes of palpitations for several years, infrequent LILI - CPAP tx HTN CKD stage 3 HLD - statin tx UTI - management per medical services Reports h/o asthma Anxiety Back pain - h/o back surgeries x 3 H/o right arm surgery x 3 and left arm surgery x1 Plan: * Continue current regimen * Monitor labs AMA HASKINS MD FACP FAC CCDS Dec 16, 2018 16:09
[2018-12-16] MEDS: ASPIRIN E.C. 325 MG (ECOTRIN) TABLET PO SCH (17:05)
[2018-12-16 18:06] VITALS: BP 123/62
[2018-12-16] MEDS: MILK OF MAGNESIA 400 MG/5 ML 30 ML UDC PO PRN (18:17)
--- NOTE | 2018-12-16 19:09 | NUR ---
report received from BRAN CRUZ, assume care of pt
[2018-12-16] MEDS: RT-ALBUTEROL SULF 2.5 MG/3 ML PRE-MIX VIAL INH SCH (19:41)
--- NOTE | 2018-12-16 21:00 | NUR ---
assessments & interventions completed, see assessments & interventions, pt requesting for stool softener, Colace 100mg po given, instructed to call when needs to go to bathroom, verbalized understanding
[2018-12-16] MEDS: NIACIN ER (NIASPAN) 500 MG TAB PO SCH (21:15)
[2018-12-16] MEDS: OXYBUTYNIN (DITROPAN) 5 MG TAB PO SCH (21:16)
[2018-12-16] MEDS: MONTELUKAST 10 MG (SINGULAIR) TAB PO SCH (21:16)
[2018-12-17 06:10] VITALS: BP 136/63
[2018-12-17] MEDS: MULTIVIT W/MINERALS TAB (THERAGRAN M) PO SCH (06:50)
[2018-12-17] MEDS: CARVEDILOL 12.5 MG (COREG) TABLET PO SCH ×2 (06:50→16:45)
[2018-12-17] MEDS: CALCIUM CARBONATE 600 MG (CALCARB) TAB PO SCH ×2 (06:50→16:45)
[2018-12-17] MEDS: PANTOPRAZOLE 40 MG (PROTONIX) TAB PO SCH (06:54)
--- NOTE | 2018-12-17 07:12 | NUR ---
bedside report given to CT CRUZ
[2018-12-17] MEDS: BISACODYL 10 MG SUPP (DULCOLAX) PR SCH (08:00)
--- NOTE | 2018-12-17 08:17 | PM&R Progress Note ---
Subjective HPI/CC On Admission Date Seen by Provider: Dec 17, 2018 Time Seen by Provider: 08:00 CC: Debility HPI: This is an 83-year-old white female clinic patient of Dr. Post in [place] just recently moved from [facility] to [place] to be close to her 2 grandchildren since her daughter is a nurse in [employer] who works may shifts per week and her son lives in [place] and she previously lived in [place] from [phone] who presents after a [facility] stay for 3 days due to severe weakness. Hyponatremia noted acute on chronic while she was there which could be contributing to the weakness (I will stop HCTZ and place on fluid restriction). She had a history of a CVA July 2018 went to [facility] for 3 months and just was discharged to her own home with her grandchildren watching over her. She began having weakness full evaluation included a CT scan and multiple labs revealing no source of weakness so she was placed in physical therapy and found to meet criteria for intensive therapies with inpatient rehabilitation center at [facility] here. She usually sees cardiology for a cardiac murmur and pulmonology for severe asthma and rheumatology for psoriatic arthritis and she is just in the midst of getting that set up since moving to [place] in the last 6 months. Her May 2018. 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 She would like to return to live alone. Subjective/Events-last exam Patient doing well overall except weak legs and we talked about this and the uncertain ability to modify this and improve it likely results and assisted placement since she continues to be a two-person assist Hyponatremia treated with 1200 mL a day and now 134 and doing well UTI treated with Cipro empirically and UCx revealed sensitive so we will maintain that for full 7 days and tolerated well Lungs are doing well Nebs tolerated Looking into assisted living options but very well may be NH options Denies any pain Constipation will be monitored given Colace and will monitor closely Checked meds and labs Aortic stenosis managed by alliances consultant Dr Myers since I reviewed the ECHO and I needed opinion whether could be contributing to her weakness Telemetry may be DC? Very hard transfer and requires 2 people Incontinence still present even while UTI treated Review of Systems Neurological: Weakness Objective Exam Vital Signs Vital Signs Date Time Temp Pulse Resp B/P (MAP) Pulse Ox O2 Delivery O2 Flow Rate FiO2 12/17/18 08:31 73 122/63 (82) 12/17/18 06:10 97.2 20 98 NIV CPAP Capillary Refill : Less Than 3 Seconds General Appearance: No Apparent Distress, WD/WN, Chronically ill, Obese HEENT: PERRL/EOMI, Normal ENT Inspection, Pharynx Normal Neck: Full Range of Motion, Normal Inspection, Non Tender, Supple, Carotid Bruit Respiratory: Chest Non Tender, Lungs Clear, Normal Breath Sounds, No Accessory Muscle Use, No Respiratory Distress Cardiovascular: Regular Rate, Rhythm, No Edema, No Gallop, No JVD, No Murmur, Normal Peripheral Pulses, Systolic Murmur Gastrointestinal: Normal Bowel Sounds, No Organomegaly, No Pulsatile Mass, Non Tender, Soft Back: Normal Inspection, No CVA Tenderness, No Vertebral Tenderness Extremity: Normal Capillary Refill, Normal Inspection, Normal Range of Motion, Non Tender, No Calf Tenderness, No Pedal Edema Neurologic/Psychiatric: Alert, Oriented x3, No Motor/Sensory Deficits, Normal Mood/Affect, Motor Weakness (generalized weakness of legs) Skin: Normal Color, Warm/Dry Lymphatic: No Adenopathy Results/Procedures Lab Patient resulted labs reviewed. Assessment/Plan Assessment and Plan Assess & Plan/Chief Complaint Assessment: Debility Severe weakness due to CVA 07/31 and hyponatremia and psoriatic arthritis and aortic stenosis Acute on chronic hyponatremia holding hydrochlorothiazide and placing fluid restriction and sodium level decreased to 134 so will monitor closely Moderate persistent asthma usually sees pulmonology and noted crackles on Monday in RLL so started Nebs and IS and now improved Psoriatic arthritis on immunosuppressive biologic managed by rheumatology Chronic cardiac murmur usually sees cardiology History of CVA July 2018 spent 3 months at [facility] Acute right shoulder pain related to therapy last month History of compression fractures of the back 4 times Constipation - resolved LILI compliant on CPAP Acute UTI on Cipro Renal insufficiency Plan: Maintain intensive therapies Appreciate right shoulder pain evaluation with xrays and consulted Dr Duff because it was causing a restriction in therapy services Continue home medications Spiriva Enbrel immunological biological med brought from home from family and takes every Monday Monitor cardiac and pulmonary systems closely Patient lives alone Prune juice for constipation along with more meds prn Monitor incontinence IS Nebs monitor crackles RLL on Monday now improved on Nebs and IS Disposition? UTI tx to complete 7 days on Cipro Monitor hyponatremia DC Tely? (1) Debility (2) Psoriatic arthritis (3) Immunosuppression (4) History of CVA (cerebrovascular accident) (5) Asthma (6) Cardiac murmur (7) Compression fracture (8) Hypertension (9) Right anterior shoulder pain (10) Hyponatremia (11) Weakness (12) LILI on CPAP (13) Lung crackles (14) Shoulder pain, right (15) Incontinence (16) UTI (urinary tract infection) Clinical Quality Measures DVT/VTE Risk/Contraindication: Risk Factor Score Per Nursin RFS Level Per Nursing on Admit: 4+=Very High JANELLE ROBERTS DO Dec 17, 2018 08:17
[2018-12-17 08:31] VITALS: BP 122/63
[2018-12-17] MEDS: VITAMIN D3 5,000 UNITS (CHOLECALCIFEROL ) CAPSULE PO SCH (08:32)
[2018-12-17] MEDS: amLODIPine 10 MG (NORVASC) TAB PO SCH (08:32)
[2018-12-17] MEDS: FOLIC ACID 1 MG TAB PO SCH (08:32)
[2018-12-17] MEDS: DOCUSATE SODIUM 100 MG (COLACE) CAP PO PRN ×2 (08:32→20:30)
[2018-12-17] MEDS: LOSARTAN 100 MG (COZAAR) TABLET PO SCH (08:33)
[2018-12-17] MEDS: CIPROFLOXACIN 500 MG (CIPRO) TABLET PO SCH (08:33)
[2018-12-17] MEDS: FAMOTIDINE 20 MG (PEPCID) TABLET PO SCH (08:33)
[2018-12-17] MEDS: LORATADINE (CLARITIN) 10 MG TAB PO SCH (08:33)
[2018-12-17] MEDS: PARoxetine 20 MG (PAXIL) TAB PO SCH (08:33)
[2018-12-17] MEDS: DICLOFENAC 1% GEL 100 GM (VOLTAREN) TUBE TOP SCH ×4 (08:33→20:33)
[2018-12-17] MEDS: GABAPENTIN 100 MG (NEURONTIN) CAP PO SCH ×2 (08:33→20:29)
[2018-12-17] MEDS: RT-ALBUTEROL SULF 2.5 MG/3 ML PRE-MIX VIAL INH SCH (09:05)
[2018-12-17] MEDS: UMECLIDINIUM BROMIDE (INCRUSE ELLIPTA) 7'S IH SCH (09:05)
--- NOTE | 2018-12-17 12:00 | Physical Therapy Daily Note ---
PT Daily Note-Current Subjective Pt sitting in W/C in Therapy Gym, just finishing with OT upon arrival. Pt agrees to PT. Pain Location: No Pain Reported Mental Status Patient Orientation: Person, Place, Situation Transfers Therapy Code Descriptions/Definitions Functional [place] Measure: 0=Not Assessed/NA 4=Minimal Assistance 1=Total Assistance 5=Supervision or Setup 2=Maximal Assistance 6=Modified [place] 3=Moderate Assistance 7=Complete [place] Therapy Quality Codes: 6 Independent with activity with or without an assistive device 5 Patient requires set up or clean up by helper. Patient completes activity by themselves 4 Supervision or touching assist (CGA). [place] provide cues , steadying assist 3 The helper provides less than half the effort to complete the activity 2 The helper provides more than half the effort to complete the activity 1 Dependent. The helper does all the effort to complete an activity 7 Patient refused to complete or attempt activity 9 The patient did not perform the activity before the current illness or injury 88 Not attempted due to Medical conditions or safety concerns Scootin Supine to/from Sit: 4 Sit to/from Stand: 3 Sit to Lying (QC): 4 Sit to Stand (QC): 3 Weight Bearing Right Lower Extremity: Right Full Weight Bearing Left Lower Extremity: Left Full Weight Bearing Gait Training Does the Patient Walk?: Yes Distance (FIM): 1=up to 49 ft Distance: 5', 7', 20' Walk 10 feet (QC): 4 Gait Level of Assist: 4 Gait Persons Needed: 1 Gait Assistive Device: FWW Pt walks slumped over FWW, even after VC. Pt is unable to walk upright. Pt fatigues easily, reporting "jello legs". Wheelchair Training Does the Pt Use a Wheelchair?: Yes Wheelchair Distance: 3=150 ft Distance: 150' Wheelchair Level of Assist: 4 Wheel 50 ft with 2 turns (QC): 5 Wheel 150 ft (QC): 4 Type of Wheelchair: Manual Pt can only propel W/C short distance before fatiguing and needs assistance with propelling. Exercises Seated Therapy Exercises: Ankle pumps, Long arc quads, Hip flexion, Kicking activity, Hip abd/add Seated Reps: 20 (2 sets) NuStep Minutes: 11 NuStep Workload: 4 Treatments Pt completes Seated Ex in W/C with rest breaks as needed. Pt uses NuStep for 11m at WL 4 followed by rest break. Pt attempts walking in Therapy Gym & hallway with W/C following. Pt only walks short distances before fatiguing. Pt propels W/C until she couldn't any longer then DIRECTOR FUNERAL assisted pt to room. DIRECTOR FUNERAL assists pt transfer to bed to rest. Pt has all needs met. Assessment Current Status: Fair Progress Pt fatigues easily and demonstrates continued weakness. PT Short Term Goals Short Term Goals Wheelchair Distance: 50' PT Group Home Goals Machine Egg Washer Goals PT Machine Egg Washer Goals Time Frame: Dec 29, 2018 Transfers (B,C,W/C) (FIM): 5 Sit to Lying (QC): 5 Lying-Sitting on Side/Bed(QC): 5 Sit to Stand (QC): 5 Rollin Roll Left to Right (QC): 5 Chair/Aew-px-Tvkkp Xfer(QC): 5 Car Transfer (QC): 5 Does the Patient Walk: Yes Gait (FIM): 2 Distance: 125' Walk 10 feet (QC): 5 Walk 10ft-Uneven Surface(QC): 5 Walk 50ft with 2 Turns (QC): 5 Walk 150 ft (QC): 88 Gait Level of Assist: 5 Gait Assistive Device: Walker 4 Wheeled, FWW Wheelchair (FIM): 2 Wheelchair distance (FIM): 1=up to 49 ft Distance: 100' Wheelchair Level of Assist: 5 Wheel 50 feet with 2 turns (QC: 5 Stairs (FIM): 1 PT Plan Problem List Problem List: Activity Tolerance, Functional Strength, Safety, Balance, Gait, Transfer Treatment/Plan Treatment Plan: Continue Plan of Care Treatment Plan: Bed Mobility, Education, Functional Activity Kandi, Functional Strength, Group Therapy, Gait, Safety, Therapeutic Exercise, Transfers Treatment Duration: Dec 01, 2018 Frequency: At least 5 of 7 days/Wk (IRF) Estimated Hrs Per Day: 1.5 hours per day Patient and/or Family Agrees t: Yes Safety Risks/Education Patient Education: Gait Training, Transfer Techniques, Correct Positioning, Safety Issues Teaching Recipient: Patient Teaching Methods: Discussion Response to Teaching: Verbalize Understanding Time/GCodes Time In: 1000 Time Out: 1130 Total Billed Treatment Time: 90 Total Billed Treatment 1, GT (20m), EX x3 (40m) & FA x2 (30m) G Codes Necessary: BOGDAN Gupta DIRECTOR FUNERAL Dec 17, 2018 12:00
--- NOTE | 2018-12-17 12:41 | NUR ---
PT EATING WELL, 98% MEALS, AND WEIGHT STABLE. INTAKE MEETING NEEDS AT THIS TIME. CONT SAME.
--- NOTE | 2018-12-17 13:01 | Occupational Ther Daily Note ---
OT Current Status-Daily Note Subjective No pain reported. Appearance Pt. in bed. Agrees to work with OT. Mental Status/Objective Patient Orientation: Person, Place, Time, Situation Therapy Code Descriptions/Definitions Functional [place] Measure: 0=Not Assessed/NA 4=Minimal Assistance 1=Total Assistance 5=Supervision or Setup 2=Maximal Assistance 6=Modified [place] 3=Moderate Assistance 7=Complete [place] ADL-Treatment Therapy Code Descriptions/Definitions Functional [place] Measure: 0=Not Assessed/NA 4=Minimal Assistance 1=Total Assistance 5=Supervision or Setup 2=Maximal Assistance 6=Modified [place] 3=Moderate Assistance 7=Complete [place] Therapy Quality Codes: 6 Independent with activity with or without an assistive device 5 Patient requires set up or clean up by helper. Patient completes activity by themselves 4 Supervision or touching assist (CGA). [place] provide cues , steadying assist 3 The helper provides less than half the effort to complete the activity 2 The helper provides more than half the effort to complete the activity 1 Dependent. The helper does all the effort to complete an activity 7 Patient refused to complete or attempt activity 9 The patient did not perform the activity before the current illness or injury 88 Not attempted due to Medical conditions or safety concerns Grooming (FIM): 5 (Set up in wheelchair at sink level.) Oral Hygiene (QC): 4 Bathing (FIM): 5 (SBA at shower level. Utilized LH sponge for LE bathing.) Shower/Bathe Self (QC): 4 Upper Body (FIM): 3 (Pt. has difficulty with bra, and with pulling shirt down in the back due to limited shoulder ROM.) Upper Body Dressing (QC): 3 Lower Body Dressing (FIM): 3 (Mod assist with dressing stick.) Lower Body Dressing (QC): 3 On/Off Footwear (QC): 5 (SBA with sock aide. Able to don slide on shoes.) Toileting (FIM): 5 Toileting Hygiene (QC): 4 Transfers (B, C, W/C) (FIM): 3 (Mod assist supine-sit. Min assist sit-stand. Pt. able to ambulate approximately 10 feet with walker but states that her legs "feel weak." OT assisted her to wheelchair.) Toilet/Commode Transfer (FIM): 4 Toilet Transfer (QC): 4 Shower Transfer(FIM): 4 Education OT Patient Education: Correct positioning, Modified ADL techniques, Progress toward Goal/Update tx plan, Purpose of tx/functional activities, Reviewed precautions, Rehab process, Transfer techniques, Use of adapted equipment Teaching Recipient: Patient Teaching Methods: Demonstration, Discussion Response to Teaching: Verbalize Understanding, Return Demonstration OT Short Term Goals Short Term Goals Time Frame: Dec 15, 2018 Eating(FIM): 7 Grooming(FIM): 6 (w/c level) Toilet/Commode Transfer(FIM): 3 Additional Short Term Goals: 1-Demonstrate ADL Tasks, 2-Verbalize Understanding , 3-ImproveStrength/Kandi 1=Demonstrate adherence to instructed precautions during ADL tasks. 2=Patient will verbalize/demonstrate understanding of assistive devices/ modifications for ADL. 3=Patient will improve strength/tolerance for activity to enable patient to perform ADL's. OT Tank Crewmember Goals Residential Goals Time Frame: Dec 29, 2018 Eating (FIM): 7 Eating (QC): 6 Groomin Oral Hygiene (QC): 6 Bathing(FIM): 6 Shower/Bathe Self (QC): 6 Upper Body Dressing(FIM): 6 Upper Body Dressing (QC): 6 Lower Body Dressing(FIM): 6 Lower Body Dressing (QC): 6 On/Off Footwear (QC): 6 Toileting(FIM): 6 Toileting Hygiene (QC): 6 Toilet/Commode Transfer(FIM): 6 Toilet/Commode Transfer (QC): 6 Shower Transfer(FIM): 6 Additional Goals: 1-Demonstrate ADL Tasks, 2-Verbalize Understanding, 3- ImproveStrength/Kandi 1=Demonstrate adherence to instructed precautions during ADL tasks. 2=Patient will verbalize/demonstrate understanding of assistive devices/ modifications for ADL. 3=Patient will improve strength/tolerance for activity to enable patient to perform ADL's. OT Education/Plan Problem List/Assessment Assessment: Decreased Activ Tolerance, Decreased UE Strength, Impaired I ADL's , Impaired Self-Care Skills, Restricted Funct UE ROM Discharge Recommendations Plan/Recommendations: Continue POC Therapy D/C Recommendations: Home w/ Family Support Treatment Plan/Plan of Care Treatment,Training & Education: Yes Patient would benefit from OT for education, treatment and training to promote independence in ADL's, mobility, safety and/or upper extremity function for ADL' s. Plan of Care: ADL Retraining, Functional Mobility, Group Exercise/Act as Ind ( education, exercise, functional activity, activity tolerance, funct mobility), UE Funct Exercise/Act, UE Neuromus Re-Ed/Coord Treatment Duration: Dec 29, 2018 Frequency: At least 5 of 7 days/Wk (IRF) Estimated Hrs Per Day: 1.5 hours per day Agreement: Yes Rehab Potential: Fair Time/GCodes Start Time: 08:30 Stop Time: 10:00 Total Time Billed (hr/min): 90 Billed Treatment Time 1, ADL x 60minutes, FA x 30minutes KATHIE HEMPHILL OT Dec 17, 2018 13:01
[2018-12-17] MEDS: ASPIRIN E.C. 325 MG (ECOTRIN) TABLET PO SCH (16:45)
[2018-12-17 18:00] VITALS: BP 120/69
--- NOTE | 2018-12-17 19:12 | NUR ---
bedside report received from CT CRUZ, assume care of pt
[2018-12-17] MEDS: NIACIN ER (NIASPAN) 500 MG TAB PO SCH (20:29)
[2018-12-17] MEDS: MONTELUKAST 10 MG (SINGULAIR) TAB PO SCH (20:30)
[2018-12-17] MEDS: OXYBUTYNIN (DITROPAN) 5 MG TAB PO SCH (20:30)
--- NOTE | 2018-12-17 21:00 | NUR ---
assessments & interventions completed, see assessments & interventions, pt asked for stool softener, Colace 100mg po given
[2018-12-18] MEDS: CIPROFLOXACIN 500 MG (CIPRO) TABLET PO SCH ×2 (04:24→21:48)
[2018-12-18 05:59] LABS: BASOPHILS % (AUTO) 1 % (0-10); EOSINOPHILS # (AUTO) 0.6 10^3/uL (0.0-0.3); EOSINOPHILS % (AUTO) 9 % (0-10); HEMATOCRIT 32 % (35-52); HEMOGLOBIN 10.7 G/DL (11.5-16.0); LYMPHOCYTES % (AUTO) 29 % (12-44); MEAN CORPUSCULAR HEMOGLOBIN 32 PG (25-34); MEAN CORPUSCULAR HGB CONC 33 G/DL (32-36); MEAN CORPUSCULAR VOLUME 96 FL (80-99); MEAN PLATELET VOLUME 8.5 FL (7.4-10.4); MONOCYTES # (AUTO) 1.3 X 10^3 (0.0-1.0); MONOCYTES % (AUTO) 18 % (0-12); NEUTROPHILS # (AUTO) 3.1 X 10^3 (1.8-7.8); NEUTROPHILS % (AUTO) 44 % (42-75); PLATELET COUNT 232 10^3/uL (130-400); RED CELL DISTRIBUTION WIDTH 14.8 % (10.0-14.5)
[2018-12-18 06:00] VITALS: BP 150/73
[2018-12-18 06:18] LABS: ALBUMIN 3.2 GM/DL (3.2-4.5); BILIRUBIN,TOTAL 0.6 MG/DL (0.1-1.0); CALCIUM 9.8 MG/DL (8.5-10.1); CREATININE SERUM 1.26 MG/DL (0.60-1.30); POTASSIUM 4.6 MMOL/L (3.6-5.0); TOTAL PROTEIN 6.2 GM/DL (6.4-8.2)
[2018-12-18] MEDS: MULTIVIT W/MINERALS TAB (THERAGRAN M) PO SCH (06:55)
[2018-12-18] MEDS: CARVEDILOL 12.5 MG (COREG) TABLET PO SCH ×2 (06:55→16:32)
[2018-12-18] MEDS: PANTOPRAZOLE 40 MG (PROTONIX) TAB PO SCH (06:55)
[2018-12-18] MEDS: CALCIUM CARBONATE 600 MG (CALCARB) TAB PO SCH ×2 (06:56→16:31)
--- NOTE | 2018-12-18 07:12 | NUR ---
bedside report given to YOAV CRUZ
[2018-12-18 08:09] VITALS: BP 123/67
[2018-12-18] MEDS: LOSARTAN 100 MG (COZAAR) TABLET PO SCH (08:09)
[2018-12-18] MEDS: GABAPENTIN 100 MG (NEURONTIN) CAP PO SCH ×2 (08:09→21:49)
[2018-12-18] MEDS: FOLIC ACID 1 MG TAB PO SCH (08:10)
[2018-12-18] MEDS: VITAMIN D3 5,000 UNITS (CHOLECALCIFEROL ) CAPSULE PO SCH (08:10)
[2018-12-18] MEDS: PARoxetine 20 MG (PAXIL) TAB PO SCH (08:10)
[2018-12-18] MEDS: BISACODYL 10 MG SUPP (DULCOLAX) PR SCH (08:10)
[2018-12-18] MEDS: LORATADINE (CLARITIN) 10 MG TAB PO SCH (08:10)
[2018-12-18] MEDS: amLODIPine 10 MG (NORVASC) TAB PO SCH (08:10)
[2018-12-18] MEDS: FAMOTIDINE 20 MG (PEPCID) TABLET PO SCH (08:10)
[2018-12-18] MEDS: DOCUSATE SODIUM 100 MG (COLACE) CAP PO PRN ×2 (08:12→21:49)
[2018-12-18] MEDS: MILK OF MAGNESIA 400 MG/5 ML 30 ML UDC PO PRN (08:13)
[2018-12-18] MEDS: DICLOFENAC 1% GEL 100 GM (VOLTAREN) TUBE TOP SCH ×4 (08:14→21:51)
--- NOTE | 2018-12-18 09:28 | PM&R Progress Note ---
Subjective HPI/CC On Admission Date Seen by Provider: Dec 18, 2018 Time Seen by Provider: 09:00 CC: Debility HPI: This is an 83-year-old white female clinic patient of Dr. Post in [place] just recently moved from [facility] to [place] to be close to her 2 grandchildren since her daughter is a nurse in [place] who works may shifts per week and her son lives in [place] and she previously lived in [place] from [phone] who presents after a [facility] stay for 3 days due to severe weakness. Hyponatremia noted acute on chronic while she was there which could be contributing to the weakness (I will stop HCTZ and place on fluid restriction). She had a history of a CVA July 2018 went to [facility] for 3 months and just was discharged to her own home with her grandchildren watching over her. She began having weakness full evaluation included a CT scan and multiple labs revealing no source of weakness so she was placed in physical therapy and found to meet criteria for intensive therapies with inpatient rehabilitation center at [facility] here. She usually sees cardiology for a cardiac murmur and pulmonology for severe asthma and rheumatology for psoriatic arthritis and she is just in the midst of getting that set up since moving to [place] in the last 6 months. Her May 2018. 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 She would like to return to live alone. Subjective/Events-last exam Patient doing well overall except weak legs Hyponatremia treated with 1200 mL a day and now 132 and doing well UTI treated with Cipro empirically and UCx revealed sensitive so we will maintain that for full 7 days and tolerated well Lungs are doing well Nebs tolerated Looking into assisted living options but very well may be NH options Denies any pain Checked meds and labs DC Telemetry Very hard transfer and requires 2 people Incontinence still present even while UTI treated In shower working with occupational therapy No bowel movement for the past two days, so I will initiate aggressive regimin with suppository and soap suds enema Sodium level today was 132 but creatinine was stable at 1.2 on fluid restriction of 1200 CCs per day May need assisted living or snf placement Review of Systems General: Fatigue Neurological: Weakness Objective Exam Vital Signs Vital Signs Date Time Temp Pulse Resp B/P (MAP) Pulse Ox O2 Delivery O2 Flow Rate FiO2 12/18/18 18:02 99.1 68 18 114/69 (84) 93 Room Air Capillary Refill : Less Than 3 Seconds General Appearance: No Apparent Distress, WD/WN, Chronically ill, Obese HEENT: PERRL/EOMI, Normal ENT Inspection, Pharynx Normal Neck: Full Range of Motion, Normal Inspection, Non Tender, Supple, Carotid Bruit Respiratory: Chest Non Tender, Lungs Clear, Normal Breath Sounds, No Accessory Muscle Use, No Respiratory Distress Cardiovascular: Regular Rate, Rhythm, No Edema, No Gallop, No JVD, No Murmur, Normal Peripheral Pulses, Systolic Murmur Gastrointestinal: Normal Bowel Sounds, No Organomegaly, No Pulsatile Mass, Non Tender, Soft Back: Normal Inspection, No CVA Tenderness, No Vertebral Tenderness Extremity: Normal Capillary Refill, Normal Inspection, Normal Range of Motion, Non Tender, No Calf Tenderness, No Pedal Edema Neurologic/Psychiatric: Alert, Oriented x3, No Motor/Sensory Deficits, Normal Mood/Affect, Motor Weakness (generalized weakness of legs) Skin: Normal Color, Warm/Dry Lymphatic: No Adenopathy Results/Procedures Lab Laboratory Tests 12/18/18 05:31 Patient resulted labs reviewed. Assessment/Plan Assessment and Plan Assess & Plan/Chief Complaint Assessment: Debility Severe weakness due to CVA 07/31 and hyponatremia and psoriatic arthritis and aortic stenosis Acute on chronic hyponatremia holding hydrochlorothiazide and placing fluid restriction and sodium level decreased to 134 so will monitor closely Moderate persistent asthma usually sees pulmonology and noted crackles on Monday in RLL so started Nebs and IS and now improved Psoriatic arthritis on immunosuppressive biologic managed by rheumatology Chronic cardiac murmur usually sees cardiology History of CVA July 2018 spent 3 months at [facility] Acute right shoulder pain related to therapy last month History of compression fractures of the back 4 times Constipation - resolved LILI compliant on CPAP Acute UTI on Cipro Renal insufficiency Plan: Maintain intensive therapies Appreciate right shoulder pain evaluation with xrays and consulted Dr Duff because it was causing a restriction in therapy services Continue home medications Spiriva Enbrel immunological biological med brought from home from family and takes every Monday Monitor cardiac and pulmonary systems closely Patient lives alone Prune juice for constipation along with more meds prn Monitor incontinence IS Nebs monitor crackles RLL on Monday now improved on Nebs and IS Disposition? UTI tx to complete 7 days on Cipro Monitor hyponatremia DC Tely (1) Debility (2) Psoriatic arthritis (3) Immunosuppression (4) History of CVA (cerebrovascular accident) (5) Asthma (6) Cardiac murmur (7) Compression fracture (8) Hypertension (9) Right anterior shoulder pain (10) Hyponatremia (11) Weakness (12) LILI on CPAP (13) Lung crackles (14) Shoulder pain, right (15) Incontinence (16) UTI (urinary tract infection) Clinical Quality Measures DVT/VTE Risk/Contraindication: Risk Factor Score Per Nursin RFS Level Per Nursing on Admit: 4+=Very High JANELLE ROBERTS DO Dec 18, 2018 09:28
[2018-12-18] MEDS: ENBREL INJECTION SQ SCH (11:21)
[2018-12-18] MEDS: UMECLIDINIUM BROMIDE (INCRUSE ELLIPTA) 7'S IH SCH ×2 (11:33→11:35)
[2018-12-18] MEDS: RT-ALBUTEROL SULF 2.5 MG/3 ML PRE-MIX VIAL INH SCH ×2 (11:33→23:50)
--- NOTE | 2018-12-18 11:37 | Occupational Ther Daily Note ---
OT Current Status-Daily Note Subjective No pain reported. Appearance Pt. in bed. Requests to use bathroom and then shower. Mental Status/Objective Patient Orientation: Person, Place Therapy Code Descriptions/Definitions Functional [place] Measure: 0=Not Assessed/NA 4=Minimal Assistance 1=Total Assistance 5=Supervision or Setup 2=Maximal Assistance 6=Modified [place] 3=Moderate Assistance 7=Complete [place] ADL-Treatment Therapy Code Descriptions/Definitions Functional [place] Measure: 0=Not Assessed/NA 4=Minimal Assistance 1=Total Assistance 5=Supervision or Setup 2=Maximal Assistance 6=Modified [place] 3=Moderate Assistance 7=Complete [place] Therapy Quality Codes: 6 Independent with activity with or without an assistive device 5 Patient requires set up or clean up by helper. Patient completes activity by themselves 4 Supervision or touching assist (CGA). [place] provide cues , steadying assist 3 The helper provides less than half the effort to complete the activity 2 The helper provides more than half the effort to complete the activity 1 Dependent. The helper does all the effort to complete an activity 7 Patient refused to complete or attempt activity 9 The patient did not perform the activity before the current illness or injury 88 Not attempted due to Medical conditions or safety concerns Grooming (FIM): 5 (Set up at sink to brush teeth and hair at wheelchair level.) Oral Hygiene (QC): 4 Bathing (FIM): 5 (SBA in shower to wash all parts.) Shower/Bathe Self (QC): 4 Upper Body (FIM): 4 (Pt. was able to don bra and glenna today, as well as shirt. Required assistance to don seatshirt while seated in wheelchair due to decreased shoulder ROM.) Upper Body Dressing (QC): 4 Lower Body Dressing (FIM): 3 (Pt. uses dressing stick to don brief and pants. Pt. requires assistance with this task. However, pt. is able to don socks with sock aide and slip on shoes with SBA.) Lower Body Dressing (QC): 3 On/Off Footwear (QC): 5 Toileting (FIM): 4 (Pt. became incontinent in brief while seated on side of bed. OT assisted with removal after transferring to [facility].) Toileting Hygiene (QC): 4 Transfers (B, C, W/C) (FIM): 4 (Min assist with increased time for supine-sit, and min assist sit-stand. Pt. attempts to ambulate with walker to shower area. Ambulates approximately 7 feet and then requested to sit down.) Toilet/Commode Transfer (FIM): 4 Toilet Transfer (QC): 4 Shower Transfer(FIM): 4 Other Treatment After ADLs, pt. transferred to rehab gym via wheelchair. Donned 1 lb. wrist weights and completed fine motor task with therapy pegs to increase overall strength and endurance. Education OT Patient Education: Correct positioning, Exercise program, Modified ADL techniques, Progress toward Goal/Update tx plan, Purpose of tx/functional activities, Reviewed precautions, Rehab process, Transfer techniques, Use of adapted equipment Teaching Recipient: Patient Teaching Methods: Demonstration, Discussion Response to Teaching: Verbalize Understanding, Return Demonstration OT Short Term Goals Short Term Goals Time Frame: Dec 15, 2018 Eating(FIM): 7 Grooming(FIM): 6 (w/c level) Toilet/Commode Transfer(FIM): 3 Additional Short Term Goals: 1-Demonstrate ADL Tasks, 2-Verbalize Understanding , 3-ImproveStrength/Kandi 1=Demonstrate adherence to instructed precautions during ADL tasks. 2=Patient will verbalize/demonstrate understanding of assistive devices/ modifications for ADL. 3=Patient will improve strength/tolerance for activity to enable patient to perform ADL's. OT [place] Goals [place] Goals Time Frame: Dec 29, 2018 Eating (FIM): 7 Eating (QC): 6 Groomin Oral Hygiene (QC): 6 Bathing(FIM): 6 Shower/Bathe Self (QC): 6 Upper Body Dressing(FIM): 6 Upper Body Dressing (QC): 6 Lower Body Dressing(FIM): 6 Lower Body Dressing (QC): 6 On/Off Footwear (QC): 6 Toileting(FIM): 6 Toileting Hygiene (QC): 6 Toilet/Commode Transfer(FIM): 6 Toilet/Commode Transfer (QC): 6 Shower Transfer(FIM): 6 Additional Goals: 1-Demonstrate ADL Tasks, 2-Verbalize Understanding, 3- ImproveStrength/Kandi 1=Demonstrate adherence to instructed precautions during ADL tasks. 2=Patient will verbalize/demonstrate understanding of assistive devices/ modifications for ADL. 3=Patient will improve strength/tolerance for activity to enable patient to perform ADL's. OT Education/Plan Problem List/Assessment Assessment: Decreased Activ Tolerance, Decreased UE Strength, Dependent Transfers, Impaired Bed Mobility, Impaired Funct Balance, Impaired I ADL's, Impaired Self-Care Skills, Restricted Funct UE ROM Discharge Recommendations Plan/Recommendations: Continue POC Therapy D/C Recommendations: Assisted Living Equpiment Recommendations-D/C: Hip Kit Treatment Plan/Plan of Care Treatment,Training & Education: Yes Patient would benefit from OT for education, treatment and training to promote independence in ADL's, mobility, safety and/or upper extremity function for ADL' s. Plan of Care: ADL Retraining, Functional Mobility, Group Exercise/Act as Ind ( education, exercise, functional activity, activity tolerance, funct mobility), UE Funct Exercise/Act, UE Neuromus Re-Ed/Coord Treatment Duration: Dec 29, 2018 Frequency: At least 5 of 7 days/Wk (IRF) Estimated Hrs Per Day: 1.5 hours per day Agreement: Yes Rehab Potential: Fair Time/GCodes Start Time: 08:30 Stop Time: 10:00 Total Time Billed (hr/min): 90 Billed Treatment Time 1, ADL x 60minutes, FA x 30minutes KATHIE HEMPHILL OT Dec 18, 2018 11:37
--- NOTE | 2018-12-18 11:38 | Physical Therapy Daily Note ---
PT Daily Note-Current Subjective Pt. agrees to Rx. States she is discouraged and feels she is not making progress with regards to gait and function Pain Numeric Pain Scale: 3 Location: Right Location Body Site: Shoulder Pain Description: Ache Mental Status Patient Orientation: Normal For Age Transfers Therapy Code Descriptions/Definitions Functional [place] Measure: 0=Not Assessed/NA 4=Minimal Assistance 1=Total Assistance 5=Supervision or Setup 2=Maximal Assistance 6=Modified [place] 3=Moderate Assistance 7=Complete [place] Therapy Quality Codes: 6 Independent with activity with or without an assistive device 5 Patient requires set up or clean up by helper. Patient completes activity by themselves 4 Supervision or touching assist (CGA). [place] provide cues , steadying assist 3 The helper provides less than half the effort to complete the activity 2 The helper provides more than half the effort to complete the activity 1 Dependent. The helper does all the effort to complete an activity 7 Patient refused to complete or attempt activity 9 The patient did not perform the activity before the current illness or injury 88 Not attempted due to Medical conditions or safety concerns Transfers (B, C, W/C) (FIM): 3 Scootin Rollin Supine to/from Sit: 5 Sit to/from Stand: 3 Bed to/from Chair: 3 Weight Bearing Right Lower Extremity: Right Full Weight Bearing Left Lower Extremity: Left Full Weight Bearing Gait Training Does the Patient Walk?: Yes Gait (FIM): 1 Distance (FIM): 1=up to 49 ft (20ftx2,25x1) Gait Level of Assist: 3 Gait Persons Needed: 1 Gait Assistive Device: FWW lists left , hip weakness left, knee on left melts as well Wheelchair Training Does the Pt Use a Wheelchair?: Yes Wheelchair (FIM): 2 Wheelchair Distance: 4=311-75 ft (100x2,50) Wheelchair Level of Assist: 4 Type of Wheelchair: Manual with extensions on brakes pt. was able to brake 3/5 trials. right wrist painful with braking, uses feet to propel mostly, some combo feet and hands Exercises Supine Ex: Bridging, Ankle pumps, Quad Set, Rolling, Glut sets, Heel Slides, Short Arc Quads, Scooting, Straight leg raise, Hip abd/add Supine Reps: 20 Seated Therapy Exercises: Ankle pumps, Sit to stand, Long arc quads, Hip abd/ add Seated Reps: 10 Treatments toileted with mod assist pants as pt. needs to hold with both hands for balance while pants are being managed, in w/c to sink for hand washing Assessment Current Status: Fair Progress pt. is dependent for all mobility, no real progress in gait PT Short Term Goals Short Term Goals Wheelchair Distance: 150' PT Insole Buffer Goals Nursing Home Goals PT Nursing Home Goals Time Frame: Dec 29, 2018 Transfers (B,C,W/C) (FIM): 5 Sit to Lying (QC): 5 Lying-Sitting on Side/Bed(QC): 5 Sit to Stand (QC): 5 Rollin Roll Left to Right (QC): 5 Chair/Ula-tq-Fwuiz Xfer(QC): 5 Car Transfer (QC): 5 Does the Patient Walk: Yes Gait (FIM): 2 Distance: 125' Walk 10 feet (QC): 5 Walk 10ft-Uneven Surface(QC): 5 Walk 50ft with 2 Turns (QC): 5 Walk 150 ft (QC): 88 Gait Level of Assist: 5 Gait Assistive Device: Walker 4 Wheeled, FWW Wheelchair (FIM): 2 Wheelchair distance (FIM): 1=up to 49 ft Distance: 100' Wheelchair Level of Assist: 5 Wheel 50 feet with 2 turns (QC: 5 Stairs (FIM): 1 PT Plan Treatment/Plan Treatment Plan: Continue Plan of Care Treatment Plan: Bed Mobility, Education, Functional Activity Kandi, Functional Strength, Group Therapy, Gait, Safety, Therapeutic Exercise, Transfers Treatment Duration: Dec 01, 2018 Frequency: At least 5 of 7 days/Wk (IRF) Estimated Hrs Per Day: 1.5 hours per day Patient and/or Family Agrees t: Yes Safety Risks/Education Patient Education: Gait Training, Transfer Techniques, Correct Positioning, W/ C Management, Disease Process, Safety Issues Teaching Recipient: Patient Teaching Methods: Demonstration, Discussion Response to Teaching: Verbalize Understanding, Return Demonstration, Reinforcement Needed Time/GCodes Time In: 1000 Time Out: 1130 Total Billed Treatment Time: 90 Total Billed Treatment 1,EX30m,FA30m,GT15m,wc15m G Codes Necessary: AMANDA Hall OVEN HEATER HELPER Dec 18, 2018 11:38
[2018-12-18] MEDS: ASPIRIN E.C. 325 MG (ECOTRIN) TABLET PO SCH (16:31)
--- NOTE | 2018-12-18 17:56 | NUR ---
Up to the BSC. Large, formed BM noted.
[2018-12-18 18:02] VITALS: BP 114/69
--- NOTE | 2018-12-18 19:07 | NUR ---
bedside report received from YOAV CRUZ, assume care of pt
--- NOTE | 2018-12-18 21:00 | NUR ---
assessments & interventions completed, see assessments & interventions, back to bed with 1-2 person assist & walker
[2018-12-18] MEDS: NIACIN ER (NIASPAN) 500 MG TAB PO SCH (21:48)
[2018-12-18] MEDS: MONTELUKAST 10 MG (SINGULAIR) TAB PO SCH (21:49)
[2018-12-18] MEDS: OXYBUTYNIN (DITROPAN) 5 MG TAB PO SCH (21:49)
--- NOTE | 2018-12-18 21:49 | NUR ---
when giving med computer would not come up kept saying tyshawn is not responding but able to scan meds from room 227
--- NOTE | 2018-12-18 22:00 | NUR ---
up to commode then back to bed, cpap on
[2018-12-18] MEDS: ACETAMINOPHEN 325 MG TABLET PO PRN (23:03)
--- NOTE | 2018-12-18 23:03 | NUR ---
c/o headache pain level 4/10 on numeric scale, tylenol 650mg po given Addendum: 12/19/18 at 0115 by MARY DAIGLE RN computer would not come up in room or next door, kept showing [employer] is not responding, clicked on [employer] at desk to chart med
--- NOTE | 2018-12-18 23:40 | NUR ---
states still have headache pain level 4/10 on numeric scale
--- NOTE | 2018-12-18 23:44 | NUR ---
ultram 50mg po given for headache level 4/10 on numeric scale, computer would not respond in room charted on med at desk
--- NOTE | 2018-12-19 00:20 | NUR ---
states pain level 2/10 on numeric scale
--- NOTE | 2018-12-19 00:40 | NUR ---
resting quietly in bed, pain level 0/10 on flacc scale
[2018-12-19 06:30] VITALS: BP 121/67
[2018-12-19] MEDS: CALCIUM CARBONATE 600 MG (CALCARB) TAB PO SCH ×2 (06:48→17:43)
[2018-12-19] MEDS: PANTOPRAZOLE 40 MG (PROTONIX) TAB PO SCH (06:48)
[2018-12-19] MEDS: CARVEDILOL 12.5 MG (COREG) TABLET PO SCH ×2 (06:48→17:45)
[2018-12-19] MEDS: MULTIVIT W/MINERALS TAB (THERAGRAN M) PO SCH (06:48)
--- NOTE | 2018-12-19 07:24 | NUR ---
bedside report given to NEMO CRUZ
[2018-12-19] MEDS: RT-ALBUTEROL SULF 2.5 MG/3 ML PRE-MIX VIAL INH SCH ×2 (07:56→18:42)
[2018-12-19] MEDS: UMECLIDINIUM BROMIDE (INCRUSE ELLIPTA) 7'S IH SCH (07:57)
--- NOTE | 2018-12-19 09:11 | PM&R Progress Note ---
Subjective HPI/CC On Admission Date Seen by Provider: Dec 19, 2018 Time Seen by Provider: 08:30 CC: Debility HPI: This is an 83-year-old white female clinic patient of Dr. Post in [place] just recently moved from [facility] to [place] to be close to her 2 grandchildren since her daughter is a nurse in [employer] who works may shifts per week and her son lives in [place] and she previously lived in [place] from [phone] who presents after a [facility] stay for 3 days due to severe weakness. Hyponatremia noted acute on chronic while she was there which could be contributing to the weakness (I will stop HCTZ and place on fluid restriction). She had a history of a CVA July 2018 went to [facility] for 3 months and just was discharged to her own home with her grandchildren watching over her. She began having weakness full evaluation included a CT scan and multiple labs revealing no source of weakness so she was placed in physical therapy and found to meet criteria for intensive therapies with inpatient rehabilitation center at [facility] here. She usually sees cardiology for a cardiac murmur and pulmonology for severe asthma and rheumatology for psoriatic arthritis and she is just in the midst of getting that set up since moving to [place] in the last 6 months. Her May 2018. 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 She would like to return to live alone. 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 Pt remains at fall risk Overall tolerating the fluid restriction and her sodium level has come up very well and creatinine doing well at 1.2 Had a large BM last night and again this morning so constipation has resolved Review of Systems General: Fatigue Neurological: Weakness, Incoordination Objective Exam Vital Signs Vital Signs Date Time Temp Pulse Resp B/P (MAP) Pulse Ox O2 Delivery O2 Flow Rate FiO2 12/19/18 18:44 93 Room Air 12/19/18 17:55 98.4 71 20 148/79 (102) Capillary Refill : Less Than 3 Seconds General Appearance: No Apparent Distress, WD/WN, Chronically ill, Obese HEENT: PERRL/EOMI, Normal ENT Inspection, Pharynx Normal Neck: Full Range of Motion, Normal Inspection, Non Tender, Supple, Carotid Bruit Respiratory: Chest Non Tender, Lungs Clear, Normal Breath Sounds, No Accessory Muscle Use, No Respiratory Distress Cardiovascular: Regular Rate, Rhythm, No Edema, No Gallop, No JVD, No Murmur, Normal Peripheral Pulses, Systolic Murmur Gastrointestinal: Normal Bowel Sounds, No Organomegaly, No Pulsatile Mass, Non Tender, Soft Back: Normal Inspection, No CVA Tenderness, No Vertebral Tenderness Extremity: Normal Capillary Refill, Normal Inspection, Normal Range of Motion, Non Tender, No Calf Tenderness, No Pedal Edema Neurologic/Psychiatric: Alert, Oriented x3, No Motor/Sensory Deficits, Normal Mood/Affect, Motor Weakness Skin: Normal Color, Warm/Dry Lymphatic: No Adenopathy Results/Procedures Lab Patient resulted labs reviewed. Assessment/Plan Assessment and Plan Assess & Plan/Chief Complaint Assessment: Debility Severe weakness due to CVA 07/31 and hyponatremia and psoriatic arthritis and aortic stenosis Acute on chronic hyponatremia holding hydrochlorothiazide and placing fluid restriction and sodium level decreased to 134 so will monitor closely Moderate persistent asthma usually sees pulmonology and noted crackles on Monday in RLL so started Nebs and IS and now improved Psoriatic arthritis on immunosuppressive biologic managed by rheumatology Chronic cardiac murmur usually sees cardiology History of CVA July 2018 spent 3 months at [facility] Acute right shoulder pain related to therapy last month History of compression fractures of the back 4 times Constipation - resolved LILI compliant on CPAP Acute UTI on Cipro completing tomorrow Renal insufficiency Plan: Maintain intensive therapies Appreciate right shoulder pain evaluation with xrays and consulted Dr Duff because it was causing a restriction in therapy services Continue home medications Spiriva Enbrel immunological biological med brought from home from family and takes every Monday Monitor cardiac and pulmonary systems closely Patient lives alone Prune juice for constipation along with more meds prn Monitor incontinence IS Nebs monitor crackles RLL on Monday now improved on Nebs and IS Disposition? UTI tx to complete 7 days on Cipro Monitor hyponatremia DC [place] NHP? [place] (1) Debility (2) Psoriatic arthritis (3) Immunosuppression (4) History of CVA (cerebrovascular accident) (5) Asthma (6) Cardiac murmur (7) Compression fracture (8) Hypertension (9) Right anterior shoulder pain (10) Hyponatremia (11) Weakness (12) LILI on CPAP (13) Lung crackles (14) Shoulder pain, right (15) Incontinence (16) UTI (urinary tract infection) Clinical Quality Measures DVT/VTE Risk/Contraindication: Risk Factor Score Per Nursin RFS Level Per Nursing on Admit: 4+=Very High JANELLE ROBERTS DO Dec 19, 2018 09:11
--- NOTE | 2018-12-19 09:59 | Physical Therapy Daily Note ---
PT Daily Note-Current Subjective Pt laying Supine in bed upon arrival. Pt agrees to PT. Pt reports feeling like she is not progressing. CONVERSION DEVELOPER reassures pt that transfers have improved as well as strength, still working on ambulation. Pain Location: No Pain Reported Mental Status Patient Orientation: Person, Place, Time, Situation Transfers Therapy Code Descriptions/Definitions Functional [place] Measure: 0=Not Assessed/NA 4=Minimal Assistance 1=Total Assistance 5=Supervision or Setup 2=Maximal Assistance 6=Modified [place] 3=Moderate Assistance 7=Complete [place] Therapy Quality Codes: 6 Independent with activity with or without an assistive device 5 Patient requires set up or clean up by helper. Patient completes activity by themselves 4 Supervision or touching assist (CGA). [place] provide cues , steadying assist 3 The helper provides less than half the effort to complete the activity 2 The helper provides more than half the effort to complete the activity 1 Dependent. The helper does all the effort to complete an activity 7 Patient refused to complete or attempt activity 9 The patient did not perform the activity before the current illness or injury 88 Not attempted due to Medical conditions or safety concerns Scootin Rollin Supine to/from Sit: 4 Sit to/from Stand: 5 Sit to Stand (QC): 5 Chair/Tpb-lo-Omptf Xfer(QC): 4 Bed to/from Chair: 4 Weight Bearing Right Lower Extremity: Right Full Weight Bearing Left Lower Extremity: Left Full Weight Bearing Gait Training Does the Patient Walk?: Yes Distance (FIM): 1=up to 49 ft Distance: 5', 5', 20' & 10' Walk 10 feet (QC): 4 Gait Level of Assist: 4 Gait Persons Needed: 1 Gait Assistive Device: FWW Wheelchair Training Does the Pt Use a Wheelchair?: Yes Wheelchair Distance: [phone] ft Distance: 100' Wheelchair Level of Assist: 5 Wheel 50 ft with 2 turns (QC): 5 Type of Wheelchair: Manual Exercises Seated Therapy Exercises: Ankle pumps, Long arc quads, Hip flexion, Kicking activity Seated Reps: 15 Treatments Pt transfers from bed to W/C then from W/C to toilet. After using restroom, Pt dresses for the day working on seated dynamic balance. Pt transfers back to W/ C and propels in hallway to Therapy Gym. Pt completes Seated Ex. Pt takes rest break then ambulates in hallway x4 attempts. Pt returns to room to rest in W/C with all needs met. Assessment Current Status: Fair Progress Pt takes extended time to complete tasks and frequent rest breaks due to fatigue and lack of strength. PT Short Term Goals Short Term Goals Wheelchair Distance: 150' PT Sheep Rancher Goals Sheep Rancher Goals PT Sheep Rancher Goals Time Frame: Dec 29, 2018 Transfers (B,C,W/C) (FIM): 5 Sit to Lying (QC): 5 Lying-Sitting on Side/Bed(QC): 5 Sit to Stand (QC): 5 Rollin Roll Left to Right (QC): 5 Chair/Ljg-nx-Gfwad Xfer(QC): 5 Car Transfer (QC): 5 Does the Patient Walk: Yes Gait (FIM): 2 Distance: 125' Walk 10 feet (QC): 5 Walk 10ft-Uneven Surface(QC): 5 Walk 50ft with 2 Turns (QC): 5 Walk 150 ft (QC): 88 Gait Level of Assist: 5 Gait Assistive Device: Walker 4 Wheeled, FWW Wheelchair (FIM): 2 Wheelchair distance (FIM): 1=up to 49 ft Distance: 100' Wheelchair Level of Assist: 5 Wheel 50 feet with 2 turns (QC: 5 Stairs (FIM): 1 PT Plan Problem List Problem List: Activity Tolerance, Functional Strength, Safety, Balance, Gait, Transfer, Bed Mobility Treatment/Plan Treatment Plan: Continue Plan of Care Treatment Plan: Bed Mobility, Education, Functional Activity Kandi, Functional Strength, Group Therapy, Gait, Safety, Therapeutic Exercise, Transfers Treatment Duration: Dec 01, 2018 Frequency: At least 5 of 7 days/Wk (IRF) Estimated Hrs Per Day: 1.5 hours per day Patient and/or Family Agrees t: Yes Safety Risks/Education Patient Education: Gait Training, Transfer Techniques, Correct Positioning, W/ C Management, Safety Issues Teaching Recipient: Patient Teaching Methods: Discussion Response to Teaching: Verbalize Understanding Time/GCodes Time In: 815 Time Out: 945 Total Billed Treatment Time: 90 Total Billed Treatment 1, FA x2 (25m), WCH (20m), EX (15m), GT x2 (30m) G Codes Necessary: BOGDAN Gupta CONVERSION DEVELOPER Dec 19, 2018 09:59
[2018-12-19] MEDS: PARoxetine 20 MG (PAXIL) TAB PO SCH (10:12)
[2018-12-19] MEDS: amLODIPine 10 MG (NORVASC) TAB PO SCH (10:12)
[2018-12-19] MEDS: LORATADINE (CLARITIN) 10 MG TAB PO SCH (10:12)
[2018-12-19] MEDS: VITAMIN D3 5,000 UNITS (CHOLECALCIFEROL ) CAPSULE PO SCH (10:12)
[2018-12-19] MEDS: GABAPENTIN 100 MG (NEURONTIN) CAP PO SCH ×2 (10:12→20:19)
[2018-12-19] MEDS: FOLIC ACID 1 MG TAB PO SCH (10:12)
[2018-12-19] MEDS: LOSARTAN 100 MG (COZAAR) TABLET PO SCH (10:13)
[2018-12-19] MEDS: FAMOTIDINE 20 MG (PEPCID) TABLET PO SCH (10:13)
[2018-12-19] MEDS: DICLOFENAC 1% GEL 100 GM (VOLTAREN) TUBE TOP SCH ×4 (11:42→20:19)
[2018-12-19] MEDS: BISACODYL 10 MG SUPP (DULCOLAX) PR SCH (11:42)
--- NOTE | 2018-12-19 14:13 | Occupational Ther Daily Note ---
OT Current Status-Daily Note Subjective No pain reported. Appearance Pt. is up in wheelchair. Pt. is dressed. Declines shower and states that she does not need to change clothing, as she put clean clothes on for PT. Mental Status/Objective Patient Orientation: Person, Place, Time, Situation Therapy Code Descriptions/Definitions Functional [place] Measure: 0=Not Assessed/NA 4=Minimal Assistance 1=Total Assistance 5=Supervision or Setup 2=Maximal Assistance 6=Modified [place] 3=Moderate Assistance 7=Complete [place] ADL-Treatment Therapy Code Descriptions/Definitions Functional [place] Measure: 0=Not Assessed/NA 4=Minimal Assistance 1=Total Assistance 5=Supervision or Setup 2=Maximal Assistance 6=Modified [place] 3=Moderate Assistance 7=Complete [place] Therapy Quality Codes: 6 Independent with activity with or without an assistive device 5 Patient requires set up or clean up by helper. Patient completes activity by themselves 4 Supervision or touching assist (CGA). [place] provide cues , steadying assist 3 The helper provides less than half the effort to complete the activity 2 The helper provides more than half the effort to complete the activity 1 Dependent. The helper does all the effort to complete an activity 7 Patient refused to complete or attempt activity 9 The patient did not perform the activity before the current illness or injury 88 Not attempted due to Medical conditions or safety concerns Transfers (B, C, W/C) (FIM): 4 (Please see note below.) Other Treatment Pt. agrees to go to therapy gym. Transferred via wheelchair. Tolerated nut/ bolt activity to increase overall strength and independence with fine motor skills. Worked on reaching but pt. had difficulty reaching too high due to poor ROM in shoulders. After this task, pt. practiced proper transfer for sit- stand at parallel bar. Worked on standing at bar with CGA, and with emphasis to scoot forward, lean over, and push up from chair. Stood multiple times and at times practiced weight shifting in stance. Unable to stand more than 1-2 minutes due to weakness. After this, pt. stood at walker with cues to push up from wheelchair and then to hold walker, which is less stable than parallel bars. Pt. able to do this several times with CGA for balance. All needs met. Education OT Patient Education: Correct positioning, Modified ADL techniques, Progress toward Goal/Update tx plan, Purpose of tx/functional activities, Reviewed precautions, Rehab process, Transfer techniques Teaching Recipient: Patient Teaching Methods: Demonstration, Discussion Response to Teaching: Verbalize Understanding, Return Demonstration OT Short Term Goals Short Term Goals Time Frame: Dec 15, 2018 Eating(FIM): 7 Grooming(FIM): 6 (w/c level) Toilet/Commode Transfer(FIM): 3 Additional Short Term Goals: 1-Demonstrate ADL Tasks, 2-Verbalize Understanding , 3-ImproveStrength/Kandi 1=Demonstrate adherence to instructed precautions during ADL tasks. 2=Patient will verbalize/demonstrate understanding of assistive devices/ modifications for ADL. 3=Patient will improve strength/tolerance for activity to enable patient to perform ADL's. OT Manager Social Goals Senior Living Goals Time Frame: Dec 29, 2018 Eating (FIM): 7 Eating (QC): 6 Groomin Oral Hygiene (QC): 6 Bathing(FIM): 6 Shower/Bathe Self (QC): 6 Upper Body Dressing(FIM): 6 Upper Body Dressing (QC): 6 Lower Body Dressing(FIM): 6 Lower Body Dressing (QC): 6 On/Off Footwear (QC): 6 Toileting(FIM): 6 Toileting Hygiene (QC): 6 Toilet/Commode Transfer(FIM): 6 Toilet/Commode Transfer (QC): 6 Shower Transfer(FIM): 6 Additional Goals: 1-Demonstrate ADL Tasks, 2-Verbalize Understanding, 3- ImproveStrength/Kandi 1=Demonstrate adherence to instructed precautions during ADL tasks. 2=Patient will verbalize/demonstrate understanding of assistive devices/ modifications for ADL. 3=Patient will improve strength/tolerance for activity to enable patient to perform ADL's. OT Education/Plan Problem List/Assessment Assessment: Decreased Activ Tolerance, Dependent Transfers, Impaired I ADL's, Impaired Self-Care Skills Discharge Recommendations Plan/Recommendations: Continue POC Therapy D/C Recommendations: 24 hr Supervision Treatment Plan/Plan of Care Treatment,Training & Education: Yes Patient would benefit from OT for education, treatment and training to promote independence in ADL's, mobility, safety and/or upper extremity function for ADL' s. Plan of Care: ADL Retraining, Functional Mobility, Group Exercise/Act as Ind ( education, exercise, functional activity, activity tolerance, funct mobility), UE Funct Exercise/Act, UE Neuromus Re-Ed/Coord Treatment Duration: Dec 29, 2018 Frequency: At least 5 of 7 days/Wk (IRF) Estimated Hrs Per Day: 1.5 hours per day Agreement: Yes Rehab Potential: Fair Time/GCodes Start Time: 10:45 Stop Time: 12:15 Total Time Billed (hr/min): 90 Billed Treatment Time 1, FA x 6 KATHIE HEMPHILL OT Dec 19, 2018 14:12
[2018-12-19] MEDS: CIPROFLOXACIN 500 MG (CIPRO) TABLET PO SCH (15:29)
[2018-12-19] MEDS: ASPIRIN E.C. 325 MG (ECOTRIN) TABLET PO SCH (17:43)
[2018-12-19 17:55] VITALS: BP 148/79
[2018-12-19] MEDS: MONTELUKAST 10 MG (SINGULAIR) TAB PO SCH (20:19)
[2018-12-19] MEDS: NIACIN ER (NIASPAN) 500 MG TAB PO SCH (20:19)
[2018-12-19] MEDS: OXYBUTYNIN (DITROPAN) 5 MG TAB PO SCH (20:19)
[2018-12-20] MEDS: ACETAMINOPHEN 325 MG TABLET PO PRN (01:37)
[2018-12-20 05:27] VITALS: BP 110/53
[2018-12-20] MEDS: MULTIVIT W/MINERALS TAB (THERAGRAN M) PO SCH (06:14)
[2018-12-20] MEDS: CARVEDILOL 12.5 MG (COREG) TABLET PO SCH ×2 (06:14→17:49)
[2018-12-20] MEDS: PANTOPRAZOLE 40 MG (PROTONIX) TAB PO SCH (06:14)
[2018-12-20] MEDS: CALCIUM CARBONATE 600 MG (CALCARB) TAB PO SCH ×2 (06:14→17:47)
[2018-12-20] MEDS: UMECLIDINIUM BROMIDE (INCRUSE ELLIPTA) 7'S IH SCH (07:10)
[2018-12-20] MEDS: RT-ALBUTEROL SULF 2.5 MG/3 ML PRE-MIX VIAL INH SCH ×2 (07:11→19:29)
[2018-12-20 08:25] VITALS: BP 109/66
[2018-12-20] MEDS: FAMOTIDINE 20 MG (PEPCID) TABLET PO SCH (08:26)
[2018-12-20] MEDS: amLODIPine 10 MG (NORVASC) TAB PO SCH (08:26)
[2018-12-20] MEDS: LOSARTAN 100 MG (COZAAR) TABLET PO SCH (08:26)
[2018-12-20] MEDS: GABAPENTIN 100 MG (NEURONTIN) CAP PO SCH ×2 (08:26→21:18)
[2018-12-20] MEDS: PARoxetine 20 MG (PAXIL) TAB PO SCH (08:26)
[2018-12-20] MEDS: LORATADINE (CLARITIN) 10 MG TAB PO SCH (08:27)
[2018-12-20] MEDS: VITAMIN D3 5,000 UNITS (CHOLECALCIFEROL ) CAPSULE PO SCH (08:27)
[2018-12-20] MEDS: FOLIC ACID 1 MG TAB PO SCH (08:27)
[2018-12-20] MEDS: DICLOFENAC 1% GEL 100 GM (VOLTAREN) TUBE TOP SCH ×4 (09:00→21:19)
[2018-12-20] MEDS: BISACODYL 10 MG SUPP (DULCOLAX) PR SCH (09:00)
--- NOTE | 2018-12-20 09:43 | PM&R Progress Note ---
Subjective HPI/CC On Admission Date Seen by Provider: Dec 20, 2018 Time Seen by Provider: 09:30 CC: Debility HPI: This is an 83-year-old white female clinic patient of Dr. Post in [place] just recently moved from [facility] to [place] to be close to her 2 grandchildren since her daughter is a nurse in [place] who works may shifts per week and her son lives in [place] and she previously lived in [place] from [phone] who presents after a [facility] stay for 3 days due to severe weakness. Hyponatremia noted acute on chronic while she was there which could be contributing to the weakness (I will stop HCTZ and place on fluid restriction). She had a history of a CVA July 2018 went to [facility] for 3 months and just was discharged to her own home with her grandchildren watching over her. She began having weakness full evaluation included a CT scan and multiple labs revealing no source of weakness so she was placed in physical therapy and found to meet criteria for intensive therapies with inpatient rehabilitation center at [facility] here. She usually sees cardiology for a cardiac murmur and pulmonology for severe asthma and rheumatology for psoriatic arthritis and she is just in the midst of getting that set up since moving to [place] in the last 6 months. Her May 2018. 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 She would like to return to live alone. Subjective/Events-last exam Her puffy feet improved with compression stockings Team meeting was discussed with need for skilled therapy because she is a two person assist for toileting Pt remains at fall risk Overall tolerating the fluid restriction Bowels are normal Review of Systems Neurological: Weakness, Incoordination Objective Exam Vital Signs Vital Signs Date Time Temp Pulse Resp B/P (MAP) Pulse Ox O2 Delivery O2 Flow Rate FiO2 12/20/18 09:00 Room Air 12/20/18 08:25 69 109/66 (80) 12/20/18 07:11 95 12/20/18 05:27 97.3 18 Capillary Refill : Less Than 3 Seconds General Appearance: No Apparent Distress, WD/WN, Chronically ill, Obese HEENT: PERRL/EOMI, Normal ENT Inspection, Pharynx Normal Neck: Full Range of Motion, Normal Inspection, Non Tender, Supple, Carotid Bruit Respiratory: Chest Non Tender, Lungs Clear, Normal Breath Sounds, No Accessory Muscle Use, No Respiratory Distress Cardiovascular: Regular Rate, Rhythm, No Edema, No Gallop, No JVD, No Murmur, Normal Peripheral Pulses, Systolic Murmur Gastrointestinal: Normal Bowel Sounds, No Organomegaly, No Pulsatile Mass, Non Tender, Soft Back: Normal Inspection, No CVA Tenderness, No Vertebral Tenderness Extremity: Normal Capillary Refill, Normal Inspection, Normal Range of Motion, Non Tender, No Calf Tenderness, No Pedal Edema Neurologic/Psychiatric: Alert, Oriented x3, No Motor/Sensory Deficits, Normal Mood/Affect, Motor Weakness Skin: Normal Color, Warm/Dry Lymphatic: No Adenopathy Results/Procedures Lab Patient resulted labs reviewed. Assessment/Plan Assessment and Plan Assess & Plan/Chief Complaint Assessment: Debility Severe weakness due to CVA 07/31 and hyponatremia and psoriatic arthritis and aortic stenosis Acute on chronic hyponatremia holding hydrochlorothiazide and placing fluid restriction and sodium level decreased to 134 so will monitor closely Moderate persistent asthma usually sees pulmonology and noted crackles on Monday in RLL so started Nebs and IS and now improved Psoriatic arthritis on immunosuppressive biologic managed by rheumatology Chronic cardiac murmur usually sees cardiology History of CVA July 2018 spent 3 months at [facility] Acute right shoulder pain related to therapy last month History of compression fractures of the back 4 times Constipation - resolved LILI compliant on CPAP Acute UTI on Cipro completing tomorrow Renal insufficiency Plan: Maintain intensive therapies Appreciate right shoulder pain evaluation with xrays and consulted Dr Duff because it was causing a restriction in therapy services Continue home medications Spiriva Enbrel immunological biological med brought from home from family and takes every Monday Monitor cardiac and pulmonary systems closely Patient lives alone Prune juice for constipation along with more meds prn Monitor incontinence IS Nebs monitor crackles RLL on Monday now improved on Nebs and IS Disposition? UTI completed 7 days on Cipro Monitor hyponatremia DC Tely NHP? [place] (1) Debility (2) Psoriatic arthritis (3) Immunosuppression (4) History of CVA (cerebrovascular accident) (5) Asthma (6) Cardiac murmur (7) Compression fracture (8) Hypertension (9) Right anterior shoulder pain (10) Hyponatremia (11) Weakness (12) LILI on CPAP (13) Lung crackles (14) Shoulder pain, right (15) Incontinence (16) UTI (urinary tract infection) Clinical Quality Measures DVT/VTE Risk/Contraindication: Risk Factor Score Per Nursin RFS Level Per Nursing on Admit: 4+=Very High JANELLE ROBERTS DO Dec 20, 2018 09:43
--- NOTE | 2018-12-20 12:25 | Physical Therapy Daily Note ---
PT Daily Note-Current Subjective Pt laying Supine in bed upon arrival. Pt agrees to PT. Pt is a little down & reports "I will be going to [place] or SNF soon." Pain Numeric Pain Scale: 0-No Pain Location: No Pain Reported Mental Status Patient Orientation: Person, Place, Time, Situation Transfers Therapy Code Descriptions/Definitions Functional [place] Measure: 0=Not Assessed/NA 4=Minimal Assistance 1=Total Assistance 5=Supervision or Setup 2=Maximal Assistance 6=Modified [place] 3=Moderate Assistance 7=Complete [place] Therapy Quality Codes: 6 Independent with activity with or without an assistive device 5 Patient requires set up or clean up by helper. Patient completes activity by themselves 4 Supervision or touching assist (CGA). [place] provide cues , steadying assist 3 The helper provides less than half the effort to complete the activity 2 The helper provides more than half the effort to complete the activity 1 Dependent. The helper does all the effort to complete an activity 7 Patient refused to complete or attempt activity 9 The patient did not perform the activity before the current illness or injury 88 Not attempted due to Medical conditions or safety concerns Scootin Rollin Sit to/from Stand: 4 Sit to Lying (QC): 4 Sit to Stand (QC): 4 Chair/Obt-bx-Ihwxn Xfer(QC): 3 Bed to/from Chair: 3 Weight Bearing Right Lower Extremity: Right Full Weight Bearing Left Lower Extremity: Left Full Weight Bearing Gait Training Does the Patient Walk?: Yes Distance: 7', 20' & 10' Walk 10 feet (QC): 4 Gait Level of Assist: 4 Gait Persons Needed: 1 Gait Assistive Device: FWW Pt drifts to L when advancing RLE. Wheelchair Training Does the Pt Use a Wheelchair?: Yes Wheelchair Distance: 3=150 ft Distance: 150' Wheelchair Level of Assist: 5 Wheel 50 ft with 2 turns (QC): 5 Wheel 150 ft (QC): 5 Type of Wheelchair: Manual Exercises Seated Therapy Exercises: Ankle pumps, Long arc quads, Hip flexion, Kicking activity, Hip abd/add Seated Reps: 20 (2 sets) Treatments Pt transfers from bed to EOB then SPT to W/C. Pt uses restroom then propels self in W/C in hallway. Pt completes Seated Ex in W/C. Pt ambulates (x3) in hallway using FWW. Pt propels self in W/C back to room for restroom then transfers back to bed to rest. Pt has all needs met. Assessment Current Status: Fair Progress Pt fatigues easily and BLE "melts" during ambulation. PT Short Term Goals Short Term Goals Wheelchair Distance: 100' PT Mill Operator Helper Goals Penitentiary Goals PT Penitentiary Goals Time Frame: Dec 29, 2018 Transfers (B,C,W/C) (FIM): 5 Sit to Lying (QC): 5 Lying-Sitting on Side/Bed(QC): 5 Sit to Stand (QC): 5 Rollin Roll Left to Right (QC): 5 Chair/Szb-nk-Nnvqz Xfer(QC): 5 Car Transfer (QC): 5 Does the Patient Walk: Yes Gait (FIM): 2 Distance: 125' Walk 10 feet (QC): 5 Walk 10ft-Uneven Surface(QC): 5 Walk 50ft with 2 Turns (QC): 5 Walk 150 ft (QC): 88 Gait Level of Assist: 5 Gait Assistive Device: Walker 4 Wheeled, FWW Wheelchair (FIM): 2 Wheelchair distance (FIM): 1=up to 49 ft Distance: 100' Wheelchair Level of Assist: 5 Wheel 50 feet with 2 turns (QC: 5 Stairs (FIM): 1 PT Plan Problem List Problem List: Activity Tolerance, Functional Strength, Safety, Balance, Gait, Transfer, Bed Mobility Treatment/Plan Treatment Plan: Continue Plan of Care Treatment Plan: Bed Mobility, Education, Functional Activity Kandi, Functional Strength, Group Therapy, Gait, Safety, Therapeutic Exercise, Transfers Treatment Duration: Dec 01, 2018 Frequency: At least 5 of 7 days/Wk (IRF) Estimated Hrs Per Day: 1.5 hours per day Patient and/or Family Agrees t: Yes Safety Risks/Education Patient Education: Gait Training, Transfer Techniques, Correct Positioning, Safety Issues Teaching Recipient: Patient Teaching Methods: Discussion Response to Teaching: Verbalize Understanding Time/GCodes Time In: 1030 Time Out: 1200 Total Billed Treatment Time: 90 Total Billed Treatment 1, WCH (20m), GT x2 (25m), EX x2 (25m) & FA (20m) G Codes Necessary: BOGDAN Gupta INSPECTOR AND CLERK Dec 20, 2018 12:25
--- NOTE | 2018-12-20 13:50 | Occupational Ther Daily Note ---
OT Current Status-Daily Note Subjective No pain reported. However, pt. states, "I feel like today is the worst day I have had." Appearance Pt. in bed. Agrees to work with OT. Mental Status/Objective Patient Orientation: Person, Place, Time, Situation Therapy Code Descriptions/Definitions Functional [place] Measure: 0=Not Assessed/NA 4=Minimal Assistance 1=Total Assistance 5=Supervision or Setup 2=Maximal Assistance 6=Modified [place] 3=Moderate Assistance 7=Complete [place] ADL-Treatment Therapy Code Descriptions/Definitions Functional [place] Measure: 0=Not Assessed/NA 4=Minimal Assistance 1=Total Assistance 5=Supervision or Setup 2=Maximal Assistance 6=Modified [place] 3=Moderate Assistance 7=Complete [place] Therapy Quality Codes: 6 Independent with activity with or without an assistive device 5 Patient requires set up or clean up by helper. Patient completes activity by themselves 4 Supervision or touching assist (CGA). [place] provide cues , steadying assist 3 The helper provides less than half the effort to complete the activity 2 The helper provides more than half the effort to complete the activity 1 Dependent. The helper does all the effort to complete an activity 7 Patient refused to complete or attempt activity 9 The patient did not perform the activity before the current illness or injury 88 Not attempted due to Medical conditions or safety concerns Grooming (FIM): 5 (Set up while seated at sink in wheelchair. Pt. able to brush teeth and hair.) Oral Hygiene (QC): 5 Bathing (FIM): 5 (SBA to wash all parts while in shower.) Shower/Bathe Self (QC): 4 Upper Body (FIM): 4 (Min assist overall to adjust shirt and bra.) Upper Body Dressing (QC): 4 Lower Body Dressing (FIM): 3 (Mod assist to don brief and pants over feet, and then over hips. Pt. able to don socks with sock aide.) Lower Body Dressing (QC): 3 On/Off Footwear (QC): 4 Transfers (B, C, W/C) (FIM): 3 (Please see note.) Shower Transfer(FIM): 4 Other Treatment Pt. agreed to shower. Pt. ambulated to shower with min assist, but steps became slower and more labored as she got closer to shower area. Pt. able to transfer into shower, shower, and dress with assist. Afterwards, transferred to wheelchair to complete grooming tasks. Attempted to walk from wheelchair to bed, approximately 10 feet. Pt. able to ambulate at first, but then had increasing difficulty, to point that pt. unable to hold self up, and OT did this for her until a chair could be provided. Pt. transferred back to bed with mod assist and all needs were met. Education OT Patient Education: Correct positioning, Modified ADL techniques, Progress toward Goal/Update tx plan, Purpose of tx/functional activities, Reviewed precautions, Rehab process, Transfer techniques Teaching Recipient: Patient Teaching Methods: Demonstration, Discussion Response to Teaching: Verbalize Understanding, Return Demonstration OT Short Term Goals Short Term Goals Time Frame: Dec 15, 2018 Eating(FIM): 7 Grooming(FIM): 6 (w/c level) Toilet/Commode Transfer(FIM): 3 Additional Short Term Goals: 1-Demonstrate ADL Tasks, 2-Verbalize Understanding , 3-ImproveStrength/Kandi 1=Demonstrate adherence to instructed precautions during ADL tasks. 2=Patient will verbalize/demonstrate understanding of assistive devices/ modifications for ADL. 3=Patient will improve strength/tolerance for activity to enable patient to perform ADL's. OT Regional Flatbed Truck Driver Goals Regional [employer] Driver Goals Time Frame: Dec 29, 2018 Eating (FIM): 7 Eating (QC): 6 Groomin Oral Hygiene (QC): 6 Bathing(FIM): 6 Shower/Bathe Self (QC): 6 Upper Body Dressing(FIM): 6 Upper Body Dressing (QC): 6 Lower Body Dressing(FIM): 6 Lower Body Dressing (QC): 6 On/Off Footwear (QC): 6 Toileting(FIM): 6 Toileting Hygiene (QC): 6 Toilet/Commode Transfer(FIM): 6 Toilet/Commode Transfer (QC): 6 Shower Transfer(FIM): 6 Additional Goals: 1-Demonstrate ADL Tasks, 2-Verbalize Understanding, 3- ImproveStrength/Kandi 1=Demonstrate adherence to instructed precautions during ADL tasks. 2=Patient will verbalize/demonstrate understanding of assistive devices/ modifications for ADL. 3=Patient will improve strength/tolerance for activity to enable patient to perform ADL's. OT Education/Plan Problem List/Assessment Assessment: Decreased Activ Tolerance, Decreased UE Strength, Dependent Transfers, Impaired Bed Mobility, Impaired Funct Balance, Impaired I ADL's, Impaired Self-Care Skills, Restricted Funct UE ROM Discharge Recommendations Plan/Recommendations: Continue POC Therapy D/C Recommendations: 24 hr Supervision Treatment Plan/Plan of Care Treatment,Training & Education: Yes Patient would benefit from OT for education, treatment and training to promote independence in ADL's, mobility, safety and/or upper extremity function for ADL' s. Plan of Care: ADL Retraining, Functional Mobility, Group Exercise/Act as Ind ( education, exercise, functional activity, activity tolerance, funct mobility), UE Funct Exercise/Act, UE Neuromus Re-Ed/Coord Treatment Duration: Dec 29, 2018 Frequency: At least 5 of 7 days/Wk (IRF) Estimated Hrs Per Day: 1.5 hours per day Agreement: Yes Rehab Potential: Fair Time/GCodes Start Time: 08:30 Stop Time: 10:00 Total Time Billed (hr/min): 90 Billed Treatment Time 1, ADL x 6 KATHIE HEMPHILL OT Dec 20, 2018 13:50
[2018-12-20 17:45] VITALS: BP 105/65
[2018-12-20] MEDS: ASPIRIN E.C. 325 MG (ECOTRIN) TABLET PO SCH (17:47)
[2018-12-20] MEDS: OXYBUTYNIN (DITROPAN) 5 MG TAB PO SCH (21:18)
[2018-12-20] MEDS: MONTELUKAST 10 MG (SINGULAIR) TAB PO SCH (21:18)
[2018-12-20] MEDS: NIACIN ER (NIASPAN) 500 MG TAB PO SCH (21:18)
[2018-12-21 05:16] VITALS: BP 110/63
[2018-12-21] MEDS: RT-ALBUTEROL SULF 2.5 MG/3 ML PRE-MIX VIAL INH SCH ×2 (06:33→19:10)
[2018-12-21] MEDS: UMECLIDINIUM BROMIDE (INCRUSE ELLIPTA) 7'S IH SCH (06:34)
[2018-12-21] MEDS: MULTIVIT W/MINERALS TAB (THERAGRAN M) PO SCH (06:36)
[2018-12-21] MEDS: CARVEDILOL 12.5 MG (COREG) TABLET PO SCH ×2 (06:36→16:44)
[2018-12-21] MEDS: CALCIUM CARBONATE 600 MG (CALCARB) TAB PO SCH ×2 (06:36→16:44)
[2018-12-21] MEDS: PANTOPRAZOLE 40 MG (PROTONIX) TAB PO SCH (06:36)
--- NOTE | 2018-12-21 08:46 | PM&R Progress Note ---
Subjective HPI/CC On Admission Date Seen by Provider: Dec 21, 2018 Time Seen by Provider: 08:45 CC: Debility HPI: This is an 83-year-old white female clinic patient of Dr. Post in [place] just recently moved from [facility] to [place] to be close to her 2 grandchildren since her daughter is a nurse in [employer] who works may shifts per week and her son lives in [place] and she previously lived in [place] from [phone] who presents after a [facility] stay for 3 days due to severe weakness. Hyponatremia noted acute on chronic while she was there which could be contributing to the weakness (I will stop HCTZ and place on fluid restriction). She had a history of a CVA July 2018 went to [facility] for 3 months and just was discharged to her own home with her grandchildren watching over her. She began having weakness full evaluation included a CT scan and multiple labs revealing no source of weakness so she was placed in physical therapy and found to meet criteria for intensive therapies with inpatient rehabilitation center at [facility] here. She usually sees cardiology for a cardiac murmur and pulmonology for severe asthma and rheumatology for psoriatic arthritis and she is just in the midst of getting that set up since moving to [place] in the last 6 months. Her May 2018. 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 She would like to return to live alone. Subjective/Events-last exam Working hard in therapy Team meeting was discussed with need for skilled therapy because she is a two person assist for toileting and it appears that she is unrealistic and still assumes she will go home which unsure how that will work since she needs 2 people to help her urinate and use toilet Pt remains at fall risk Overall tolerating the fluid restriction Bowels are normal on meds prn Chronic pain issues Review of Systems General: Fatigue Neurological: Weakness, Incoordination Objective Exam Vital Signs Vital Signs Date Time Temp Pulse Resp B/P (MAP) Pulse Ox O2 Delivery O2 Flow Rate FiO2 12/21/18 09:00 Room Air 12/21/18 06:33 95 12/21/18 05:16 98.8 73 12 110/63 (79) Capillary Refill : Less Than 3 Seconds General Appearance: No Apparent Distress, WD/WN, Chronically ill, Obese HEENT: PERRL/EOMI, Normal ENT Inspection, Pharynx Normal Neck: Full Range of Motion, Normal Inspection, Non Tender, Supple, Carotid Bruit Respiratory: Chest Non Tender, Lungs Clear, Normal Breath Sounds, No Accessory Muscle Use, No Respiratory Distress Cardiovascular: Regular Rate, Rhythm, No Edema, No Gallop, No JVD, No Murmur, Normal Peripheral Pulses, Systolic Murmur Gastrointestinal: Normal Bowel Sounds, No Organomegaly, No Pulsatile Mass, Non Tender, Soft Back: Normal Inspection, No CVA Tenderness, No Vertebral Tenderness Extremity: Normal Capillary Refill, Normal Inspection, Normal Range of Motion, Non Tender, No Calf Tenderness, No Pedal Edema Neurologic/Psychiatric: Alert, Oriented x3, No Motor/Sensory Deficits, Normal Mood/Affect, Motor Weakness Skin: Normal Color, Warm/Dry Lymphatic: No Adenopathy Results/Procedures Lab Patient resulted labs reviewed. Assessment/Plan Assessment and Plan Assess & Plan/Chief Complaint Assessment: Debility Severe weakness due to CVA 07/31 and hyponatremia and psoriatic arthritis and aortic stenosis Acute on chronic hyponatremia holding hydrochlorothiazide and placing fluid restriction and sodium level decreased to 134 so will monitor closely Moderate persistent asthma usually sees pulmonology and noted crackles on Monday in R[place] so started Nebs and IS and now improved Psoriatic arthritis on immunosuppressive biologic managed by rheumatology Chronic cardiac murmur usually sees cardiology History of CVA July 2018 spent 3 months at [facility] Acute right shoulder pain related to therapy last month History of compression fractures of the back 4 times Constipation - resolved LILI compliant on CPAP Acute UTI s/p Cipro completed Renal insufficiency Plan: Maintain intensive therapies Appreciate right shoulder pain evaluation with xrays and consulted Dr Duff because it was causing a restriction in therapy services Continue home medications Spiriva Enbrel immunological biological med brought from home from family and takes every Monday Monitor cardiac and pulmonary systems closely Patient lives alone Prune juice for constipation along with more meds prn Monitor incontinence IS Nebs monitor crackles RLL on Monday now improved on Nebs and IS Disposition? UTI completed 7 days on Cipro Monitor hyponatremia DC [place] NHP? FAUSTINO [place] (1) Debility (2) Psoriatic arthritis (3) Immunosuppression (4) History of CVA (cerebrovascular accident) (5) Asthma (6) Cardiac murmur (7) Compression fracture (8) Hypertension (9) Right anterior shoulder pain (10) Hyponatremia (11) Weakness (12) LILI on CPAP (13) Lung crackles (14) Shoulder pain, right (15) Incontinence (16) UTI (urinary tract infection) Clinical Quality Measures DVT/VTE Risk/Contraindication: Risk Factor Score Per Nursin RFS Level Per Nursing on Admit: 4+=Very High JANELLE ROBERTS DO Dec 21, 2018 08:46
[2018-12-21] MEDS: FAMOTIDINE 20 MG (PEPCID) TABLET PO SCH (09:09)
[2018-12-21] MEDS: PARoxetine 20 MG (PAXIL) TAB PO SCH (09:09)
[2018-12-21] MEDS: FOLIC ACID 1 MG TAB PO SCH (09:09)
[2018-12-21] MEDS: LORATADINE (CLARITIN) 10 MG TAB PO SCH (09:09)
[2018-12-21] MEDS: LOSARTAN 100 MG (COZAAR) TABLET PO SCH (09:09)
[2018-12-21] MEDS: VITAMIN D3 5,000 UNITS (CHOLECALCIFEROL ) CAPSULE PO SCH (09:09)
[2018-12-21] MEDS: amLODIPine 10 MG (NORVASC) TAB PO SCH (09:10)
[2018-12-21] MEDS: GABAPENTIN 100 MG (NEURONTIN) CAP PO SCH ×2 (09:10→20:25)
[2018-12-21] MEDS: BISACODYL 10 MG SUPP (DULCOLAX) PR SCH (09:11)
[2018-12-21] MEDS: DICLOFENAC 1% GEL 100 GM (VOLTAREN) TUBE TOP SCH ×4 (09:12→20:23)
--- NOTE | 2018-12-21 09:47 | Occupational Ther Daily Note ---
OT Current Status-Daily Note Subjective Pt sitting in chair, agrees to treatment. Pt reports 5/10 back and right shoulder pain. Mental Status/Objective Therapy Code Descriptions/Definitions Functional [place] Measure: 0=Not Assessed/NA 4=Minimal Assistance 1=Total Assistance 5=Supervision or Setup 2=Maximal Assistance 6=Modified [place] 3=Moderate Assistance 7=Complete [place] ADL-Treatment Pt requests shower this morning. Sit to stand from chair with minimal assistance. Pt ambulated part of the way to restroom, but had increasing difficulty, so went the remainder of the way in w/c. Transfer w/c to toilet with minimal assistance using grab bars for safety. Pt able to pull pants down and complete toileting hygiene. Doffed depends with assist while seated. Transfer to walk in shower with bench with min assist using FWW. Doff gown without assist. Doff socks with SBA using dressing stick. Pt completed seated bathing using hand held shower. Able to wash all areas with SBA. Uses long handled sponge to wash lower legs and feet. Min assist to dry lower legs. Pt required assist to don bra. Was able to fasten in front without assist. Don pullover shirt with SBA. Pt used dressing stick to start Depends and pants over feet with minimal assistance. Sit to stand with min assist to complete pant hike. Assist was required to pull pants up in back. Pt fatigues quickly in standing and requires one seated rest break during dressing. Assist to don FAUSTINO hose. Pt donned socks with set up using sock aid. Min assist to don slip on shoes. Pt brushed teeth and combed hair with set up while seated at sink. Pt requests to return to bed after session. Transfer w/c to bed with minimal assist. Sit to supine with assist for LE. Pt resting in bed with needs met and RN present after session. Therapy Code Descriptions/Definitions Functional [place] Measure: 0=Not Assessed/NA 4=Minimal Assistance 1=Total Assistance 5=Supervision or Setup 2=Maximal Assistance 6=Modified [place] 3=Moderate Assistance 7=Complete [place] Therapy Quality Codes: 6 Independent with activity with or without an assistive device 5 Patient requires set up or clean up by helper. Patient completes activity by themselves 4 Supervision or touching assist (CGA). [place] provide cues , steadying assist 3 The helper provides less than half the effort to complete the activity 2 The helper provides more than half the effort to complete the activity 1 Dependent. The helper does all the effort to complete an activity 7 Patient refused to complete or attempt activity 9 The patient did not perform the activity before the current illness or injury 88 Not attempted due to Medical conditions or safety concerns Grooming (FIM): 5 Oral Hygiene (QC): 5 Bathing (FIM): 4 Upper Body (FIM): 4 Upper Body Dressing (QC): 3 Lower Body Dressing (FIM): 3 Lower Body Dressing (QC): 3 Toileting (FIM): 3 Toileting Hygiene (QC): 3 Toilet/Commode Transfer (FIM): 4 Toilet Transfer (QC): 3 Shower Transfer(FIM): 4 OT Short Term Goals Short Term Goals Time Frame: Dec 15, 2018 Eating(FIM): 7 Grooming(FIM): 6 (w/c level) Toilet/Commode Transfer(FIM): 3 Additional Short Term Goals: 1-Demonstrate ADL Tasks, 2-Verbalize Understanding , 3-ImproveStrength/Kandi 1=Demonstrate adherence to instructed precautions during ADL tasks. 2=Patient will verbalize/demonstrate understanding of assistive devices/ modifications for ADL. 3=Patient will improve strength/tolerance for activity to enable patient to perform ADL's. OT Cutlery Grinder Goals Cutlery Grinder Goals Time Frame: Dec 29, 2018 Eating (FIM): 7 Eating (QC): 6 Groomin Oral Hygiene (QC): 6 Bathing(FIM): 6 Shower/Bathe Self (QC): 6 Upper Body Dressing(FIM): 6 Upper Body Dressing (QC): 6 Lower Body Dressing(FIM): 6 Lower Body Dressing (QC): 6 On/Off Footwear (QC): 6 Toileting(FIM): 6 Toileting Hygiene (QC): 6 Toilet/Commode Transfer(FIM): 6 Toilet/Commode Transfer (QC): 6 Shower Transfer(FIM): 6 Additional Goals: 1-Demonstrate ADL Tasks, 2-Verbalize Understanding, 3- ImproveStrength/Kandi 1=Demonstrate adherence to instructed precautions during ADL tasks. 2=Patient will verbalize/demonstrate understanding of assistive devices/ modifications for ADL. 3=Patient will improve strength/tolerance for activity to enable patient to perform ADL's. OT Education/Plan Discharge Recommendations Plan/Recommendations: Continue POC Treatment Plan/Plan of Care Patient would benefit from OT for education, treatment and training to promote independence in ADL's, mobility, safety and/or upper extremity function for ADL' s. Plan of Care: ADL Retraining, Functional Mobility, Group Exercise/Act as Ind ( education, exercise, functional activity, activity tolerance, funct mobility), UE Funct Exercise/Act, UE Neuromus Re-Ed/Coord Treatment Duration: Dec 29, 2018 Frequency: At least 5 of 7 days/Wk (IRF) Estimated Hrs Per Day: 1.5 hours per day Agreement: Yes Rehab Potential: Fair Time/GCodes Start Time: 08:00 Stop Time: 09:30 Total Time Billed (hr/min): 90 Billed Treatment Time 1 visit, ADLx6(90minutes) DALILA FOLEY OT Dec 21, 2018 09:47
--- NOTE | 2018-12-21 11:57 | Physical Therapy Daily Note ---
PT Daily Note-Current Subjective Patient in bed pre tx, agrees to PT, no complaints of pain. Appearance Patient in wheelchair at bedside post tx with nurse call, phone, tray, all needs met. Mental Status Patient Orientation: Person, Place, Situation Transfers Therapy Code Descriptions/Definitions Functional [place] Measure: 0=Not Assessed/NA 4=Minimal Assistance 1=Total Assistance 5=Supervision or Setup 2=Maximal Assistance 6=Modified [place] 3=Moderate Assistance 7=Complete [place] Therapy Quality Codes: 6 Independent with activity with or without an assistive device 5 Patient requires set up or clean up by helper. Patient completes activity by themselves 4 Supervision or touching assist (CGA). [place] provide cues , steadying assist 3 The helper provides less than half the effort to complete the activity 2 The helper provides more than half the effort to complete the activity 1 Dependent. The helper does all the effort to complete an activity 7 Patient refused to complete or attempt activity 9 The patient did not perform the activity before the current illness or injury 88 Not attempted due to Medical conditions or safety concerns Transfers (B, C, W/C) (FIM): 2 Scootin Rollin Supine to/from Sit: 3 Sit to/from Stand: 4 Bed to/from Chair: 4 Weight Bearing Right Lower Extremity: Right Full Weight Bearing Left Lower Extremity: Left Full Weight Bearing Gait Training Gait (FIM): 1 Distance: 20'x2 Gait Level of Assist: 4 Gait Persons Needed: 1 Gait Assistive Device: FWW Min assist, very slow, knees almost buckle continuously. Wheelchair Training Does the Pt Use a Wheelchair?: Yes Wheelchair (FIM): 4 Distance: 100' Wheelchair Level of Assist: 4 Type of Wheelchair: Manual Patient propels manual wheelchair extremely slowly using both legs and arms, needs min assist for getting around obstacles or over bumps. Exercises Seated Therapy Exercises: Ankle pumps, Hip flexion, Hip abd/add Seated Reps: 15 Standing: Heel/toe raises, Mini squats (only 3 of these before patient's knee start buckling) Standing Reps: 15 Treatments bed mobility and transfers, ambulation, functional strengthening Assessment Current Status: Poor Progress Poor bed mobility. Patient moves extremely slowly, needs extra time for all mobility. PT Short Term Goals Short Term Goals Wheelchair Distance: 150' PT Hand Nailer Goals [facility] Goals PT Hand Nailer Goals Time Frame: Dec 29, 2018 Transfers (B,C,W/C) (FIM): 5 Sit to Lying (QC): 5 Lying-Sitting on Side/Bed(QC): 5 Sit to Stand (QC): 5 Rollin Roll Left to Right (QC): 5 Chair/Sfm-ke-[place] Xfer(QC): 5 Car Transfer (QC): 5 Does the Patient Walk: Yes Gait (FIM): 2 Distance: 125' Walk 10 feet (QC): 5 Walk 10ft-Uneven Surface(QC): 5 Walk 50ft with 2 Turns (QC): 5 Walk 150 ft (QC): 88 Gait Level of Assist: 5 Gait Assistive Device: Walker 4 Wheeled, FWW Wheelchair (FIM): 2 Wheelchair distance (FIM): 1=up to 49 ft Distance: 100' Wheelchair Level of Assist: 5 Wheel 50 feet with 2 turns (QC: 5 Stairs (FIM): 1 PT Plan Problem List Problem List: Activity Tolerance, Functional Strength, Safety, Balance, Gait, Transfer, Bed Mobility, ROM Treatment/Plan Treatment Plan: Continue Plan of Care Treatment Plan: Bed Mobility, Education, Functional Activity Kandi, Functional Strength, Group Therapy, Gait, Safety, Therapeutic Exercise, Transfers Treatment Duration: Dec 01, 2018 Frequency: At least 5 of 7 days/Wk (IRF) Estimated Hrs Per Day: 1.5 hours per day Patient and/or Family Agrees t: Yes Safety Risks/Education Patient Education: Gait Training, Transfer Techniques, Correct Positioning, W/ C Management, Safety Issues Teaching Recipient: Patient Teaching Methods: Demonstration, Discussion Response to Teaching: Reinforcement Needed Time/GCodes Time In: 1100 Time Out: 1200 Total Billed Treatment Time: 60 Total Billed Treatment 1 visit [facility] 15' FA 15' EX 15' GT 15' KATELYN CHANDRA PT Dec 21, 2018 11:57
--- NOTE | 2018-12-21 14:46 | Therapy Group Daily Note ---
Therapy Daily Group Note Patient Education Topic Home Safety Exercises LE Seated Exercise, UE Exercise Other/Notes Pt participated in group therapy with 4 to 1 ratio. Goals of session: Verbalize or acknowledge understanding of ARU description/ expectation, (met). Complete UE/LE seated exercises without difficulty, ( ongoing). Verbalize or acknowledge understanding of home safety and home equipment, (ongoing) OT/PT group consisted of introductions (name, place living, reason for being at ARU), socialization, UE/LE seated exercises, home safety education and equipment that can be used and home safety trivia game. Pt introduced self appropriately then actively listened to peers. Pt contributed to conversations and initiated questions/answers throughout group. Pt was able to verbalize understanding of educational topics by answering questions accurately and giving stating own experiences. Pt acknowledged understanding of ARU by gestures in agreement. Pt benefitted from group by using knowledge gained during daily activity and situations at home. After therapy, pt sitting in recliner with call light/phone in reach. All needs met in room. Start Time: 13:00 Stop Time: 14:05 Total Billed Treatment Time: 65 Total Billed Treatment 1-GRP DEEPA DE LA VEGA Dec 21, 2018 14:46
[2018-12-21] MEDS: ASPIRIN E.C. 325 MG (ECOTRIN) TABLET PO SCH (16:44)
[2018-12-21 18:00] VITALS: BP 137/77
[2018-12-21] MEDS: OXYBUTYNIN (DITROPAN) 5 MG TAB PO SCH (20:23)
[2018-12-21] MEDS: MONTELUKAST 10 MG (SINGULAIR) TAB PO SCH (20:23)
[2018-12-21] MEDS: NIACIN ER (NIASPAN) 500 MG TAB PO SCH (20:25)
[2018-12-22 05:09] VITALS: BP 102/56
[2018-12-22 06:43] VITALS: BP 114/63
[2018-12-22] MEDS: PANTOPRAZOLE 40 MG (PROTONIX) TAB PO SCH (06:43)
[2018-12-22] MEDS: MULTIVIT W/MINERALS TAB (THERAGRAN M) PO SCH (06:43)
[2018-12-22] MEDS: CALCIUM CARBONATE 600 MG (CALCARB) TAB PO SCH ×2 (06:43→17:04)
[2018-12-22] MEDS: CARVEDILOL 12.5 MG (COREG) TABLET PO SCH ×2 (06:44→17:04)
[2018-12-22] MEDS: VITAMIN D3 5,000 UNITS (CHOLECALCIFEROL ) CAPSULE PO SCH (08:33)
[2018-12-22] MEDS: FOLIC ACID 1 MG TAB PO SCH (08:33)
[2018-12-22] MEDS: LOSARTAN 100 MG (COZAAR) TABLET PO SCH (08:33)
[2018-12-22] MEDS: amLODIPine 10 MG (NORVASC) TAB PO SCH (08:33)
[2018-12-22] MEDS: LORATADINE (CLARITIN) 10 MG TAB PO SCH (08:33)
[2018-12-22] MEDS: FAMOTIDINE 20 MG (PEPCID) TABLET PO SCH (08:33)
[2018-12-22] MEDS: PARoxetine 20 MG (PAXIL) TAB PO SCH (08:33)
[2018-12-22] MEDS: BISACODYL 10 MG SUPP (DULCOLAX) PR SCH (08:34)
[2018-12-22] MEDS: DOCUSATE SODIUM 100 MG (COLACE) CAP PO PRN (08:34)
[2018-12-22] MEDS: GABAPENTIN 100 MG (NEURONTIN) CAP PO SCH ×2 (08:36→20:56)
[2018-12-22] MEDS: DICLOFENAC 1% GEL 100 GM (VOLTAREN) TUBE TOP SCH ×4 (08:37→20:56)
[2018-12-22] MEDS: MILK OF MAGNESIA 400 MG/5 ML 30 ML UDC PO PRN (08:37)
[2018-12-22 08:41] VITALS: BP 107/70
[2018-12-22] MEDS: RT-ALBUTEROL SULF 2.5 MG/3 ML PRE-MIX VIAL INH SCH ×2 (10:34→19:06)
[2018-12-22] MEDS: UMECLIDINIUM BROMIDE (INCRUSE ELLIPTA) 7'S IH SCH (10:34)
--- NOTE | 2018-12-22 10:47 | PM&R Progress Note ---
Subjective HPI/CC On Admission Date Seen by Provider: Dec 22, 2018 Time Seen by Provider: 10:45 CC: Debility HPI: This is an 83-year-old white female clinic patient of Dr. Post in [place] just recently moved from [facility] to [place] to be close to her 2 grandchildren since her daughter is a nurse in [employer] who works may shifts per week and her son lives in [place] and she previously lived in [place] from [phone] who presents after a [facility] stay for 3 days due to severe weakness. Hyponatremia noted acute on chronic while she was there which could be contributing to the weakness (I will stop HCTZ and place on fluid restriction). She had a history of a CVA July 2018 went to [facility] for 3 months and just was discharged to her own home with her grandchildren watching over her. She began having weakness full evaluation included a CT scan and multiple labs revealing no source of weakness so she was placed in physical therapy and found to meet criteria for intensive therapies with inpatient rehabilitation center at [facility] here. She usually sees cardiology for a cardiac murmur and pulmonology for severe asthma and rheumatology for psoriatic arthritis and she is just in the midst of getting that set up since moving to [place] in the last 6 months. Her May 2018. 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 She would like to return to live alone. Subjective/Events-last exam Working hard in therapy and doing much improved with transfers Team meeting discussed the fact she appears to need NH Pt remains at fall risk Overall tolerating the fluid restriction but wants to drink more so will check labs tomorrow and may be able to increase the amount of fluid Bowels still require meds every 3rd day Chronic pain issues Review of Systems Gastrointestinal: Constipation Neurological: Weakness Objective Exam Vital Signs Vital Signs Date Time Temp Pulse Resp B/P (MAP) Pulse Ox O2 Delivery O2 Flow Rate FiO2 12/22/18 09:59 Room Air 12/22/18 08:41 61 107/70 (82) 12/22/18 05:09 98.5 18 96 Capillary Refill : Less Than 3 Seconds General Appearance: No Apparent Distress, WD/WN, Chronically ill, Obese HEENT: PERRL/EOMI, Normal ENT Inspection, Pharynx Normal Neck: Full Range of Motion, Normal Inspection, Non Tender, Supple, Carotid Bruit Respiratory: Chest Non Tender, Lungs Clear, Normal Breath Sounds, No Accessory Muscle Use, No Respiratory Distress Cardiovascular: Regular Rate, Rhythm, No Edema, No Gallop, No JVD, No Murmur, Normal Peripheral Pulses, Systolic Murmur Gastrointestinal: Normal Bowel Sounds, No Organomegaly, No Pulsatile Mass, Non Tender, Soft Back: Normal Inspection, No CVA Tenderness, No Vertebral Tenderness Extremity: Normal Capillary Refill, Normal Inspection, Normal Range of Motion, Non Tender, No Calf Tenderness, No Pedal Edema Neurologic/Psychiatric: Alert, Oriented x3, No Motor/Sensory Deficits, Normal Mood/Affect, Motor Weakness Skin: Normal Color, Warm/Dry Lymphatic: No Adenopathy Results/Procedures Lab Patient resulted labs reviewed. Assessment/Plan Assessment and Plan Assess & Plan/Chief Complaint Assessment: Debility Severe weakness due to CVA 07/31 and hyponatremia and psoriatic arthritis and aortic stenosis Acute on chronic hyponatremia holding hydrochlorothiazide and placing fluid restriction and sodium level decreased to 134 so will monitor closely Moderate persistent asthma usually sees pulmonology and noted crackles on Monday in RLL so started Nebs and IS and now improved Psoriatic arthritis on immunosuppressive biologic managed by rheumatology Chronic cardiac murmur usually sees cardiology History of CVA July 2018 spent 3 months at [facility] Acute right shoulder pain related to therapy last month History of compression fractures of the back 4 times Constipation - resolved LILI compliant on CPAP Acute UTI s/p Cipro completed Renal insufficiency Plan: Maintain intensive therapies Appreciate right shoulder pain evaluation with xrays and consulted Dr Duff because it was causing a restriction in therapy services Continue home medications Spiriva Enbrel immunological biological med brought from home from family and takes every Monday Monitor cardiac and pulmonary systems closely Patient lives alone Prune juice for constipation along with more meds prn Monitor incontinence IS Nebs monitor crackles RLL on Monday now improved on Nebs and IS Disposition? UTI completed 7 days on Cipro Monitor hyponatremia by checking labs tomorrow [place] [facility] NHP? [place] (1) Debility (2) Psoriatic arthritis (3) Immunosuppression (4) History of CVA (cerebrovascular accident) (5) Asthma (6) Cardiac murmur (7) Compression fracture (8) Hypertension (9) Right anterior shoulder pain (10) Hyponatremia (11) Weakness (12) LILI on CPAP (13) Lung crackles (14) Shoulder pain, right (15) Incontinence (16) UTI (urinary tract infection) Clinical Quality Measures DVT/VTE Risk/Contraindication: Risk Factor Score Per Nursin RFS Level Per Nursing on Admit: 4+=Very High JANELLE ROBERTS DO Dec 22, 2018 10:47
--- NOTE | 2018-12-22 11:05 | Physical Therapy Daily Note ---
PT Daily Note-Current Subjective Pt reports feeling more weak and tired this morning, but agreeable to therapy. Pain Numeric Pain Scale: 0-No Pain Appearance At beginning of session, pt in bed sleeping with CPAP, easily aroused At end of session, pt sitting up in recliner with call light, phone and bedside table within reach Transfers Therapy Code Descriptions/Definitions Functional Charles [place] Measure: 0=Not Assessed/NA 4=Minimal Assistance 1=Total Assistance 5=Supervision or Setup 2=Maximal Assistance 6=Modified Charles [place] 3=Moderate Assistance 7=Complete Charles Mix Therapy Quality Codes: 6 Independent with activity with or without an assistive device 5 Patient requires set up or clean up by helper. Patient completes activity by themselves 4 Supervision or touching assist (CGA). [place] provide cues , steadying assist 3 The helper provides less than half the effort to complete the activity 2 The helper provides more than half the effort to complete the activity 1 Dependent. The helper does all the effort to complete an activity 7 Patient refused to complete or attempt activity 9 The patient did not perform the activity before the current illness or injury 88 Not attempted due to Medical conditions or safety concerns Transfers (B, C, W/C) (FIM): 3 Rollin Supine to/from Sit: 3 Sit to/from Stand: 3 pt with difficulty maintaining balance sitting EOB and upon initial standing. Good sitting balance edge of chair Weight Bearing Right Lower Extremity: Right Full Weight Bearing Left Lower Extremity: Left Full Weight Bearing Gait Training Does the Patient Walk?: Yes Gait (FIM): 1 Distance (FIM): 1=up to 49 ft Distance: 5 Gait Persons Needed: 1 Gait Assistive Device: FWW Min Assist to maintain balance walking 5', difficulty manuevering feet and walker, short shuffling slow steps Exercises Supine Ex: Ankle pumps, Heel Slides, Short Arc Quads, Straight leg raise, Hip abd/add Supine Reps: 10 (toe curls, Hip IR/ER) Seated Therapy Exercises: Ankle pumps Treatments transfer and gait training, ex for strength, ROM and activity tolerance Assessment Very slow at performing tasks, decreased balance supine to sit, sitting EOB, initial standing and during gait PT Short Term Goals Short Term Goals Wheelchair Distance: 100' PT Snf Goals Snf Goals PT Bulk Plant Operator Goals Time Frame: Dec 29, 2018 Transfers (B,C,W/C) (FIM): 5 Sit to Lying (QC): 5 Lying-Sitting on Side/Bed(QC): 5 Sit to Stand (QC): 5 Rollin Roll Left to Right (QC): 5 Chair/[id number]-[id number] Xfer(QC): 5 Car Transfer (QC): 5 Does the Patient Walk: Yes Gait (FIM): 2 Distance: 125' Walk 10 feet (QC): 5 Walk 10ft-Uneven Surface(QC): 5 Walk 50ft with 2 Turns (QC): 5 Walk 150 ft (QC): 88 Gait Level of Assist: 5 Gait Assistive Device: Walker 4 Wheeled, FWW Wheelchair (FIM): 2 Wheelchair distance (FIM): 1=up to 49 ft Distance: 100' Wheelchair Level of Assist: 5 Wheel 50 feet with 2 turns (QC: 5 Stairs (FIM): 1 PT Plan Problem List Problem List: Activity Tolerance, Functional Strength, Safety, Balance, Gait, Transfer, Bed Mobility, ROM Treatment/Plan Treatment Plan: Continue Plan of Care Treatment Plan: Bed Mobility, Education, Functional Activity Kandi, Functional Strength, Group Therapy, Gait, Safety, Therapeutic Exercise, Transfers Treatment Duration: Dec 01, 2018 Frequency: At least 5 of 7 days/Wk (IRF) Estimated Hrs Per Day: 1.5 hours per day Patient and/or Family Agrees t: Yes Safety Risks/Education Patient Education: Transfer Techniques, Safety Issues Teaching Recipient: Patient Teaching Methods: Demonstration, Discussion Response to Teaching: Verbalize Understanding, Return Demonstration, Reinforcement Needed Time/GCodes Time In: 800 Time Out: 823 Total Billed Treatment Time: 23 Total Billed Treatment 1 visit EX x10' FA x13' ALEJANDRO FLORES PTA Dec 22, 2018 11:05
--- NOTE | 2018-12-22 14:56 | NUR ---
Patient requires minimal contact assistance with transfers from chair to WC using a gait belt and FWW for safety. Up to the shower this AM. Tolerated well. Knee high FAUSTINO hose on.
[2018-12-22 17:03] VITALS: BP 110/65
[2018-12-22] MEDS: ASPIRIN E.C. 325 MG (ECOTRIN) TABLET PO SCH (17:04)
[2018-12-22] MEDS: MONTELUKAST 10 MG (SINGULAIR) TAB PO SCH (20:56)
[2018-12-22] MEDS: OXYBUTYNIN (DITROPAN) 5 MG TAB PO SCH (20:56)
[2018-12-22] MEDS: NIACIN ER (NIASPAN) 500 MG TAB PO SCH (20:56)
[2018-12-23 05:12] LABS: BASOPHILS # (AUTO) 0.1 10^3/uL (0.0-0.1); BASOPHILS % (AUTO) 1 % (0-10); EOSINOPHILS # (AUTO) 0.5 10^3/uL (0.0-0.3); EOSINOPHILS % (AUTO) 5 % (0-10); HEMATOCRIT 31 % (35-52); HEMOGLOBIN 10.2 G/DL (11.5-16.0); LYMPHOCYTES # (AUTO) 1.4 X 10^3 (1.0-4.0); LYMPHOCYTES % (AUTO) 15 % (12-44); MEAN CORPUSCULAR HEMOGLOBIN 32 PG (25-34); MEAN CORPUSCULAR HGB CONC 33 G/DL (32-36); MEAN CORPUSCULAR VOLUME 95 FL (80-99); MEAN PLATELET VOLUME 8.6 FL (7.4-10.4); MONOCYTES # (AUTO) 1.3 X 10^3 (0.0-1.0); MONOCYTES % (AUTO) 14 % (0-12); NEUTROPHILS # (AUTO) 6.1 X 10^3 (1.8-7.8); NEUTROPHILS % (AUTO) 66 % (42-75); PLATELET COUNT 221 10^3/uL (130-400); RED CELL DISTRIBUTION WIDTH 14.3 % (10.0-14.5); WHITE BLOOD COUNT 9.3 10^3/uL (4.3-11.0)
[2018-12-23 05:13] VITALS: BP 116/67
[2018-12-23 05:34] LABS: ALBUMIN 3.1 GM/DL (3.2-4.5); BILIRUBIN,TOTAL 0.7 MG/DL (0.1-1.0); CALCIUM 9.7 MG/DL (8.5-10.1); CREATININE SERUM 1.34 MG/DL (0.60-1.30); POTASSIUM 4.4 MMOL/L (3.6-5.0); TOTAL PROTEIN 5.9 GM/DL (6.4-8.2)
[2018-12-23] MEDS: MULTIVIT W/MINERALS TAB (THERAGRAN M) PO SCH (06:18)
[2018-12-23] MEDS: CARVEDILOL 12.5 MG (COREG) TABLET PO SCH ×2 (06:18→17:19)
[2018-12-23] MEDS: CALCIUM CARBONATE 600 MG (CALCARB) TAB PO SCH ×2 (06:18→17:19)
[2018-12-23] MEDS: PANTOPRAZOLE 40 MG (PROTONIX) TAB PO SCH (06:18)
--- NOTE | 2018-12-23 06:28 | PM&R Progress Note ---
Subjective HPI/CC On Admission Date Seen by Provider: Dec 23, 2018 Time Seen by Provider: 06:15 CC: Debility HPI: This is an 83-year-old white female clinic patient of Dr. Post in [place] just recently moved from [facility] to [place] to be close to her 2 grandchildren since her daughter is a nurse in [employer] who works may shifts per week and her son lives in [place] and she previously lived in [place] from [phone] who presents after a [facility] stay for 3 days due to severe weakness. Hyponatremia noted acute on chronic while she was there which could be contributing to the weakness (I will stop HCTZ and place on fluid restriction). She had a history of a CVA July 2018 went to [facility] for 3 months and just was discharged to her own home with her grandchildren watching over her. She began having weakness full evaluation included a CT scan and multiple labs revealing no source of weakness so she was placed in physical therapy and found to meet criteria for intensive therapies with inpatient rehabilitation center at [facility] here. She usually sees cardiology for a cardiac murmur and pulmonology for severe asthma and rheumatology for psoriatic arthritis and she is just in the midst of getting that set up since moving to [place] in the last 6 months. Her May 2018. 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 She would like to return to live alone. Subjective/Events-last exam Working hard in therapy but transfers for toileting are difficult and usually requires 2 people Patient had a BM yesterday and it was documented but she stated she did not have one and it appears that she may have some memory deficits we are just now noticing Team meeting discussed the fact she appears to need NH and it does not appear that she is accepting that fact and still plans on going home this week? Pt remains at fall risk Overall tolerating the fluid restriction but wants to drink more so checked labs today and will increase fluid to 2000cc/day because I am certain she will not abide by the restriction at [place] and it has not resolved the hyponatremia anyway so will increase to 2000 for her comfort Bowels still require meds every 3rd day Chronic pain issues Review of Systems General: Fatigue Objective Exam Vital Signs Vital Signs Date Time Temp Pulse Resp B/P (MAP) Pulse Ox O2 Delivery O2 Flow Rate FiO2 2/10/19 09:10 Room Air 12/23/18 08:18 67 124/69 (87) 12/23/18 05:13 98.3 18 98 Capillary Refill : Less Than 3 Seconds General Appearance: No Apparent Distress, WD/WN, Chronically ill, Obese HEENT: PERRL/EOMI, Normal ENT Inspection, Pharynx Normal Neck: Full Range of Motion, Normal Inspection, Non Tender, Supple, Carotid Bruit Respiratory: Chest Non Tender, Lungs Clear, Normal Breath Sounds, No Accessory Muscle Use, No Respiratory Distress Cardiovascular: Regular Rate, Rhythm, No Edema, No Gallop, No JVD, Normal Peripheral Pulses, Systolic Murmur Gastrointestinal: Normal Bowel Sounds, No Organomegaly, No Pulsatile Mass, Non Tender, Soft Back: Normal Inspection, No CVA Tenderness, No Vertebral Tenderness Extremity: Normal Capillary Refill, Normal Inspection, Normal Range of Motion, Non Tender, No Calf Tenderness, No Pedal Edema Neurologic/Psychiatric: Alert, Oriented x3, No Motor/Sensory Deficits, Normal Mood/Affect, Motor Weakness Skin: Normal Color, Warm/Dry Lymphatic: No Adenopathy Results/Procedures Lab Laboratory Tests 12/23/18 04:46 Patient resulted labs reviewed. Assessment/Plan Assessment and Plan Assess & Plan/Chief Complaint Assessment: Debility Severe weakness due to CVA 07/31 and hyponatremia and psoriatic arthritis and aortic stenosis Acute on chronic hyponatremia holding hydrochlorothiazide and placing fluid restriction and sodium level today 132 Moderate persistent asthma usually sees pulmonology and noted crackles on Monday in RLL so started Nebs and IS and now resolved Psoriatic arthritis on immunosuppressive biologic managed by rheumatology Chronic cardiac murmur usually sees cardiology History of CVA July 2018 spent 3 months at [facility] Acute right shoulder pain related to therapy last month History of compression fractures of the back 4 times Constipation - resolved LILI compliant on CPAP Acute UTI s/p Cipro completed Renal insufficiency Plan: Maintain intensive therapies Appreciate right shoulder pain evaluation with xrays and consulted Dr Duff because it was causing a restriction in therapy services Continue home medications Spiriva Enbrel immunological biological med brought from home from family and takes every Monday Monitor cardiac and pulmonary systems closely Patient lives alone Prune juice for constipation along with more meds prn Monitor incontinence IS Nebs monitor crackles RLL on Monday now improved on Nebs and IS Disposition? UTI completed 7 days on Cipro Monitor hyponatremia by checking labs tomorrow [place] [facility]P? [place] (1) Debility (2) Psoriatic arthritis (3) Immunosuppression (4) History of CVA (cerebrovascular accident) (5) Asthma (6) Cardiac murmur (7) Compression fracture (8) Hypertension (9) Right anterior shoulder pain (10) Hyponatremia (11) Weakness (12) LILI on CPAP (13) Lung crackles (14) Shoulder pain, right (15) Incontinence (16) UTI (urinary tract infection) Clinical Quality Measures DVT/VTE Risk/Contraindication: Risk Factor Score Per Nursin RFS Level Per Nursing on Admit: 4+=Very High JANELLE ROBERTS DO Dec 23, 2018 06:28
[2018-12-23] MEDS: LORATADINE (CLARITIN) 10 MG TAB PO SCH (08:09)
[2018-12-23] MEDS: LOSARTAN 100 MG (COZAAR) TABLET PO SCH (08:09)
[2018-12-23] MEDS: VITAMIN D3 5,000 UNITS (CHOLECALCIFEROL ) CAPSULE PO SCH (08:09)
[2018-12-23] MEDS: amLODIPine 10 MG (NORVASC) TAB PO SCH (08:09)
[2018-12-23] MEDS: PARoxetine 20 MG (PAXIL) TAB PO SCH (08:09)
[2018-12-23] MEDS: MILK OF MAGNESIA 400 MG/5 ML 30 ML UDC PO PRN (08:09)
[2018-12-23] MEDS: GABAPENTIN 100 MG (NEURONTIN) CAP PO SCH ×2 (08:09→20:49)
[2018-12-23] MEDS: FOLIC ACID 1 MG TAB PO SCH (08:09)
[2018-12-23] MEDS: FAMOTIDINE 20 MG (PEPCID) TABLET PO SCH (08:09)
[2018-12-23] MEDS: DOCUSATE SODIUM 100 MG (COLACE) CAP PO PRN (08:09)
[2018-12-23] MEDS: BISACODYL 10 MG SUPP (DULCOLAX) PR SCH (08:14)
[2018-12-23 08:18] VITALS: BP 124/69
[2018-12-23] MEDS: DICLOFENAC 1% GEL 100 GM (VOLTAREN) TUBE TOP SCH ×4 (08:34→20:49)
[2018-12-23] MEDS: UMECLIDINIUM BROMIDE (INCRUSE ELLIPTA) 7'S IH SCH (11:00)
[2018-12-23] MEDS: RT-ALBUTEROL SULF 2.5 MG/3 ML PRE-MIX VIAL INH SCH ×2 (11:00→19:42)
--- NOTE | 2018-12-23 12:25 | NUR ---
Inconsistent with transfers. At times, requires minimal assistance. Other times, requires moderate to maximal assistance.
--- NOTE | 2018-12-23 14:32 | NUR ---
Cipro for UTI completed on 12/19/18. Urine continues to be cloudy and foul smelling. Dr. Gonzalez informed.
[2018-12-23 17:18] VITALS: BP 115/67
[2018-12-23] MEDS: ASPIRIN E.C. 325 MG (ECOTRIN) TABLET PO SCH (17:19)
[2018-12-23] MEDS: MONTELUKAST 10 MG (SINGULAIR) TAB PO SCH (20:49)
[2018-12-23] MEDS: OXYBUTYNIN (DITROPAN) 5 MG TAB PO SCH (20:49)
[2018-12-23] MEDS: NIACIN ER (NIASPAN) 500 MG TAB PO SCH (20:49)
[2018-12-24 05:19] VITALS: BP 147/70
[2018-12-24] MEDS: MULTIVIT W/MINERALS TAB (THERAGRAN M) PO SCH (06:18)
[2018-12-24] MEDS: PANTOPRAZOLE 40 MG (PROTONIX) TAB PO SCH (06:18)
[2018-12-24] MEDS: CARVEDILOL 12.5 MG (COREG) TABLET PO SCH ×2 (06:18→17:23)
[2018-12-24] MEDS: CALCIUM CARBONATE 600 MG (CALCARB) TAB PO SCH ×2 (06:18→17:23)
[2018-12-24] MEDS: FOLIC ACID 1 MG TAB PO SCH (08:23)
[2018-12-24] MEDS: LOSARTAN 100 MG (COZAAR) TABLET PO SCH (08:23)
[2018-12-24] MEDS: VITAMIN D3 5,000 UNITS (CHOLECALCIFEROL ) CAPSULE PO SCH (08:23)
[2018-12-24] MEDS: amLODIPine 10 MG (NORVASC) TAB PO SCH (08:24)
[2018-12-24] MEDS: BISACODYL 10 MG SUPP (DULCOLAX) PR SCH (08:24)
[2018-12-24] MEDS: FAMOTIDINE 20 MG (PEPCID) TABLET PO SCH (08:24)
[2018-12-24] MEDS: PARoxetine 20 MG (PAXIL) TAB PO SCH (08:24)
[2018-12-24] MEDS: LORATADINE (CLARITIN) 10 MG TAB PO SCH (08:24)
[2018-12-24] MEDS: GABAPENTIN 100 MG (NEURONTIN) CAP PO SCH ×2 (08:24→20:27)
[2018-12-24] MEDS: DICLOFENAC 1% GEL 100 GM (VOLTAREN) TUBE TOP SCH ×4 (08:25→20:29)
--- NOTE | 2018-12-24 08:44 | PM&R Progress Note ---
Subjective HPI/CC On Admission Date Seen by Provider: Dec 24, 2018 Time Seen by Provider: 08:30 CC: Debility HPI: This is an 83-year-old white female clinic patient of Dr. Post in [place] just recently moved from [facility] to [place] to be close to her 2 grandchildren since her daughter is a nurse in [employer] who works may shifts per week and her son lives in [place] and she previously lived in [place] from [phone] who presents after a [facility] stay for 3 days due to severe weakness. Hyponatremia noted acute on chronic while she was there which could be contributing to the weakness (I will stop HCTZ and place on fluid restriction). She had a history of a CVA July 2018 went to [facility] for 3 months and just was discharged to her own home with her grandchildren watching over her. She began having weakness full evaluation included a CT scan and multiple labs revealing no source of weakness so she was placed in physical therapy and found to meet criteria for intensive therapies with inpatient rehabilitation center at [facility] here. She usually sees cardiology for a cardiac murmur and pulmonology for severe asthma and rheumatology for psoriatic arthritis and she is just in the midst of getting that set up since moving to [place] in the last 6 months. Her May 2018. 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 She would like to return to live alone. Subjective/Events-last exam Pt has been incontinent in bed and that is frustrating her. She simply can't function at home as she plans to do. roll on worker is back and will talk to more today. Unrealistic expectation to think she is going home. Lifted fluid restriction yesterday because she will not be on fluid restriction at discharge. Completed UTI treatment. Overall weakness is profound. Review of Systems General: Fatigue Genitourinary: Incontinence Neurological: Weakness, Incoordination Objective Exam Vital Signs Vital Signs Date Time Temp Pulse Resp B/P (MAP) Pulse Ox O2 Delivery O2 Flow Rate FiO2 12/24/18 17:24 98.9 77 20 118/63 (81) 97 Room Air Capillary Refill : Less Than 3 Seconds General Appearance: No Apparent Distress, WD/WN, Chronically ill, Obese HEENT: PERRL/EOMI, Normal ENT Inspection, Pharynx Normal Neck: Full Range of Motion, Normal Inspection, Non Tender, Supple, Carotid Bruit Respiratory: Chest Non Tender, Lungs Clear, Normal Breath Sounds, No Accessory Muscle Use, No Respiratory Distress Cardiovascular: Regular Rate, Rhythm, No Edema, No Gallop, No JVD, Normal Peripheral Pulses, Systolic Murmur Gastrointestinal: Normal Bowel Sounds, No Organomegaly, No Pulsatile Mass, Non Tender, Soft Back: Normal Inspection, No CVA Tenderness, No Vertebral Tenderness Extremity: Normal Capillary Refill, Normal Inspection, Normal Range of Motion, Non Tender, No Calf Tenderness, No Pedal Edema Neurologic/Psychiatric: Alert, Oriented x3, No Motor/Sensory Deficits, Normal Mood/Affect, Motor Weakness Skin: Normal Color, Warm/Dry Lymphatic: No Adenopathy Results/Procedures Lab Patient resulted labs reviewed. Assessment/Plan Assessment and Plan Assess & Plan/Chief Complaint Assessment: Debility Severe weakness due to CVA 07/31 and hyponatremia and psoriatic arthritis and aortic stenosis Acute on chronic hyponatremia holding hydrochlorothiazide and placing fluid restriction and sodium level today 132 Moderate persistent asthma usually sees pulmonology and noted crackles on Monday in R[place] so started Nebs and IS and now resolved Psoriatic arthritis on immunosuppressive biologic managed by rheumatology Chronic cardiac murmur usually sees cardiology History of CVA July 2018 spent 3 months at [facility] Acute right shoulder pain related to therapy last month History of compression fractures of the back 4 times Constipation - resolved LILI compliant on CPAP Acute UTI s/p Cipro completed Renal insufficiency Plan: Maintain intensive therapies Appreciate right shoulder pain evaluation with xrays and consulted Dr Duff because it was causing a restriction in therapy services Continue home medications Spiriva Enbrel immunological biological med brought from home from family and takes every Monday Monitor cardiac and pulmonary systems closely Patient lives alone Prune juice for constipation along with more meds prn Monitor incontinence IS Nebs monitor crackles RLL on Monday now improved on Nebs and IS Disposition? UTI completed 7 days on Cipro Monitor hyponatremia [place] [facility] NHP? [place] (1) Debility (2) Psoriatic arthritis (3) Immunosuppression (4) History of CVA (cerebrovascular accident) (5) Asthma (6) Cardiac murmur (7) Compression fracture (8) Hypertension (9) Right anterior shoulder pain (10) Hyponatremia (11) Weakness (12) LILI on CPAP (13) Lung crackles (14) Shoulder pain, right (15) Incontinence (16) UTI (urinary tract infection) Clinical Quality Measures DVT/VTE Risk/Contraindication: Risk Factor Score Per Nursin RFS Level Per Nursing on Admit: 4+=Very High JANELLE ROBERTS DO Dec 24, 2018 08:44
--- NOTE | 2018-12-24 09:04 | Physical Therapy Daily Note ---
PT Daily Note-Current Subjective Pt. in bed and states she has a very wet bed and brief and gown, Pt. is embarrassed and concerned about this but discussed it with Dr Gonzalez in this PTAs presence who assured pt. that rx of the bladder infection might improve this Sx. Pt. struggles with TRFs and gait this date and expresses that she is discouraged. Pain Location: No Pain Reported Mental Status Patient Orientation: Person, Place, Time, Situation Transfers Therapy Code Descriptions/Definitions Functional [place] Measure: 0=Not Assessed/NA 4=Minimal Assistance 1=Total Assistance 5=Supervision or Setup 2=Maximal Assistance 6=Modified [place] 3=Moderate Assistance 7=Complete [place] Therapy Quality Codes: 6 Independent with activity with or without an assistive device 5 Patient requires set up or clean up by helper. Patient completes activity by themselves 4 Supervision or touching assist (CGA). [place] provide cues , steadying assist 3 The helper provides less than half the effort to complete the activity 2 The helper provides more than half the effort to complete the activity 1 Dependent. The helper does all the effort to complete an activity 7 Patient refused to complete or attempt activity 9 The patient did not perform the activity before the current illness or injury 88 Not attempted due to Medical conditions or safety concerns Transfers (B, C, W/C) (FIM): 3 Scootin Rollin Supine to/from Sit: 3 Sit to/from Stand: 3 much difficulty with forward weight shift sit to stand, expresses that she is fearful of falling forward, resists if assisted forward Weight Bearing Right Lower Extremity: Right Full Weight Bearing Left Lower Extremity: Left Full Weight Bearing Gait Training Does the Patient Walk?: Yes Distance (FIM): 1=up to 49 ft (10ftx4) Gait Level of Assist: 3 Gait Persons Needed: 1 Gait Assistive Device: FWW very narrow MEIR, much listing to left and left knee melting Wheelchair Training Does the Pt Use a Wheelchair?: Yes Wheelchair (FIM): 2 Wheelchair Distance: 1=525-80 ft (50ft x 2) Wheelchair Level of Assist: 3 Type of Wheelchair: Manual propels with feet and hands on wheels, frequent breaks Exercises Supine Ex: Rolling, Heel Slides Supine Reps: 10 Seated Therapy Exercises: Ankle pumps, Sit to stand, Long arc quads (with hamstring stretches x 10 with 20 s hold), Hip flexion, Hip abd/add Seated Reps: 10 Assessment Current Status: Good Progress, Fair Progress much difficulty with mobility today, incont of urine, mod assist for TRFs and gait PT Short Term Goals Short Term Goals Wheelchair Distance: 100' PT Sheep Boner Goals Mcfp Goals PT [place] Goals Time Frame: Dec 29, 2018 Transfers (B,C,W/C) (FIM): 5 Sit to Lying (QC): 5 Lying-Sitting on Side/Bed(QC): 5 Sit to Stand (QC): 5 Rollin Roll Left to Right (QC): 5 Chair/Ltk-pu-Umylg Xfer(QC): 5 Car Transfer (QC): 5 Does the Patient Walk: Yes Gait (FIM): 2 Distance: 125' Walk 10 feet (QC): 5 Walk 10ft-Uneven Surface(QC): 5 Walk 50ft with 2 Turns (QC): 5 Walk 150 ft (QC): 88 Gait Level of Assist: 5 Gait Assistive Device: Walker 4 Wheeled, FWW Wheelchair (FIM): 2 Wheelchair distance (FIM): 1=up to 49 ft Distance: 100' Wheelchair Level of Assist: 5 Wheel 50 feet with 2 turns (QC: 5 Stairs (FIM): 1 PT Plan Treatment/Plan Treatment Plan: Continue Plan of Care Treatment Plan: Bed Mobility, Education, Functional Activity Kandi, Functional Strength, Group Therapy, Gait, Safety, Therapeutic Exercise, Transfers Treatment Duration: Dec 01, 2018 Frequency: At least 5 of 7 days/Wk (IRF) Estimated Hrs Per Day: 1.5 hours per day Patient and/or Family Agrees t: Yes Safety Risks/Education Patient Education: Gait Training, Transfer Techniques, Correct Positioning, Disease Process, Safety Issues Teaching Recipient: Patient Teaching Methods: Demonstration, Discussion Response to Teaching: Verbalize Understanding, Return Demonstration, Reinforcement Needed Time/GCodes Time In: 800 Time Out: 900 Total Billed Treatment Time: 60 Total Billed Treatment 1,FA30m,WC15m,GT15m G Codes Necessary: AMANDA Hall INVESTIGATOR [employer] Dec 24, 2018 09:04
[2018-12-24] MEDS: DOCUSATE SODIUM 100 MG (COLACE) CAP PO PRN (09:27)
--- NOTE | 2018-12-24 13:04 | Physical Therapy Daily Note ---
PT Daily Note-Current Subjective Pt. agrees to Rx. States she feels she is doing better this Rx, "I wasnt moving so well at 830 this morning" Pain Location: No Pain Reported Mental Status Patient Orientation: Person, Place, Time, Situation Transfers Therapy Code Descriptions/Definitions Functional [place] Measure: 0=Not Assessed/NA 4=Minimal Assistance 1=Total Assistance 5=Supervision or Setup 2=Maximal Assistance 6=Modified [place] 3=Moderate Assistance 7=Complete [place] Therapy Quality Codes: 6 Independent with activity with or without an assistive device 5 Patient requires set up or clean up by helper. Patient completes activity by themselves 4 Supervision or touching assist (CGA). [place] provide cues , steadying assist 3 The helper provides less than half the effort to complete the activity 2 The helper provides more than half the effort to complete the activity 1 Dependent. The helper does all the effort to complete an activity 7 Patient refused to complete or attempt activity 9 The patient did not perform the activity before the current illness or injury 88 Not attempted due to Medical conditions or safety concerns sit to stands x 4 SBA from w/c. Weight Bearing Right Lower Extremity: Right Full Weight Bearing Left Lower Extremity: Left Full Weight Bearing Gait Training Gait Assistive Device: FWW 12 ft x 2 FWW mod to min assist,w/c close behind, 2 episodes of LOB listing left requiring mod assist to right Exercises Seated Therapy Exercises: Ankle pumps, Sit to stand, Long arc quads, Hip flexion Seated Reps: 10 Assessment Current Status: Good Progress gait for minimal distances not functional at this point, pt. also struggles with w/c mobility as left shoulder is painful, does better utilizing feet to propel, but is not good as steering w/c PT Short Term Goals Short Term Goals Wheelchair Distance: 100' PT Halfway Goals Jammer Operator Goals PT Jammer Operator Goals Time Frame: Dec 29, 2018 Transfers (B,C,W/C) (FIM): 5 Sit to Lying (QC): 5 Lying-Sitting on Side/Bed(QC): 5 Sit to Stand (QC): 5 Rollin Roll Left to Right (QC): 5 Chair/Ope-oc-Dmqik Xfer(QC): 5 Car Transfer (QC): 5 Does the Patient Walk: Yes Gait (FIM): 2 Distance: 125' Walk 10 feet (QC): 5 Walk 10ft-Uneven Surface(QC): 5 Walk 50ft with 2 Turns (QC): 5 Walk 150 ft (QC): 88 Gait Level of Assist: 5 Gait Assistive Device: Walker 4 Wheeled, FWW Wheelchair (FIM): 2 Wheelchair distance (FIM): 1=up to 49 ft Distance: 100' Wheelchair Level of Assist: 5 Wheel 50 feet with 2 turns (QC: 5 Stairs (FIM): 1 PT Plan Treatment/Plan Treatment Plan: Continue Plan of Care Treatment Plan: Bed Mobility, Education, Functional Activity Kandi, Functional Strength, Group Therapy, Gait, Safety, Therapeutic Exercise, Transfers Treatment Duration: Dec 01, 2018 Frequency: At least 5 of 7 days/Wk (IRF) Estimated Hrs Per Day: 1.5 hours per day Patient and/or Family Agrees t: Yes Safety Risks/Education Patient Education: Gait Training, Transfer Techniques, Correct Positioning, W/ C Management, Disease Process, Safety Issues Teaching Recipient: Patient Teaching Methods: Demonstration, Discussion Response to Teaching: Verbalize Understanding, Return Demonstration, Reinforcement Needed Time/GCodes Time In: 1135 Time Out: 1205 Total Billed Treatment Time: 30 Total Billed Treatment 1,GT15m,FA15m G Codes Necessary: AMANDA Hall COP WINDER Dec 24, 2018 13:04
--- NOTE | 2018-12-24 13:13 | Occupational Ther Daily Note ---
OT Current Status-Daily Note Subjective Pt. states that her right shoulder is sore from transferring over the weekend. Does not report a pain number and declines pain pill. Appearance Pt. up in chair waiting for therapy. Agrees to work with OT. Mental Status/Objective Patient Orientation: Person, Place, Time, Situation Therapy Code Descriptions/Definitions Functional [place] Measure: 0=Not Assessed/NA 4=Minimal Assistance 1=Total Assistance 5=Supervision or Setup 2=Maximal Assistance 6=Modified [place] 3=Moderate Assistance 7=Complete [place] ADL-Treatment Therapy Code Descriptions/Definitions Functional [place] Measure: 0=Not Assessed/NA 4=Minimal Assistance 1=Total Assistance 5=Supervision or Setup 2=Maximal Assistance 6=Modified [place] 3=Moderate Assistance 7=Complete [place] Therapy Quality Codes: 6 Independent with activity with or without an assistive device 5 Patient requires set up or clean up by helper. Patient completes activity by themselves 4 Supervision or touching assist (CGA). [place] provide cues , steadying assist 3 The helper provides less than half the effort to complete the activity 2 The helper provides more than half the effort to complete the activity 1 Dependent. The helper does all the effort to complete an activity 7 Patient refused to complete or attempt activity 9 The patient did not perform the activity before the current illness or injury 88 Not attempted due to Medical conditions or safety concerns Grooming (FIM): 5 (Set up while seated in wheelchair at sink.) Oral Hygiene (QC): 5 Bathing (FIM): 5 (SBA in shower to wash all parts.) Shower/Bathe Self (QC): 4 Upper Body (FIM): 4 (Min assist with bra. Pt. able to don shirt.) Upper Body Dressing (QC): 4 Lower Body Dressing (FIM): 3 (Pt. is able to don socks with sock aide. However , requires assistance with all other clothing, even with AE.) Lower Body Dressing (QC): 3 On/Off Footwear (QC): 3 Toileting (FIM): 4 Toileting Hygiene (QC): 4 Transfers (B, C, W/C) (FIM): 4 (Min assist sit-stand.) Toilet/Commode Transfer (FIM): 4 Toilet Transfer (QC): 4 Shower Transfer(FIM): 4 Other Treatment After ADLs, pt. was taken to therapy gym. Pt. encouraged to propel self in wheelchair. Due to limited shoulder ROM, OT assisted with pushing pt. while pt. moved feet. In therapy gym, pt. completed ball activity with tossing back and forth. Pt. tolerated this well with limited ROM. Went back to room and pt. stayed in wheelchair to await PT. All needs met. Education OT Patient Education: Correct positioning, Modified ADL techniques, Progress toward Goal/Update tx plan, Purpose of tx/functional activities, Reviewed precautions, Rehab process, Transfer techniques, Use of adapted equipment, W/C management Teaching Recipient: Patient Teaching Methods: Demonstration, Discussion Response to Teaching: Verbalize Understanding, Return Demonstration OT Short Term Goals Short Term Goals Time Frame: Dec 15, 2018 Eating(FIM): 7 Grooming(FIM): 6 (w/c level) Toilet/Commode Transfer(FIM): 3 Additional Short Term Goals: 1-Demonstrate ADL Tasks, 2-Verbalize Understanding , 3-ImproveStrength/Kandi 1=Demonstrate adherence to instructed precautions during ADL tasks. 2=Patient will verbalize/demonstrate understanding of assistive devices/ modifications for ADL. 3=Patient will improve strength/tolerance for activity to enable patient to perform ADL's. OT Group Home Goals Aluminum Molder Goals Time Frame: Dec 29, 2018 Eating (FIM): 7 Eating (QC): 6 Groomin Oral Hygiene (QC): 6 Bathing(FIM): 6 Shower/Bathe Self (QC): 6 Upper Body Dressing(FIM): 6 Upper Body Dressing (QC): 6 Lower Body Dressing(FIM): 6 Lower Body Dressing (QC): 6 On/Off Footwear (QC): 6 Toileting(FIM): 6 Toileting Hygiene (QC): 6 Toilet/Commode Transfer(FIM): 6 Toilet/Commode Transfer (QC): 6 Shower Transfer(FIM): 6 Additional Goals: 1-Demonstrate ADL Tasks, 2-Verbalize Understanding, 3- ImproveStrength/Kandi 1=Demonstrate adherence to instructed precautions during ADL tasks. 2=Patient will verbalize/demonstrate understanding of assistive devices/ modifications for ADL. 3=Patient will improve strength/tolerance for activity to enable patient to perform ADL's. OT Education/Plan Problem List/Assessment Assessment: Decreased Activ Tolerance, Decreased UE Strength, Dependent Transfers, Impaired Bed Mobility, Impaired Coordination, Impaired Funct Balance , Impaired I ADL's, Impaired Self-Care Skills, Restricted Funct UE ROM Discharge Recommendations Plan/Recommendations: Continue POC Therapy D/C Recommendations: 24 hr Supervision Treatment Plan/Plan of Care Treatment,Training & Education: Yes Patient would benefit from OT for education, treatment and training to promote independence in ADL's, mobility, safety and/or upper extremity function for ADL' s. Plan of Care: ADL Retraining, Functional Mobility, Group Exercise/Act as Ind ( education, exercise, functional activity, activity tolerance, funct mobility), UE Funct Exercise/Act, UE Neuromus Re-Ed/Coord Treatment Duration: Dec 29, 2018 Frequency: At least 5 of 7 days/Wk (IRF) Estimated Hrs Per Day: 1.5 hours per day Agreement: Yes Rehab Potential: Fair Time/GCodes Start Time: 10:00 Stop Time: 11:30 Total Time Billed (hr/min): 90 Billed Treatment Time 1, ADL x 60minutes, Ex x 15minutes, FA x 15minutes KATHIE HEMPHILL OT Dec 24, 2018 13:13
[2018-12-24] MEDS: RT-ALBUTEROL SULF 2.5 MG/3 ML PRE-MIX VIAL INH SCH ×2 (14:31→22:42)
[2018-12-24] MEDS: UMECLIDINIUM BROMIDE (INCRUSE ELLIPTA) 7'S IH SCH (14:34)
--- NOTE | 2018-12-24 16:29 | NUR ---
RESIDENTIAL THERAPIST met with patient to discuss discharge plans. Patient continues to require 1-2 person assist for activities with therapy. Patient resides home alone with 9 hours of homemaker services through home instead and occasional evening visits from granddaughter. Due to level of assistance required at this time staff is concerned about safety of home placement. Upon further discussion with patient, patient completed a 4 month fpc stay at [facility] and no longer has remaining skilled benefit. RESIDENTIAL THERAPIST recommended a day pass for a home visit to trial function in home environment, patient is agreeable to this. Patient will speak to granddaughter this evening to determine day for Pap tests. RESIDENTIAL THERAPIST also discussed options of hiring private duty caregivers for home assistance, patient is agreeable to this if needed. Patient requests order for wheelchair, RESIDENTIAL THERAPIST will request Dr. Gonzalez to order DME. RESIDENTIAL THERAPIST will meet with patient tomorrow morning to discuss further plans.
[2018-12-24] MEDS: ASPIRIN E.C. 325 MG (ECOTRIN) TABLET PO SCH (17:23)
[2018-12-24 17:24] VITALS: BP 118/63
--- NOTE | 2018-12-24 19:22 | NUR ---
bedside report received from BRAN CRUZ, assume care of pt
[2018-12-24] MEDS: DOCUSATE SODIUM 100 MG (COLACE) CAP PO SCH (20:27)
[2018-12-24] MEDS: MONTELUKAST 10 MG (SINGULAIR) TAB PO SCH (20:27)
[2018-12-24] MEDS: OXYBUTYNIN (DITROPAN) 5 MG TAB PO SCH (20:27)
[2018-12-24] MEDS: NIACIN ER (NIASPAN) 500 MG TAB PO SCH (20:27)
--- NOTE | 2018-12-24 20:28 | NUR ---
c/o pain all over level 3/10 on numeric scale, ultram 50mg po given
--- NOTE | 2018-12-24 20:40 | NUR ---
assessments & interventions completed, see assessments & interventions, pt scored 0 on NIH STROKE SCALE, in bed reading newspaper & watching TV, c.o pain all over 3/10 on numeric scale.
--- NOTE | 2018-12-24 21:15 | NUR ---
pain level 2/10 on numeric scale
[2018-12-25] MEDS: ACETAMINOPHEN 325 MG TABLET PO PRN (01:57)
--- NOTE | 2018-12-25 01:57 | NUR ---
c/o generalized discomfort level 3/10 on numeric scale, tylenol 650mg po given
--- NOTE | 2018-12-25 02:30 | NUR ---
resting quietly in bed, pain level 0/10 on flacc scale
[2018-12-25] MEDS: RT-ALBUTEROL SULF 2.5 MG/3 ML PRE-MIX VIAL INH SCH ×2 (06:07→20:05)
[2018-12-25] MEDS: UMECLIDINIUM BROMIDE (INCRUSE ELLIPTA) 7'S IH SCH (06:10)
[2018-12-25 06:32] VITALS: BP 132/67
[2018-12-25] MEDS: CARVEDILOL 12.5 MG (COREG) TABLET PO SCH ×2 (06:56→18:49)
[2018-12-25] MEDS: CALCIUM CARBONATE 600 MG (CALCARB) TAB PO SCH ×2 (06:56→18:49)
[2018-12-25] MEDS: PANTOPRAZOLE 40 MG (PROTONIX) TAB PO SCH (06:56)
[2018-12-25] MEDS: MULTIVIT W/MINERALS TAB (THERAGRAN M) PO SCH (06:56)
--- NOTE | 2018-12-25 07:22 | NUR ---
bedside report given to BRAN CRUZ
[2018-12-25 08:37] VITALS: BP 121/75
--- NOTE | 2018-12-25 08:37 | PM&R Progress Note ---
Subjective HPI/CC On Admission Date Seen by Provider: Dec 25, 2018 Time Seen by Provider: 08:30 CC: Debility HPI: This is an 83-year-old white female clinic patient of Dr. Post in [place] just recently moved from [facility] to [place] to be close to her 2 grandchildren since her daughter is a nurse in [employer] who works may shifts per week and her son lives in [place] and she previously lived in [place] from [phone] who presents after a [facility] stay for 3 days due to severe weakness. Hyponatremia noted acute on chronic while she was there which could be contributing to the weakness (I will stop HCTZ and place on fluid restriction). She had a history of a CVA July 2018 went to [facility] for 3 months and just was discharged to her own home with her grandchildren watching over her. She began having weakness full evaluation included a CT scan and multiple labs revealing no source of weakness so she was placed in physical therapy and found to meet criteria for intensive therapies with inpatient rehabilitation center at [facility] here. She usually sees cardiology for a cardiac murmur and pulmonology for severe asthma and rheumatology for psoriatic arthritis and she is just in the midst of getting that set up since moving to [place] in the last 6 months. Her May 2018. 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 She would like to return to live alone. Subjective/Events-last exam Pt is on bedside commode now Can't get out of bed without two people to help Incontinence is a problem Overall doing much better but disposition will be recommended to a nursing facility Review of Systems General: Fatigue Genitourinary: Incontinence Neurological: Weakness, Incoordination Objective Exam Vital Signs Vital Signs Date Time Temp Pulse Resp B/P (MAP) Pulse Ox O2 Delivery O2 Flow Rate FiO2 12/25/18 17:28 98.0 67 18 116/65 (82) 94 Room Air Capillary Refill : Less Than 3 Seconds General Appearance: No Apparent Distress, WD/WN, Chronically ill, Obese HEENT: PERRL/EOMI, Normal ENT Inspection, Pharynx Normal Neck: Full Range of Motion, Normal Inspection, Non Tender, Supple, Carotid Bruit Respiratory: Chest Non Tender, Lungs Clear, Normal Breath Sounds, No Accessory Muscle Use, No Respiratory Distress Cardiovascular: Regular Rate, Rhythm, No Edema, No Gallop, No JVD, Normal Peripheral Pulses, Systolic Murmur Gastrointestinal: Normal Bowel Sounds, No Organomegaly, No Pulsatile Mass, Non Tender, Soft Back: Normal Inspection, No CVA Tenderness, No Vertebral Tenderness Extremity: Normal Capillary Refill, Normal Inspection, Normal Range of Motion, Non Tender, No Calf Tenderness, No Pedal Edema Neurologic/Psychiatric: Alert, Oriented x3, No Motor/Sensory Deficits, Normal Mood/Affect, Motor Weakness Skin: Normal Color, Warm/Dry Lymphatic: No Adenopathy Results/Procedures Lab Patient resulted labs reviewed. Assessment/Plan Assessment and Plan Assess & Plan/Chief Complaint Assessment: Debility Severe weakness due to CVA 07/31 and hyponatremia and psoriatic arthritis and aortic stenosis Acute on chronic hyponatremia holding hydrochlorothiazide and placing fluid restriction and sodium level today 132 Moderate persistent asthma usually sees pulmonology and noted crackles on Monday in RLL so started Nebs and IS and now resolved Psoriatic arthritis on immunosuppressive biologic managed by rheumatology Chronic cardiac murmur usually sees cardiology History of CVA July 2018 spent 3 months at [facility] Acute right shoulder pain related to therapy last month History of compression fractures of the back 4 times Constipation - resolved LILI compliant on CPAP Acute UTI s/p Cipro completed Renal insufficiency Plan: Maintain intensive therapies Appreciate right shoulder pain evaluation with xrays and consulted Dr Duff because it was causing a restriction in therapy services Continue home medications Spiriva Enbrel immunological biological med brought from home from family and takes every Monday Monitor cardiac and pulmonary systems closely Patient lives alone Prune juice for constipation along with more meds prn Monitor incontinence IS Nebs monitor crackles RLL on Monday now improved on Nebs and IS Disposition? UTI completed 7 days on Cipro Monitor hyponatremia DC Tely NHP? FAUSTINO magaña (1) Debility (2) Psoriatic arthritis (3) Immunosuppression (4) History of CVA (cerebrovascular accident) (5) Asthma (6) Cardiac murmur (7) Compression fracture (8) Hypertension (9) Right anterior shoulder pain (10) Hyponatremia (11) Weakness (12) LILI on CPAP (13) Lung crackles (14) Shoulder pain, right (15) Incontinence (16) UTI (urinary tract infection) Clinical Quality Measures DVT/VTE Risk/Contraindication: Risk Factor Score Per Nursin RFS Level Per Nursing on Admit: 4+=Very High JANELLE ROBERTS DO Dec 25, 2018 08:37
[2018-12-25] MEDS: MILK OF MAGNESIA 400 MG/5 ML 30 ML UDC PO PRN (08:41)
[2018-12-25] MEDS: DOCUSATE SODIUM 100 MG (COLACE) CAP PO SCH ×2 (08:41→20:28)
[2018-12-25] MEDS: PARoxetine 20 MG (PAXIL) TAB PO SCH (08:41)
[2018-12-25] MEDS: FOLIC ACID 1 MG TAB PO SCH (08:41)
[2018-12-25] MEDS: LOSARTAN 100 MG (COZAAR) TABLET PO SCH (08:41)
[2018-12-25] MEDS: FAMOTIDINE 20 MG (PEPCID) TABLET PO SCH (08:41)
[2018-12-25] MEDS: LORATADINE (CLARITIN) 10 MG TAB PO SCH (08:41)
[2018-12-25] MEDS: GABAPENTIN 100 MG (NEURONTIN) CAP PO SCH ×2 (08:41→20:28)
[2018-12-25] MEDS: amLODIPine 10 MG (NORVASC) TAB PO SCH (08:41)
[2018-12-25] MEDS: VITAMIN D3 5,000 UNITS (CHOLECALCIFEROL ) CAPSULE PO SCH (08:41)
[2018-12-25] MEDS: BISACODYL 10 MG SUPP (DULCOLAX) PR SCH (08:44)
[2018-12-25] MEDS: DICLOFENAC 1% GEL 100 GM (VOLTAREN) TUBE TOP SCH ×4 (08:45→20:30)
--- NOTE | 2018-12-25 10:19 | NUR ---
PT EATING WELL, 95% MEALS AND WEIGHT IS STABLE. INTAKE MEETING NEEDS AT THIS TIME. CONT SAME.
--- NOTE | 2018-12-25 10:26 | Physical Therapy Daily Note ---
PT Daily Note-Current Subjective Pt sitting on commode with Nurse & Dr Gonzalez present as FRUIT PITTER arrive. Pt agrees to PT. Pain Location: No Pain Reported Mental Status Patient Orientation: Person, Place, Situation Transfers Therapy Code Descriptions/Definitions Functional [place] Measure: 0=Not Assessed/NA 4=Minimal Assistance 1=Total Assistance 5=Supervision or Setup 2=Maximal Assistance 6=Modified [place] 3=Moderate Assistance 7=Complete [place] Therapy Quality Codes: 6 Independent with activity with or without an assistive device 5 Patient requires set up or clean up by helper. Patient completes activity by themselves 4 Supervision or touching assist (CGA). [place] provide cues , steadying assist 3 The helper provides less than half the effort to complete the activity 2 The helper provides more than half the effort to complete the activity 1 Dependent. The helper does all the effort to complete an activity 7 Patient refused to complete or attempt activity 9 The patient did not perform the activity before the current illness or injury 88 Not attempted due to Medical conditions or safety concerns Scootin Supine to/from Sit: 3 Sit to/from Stand: 3 Sit to Lying (QC): 4 Sit to Stand (QC): 3 Chair/Hoq-mf-Cbrhz Xfer(QC): 3 Bed to/from Chair: 3 Weight Bearing Right Lower Extremity: Right Full Weight Bearing Left Lower Extremity: Left Full Weight Bearing Gait Training Does the Patient Walk?: Yes Distance (FIM): 1=up to 49 ft Distance: 10', 15', 20' Walk 10 feet (QC): 4 Gait Level of Assist: 4 Gait Persons Needed: 1 Gait Assistive Device: FWW Pt walks with slow nathaly. Pt fatigues easily and needs CGA for safety due to B knees buckling. Wheelchair Training Does the Pt Use a Wheelchair?: Yes Wheelchair Distance: 3=150 ft Distance: 150' Wheelchair Level of Assist: 5 Wheel 50 ft with 2 turns (QC): 5 Wheel 150 ft (QC): 5 Type of Wheelchair: Manual Pt needs occasional VC to use both UE & LE to propel W/C. Exercises Seated Therapy Exercises: Ankle pumps, Long arc quads, Hip flexion, Kicking activity Seated Reps: 15 Treatments Pt transfers from bed to W/C at Min-Mod A. Pt uses restroom then propels W/C in hallway. Pt ambulates in hallway using FWW at CGA for safety. Pt returns to W/C for rest break between walks and at end of ambulation. Pt completes Seated Ex in W/C. Pt propels back to room to rest at end of tx with all needs met. Assessment Current Status: Fair Progress Pt continues to take extended time to complete tasks due to moving slowly. Pt fatigues easily and needs frequent rest breaks. PT Short Term Goals Short Term Goals Wheelchair Distance: 100' PT [facility] Goals Parts Classifier Goals PT Parts Classifier Goals Time Frame: Dec 29, 2018 Transfers (B,C,W/C) (FIM): 5 Sit to Lying (QC): 5 Lying-Sitting on Side/Bed(QC): 5 Sit to Stand (QC): 5 Rollin Roll Left to Right (QC): 5 Chair/Qtj-qn-Kafxf Xfer(QC): 5 Car Transfer (QC): 5 Does the Patient Walk: Yes Gait (FIM): 2 Distance: 125' Walk 10 feet (QC): 5 Walk 10ft-Uneven Surface(QC): 5 Walk 50ft with 2 Turns (QC): 5 Walk 150 ft (QC): 88 Gait Level of Assist: 5 Gait Assistive Device: Walker 4 Wheeled, FWW Wheelchair (FIM): 2 Wheelchair distance (FIM): 1=up to 49 ft Distance: 100' Wheelchair Level of Assist: 5 Wheel 50 feet with 2 turns (QC: 5 Stairs (FIM): 1 PT Plan Problem List Problem List: Activity Tolerance, Functional Strength, Safety, Balance, Gait, Transfer, Bed Mobility Treatment/Plan Treatment Plan: Continue Plan of Care Treatment Plan: Bed Mobility, Education, Functional Activity Kandi, Functional Strength, Group Therapy, Gait, Safety, Therapeutic Exercise, Transfers Treatment Duration: Dec 01, 2018 Frequency: At least 5 of 7 days/Wk (IRF) Estimated Hrs Per Day: 1.5 hours per day Patient and/or Family Agrees t: Yes Safety Risks/Education Patient Education: Gait Training, Transfer Techniques, Correct Positioning, Safety Issues Teaching Recipient: Patient Teaching Methods: Discussion Response to Teaching: Verbalize Understanding Time/GCodes Time In: 815 Time Out: 915 Total Billed Treatment Time: 60 Total Billed Treatment 1, WCH (10m), FA (15m), GT (20m) & EX (15m) G Codes Necessary: BOGDAN Gupta FRUIT PITTER Dec 25, 2018 10:26
--- NOTE | 2018-12-25 11:34 | Occupational Ther Daily Note ---
OT Current Status-Daily Note Subjective Pt. states that she is not "feeling well" but reports no pain. Appearance Pt. declines showering but agrees to getting dressed. Mental Status/Objective Patient Orientation: Person, Place, Time, Situation Therapy Code Descriptions/Definitions Functional [place] Measure: 0=Not Assessed/NA 4=Minimal Assistance 1=Total Assistance 5=Supervision or Setup 2=Maximal Assistance 6=Modified [place] 3=Moderate Assistance 7=Complete [place] ADL-Treatment Therapy Code Descriptions/Definitions Functional [place] Measure: 0=Not Assessed/NA 4=Minimal Assistance 1=Total Assistance 5=Supervision or Setup 2=Maximal Assistance 6=Modified [place] 3=Moderate Assistance 7=Complete [place] Therapy Quality Codes: 6 Independent with activity with or without an assistive device 5 Patient requires set up or clean up by helper. Patient completes activity by themselves 4 Supervision or touching assist (CGA). [place] provide cues , steadying assist 3 The helper provides less than half the effort to complete the activity 2 The helper provides more than half the effort to complete the activity 1 Dependent. The helper does all the effort to complete an activity 7 Patient refused to complete or attempt activity 9 The patient did not perform the activity before the current illness or injury 88 Not attempted due to Medical conditions or safety concerns Grooming (FIM): 5 (Set up at sink with wheelchair.) Oral Hygiene (QC): 5 Upper Body (FIM): 4 (Min assist for shirt.) Upper Body Dressing (QC): 4 Lower Body Dressing (FIM): 3 (Mod assist overall to don pants. Attempted to utilize AE.) Lower Body Dressing (QC): 3 Other Treatment Pt. had on socks, FAUSTINO hose, and shoes, as well as brief. Requested to don clean pants over these items. After dressing and grooming in room, pt. able to propel self in wheelchair using feet to get to therapy gym. Pt. practiced standing at parallel bar, with emphasis to set her own chair up, scoot forward, lean forward, and stand. Pt. did this multiple times with only CGA. Able to stand approximately 1-2 minutes each time. Pt. states that her knees feel like they will " buckle" and that her back is weak. Pt. attempted to squat at bar to see if she could, but unable to pull self back up into stance. OT provided assistance to get bottom into chair. Pt. is encouraged to never do this on her own. Pt. is shown correct way to transfer off floor with use of chair, in the case that she should fall again. Verbalizes understanding. Pt. is also shown transfer disc and OT demonstrates disc to her. Pt. utilizes disc under feet for transfer to chair. Pt. is able to use this with CGA. Pt. transfers to bed with all needs met. Continue POC. Education OT Patient Education: Correct positioning, Modified ADL techniques, Progress toward Goal/Update tx plan, Purpose of tx/functional activities, Reviewed precautions, Rehab process, Transfer techniques Teaching Recipient: Patient Teaching Methods: Demonstration, Discussion Response to Teaching: Verbalize Understanding, Return Demonstration OT Short Term Goals Short Term Goals Time Frame: Dec 15, 2018 Eating(FIM): 7 Grooming(FIM): 6 (w/c level) Toilet/Commode Transfer(FIM): 3 Additional Short Term Goals: 1-Demonstrate ADL Tasks, 2-Verbalize Understanding , 3-ImproveStrength/Kandi 1=Demonstrate adherence to instructed precautions during ADL tasks. 2=Patient will verbalize/demonstrate understanding of assistive devices/ modifications for ADL. 3=Patient will improve strength/tolerance for activity to enable patient to perform ADL's. OT Custodial Goals Tree Killer Goals Time Frame: Dec 29, 2018 Eating (FIM): 7 Eating (QC): 6 Groomin Oral Hygiene (QC): 6 Bathing(FIM): 6 Shower/Bathe Self (QC): 6 Upper Body Dressing(FIM): 6 Upper Body Dressing (QC): 6 Lower Body Dressing(FIM): 6 Lower Body Dressing (QC): 6 On/Off Footwear (QC): 6 Toileting(FIM): 6 Toileting Hygiene (QC): 6 Toilet/Commode Transfer(FIM): 6 Toilet/Commode Transfer (QC): 6 Shower Transfer(FIM): 6 Additional Goals: 1-Demonstrate ADL Tasks, 2-Verbalize Understanding, 3- ImproveStrength/Kandi 1=Demonstrate adherence to instructed precautions during ADL tasks. 2=Patient will verbalize/demonstrate understanding of assistive devices/ modifications for ADL. 3=Patient will improve strength/tolerance for activity to enable patient to perform ADL's. OT Education/Plan Problem List/Assessment Assessment: Decreased Activ Tolerance, Dependent Transfers, Impaired I ADL's, Impaired Self-Care Skills Discharge Recommendations Plan/Recommendations: Continue POC Treatment Plan/Plan of Care Treatment,Training & Education: Yes Patient would benefit from OT for education, treatment and training to promote independence in ADL's, mobility, safety and/or upper extremity function for ADL' s. Plan of Care: ADL Retraining, Functional Mobility, Group Exercise/Act as Ind ( education, exercise, functional activity, activity tolerance, funct mobility), UE Funct Exercise/Act, UE Neuromus Re-Ed/Coord Treatment Duration: Dec 29, 2018 Frequency: At least 5 of 7 days/Wk (IRF) Estimated Hrs Per Day: 1.5 hours per day Agreement: Yes Rehab Potential: Fair Time/GCodes Start Time: 09:30 Stop Time: 11:00 Total Time Billed (hr/min): 90 Billed Treatment Time 1, ADL x 45minutes, FA x 45minutes KATHIE HEMPHILL OT Dec 25, 2018 11:34
[2018-12-25 11:43] VITALS: BP 117/68
--- NOTE | 2018-12-25 13:21 | NUR ---
REEL WORKER followed up with patient regarding visit with her granddaughter for upcoming day pass options. Patient states her granddaughter is unable to get off work without a three-day notice; therefore, day pass will likely have to be in the evening after granddaughter finishes work for the day. REEL WORKER will reach out to granddaughter to arrange day and time of pass. REEL WORKER provided patient with home health provider list and is working to obtain an updated list of local private duty caregivers. Patient expresses no further needs at this time.
--- NOTE | 2018-12-25 15:15 | Physical Therapy Daily Note ---
PT Daily Note-Current Subjective Pt laying Supine in bed upon arrival. Pt reports needing to use restroom and agrees to PT. Pain Location: No Pain Reported Mental Status Patient Orientation: Person, Place, Time, Situation Transfers Therapy Code Descriptions/Definitions Functional [place] Measure: 0=Not Assessed/NA 4=Minimal Assistance 1=Total Assistance 5=Supervision or Setup 2=Maximal Assistance 6=Modified [place] 3=Moderate Assistance 7=Complete [place] Therapy Quality Codes: 6 Independent with activity with or without an assistive device 5 Patient requires set up or clean up by helper. Patient completes activity by themselves 4 Supervision or touching assist (CGA). [place] provide cues , steadying assist 3 The helper provides less than half the effort to complete the activity 2 The helper provides more than half the effort to complete the activity 1 Dependent. The helper does all the effort to complete an activity 7 Patient refused to complete or attempt activity 9 The patient did not perform the activity before the current illness or injury 88 Not attempted due to Medical conditions or safety concerns Scootin Rollin Roll Left to Right (QC): 3 Supine to/from Sit: 3 Sit to/from Stand: 3 Sit to Lying (QC): 3 Sit to Stand (QC): 3 Chair/Zlm-ml-Axpjs Xfer(QC): 3 Bed to/from Chair: 3 Weight Bearing Right Lower Extremity: Right Full Weight Bearing Left Lower Extremity: Left Full Weight Bearing Wheelchair Training Does the Pt Use a Wheelchair?: Yes Wheelchair Distance: 6=584-14 ft Distance: 50' Wheelchair Level of Assist: 4 Wheel 50 ft with 2 turns (QC): 4 Type of Wheelchair: Manual Treatments Pt transfers from bed to W/C and propels W/C to restroom. After finished, INDEPENDENT DISTRIBUTOR assists pt to don/doff brief & new pants & shoes. Pt returns to W/C then back to bed to rest at end of tx. Assessment Current Status: Fair Progress Pt continues to fatigues quickly, demonstrates weakness. PT Short Term Goals Short Term Goals Wheelchair Distance: 150' PT Senior Care Goals Water Pump Installer Goals PT Senior Care Goals Time Frame: Dec 29, 2018 Transfers (B,C,W/C) (FIM): 5 Sit to Lying (QC): 5 Lying-Sitting on Side/Bed(QC): 5 Sit to Stand (QC): 5 Rollin Roll Left to Right (QC): 5 Chair/Znj-ac-Jqrrw Xfer(QC): 5 Car Transfer (QC): 5 Does the Patient Walk: Yes Gait (FIM): 2 Distance: 125' Walk 10 feet (QC): 5 Walk 10ft-Uneven Surface(QC): 5 Walk 50ft with 2 Turns (QC): 5 Walk 150 ft (QC): 88 Gait Level of Assist: 5 Gait Assistive Device: Walker 4 Wheeled, FWW Wheelchair (FIM): 2 Wheelchair distance (FIM): 1=up to 49 ft Distance: 100' Wheelchair Level of Assist: 5 Wheel 50 feet with 2 turns (QC: 5 Stairs (FIM): 1 PT Plan Problem List Problem List: Activity Tolerance, Functional Strength, Safety, Balance, Transfer, Bed Mobility Treatment/Plan Treatment Plan: Continue Plan of Care Treatment Plan: Bed Mobility, Education, Functional Activity Kandi, Functional Strength, Group Therapy, Gait, Safety, Therapeutic Exercise, Transfers Treatment Duration: Dec 01, 2018 Frequency: At least 5 of 7 days/Wk (IRF) Estimated Hrs Per Day: 1.5 hours per day Patient and/or Family Agrees t: Yes Safety Risks/Education Patient Education: Gait Training, Transfer Techniques, Correct Positioning, Safety Issues Teaching Recipient: Patient Teaching Methods: Discussion Response to Teaching: Verbalize Understanding Time/GCodes Time In: 1300 Time Out: 1330 Total Billed Treatment Time: 30 Total Billed Treatment 1, FA x2 (30m) G Codes Necessary: BOGDAN Gupta INDEPENDENT DISTRIBUTOR Dec 25, 2018 15:15
[2018-12-25 17:28] VITALS: BP 116/65
[2018-12-25] MEDS: ASPIRIN E.C. 325 MG (ECOTRIN) TABLET PO SCH (18:49)
[2018-12-25] MEDS: NIACIN ER (NIASPAN) 500 MG TAB PO SCH (20:28)
[2018-12-25] MEDS: MONTELUKAST 10 MG (SINGULAIR) TAB PO SCH (20:29)
[2018-12-25] MEDS: OXYBUTYNIN (DITROPAN) 5 MG TAB PO SCH (20:29)
--- NOTE | 2018-12-25 22:27 | NUR ---
Pt turns call light on and requests to use bsc. This RN able to get pt from supine to sitting on side of bed with max assist x1. Pt has trouble with sitting balance on side of bed and required min-mod assist from this RN. Attempted to transfer pt to bsc but could not get pt to stand up straight, she kept pushing back against the gait belt and trying to sit down. Needed max assist x2 to transfer to bsc. Pt required max assist for rikc-care and clothing adjustment. Back to sitting on side of bed with max assist x2. Pt required mod assist of 1 to keep sitting balance on side of bed and max assist x2 to get pt back to supine position in bed. Pt cont to apologize for needing so much help. Attempted to reassure pt. Will cont to monitor but this RN has serious concerns about pt's wishes to go home alone at discharge.
[2018-12-26] MEDS: ACETAMINOPHEN 325 MG TABLET PO PRN ×2 (00:51→10:30)
[2018-12-26 05:19] VITALS: BP 117/69
[2018-12-26] MEDS: MULTIVIT W/MINERALS TAB (THERAGRAN M) PO SCH (06:04)
[2018-12-26] MEDS: CALCIUM CARBONATE 600 MG (CALCARB) TAB PO SCH ×2 (06:04→16:38)
[2018-12-26] MEDS: CARVEDILOL 12.5 MG (COREG) TABLET PO SCH ×2 (06:04→16:38)
[2018-12-26] MEDS: PANTOPRAZOLE 40 MG (PROTONIX) TAB PO SCH (06:04)
--- NOTE | 2018-12-26 08:34 | PM&R Progress Note ---
Subjective HPI/CC On Admission Date Seen by Provider: Dec 26, 2018 Time Seen by Provider: 08:45 CC: Debility HPI: This is an 83-year-old white female clinic patient of Dr. Post in [place] just recently moved from [facility] to [place] to be close to her 2 grandchildren since her daughter is a nurse in [employer] who works may shifts per week and her son lives in [place] and she previously lived in [place] from [id number] who presents after a [facility] stay for 3 days due to severe weakness. Hyponatremia noted acute on chronic while she was there which could be contributing to the weakness (I will stop HCTZ and place on fluid restriction). She had a history of a CVA July 2018 went to [facility] for 3 months and just was discharged to her own home with her grandchildren watching over her. She began having weakness full evaluation included a CT scan and multiple labs revealing no source of weakness so she was placed in physical therapy and found to meet criteria for intensive therapies with inpatient rehabilitation center at [facility] here. She usually sees cardiology for a cardiac murmur and pulmonology for severe asthma and rheumatology for psoriatic arthritis and she is just in the midst of getting that set up since moving to [place] in the last 6 months. Her May 2018. 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 She would like to return to live alone. Subjective/Events-last exam Checked labs today, everything looked good, sodium level [address] Taylor for incontinence and started her on Detrol. Tylenol given today. Had arsenic treatment for psoriasis, so she knows that comes with the bladder issues. Pt reports minimal assist to moderate assist slow transfers but inconsistent. OT reports inconsistent with transfers. Pt is insisting on going home on Monday, which she will be hotlined with the adult protective services because she can not manage anything at home. Granddaughter is not answering our calls. Review of Systems General: Fatigue Genitourinary: Incontinence Neurological: Weakness Objective Exam Vital Signs Vital Signs Date Time Temp Pulse Resp B/P (MAP) Pulse Ox O2 Delivery O2 Flow Rate FiO2 12/26/18 19:49 Room Air 12/26/18 17:28 98.7 74 18 127/68 (87) 98 Capillary Refill : Less Than 3 Seconds General Appearance: No Apparent Distress, WD/WN, Chronically ill, Obese HEENT: PERRL/EOMI, Normal ENT Inspection, Pharynx Normal Neck: Full Range of Motion, Normal Inspection, Non Tender, Supple, Carotid Bruit Respiratory: Chest Non Tender, Lungs Clear, Normal Breath Sounds, No Accessory Muscle Use, No Respiratory Distress Cardiovascular: Regular Rate, Rhythm, No Edema, No Gallop, No JVD, Normal Peripheral Pulses, Systolic Murmur Gastrointestinal: Normal Bowel Sounds, No Organomegaly, No Pulsatile Mass, Non Tender, Soft Back: Normal Inspection, No CVA Tenderness, No Vertebral Tenderness Extremity: Normal Capillary Refill, Normal Inspection, Normal Range of Motion, Non Tender, No Calf Tenderness, No Pedal Edema Neurologic/Psychiatric: Alert, Oriented x3, No Motor/Sensory Deficits, Normal Mood/Affect, Motor Weakness Skin: Normal Color, Warm/Dry Lymphatic: No Adenopathy Results/Procedures Lab Laboratory Tests 12/26/18 09:50 Patient resulted labs reviewed. Assessment/Plan Assessment and Plan Assess & Plan/Chief Complaint Assessment: Debility Severe weakness due to CVA 07/31 and hyponatremia and psoriatic arthritis and aortic stenosis Acute on chronic hyponatremia holding hydrochlorothiazide and placing fluid restriction and sodium level today 132 Moderate persistent asthma usually sees pulmonology and noted crackles on Monday in RLL so started Nebs and IS and now resolved Psoriatic arthritis on immunosuppressive biologic managed by rheumatology Chronic cardiac murmur usually sees cardiology History of CVA July 2018 spent 3 months at [facility] Acute right shoulder pain related to therapy last month History of compression fractures of the back 4 times Constipation - resolved LILI compliant on CPAP Acute UTI s/p Cipro completed Renal insufficiency Plan: Maintain intensive therapies Appreciate right shoulder pain evaluation with xrays and consulted Dr Duff because it was causing a restriction in therapy services Continue home medications Spiriva Enbrel immunological biological med brought from home from family and takes every Monday Monitor cardiac and pulmonary systems closely Patient lives alone Prune juice for constipation along with more meds prn Monitor incontinence IS Nebs monitor crackles RLL on Monday now improved on Nebs and IS Disposition? UTI completed 7 days on Cipro Monitor hyponatremia DC Tely NHP? FAUSTINO magaña Consult Dr Taylor (1) Debility (2) Psoriatic arthritis (3) Immunosuppression (4) History of CVA (cerebrovascular accident) (5) Asthma (6) Cardiac murmur (7) Compression fracture (8) Hypertension (9) Right anterior shoulder pain (10) Hyponatremia (11) Weakness (12) LILI on CPAP (13) Lung crackles (14) Shoulder pain, right (15) Incontinence (16) UTI (urinary tract infection) Clinical Quality Measures DVT/VTE Risk/Contraindication: Risk Factor Score Per Nursin RFS Level Per Nursing on Admit: 4+=Very High JANELLE ROBERTS DO Dec 26, 2018 08:34
--- NOTE | 2018-12-26 09:25 | NUR ---
MANUFACTURING MANAGEMENT ASSOCIATE attempted to reach patient's granddaughter yesterday evening and this morning, voice messages left in regards to scheduling day pass prior to discharge on Monday. MANUFACTURING MANAGEMENT ASSOCIATE will reattempt later today.
[2018-12-26] MEDS: BISACODYL 10 MG SUPP (DULCOLAX) PR SCH (09:48)
[2018-12-26 09:49] VITALS: BP 122/71
[2018-12-26] MEDS: DOCUSATE SODIUM 100 MG (COLACE) CAP PO SCH ×2 (09:50→21:10)
[2018-12-26] MEDS: FOLIC ACID 1 MG TAB PO SCH (09:50)
[2018-12-26] MEDS: LORATADINE (CLARITIN) 10 MG TAB PO SCH (09:51)
[2018-12-26] MEDS: amLODIPine 10 MG (NORVASC) TAB PO SCH (09:51)
[2018-12-26] MEDS: VITAMIN D3 5,000 UNITS (CHOLECALCIFEROL ) CAPSULE PO SCH (09:51)
[2018-12-26] MEDS: PARoxetine 20 MG (PAXIL) TAB PO SCH (09:51)
[2018-12-26] MEDS: LOSARTAN 100 MG (COZAAR) TABLET PO SCH (09:51)
[2018-12-26] MEDS: DICLOFENAC 1% GEL 100 GM (VOLTAREN) TUBE TOP SCH ×4 (09:51→21:11)
[2018-12-26] MEDS: GABAPENTIN 100 MG (NEURONTIN) CAP PO SCH ×2 (09:51→21:10)
[2018-12-26] MEDS: FAMOTIDINE 20 MG (PEPCID) TABLET PO SCH (09:51)
--- NOTE | 2018-12-26 09:55 | Occupational Ther Daily Note ---
OT Current Status-Daily Note Subjective Pt. states that she does not feel well today, but unable to state why. No pain reported. Appearance Pt. in bed but agreeable to work with OT. Mental Status/Objective Patient Orientation: Person, Place, Time, Situation Therapy Code Descriptions/Definitions Functional [place] Measure: 0=Not Assessed/NA 4=Minimal Assistance 1=Total Assistance 5=Supervision or Setup 2=Maximal Assistance 6=Modified [place] 3=Moderate Assistance 7=Complete [place] ADL-Treatment Therapy Code Descriptions/Definitions Functional [place] Measure: 0=Not Assessed/NA 4=Minimal Assistance 1=Total Assistance 5=Supervision or Setup 2=Maximal Assistance 6=Modified [place] 3=Moderate Assistance 7=Complete [place] Therapy Quality Codes: 6 Independent with activity with or without an assistive device 5 Patient requires set up or clean up by helper. Patient completes activity by themselves 4 Supervision or touching assist (CGA). [place] provide cues , steadying assist 3 The helper provides less than half the effort to complete the activity 2 The helper provides more than half the effort to complete the activity 1 Dependent. The helper does all the effort to complete an activity 7 Patient refused to complete or attempt activity 9 The patient did not perform the activity before the current illness or injury 88 Not attempted due to Medical conditions or safety concerns Grooming (FIM): 5 (SBA with grooming tasks at sink.) Oral Hygiene (QC): 4 Bathing (FIM): 4 (CGA in stance for balance.) Shower/Bathe Self (QC): 4 Upper Body (FIM): 3 (Pt. attempts to don her own bra, but has difficulty. OT assits with pulling shirt down over back as well.) Upper Body Dressing (QC): 3 Lower Body Dressing (FIM): 2 (Pt. is able to don socks with sock aide, but requires assistance to don brief and pants over feet, and then full assist over hips. Max assist for shoes as well.) Lower Body Dressing (QC): 2 On/Off Footwear (QC): 5 Toileting (FIM): 4 (Pt. requires assist to doff pull up brief. Pt. able to cleanse self after toileting. ) Toileting Hygiene (QC): 4 Transfers (B, C, W/C) (FIM): 3 (Mod assist supine-sit. Mod assist sit-stand. Attempted transfer disc today but pt. attempted to move feet and so this did not work well. Is able to transfer otherwise by holding rail and stepping over to area she is trying to go.) Toilet/Commode Transfer (FIM): 4 Toilet Transfer (QC): 4 Shower Transfer(FIM): 4 Education OT Patient Education: Correct positioning, Modified ADL techniques, Progress toward Goal/Update tx plan, Purpose of tx/functional activities, Reviewed precautions, Rehab process, Transfer techniques, Use of adapted equipment Teaching Recipient: Patient Teaching Methods: Demonstration, Discussion Response to Teaching: Verbalize Understanding, Return Demonstration OT Short Term Goals Short Term Goals Time Frame: Dec 15, 2018 Eating(FIM): 7 Grooming(FIM): 6 (w/c level) Toilet/Commode Transfer(FIM): 3 Additional Short Term Goals: 1-Demonstrate ADL Tasks, 2-Verbalize Understanding , 3-ImproveStrength/Kandi 1=Demonstrate adherence to instructed precautions during ADL tasks. 2=Patient will verbalize/demonstrate understanding of assistive devices/ modifications for ADL. 3=Patient will improve strength/tolerance for activity to enable patient to perform ADL's. OT Revival Clerk Goals Revival Clerk Goals Time Frame: Dec 29, 2018 Eating (FIM): 7 Eating (QC): 6 Groomin Oral Hygiene (QC): 6 Bathing(FIM): 6 Shower/Bathe Self (QC): 6 Upper Body Dressing(FIM): 6 Upper Body Dressing (QC): 6 Lower Body Dressing(FIM): 6 Lower Body Dressing (QC): 6 On/Off Footwear (QC): 6 Toileting(FIM): 6 Toileting Hygiene (QC): 6 Toilet/Commode Transfer(FIM): 6 Toilet/Commode Transfer (QC): 6 Shower Transfer(FIM): 6 Additional Goals: 1-Demonstrate ADL Tasks, 2-Verbalize Understanding, 3- ImproveStrength/Kandi 1=Demonstrate adherence to instructed precautions during ADL tasks. 2=Patient will verbalize/demonstrate understanding of assistive devices/ modifications for ADL. 3=Patient will improve strength/tolerance for activity to enable patient to perform ADL's. OT Education/Plan Problem List/Assessment Assessment: Decreased Activ Tolerance, Decreased UE Strength, Dependent Transfers, Impaired Bed Mobility, Impaired Funct Balance, Impaired I ADL's, Impaired Self-Care Skills, Restricted Funct UE ROM Discharge Recommendations Plan/Recommendations: Continue POC Therapy D/C Recommendations: Home w/ Family Support, Occupational Therapy Home Care Equpiment Recommendations-D/C: Dressing Stick Treatment Plan/Plan of Care Treatment,Training & Education: Yes Patient would benefit from OT for education, treatment and training to promote independence in ADL's, mobility, safety and/or upper extremity function for ADL' s. Plan of Care: ADL Retraining, Functional Mobility, Group Exercise/Act as Ind ( education, exercise, functional activity, activity tolerance, funct mobility), UE Funct Exercise/Act, UE Neuromus Re-Ed/Coord Treatment Duration: Dec 29, 2018 Frequency: At least 5 of 7 days/Wk (IRF) Estimated Hrs Per Day: 1.5 hours per day Agreement: Yes Rehab Potential: Fair Time/GCodes Start Time: 08:30 Stop Time: 09:40 Total Time Billed (hr/min): 70 Billed Treatment Time 1, ADL x 5 KATHIE HEMPHILL OT Dec 26, 2018 09:55
[2018-12-26 09:58] LABS: BASOPHILS % (AUTO) 1 % (0-10); EOSINOPHILS # (AUTO) 0.4 10^3/uL (0.0-0.3); EOSINOPHILS % (AUTO) 7 % (0-10); HEMATOCRIT 33 % (35-52); HEMOGLOBIN 10.9 G/DL (11.5-16.0); LYMPHOCYTES # (AUTO) 0.9 X 10^3 (1.0-4.0); LYMPHOCYTES % (AUTO) 15 % (12-44); MEAN CORPUSCULAR HEMOGLOBIN 31 PG (25-34); MEAN CORPUSCULAR HGB CONC 33 G/DL (32-36); MEAN CORPUSCULAR VOLUME 95 FL (80-99); MONOCYTES % (AUTO) 15 % (0-12); NEUTROPHILS # (AUTO) 3.9 X 10^3 (1.8-7.8); NEUTROPHILS % (AUTO) 62 % (42-75); PLATELET COUNT 243 10^3/uL (130-400); RED CELL DISTRIBUTION WIDTH 14.7 % (10.0-14.5); WHITE BLOOD COUNT 6.2 10^3/uL (4.3-11.0)
[2018-12-26] MEDS ORDERED: TOLTERODINE LA 4 MG (DETROL) CAP PO NR (10:00)
[2018-12-26 10:21] LABS: ALBUMIN 3.4 GM/DL (3.2-4.5); BILIRUBIN,TOTAL 0.6 MG/DL (0.1-1.0); CREATININE SERUM 1.39 MG/DL (0.60-1.30); POTASSIUM 4.6 MMOL/L (3.6-5.0); TOTAL PROTEIN 6.5 GM/DL (6.4-8.2)
--- NOTE | 2018-12-26 11:15 | CONSULTATION REPORT ---
DATE OF SERVICE: 12/26/2018 ATTENDING PHYSICIAN: Dr. Gonzalez. SUMMARY: An 83-year-old lady in rehabilitation, been consulted to see because of history of mixed incontinence, urgency more than stress with overactive bladder. She has been on oxybutynin 5 mg at bedtime. Her incontinence has increased, especially after the CVA she had, which cause weakness on her left side. She also had a recent UTI and finished a course of antibiotic. IMPRESSION: Urinary incontinence, mixed type with intrinsic sphincter deficiency and overactive bladder. PLAN: 1. Change the oxybutynin to Detrol-LA 4 mg daily. 2. Check bladder scan postvoid residual to make sure she empties well. Plan was fully explained to the patient. Job ID: [id number] DocumentID: [id number] Dictated Date: 12/26/2018 10:01:15 Car Audio Installer Date: 12/26/2018 11:14:09 Dictated By: SMITHA LANGFORD MD
--- NOTE | 2018-12-26 12:15 | Physical Therapy Daily Note ---
PT Daily Note-Current Subjective Pt laying Supine in bed upon arrival. Pt agrees to PT. Appearance Pt reports no pain but weakness and fatigue especially with WBing. Mental Status Patient Orientation: Person, Place, Situation Transfers Therapy Code Descriptions/Definitions Functional [place] Measure: 0=Not Assessed/NA 4=Minimal Assistance 1=Total Assistance 5=Supervision or Setup 2=Maximal Assistance 6=Modified [place] 3=Moderate Assistance 7=Complete [place] Therapy Quality Codes: 6 Independent with activity with or without an assistive device 5 Patient requires set up or clean up by helper. Patient completes activity by themselves 4 Supervision or touching assist (CGA). [place] provide cues , steadying assist 3 The helper provides less than half the effort to complete the activity 2 The helper provides more than half the effort to complete the activity 1 Dependent. The helper does all the effort to complete an activity 7 Patient refused to complete or attempt activity 9 The patient did not perform the activity before the current illness or injury 88 Not attempted due to Medical conditions or safety concerns Scootin Supine to/from Sit: 4 Sit to/from Stand: 4 Sit to Lying (QC): 5 Sit to Stand (QC): 4 Weight Bearing Right Lower Extremity: Right Full Weight Bearing Left Lower Extremity: Left Full Weight Bearing Gait Training Does the Patient Walk?: Yes Distance (FIM): 1=up to 49 ft Distance: 5', 8', 20' Walk 10 feet (QC): 4 Gait Level of Assist: 4 Gait Persons Needed: 1 Gait Assistive Device: FWW Pt's gait is slow and antalgic, drifts toward L side. Pt legs will "melt" at times so HUMAN RESOURCES TECHNICIAN is CGA during walk. Wheelchair Training Does the Pt Use a Wheelchair?: Yes Wheelchair Distance: 3=150 ft Distance: 150' Wheelchair Level of Assist: 4 Wheel 50 ft with 2 turns (QC): 4 Wheel 150 ft (QC): 4 Type of Wheelchair: Manual Pt propels W/C slowly and fatigues at times, needing rest breaks. Treatments Pt transfers and ambulates short distances with assistance from HUMAN RESOURCES TECHNICIAN. Pt needs rest breaks frequently to recover due to fatigue and BLE "melting". Pt uses restroom before resting in bed at end of tx with all needs met. Assessment Current Status: Good Progress Pt continues to fatigue easily and need frequent rest breaks. PT Short Term Goals Short Term Goals Wheelchair Distance: 50' PT Feed Mixer Helper Goals Long-Term Goals PT Long-Term Goals Time Frame: Dec 29, 2018 Transfers (B,C,W/C) (FIM): 5 Sit to Lying (QC): 5 Lying-Sitting on Side/Bed(QC): 5 Sit to Stand (QC): 5 Rollin Roll Left to Right (QC): 5 Chair/Csp-wj-Uiwee Xfer(QC): 5 Car Transfer (QC): 5 Does the Patient Walk: Yes Gait (FIM): 2 Distance: 125' Walk 10 feet (QC): 5 Walk 10ft-Uneven Surface(QC): 5 Walk 50ft with 2 Turns (QC): 5 Walk 150 ft (QC): 88 Gait Level of Assist: 5 Gait Assistive Device: Walker 4 Wheeled, FWW Wheelchair (FIM): 2 Wheelchair distance (FIM): 1=up to 49 ft Distance: 100' Wheelchair Level of Assist: 5 Wheel 50 feet with 2 turns (QC: 5 Stairs (FIM): 1 PT Plan Problem List Problem List: Activity Tolerance, Functional Strength, Safety, Balance, Gait, Transfer, Bed Mobility Treatment/Plan Treatment Plan: Continue Plan of Care Treatment Plan: Bed Mobility, Education, Functional Activity Kandi, Functional Strength, Group Therapy, Gait, Safety, Therapeutic Exercise, Transfers Treatment Duration: Dec 01, 2018 Frequency: At least 5 of 7 days/Wk (IRF) Estimated Hrs Per Day: 1.5 hours per day Patient and/or Family Agrees t: Yes Safety Risks/Education Patient Education: Gait Training, Transfer Techniques, Reviewed Precautions, Correct Positioning, Safety Issues Teaching Recipient: Patient Teaching Methods: Discussion Response to Teaching: Verbalize Understanding Time/GCodes Time In: 1030 Time Out: 1130 Total Billed Treatment Time: 60 Total Billed Treatment 1, WCH (15m), FA (20m) & GT x2 (25m) G Codes Necessary: BOGDAN Gupta HUMAN RESOURCES TECHNICIAN Dec 26, 2018 12:15
--- NOTE | 2018-12-26 15:16 | Therapy Group Daily Note ---
Therapy Daily Group Note Patient Education Topic Other List Below (handwashing) Exercises Fine Motor, UE Exercise Other/Notes Pt participated in group therapy with 4 to 1 ratio. Goals of Session: Acknowledge understanding of ARU expectations, met. Acknowledge and demonstrate knowledge of benefits of handwashing, met. Complete multi-step fine motor exercise using dynamic sitting to increase vending machine filler/ pinch and core strength, met. OT/PT group consisted of introductions (name, place living, Hill's memory) , handwashing benefits/education, fine motor/UE exercises and benefits of handwashing. Pt introduced self appropriately and actively listened to peers. Pt then demonstrated ability to complete fine motor activity and UE strengthening without difficulty. Pt was able to demonstrate understanding of effective handwashing techniques and contributed to strategies for handwashing education. Pt contributed to conversations throughout group and initiated conversations with peers. Pt will benefit from group by using handwashing techniques daily to prevent illness and increase UE strength for daily functional tasks. After group, pt was transported back to room and laid in bed. Call light/phone in reach. All needs met in room. Start Time: 13:00 Stop Time: 14:15 Total Billed Treatment Time: 75 Total Billed Treatment 1-GRP DEEPA DE LA VEGA Dec 26, 2018 15:16
--- NOTE | 2018-12-26 15:45 | NUR ---
MULTIMEDIA SERVICES MANAGER met with patient to review team conference summary. As patient has reached a plateau team continues to recommend discharge date of 12/28 with home health services and 24 hour care. Patient continues to require min assist for transfers, ability to ambulate only short distances, min assist for wheelchair mobility, bladder incontinence, and inconsistent progress. MULTIMEDIA SERVICES MANAGER has spoke with patient and granddaughter thoroughly regarding concerns of returning home alone. Patient is insistent on returning home and does not believe she needs 24-hour care. Patient's granddaughter is aware of safety concerns and patient's current functionality; however, granddaughter intends to support patient's decision. MULTIMEDIA SERVICES MANAGER informed patient and granddaughter of [facility] in senior services hotline that MULTIMEDIA SERVICES MANAGER will make upon discharge. MULTIMEDIA SERVICES MANAGER has provided patient with local caregivers in the [place] area as well as notified home instead discharge date. Patient and granddaughter wishes to utilize [facility] home health, MULTIMEDIA SERVICES MANAGER will send referral information. Granddaughter intends to complete evening visit home tomorrow with patient, patient will return to ARU later this evening and proceed with discharge on Monday
[2018-12-26] MEDS: ASPIRIN E.C. 325 MG (ECOTRIN) TABLET PO SCH (16:38)
[2018-12-26] MEDS: UMECLIDINIUM BROMIDE (INCRUSE ELLIPTA) 7'S IH SCH (17:06)
[2018-12-26] MEDS: RT-ALBUTEROL SULF 2.5 MG/3 ML PRE-MIX VIAL INH SCH ×2 (17:06→19:48)
--- NOTE | 2018-12-26 17:11 | NUR ---
Notified Dr. Taylor of PVR Bladder Scan of 368cc
[2018-12-26 17:28] VITALS: BP 127/68
[2018-12-26] MEDS: MONTELUKAST 10 MG (SINGULAIR) TAB PO SCH (21:10)
[2018-12-26] MEDS: NIACIN ER (NIASPAN) 500 MG TAB PO SCH (21:10)
[2018-12-27 05:47] VITALS: BP 125/77
[2018-12-27] MEDS: MULTIVIT W/MINERALS TAB (THERAGRAN M) PO SCH (06:46)
[2018-12-27] MEDS: PANTOPRAZOLE 40 MG (PROTONIX) TAB PO SCH (06:46)
[2018-12-27] MEDS: CARVEDILOL 12.5 MG (COREG) TABLET PO SCH ×2 (06:46→17:05)
[2018-12-27] MEDS: CALCIUM CARBONATE 600 MG (CALCARB) TAB PO SCH ×2 (06:46→17:05)
[2018-12-27] MEDS: RT-ALBUTEROL SULF 2.5 MG/3 ML PRE-MIX VIAL INH SCH (07:04)
[2018-12-27] MEDS: UMECLIDINIUM BROMIDE (INCRUSE ELLIPTA) 7'S IH SCH (07:04)
--- NOTE | 2018-12-27 08:47 | PM&R Progress Note ---
Subjective HPI/CC On Admission Date Seen by Provider: Dec 27, 2018 Time Seen by Provider: 09:00 CC: Debility HPI: This is an 83-year-old white female clinic patient of Dr. Post in [place] just recently moved from [facility] to [place] to be close to her 2 grandchildren since her daughter is a nurse in [employer] who works may shifts per week and her son lives in [place] and she previously lived in [place] from [phone] who presents after a [facility] stay for 3 days due to severe weakness. Hyponatremia noted acute on chronic while she was there which could be contributing to the weakness (I will stop HCTZ and place on fluid restriction). She had a history of a CVA July 2018 went to [facility] for 3 months and just was discharged to her own home with her grandchildren watching over her. She began having weakness full evaluation included a CT scan and multiple labs revealing no source of weakness so she was placed in physical therapy and found to meet criteria for intensive therapies with inpatient rehabilitation center at [facility] here. She usually sees cardiology for a cardiac murmur and pulmonology for severe asthma and rheumatology for psoriatic arthritis and she is just in the midst of getting that set up since moving to [place] in the last 6 months. Her May 2018. 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 She would like to return to live alone. Subjective/Events-last exam Reviewed the consult note from Dr. Taylor for incontinence and started her on Detrol. Tylenol given for pain with good results Pt reports minimal assist to moderate assist slow transfers but inconsistent. OT reports inconsistent with transfers. Pt is insisting on going home on Monday and will go on a day pass this evening with granddaughter Patient seems to respond to PT to get OOB and walk more than from the nurses Review of Systems Neurological: Weakness Objective Exam Vital Signs Vital Signs Date Time Temp Pulse Resp B/P (MAP) Pulse Ox O2 Delivery O2 Flow Rate FiO2 12/27/18 09:00 Room Air 12/27/18 05:47 98.6 69 18 125/77 (93) 98 Capillary Refill : Less Than 3 Seconds General Appearance: No Apparent Distress, WD/WN, Chronically ill, Obese HEENT: PERRL/EOMI, Normal ENT Inspection, Pharynx Normal Neck: Full Range of Motion, Normal Inspection, Non Tender, Supple, Carotid Bruit Respiratory: Chest Non Tender, Lungs Clear, Normal Breath Sounds, No Accessory Muscle Use, No Respiratory Distress Cardiovascular: Regular Rate, Rhythm, No Edema, No Gallop, No JVD, Normal Peripheral Pulses, Systolic Murmur Gastrointestinal: Normal Bowel Sounds, No Organomegaly, No Pulsatile Mass, Non Tender, Soft Back: Normal Inspection, No CVA Tenderness, No Vertebral Tenderness Extremity: Normal Capillary Refill, Normal Inspection, Normal Range of Motion, Non Tender, No Calf Tenderness, No Pedal Edema Neurologic/Psychiatric: Alert, Oriented x3, No Motor/Sensory Deficits, Normal Mood/Affect, Motor Weakness Skin: Normal Color, Warm/Dry Lymphatic: No Adenopathy Results/Procedures Lab Patient resulted labs reviewed. Assessment/Plan Assessment and Plan Assess & Plan/Chief Complaint Assessment: Debility Severe weakness due to CVA 07/31 and hyponatremia and psoriatic arthritis and aortic stenosis Acute on chronic hyponatremia holding hydrochlorothiazide and placing fluid restriction and sodium level today 132 Moderate persistent asthma usually sees pulmonology and noted crackles on Monday in RLL so started Nebs and IS and now resolved Psoriatic arthritis on immunosuppressive biologic managed by rheumatology Chronic cardiac murmur usually sees cardiology History of CVA July 2018 spent 3 months at [facility] Acute right shoulder pain related to therapy last month History of compression fractures of the back 4 times Constipation - resolved LILI compliant on CPAP Acute UTI s/p Cipro completed Renal insufficiency Plan: Maintain intensive therapies Appreciate right shoulder pain evaluation with xrays and consulted Dr Duff because it was causing a restriction in therapy services Continue home medications Spiriva Enbrel immunological biological med brought from home from family and takes every Monday Monitor cardiac and pulmonary systems closely Patient lives alone Prune juice for constipation along with more meds prn Monitor incontinence IS Nebs monitor crackles RLL on Monday now improved on Nebs and IS Disposition? UTI completed 7 days on Cipro Monitor hyponatremia ANTOINETTE magaña Consult Dr Taylor is appreciated Day pass this evening (1) Debility (2) Psoriatic arthritis (3) Immunosuppression (4) History of CVA (cerebrovascular accident) (5) Asthma (6) Cardiac murmur (7) Compression fracture (8) Hypertension (9) Right anterior shoulder pain (10) Hyponatremia (11) Weakness (12) LILI on CPAP (13) Lung crackles (14) Shoulder pain, right (15) Incontinence (16) UTI (urinary tract infection) Clinical Quality Measures DVT/VTE Risk/Contraindication: Risk Factor Score Per Nursin RFS Level Per Nursing on Admit: 4+=Very High JANELLE ROBERTS DO Dec 27, 2018 08:47
[2018-12-27] MEDS: BISACODYL 10 MG SUPP (DULCOLAX) PR SCH (09:00)
[2018-12-27] MEDS: VITAMIN D3 5,000 UNITS (CHOLECALCIFEROL ) CAPSULE PO SCH (09:23)
[2018-12-27] MEDS: GABAPENTIN 100 MG (NEURONTIN) CAP PO SCH (09:23)
[2018-12-27] MEDS: LORATADINE (CLARITIN) 10 MG TAB PO SCH (09:23)
[2018-12-27] MEDS: amLODIPine 10 MG (NORVASC) TAB PO SCH (09:23)
[2018-12-27] MEDS: FOLIC ACID 1 MG TAB PO SCH (09:23)
[2018-12-27] MEDS: FAMOTIDINE 20 MG (PEPCID) TABLET PO SCH (09:23)
[2018-12-27] MEDS: DOCUSATE SODIUM 100 MG (COLACE) CAP PO SCH (09:23)
[2018-12-27] MEDS: PARoxetine 20 MG (PAXIL) TAB PO SCH (09:23)
[2018-12-27] MEDS: LOSARTAN 100 MG (COZAAR) TABLET PO SCH (09:23)
[2018-12-27] MEDS: DICLOFENAC 1% GEL 100 GM (VOLTAREN) TUBE TOP SCH ×3 (09:24→17:06)
--- NOTE | 2018-12-27 09:41 | D/C HH Face to Face Order ---
D/C Face to Face Orders Instructions for Patient Via [facility], Patient Instructions/FollowUp: Dr Post in 1 week Physician to follow Patient: Dr Post Discharge Diet for Home: ADA Diet Patient Problems: Severe weakness Psoriatic arthritis Aortic stenosis Urinary incontinence Patient Data-Allergies,Ht & Wt Patient Allergies: Coded Allergies: cephalexin (Verified Allergy, Unknown, 12/12/18) codeine (Verified Allergy, Unknown, 12/12/18) mushroom (Unverified Allergy, Unknown, 12/17/18) FROM UNCODED ALLERGIES pork derived (porcine) (Verified Allergy, Unknown, 12/09/18) promethazine (Verified Allergy, Unknown, 12/12/18) vancomycin (Verified Allergy, Unknown, 12/12/18) Uncoded Allergies: SEPTRA DS (Allergy, Unknown, 12/12/18) [id number] REDUCTASE INHIBITORS (Allergy, Unknown, 12/12/18) ADHESIVE TAPE-SILICONES (Adverse Reaction, Unknown, 12/12/18) MERCURY (BULK) (Adverse Reaction, Unknown, 12/12/18) Height (Feet): 4 Height (Inches): 11.00 Weight (Pounds): 167 Weight (Ounces): 3.2 Home Health Need/Face to Face Date of Face to Face: Dec 27, 2018 Clinical Findings: Generalized weakness and fatigue, Muscle weakness, Unsteady gait I have seen Pt [id number]: Yes Discharged To: Home Diagnosis/Conditions: Severe weakness Psoriatic arthritis Aortic stenosis Urinary incontinence Patient is Homebound due to: Robert fall risk due to instabilty, Muscle weakness Homebound Status Due to the above stated illness, injury or surgical procedure (medical condition or diagnosis) and associated clinical findings, the patient is homebound because of his/her inability to leave home except with aid of a supportive device and/or person AND leaving the home requires a considerable and taxing effort or is medically contraindicated. Pt req the following assistanc: Aid of another person, Walker, Wheelchair Home Health Nursing Orders Home Health Services Order: Nursing Services, Refinery Operator Light Ends Recovery-Evaluate & Treat, Physical Therapy-Evaluate & Treat Certify Stmt I certify that this patient is under my care and that I, a nurse practitioner or a physician; a resident programs assistant working with me, had a face to face encounter that - meets the physician face to face encounter requirements with this patient as dated. JANELLE ROBERTS DO Dec 27, 2018 09:41
--- NOTE | 2018-12-27 11:28 | Progress Note-Urology ---
Progress Note-Urology Progress Notes/Assess & Plan Progress/Assessment & Plan PVR YESTERDAY 368CC. STRAIGHT CATHED. RECHECK TODAY. Final Diagnosis INCONTINENCE AND RETENTION SMITHA LANGFORD MD Dec 27, 2018 11:28
--- NOTE | 2018-12-27 12:48 | Physical Therapy Daily Note ---
PT Daily Note-Current Subjective Pt sitting in W/C in room upon arrival. Pt agrees to PT tx for FIM scoring for DC tomorrow (12/28). Pain Numeric Pain Scale: 7 Location: Lower Location Body Site: Back Pain Description: Stabbing, Sharp Mental Status Patient Orientation: Person, Place, Time, Situation Transfers Therapy Code Descriptions/Definitions Functional Alexander Measure: 0=Not Assessed/NA 4=Minimal Assistance 1=Total Assistance 5=Supervision or Setup 2=Maximal Assistance 6=Modified [place] 3=Moderate Assistance 7=Complete Alexander Therapy Quality Codes: 6 Independent with activity with or without an assistive device 5 Patient requires set up or clean up by helper. Patient completes activity by themselves 4 Supervision or touching assist (CGA). [place] provide cues , steadying assist 3 The helper provides less than half the effort to complete the activity 2 The helper provides more than half the effort to complete the activity 1 Dependent. The helper does all the effort to complete an activity 7 Patient refused to complete or attempt activity 9 The patient did not perform the activity before the current illness or injury 88 Not attempted due to Medical conditions or safety concerns Scootin Rollin Roll Left to Right (QC): 3 Supine to/from Sit: 3 Sit to/from Stand: 3 Sit to Lying (QC): 4 Sit to Stand (QC): 3 Chair/Bbt-op-Tmict Xfer(QC): 3 Bed to/from Chair: 3 Weight Bearing Right Lower Extremity: Right Full Weight Bearing Left Lower Extremity: Left Full Weight Bearing Gait Training Does the Patient Walk?: Yes Gait (FIM): 2 Distance (FIM): 1=up to 49 ft Distance: 5', 5' Walk 10 feet (QC): 3 Walking 10ft/uneven surface-QC: 3 Gait Level of Assist: 3 Gait Assistive Device: Walker 4 Wheeled Pt walks slowly and with antalgic gait pattern. Pt fatigues quickly and needs extended time to recover. Wheelchair Training Does the Pt Use a Wheelchair?: Yes Wheelchair (FIM): 4 Wheelchair Distance: 3=150 ft Distance: 150' Wheelchair Level of Assist: 4 Wheel 50 ft with 2 turns (QC): 4 Type of Wheelchair: Manual Stair Training Stairs (FIM): 88 Balance Picking up an Object (QC): 88 Treatments Pt attempts bed mobility and transfers to and from W/C. Pt attempts short distance ambulation with rest breaks. Pt completes car transfer after 2nd attempt. Pt also ambulates across varying surface. Pt does not attempt stairs or picking up object from floor due to safety concerns and pt was not completing these tasks for some time previous to ARU visit. Pt returns to room to rest in W/C with all needs met. Assessment Current Status: Poor Progress Pt is noticeably upset upon arrival for tx. Pt does not want to return home yet. TELEPHONE SURVEYOR discusses with pt her intolerance for 3 hours of Therapy and pt is frustrated with this fact. Pt fatigues quickly and needs frequent rest breaks to recover. PT Short Term Goals Short Term Goals Wheelchair Distance: 150' PT Prison Goals Records Assistant Goals PT Records Assistant Goals Time Frame: Dec 29, 2018 Transfers (B,C,W/C) (FIM): 5 Sit to Lying (QC): 5 Lying-Sitting on Side/Bed(QC): 5 Sit to Stand (QC): 5 Rollin Roll Left to Right (QC): 5 Chair/Sfc-lg-Faexw Xfer(QC): 5 Car Transfer (QC): 5 Does the Patient Walk: Yes Gait (FIM): 2 Distance: 125' Walk 10 feet (QC): 5 Walk 10ft-Uneven Surface(QC): 5 Walk 50ft with 2 Turns (QC): 5 Walk 150 ft (QC): 88 Gait Level of Assist: 5 Gait Assistive Device: Walker 4 Wheeled, FWW Wheelchair (FIM): 2 Wheelchair distance (FIM): 1=up to 49 ft Distance: 100' Wheelchair Level of Assist: 5 Wheel 50 feet with 2 turns (QC: 5 Stairs (FIM): 1 PT Plan Problem List Problem List: Activity Tolerance, Functional Strength, Safety, Balance, Gait, Bed Mobility Treatment/Plan Treatment Plan: Continue Plan of Care Treatment Plan: Bed Mobility, Education, Functional Activity Kandi, Functional Strength, Group Therapy, Gait, Safety, Therapeutic Exercise, Transfers Treatment Duration: Dec 01, 2018 Frequency: At least 5 of 7 days/Wk (IRF) Estimated Hrs Per Day: 1.5 hours per day Patient and/or Family Agrees t: Yes Safety Risks/Education Patient Education: Gait Training, Transfer Techniques, Correct Positioning, W/ C Management, Safety Issues Teaching Recipient: Patient Teaching Methods: Discussion Response to Teaching: Verbalize Understanding Time/GCodes Time In: 1045 Time Out: 1225 Total Billed Treatment Time: 100 Total Billed Treatment 1, [facility] x2 (25m), FA x3 (45m), EX (15m) & GT (15m) G Codes Necessary: BOGDAN Gupta TELEPHONE SURVEYOR Dec 27, 2018 12:48
--- NOTE | 2018-12-27 15:18 | Occupational Ther Daily Note ---
OT Current Status-Daily Note Subjective Pt. does not report pain. Appearance Pt. in bed. Agreeable to work with OT. Mental Status/Objective Patient Orientation: Person, Place, Time, Situation Therapy Code Descriptions/Definitions Functional [place] Measure: 0=Not Assessed/NA 4=Minimal Assistance 1=Total Assistance 5=Supervision or Setup 2=Maximal Assistance 6=Modified [place] 3=Moderate Assistance 7=Complete [place] ADL-Treatment Therapy Code Descriptions/Definitions Functional [place] Measure: 0=Not Assessed/NA 4=Minimal Assistance 1=Total Assistance 5=Supervision or Setup 2=Maximal Assistance 6=Modified [place] 3=Moderate Assistance 7=Complete [place] Therapy Quality Codes: 6 Independent with activity with or without an assistive device 5 Patient requires set up or clean up by helper. Patient completes activity by themselves 4 Supervision or touching assist (CGA). [place] provide cues , steadying assist 3 The helper provides less than half the effort to complete the activity 2 The helper provides more than half the effort to complete the activity 1 Dependent. The helper does all the effort to complete an activity 7 Patient refused to complete or attempt activity 9 The patient did not perform the activity before the current illness or injury 88 Not attempted due to Medical conditions or safety concerns Eating (FIM): 6 Eating (QC): 6 Grooming (FIM): 5 (Set up at sink in wheelchair to complete grooming tasks. Brushed hair and teeth.) Oral Hygiene (QC): 5 Bathing (FIM): 4 (CGA in stance in shower.) Shower/Bathe Self (QC): 4 Upper Body (FIM): 3 (Pt. requires assistance with donning bra.) Upper Body Dressing (QC): 3 Lower Body Dressing (FIM): 2 (Pt. requires assistance with donning brief, pants , and shoes. Pt. utilizes AE, but this is still difficult for her. Pt. is able to don her socks using sock aide.) Lower Body Dressing (QC): 2 On/Off Footwear (QC): 2 Toileting (FIM): 3 (Pt. is able to cleanse self after toileting, but is unable to pull down or up her brief for toilet task.) Toileting Hygiene (QC): 3 Transfers (B, C, W/C) (FIM): 3 (Mod assist overall with sit-stand and pivot transfer.) Toilet/Commode Transfer (FIM): 3 Toilet Transfer (QC): 3 Shower Transfer(FIM): 4 Other Treatment After ADLs, pt. self propelled wheelchair around therapy dining area. Noted that pt. requires increased time and effort. Requires cues at times to use hands as well as feet. Pt. has difficulty using her brakes on wheelchair and maneuvering wheelchair where she needs to go. After task, pt. went back to room. All needs met up in chair. Education OT Patient Education: Correct positioning, Modified ADL techniques, Progress toward Goal/Update tx plan, Purpose of tx/functional activities, Reviewed precautions, Rehab process, Transfer techniques, Use of adapted equipment, W/C management Teaching Recipient: Patient Teaching Methods: Demonstration, Discussion Response to Teaching: Verbalize Understanding, Return Demonstration OT Short Term Goals Short Term Goals Time Frame: Dec 15, 2018 Eating(FIM): 7 Grooming(FIM): 6 (w/c level) Toilet/Commode Transfer(FIM): 3 Additional Short Term Goals: 1-Demonstrate ADL Tasks, 2-Verbalize Understanding , 3-ImproveStrength/Kandi 1=Demonstrate adherence to instructed precautions during ADL tasks. 2=Patient will verbalize/demonstrate understanding of assistive devices/ modifications for ADL. 3=Patient will improve strength/tolerance for activity to enable patient to perform ADL's. OT Group Home Goals Group Home Goals Time Frame: Dec 29, 2018 Eating (FIM): 7 Eating (QC): 6 Groomin Oral Hygiene (QC): 6 Bathing(FIM): 6 Shower/Bathe Self (QC): 6 Upper Body Dressing(FIM): 6 Upper Body Dressing (QC): 6 Lower Body Dressing(FIM): 6 Lower Body Dressing (QC): 6 On/Off Footwear (QC): 6 Toileting(FIM): 6 Toileting Hygiene (QC): 6 Toilet/Commode Transfer(FIM): 6 Toilet/Commode Transfer (QC): 6 Shower Transfer(FIM): 6 Additional Goals: 1-Demonstrate ADL Tasks, 2-Verbalize Understanding, 3- ImproveStrength/Kandi 1=Demonstrate adherence to instructed precautions during ADL tasks. 2=Patient will verbalize/demonstrate understanding of assistive devices/ modifications for ADL. 3=Patient will improve strength/tolerance for activity to enable patient to perform ADL's. OT Education/Plan Problem List/Assessment Assessment: Decreased Activ Tolerance, Decreased UE Strength, Dependent Transfers, Impaired Bed Mobility, Impaired Funct Balance, Impaired I ADL's, Impaired Self-Care Skills, Restricted Funct UE ROM Discharge Recommendations Plan/Recommendations: Continue POC Therapy D/C Recommendations: 24 hr Supervision Treatment Plan/Plan of Care Treatment,Training & Education: Yes Patient would benefit from OT for education, treatment and training to promote independence in ADL's, mobility, safety and/or upper extremity function for ADL' s. Plan of Care: ADL Retraining, Functional Mobility, Group Exercise/Act as Ind ( education, exercise, functional activity, activity tolerance, funct mobility), UE Funct Exercise/Act, UE Neuromus Re-Ed/Coord Treatment Duration: Dec 29, 2018 Frequency: At least 5 of 7 days/Wk (IRF) Estimated Hrs Per Day: 1.5 hours per day Agreement: Yes Rehab Potential: Fair Time/GCodes Start Time: 08:30 Stop Time: 10:00 Total Time Billed (hr/min): 90 Billed Treatment Time 1, ADL x 75minutes, FA x 15minutes KATHIE HEMPHILL OT Dec 27, 2018 15:18
[2018-12-27] MEDS ORDERED: TOLTA4 PO (16:43)
[2018-12-27] MEDS ORDERED: FAMO20TA5 PO (16:43)
--- NOTE | 2018-12-27 16:44 | Discharge Summary ---
Diagnosis/Chief Complaint Date of Admission Dec 07, 2018 at 15:13 Date of Discharge Discharge Date: Dec 27, 2018 Discharge Diagnosis Assessment: Debility Severe weakness due to CVA 07/31 and hyponatremia and psoriatic arthritis and aortic stenosis Acute on chronic hyponatremia holding hydrochlorothiazide and placing fluid restriction and sodium level today 132 Moderate persistent asthma usually sees pulmonology and noted crackles on Monday in RLL so started Nebs and IS and now resolved Psoriatic arthritis on immunosuppressive biologic managed by rheumatology Chronic cardiac murmur usually sees cardiology History of CVA July 2018 spent 3 months at [facility] Acute right shoulder pain related to therapy last month History of compression fractures of the back 4 times Constipation - resolved LILI compliant on CPAP Acute UTI s/p Cipro completed Renal insufficiency Plan: Maintain intensive therapies Appreciate right shoulder pain evaluation with xrays and consulted Dr Duff because it was causing a restriction in therapy services Continue home medications Spiriva Enbrel immunological biological med brought from home from family and takes every Monday Monitor cardiac and pulmonary systems closely Patient lives alone Prune juice for constipation along with more meds prn Monitor incontinence IS Nebs monitor crackles RLL on Monday now improved on Nebs and IS Disposition? UTI completed 7 days on Cipro Monitor hyponatremia DC Marcianoy FAUSTINO magaña Consult Dr Taylor is appreciated Day pass this evening but actually DC due to weather concerns Monday Discharge Summary Discharge Physical Examination Allergies: Coded Allergies: cephalexin (Verified Allergy, Unknown, 12/12/18) codeine (Verified Allergy, Unknown, 12/12/18) mushroom (Unverified Allergy, Unknown, 12/17/18) FROM UNCODED ALLERGIES pork derived (porcine) (Verified Allergy, Unknown, 12/09/18) promethazine (Verified Allergy, Unknown, 12/12/18) vancomycin (Verified Allergy, Unknown, 12/12/18) Uncoded Allergies: SEPTRA DS (Allergy, Unknown, 12/12/18) [id number] REDUCTASE INHIBITORS (Allergy, Unknown, 12/12/18) ADHESIVE TAPE-SILICONES (Adverse Reaction, Unknown, 12/12/18) MERCURY (BULK) (Adverse Reaction, Unknown, 12/12/18) Vitals & I&Os Vital Signs Date Time Temp Pulse Resp B/P (MAP) Pulse Ox O2 Delivery O2 Flow Rate FiO2 12/27/18 17:42 98.9 77 18 143/72 (95) 95 Room Air Hospital Course Was the Problem List Reviewed?: Yes Hospital course: patient had a lengthy hospital course for 3 weeks in [facility]. She was admitted after short stay at [facility] for weakness and hyponatremia. Patient had spent 3 months at [place] prior to [facility] admit and she wished to return home so she was admitted and resumed on all home meds except HCTZ due to hyponatremia. PT/OT were consulted and patient participated in all requirements. Incontinence was an issue during stay and UTI was dx and fully treated and Urology was consulted who changed her med to Detrol LA 4mg at night. Home meds including Enbrel were continued for psoriatic arthritis. Cardiology was consulted for aortic stenosis noted on previous ECHO and patient was placed on Tely for 3 days then DC and all meds were continued and patient was reassured. Bowel regimen was maintained with good results with resolution of chronic constipation. Overall she had improved with transfers although they were inconsistent and more consistent when participating with PT rather than nurses. She was deemed stable for DC with family support and HH with wheelchair and will have close f/u with Dr Post in [place] next week. Labs (last 24 hrs) Laboratory Tests 12/07/18 15:13: Lab Scanned Report Referred Lab Report 12/08/18 04:30: White Blood Count 5.7, Red Blood Count 3.42L, Hemoglobin 10.7L, Hematocrit 32L, Mean Corpuscular Volume 94, Mean Corpuscular Hemoglobin 31, Mean Corpuscular Hemoglobin Concent 33, Red Cell Distribution Width 14.9H, Platelet Count 258, Mean Platelet Volume 8.7, Neutrophils (%) (Auto) 44, Lymphocytes (%) (Auto) 27, Monocytes (%) (Auto) 23H, Eosinophils (%) (Auto) 6, Basophils (%) (Auto) 1, Neutrophils # (Auto) 2.5, Lymphocytes # (Auto) 1.5, Monocytes # (Auto) 1.3H, Eosinophils # (Auto) 0.3, Basophils # (Auto) 0.0, Neutrophils % (Manual) 48, Lymphocytes % (Manual) 26, Monocytes % (Manual) 20, Eosinophils % (Manual) 6, Sodium Level 133L, Potassium Level 4.5, Chloride Level 101, Carbon Dioxide Level 22, Anion Gap 10, Blood Urea Nitrogen 22H, Creatinine 1.15, Estimat Glomerular Filtration Rate 45, BUN/Creatinine Ratio 19, Glucose Level 86, Calcium Level 9.4, Corrected Calcium 10.0, Total Bilirubin 0.6, Aspartate Amino Transf (AST/SGOT) 24, Alanine Aminotransferase (ALT/SGPT) 18, Alkaline Phosphatase 70, Total Protein 6.1L, Albumin 3.3 12/11/18 09:14: White Blood Count 10.8, Red Blood Count 3.55L, Hemoglobin 11.0L, Hematocrit 33L , Mean Corpuscular Volume 94, Mean Corpuscular Hemoglobin 31, Mean Corpuscular Hemoglobin Concent 33, Red Cell Distribution Width 14.7H, Platelet Count 217, Mean Platelet Volume 8.3, Neutrophils (%) (Auto) 73, Lymphocytes (%) (Auto) 14, Monocytes (%) (Auto) 10, Eosinophils (%) (Auto) 3, Basophils (%) (Auto) 0, Neutrophils # (Auto) 8.0H, Lymphocytes # (Auto) 1.5, Monocytes # (Auto) 1.1H, Eosinophils # (Auto) 0.3, Basophils # (Auto) 0.0, Sodium Level 131L, Potassium Level 4.5, Chloride Level 99, Carbon Dioxide Level 21, Anion Gap 11, Blood Urea Nitrogen 21H, Creatinine 1.17, Estimat Glomerular Filtration Rate 44, BUN/ Creatinine Ratio 18, Glucose Level 117H, Calcium Level 9.9, Corrected Calcium 10.3H, Total Bilirubin 1.3H, Aspartate Amino Transf (AST/SGOT) 24, Alanine Aminotransferase (ALT/SGPT) 20, Alkaline Phosphatase 70, Total Protein 6.6, Albumin 3.5 12/12/18 18:30: Urine Color YELLOW, Urine Clarity SLIGHTLY CLOUDY, Urine pH 7, Urine Specific [place] 1.005L, Urine Protein 2+H, Urine Glucose (UA) NEGATIVE, Urine Ketones NEGATIVE, Urine Nitrite NEGATIVE, Urine Bilirubin NEGATIVE, Urine Urobilinogen NORMAL, Urine Leukocyte Esterase 3+H, Urine RBC (Auto) 4+H, Urine RBC 5-10H, Urine WBC >100H, Urine Crystals NONE, Urine Bacteria LARGEH, Urine Casts NONE, Urine Mucus NEGATIVE, Urine Culture Indicated YES 12/13/18 09:00: Thyroid Stimulating Hormone (TSH) 1.65 12/13/18 09:05: White Blood Count 8.4, Red Blood Count 3.20L, Hemoglobin 10.1L, Hematocrit 31L, Mean Corpuscular Volume 98, Mean Corpuscular Hemoglobin 32, Mean Corpuscular Hemoglobin Concent 32, Red Cell Distribution Width 14.6H, Platelet Count 188, Mean Platelet Volume 8.5, Neutrophils (%) (Auto) 72, Lymphocytes (%) (Auto) 14, Monocytes (%) (Auto) 9, Eosinophils (%) (Auto) 5, Basophils (%) (Auto) 1, Neutrophils # (Auto) 6.1, Lymphocytes # (Auto) 1.2, Monocytes # (Auto) 0.8, Eosinophils # (Auto) 0.4H, Basophils # (Auto) 0.0, Sodium Level 128L, Potassium Level 4.1, Chloride Level 97L, Carbon Dioxide Level 22, Anion Gap 9, Blood Urea Nitrogen 22H, Creatinine 1.26, Estimat Glomerular Filtration Rate 41, BUN/ Creatinine Ratio 17, Glucose Level 161H, Calcium Level 9.7, Corrected Calcium 10.4H, Total Bilirubin 0.8, Aspartate Amino Transf (AST/SGOT) 24, Alanine Aminotransferase (ALT/SGPT) 17, Alkaline Phosphatase 61, Total Protein 5.9L, Albumin 3.1L 12/14/18 09:40: Cortisol AM Sample 10.6 12/16/18 05:39: White Blood Count 6.6, Red Blood Count 3.30L, Hemoglobin 10.6L, Hematocrit 32L, Mean Corpuscular Volume 96, Mean Corpuscular Hemoglobin 32, Mean Corpuscular Hemoglobin Concent 34, Red Cell Distribution Width 14.8H, Platelet Count 233, Mean Platelet Volume 8.8, Neutrophils (%) (Auto) 49, Lymphocytes (%) (Auto) 25, Monocytes (%) (Auto) 16H, Eosinophils (%) (Auto) 9, Basophils (%) (Auto) 1, Neutrophils # (Auto) 3.2, Lymphocytes # (Auto) 1.6, Monocytes # (Auto) 1.1H, Eosinophils # (Auto) 0.6H, Basophils # (Auto) 0.1, Sodium Level 134L, Potassium Level 4.7, Chloride Level 100, Carbon Dioxide Level 23, Anion Gap 11, Blood Urea Nitrogen 27H, Creatinine 1.32H, Estimat Glomerular Filtration Rate 39, BUN/ Creatinine Ratio 20, Glucose Level 89, Calcium Level 10.0, Corrected Calcium 10.6H, Total Bilirubin 0.6, Aspartate Amino Transf (AST/SGOT) 20, Alanine Aminotransferase (ALT/SGPT) 17, Alkaline Phosphatase 65, Total Protein 6.2L, Albumin 3.2 12/18/18 05:31: White Blood Count 7.0, Red Blood Count 3.38L, Hemoglobin 10.7L, Hematocrit 32L, Mean Corpuscular Volume 96, Mean Corpuscular Hemoglobin 32, Mean Corpuscular Hemoglobin Concent 33, Red Cell Distribution Width 14.8H, Platelet Count 232, Mean Platelet Volume 8.5, Neutrophils (%) (Auto) 44, Lymphocytes (%) (Auto) 29, Monocytes (%) (Auto) 18H, Eosinophils (%) (Auto) 9, Basophils (%) (Auto) 1, Neutrophils # (Auto) 3.1, Lymphocytes # (Auto) 2.0, Monocytes # (Auto) 1.3H, Eosinophils # (Auto) 0.6H, Basophils # (Auto) 0.0, Sodium Level 132L, Potassium Level 4.6, Chloride Level 98, Carbon Dioxide Level 23, Anion Gap 11, Blood Urea Nitrogen 25H, Creatinine 1.26, Estimat Glomerular Filtration Rate 41, BUN/ Creatinine Ratio 20, Glucose Level 93, Calcium Level 9.8, Corrected Calcium 10.4H, Total Bilirubin 0.6, Aspartate Amino Transf (AST/SGOT) 23, Alanine Aminotransferase (ALT/SGPT) 18, Alkaline Phosphatase 58, Total Protein 6.2L, Albumin 3.2 12/23/18 04:46: White Blood Count 9.3, Red Blood Count 3.24L, Hemoglobin 10.2L, Hematocrit 31L, Mean Corpuscular Volume 95, Mean Corpuscular Hemoglobin 32, Mean Corpuscular Hemoglobin Concent 33, Red Cell Distribution Width 14.3, Platelet Count 221, Mean Platelet Volume 8.6, Neutrophils (%) (Auto) 66, Lymphocytes (%) (Auto) 15, Monocytes (%) (Auto) 14H, Eosinophils (%) (Auto) 5, Basophils (%) (Auto) 1, Neutrophils # (Auto) 6.1, Lymphocytes # (Auto) 1.4, Monocytes # (Auto) 1.3H, Eosinophils # (Auto) 0.5H, Basophils # (Auto) 0.1, Sodium Level 132L, Potassium Level 4.4, Chloride Level 98, Carbon Dioxide Level 25, Anion Gap 9, Blood Urea Nitrogen 30H, Creatinine 1.34H, Estimat Glomerular Filtration Rate 38, BUN/ Creatinine Ratio 22, Glucose Level 92, Calcium Level 9.7, Corrected Calcium 10.4H, Total Bilirubin 0.7, Aspartate Amino Transf (AST/SGOT) 21, Alanine Aminotransferase (ALT/SGPT) 17, Alkaline Phosphatase 67, Total Protein 5.9L, Albumin 3.1L 12/26/18 09:50: White Blood Count 6.2, Red Blood Count 3.48L, Hemoglobin 10.9L, Hematocrit 33L, Mean Corpuscular Volume 95, Mean Corpuscular Hemoglobin 31, Mean Corpuscular Hemoglobin Concent 33, Red Cell Distribution Width 14.7H, Platelet Count 243, Mean Platelet Volume 8.0, Neutrophils (%) (Auto) 62, Lymphocytes (%) (Auto) 15, Monocytes (%) (Auto) 15H, Eosinophils (%) (Auto) 7, Basophils (%) (Auto) 1, Neutrophils # (Auto) 3.9, Lymphocytes # (Auto) 0.9L, Monocytes # (Auto) 1.0, Eosinophils # (Auto) 0.4H, Basophils # (Auto) 0.0, Sodium Level 131L, Potassium Level 4.6, Chloride Level 98, Carbon Dioxide Level 23, Anion Gap 10, Blood Urea Nitrogen 32H, Creatinine 1.39H, Estimat Glomerular Filtration Rate 36, BUN/ Creatinine Ratio 23, Glucose Level 111H, Calcium Level 10.0, Corrected Calcium 10.5H, Total Bilirubin 0.6, Aspartate Amino Transf (AST/SGOT) 22, Alanine Aminotransferase (ALT/SGPT) 18, Alkaline Phosphatase 71, Total Protein 6.5, Albumin 3.4 Microbiology 12/12/18 Urine Culture - Final, Complete Escherichia coli Pending Labs Microbiology Date/Time Source Procedure Growth Status 12/12/18 18:30 Urine Straight Cath, In/Out Urine Culture - Final Escherichia coli Complete Laboratory Tests 12/07/18 15:13: Lab Scanned Report Referred Lab Report 12/08/18 04:30: White Blood Count 5.7, Red Blood Count 3.42, Hemoglobin 10.7, Hematocrit 32, Mean Corpuscular Volume 94, Mean Corpuscular Hemoglobin 31, Mean Corpuscular Hemoglobin Concent 33, Red Cell Distribution Width 14.9, Platelet Count 258, Mean Platelet Volume 8.7, Neutrophils (%) (Auto) 44, Lymphocytes (%) (Auto) 27, Monocytes (%) (Auto) 23, Eosinophils (%) (Auto) 6, Basophils (%) (Auto) 1, Neutrophils # (Auto) 2.5, Lymphocytes # (Auto) 1.5, Monocytes # (Auto) 1.3, Eosinophils # (Auto) 0.3, Basophils # (Auto) 0.0, Neutrophils % (Manual) 48, Lymphocytes % (Manual) 26, Monocytes % (Manual) 20, Eosinophils % (Manual) 6, Sodium Level 133, Potassium Level 4.5, Chloride Level 101, Carbon Dioxide Level 22, Anion Gap 10, Blood Urea Nitrogen 22, Creatinine 1.15, Estimat Glomerular Filtration Rate 45, BUN/Creatinine Ratio 19, Glucose Level 86, Calcium Level 9.4 , Corrected Calcium 10.0, Total Bilirubin 0.6, Aspartate Amino Transf (AST/SGOT ) 24, Alanine Aminotransferase (ALT/SGPT) 18, Alkaline Phosphatase 70, Total Protein 6.1, Albumin 3.3 12/11/18 09:14: White Blood Count 10.8, Red Blood Count 3.55, Hemoglobin 11.0, Hematocrit 33, Mean Corpuscular Volume 94, Mean Corpuscular Hemoglobin 31, Mean Corpuscular Hemoglobin Concent 33, Red Cell Distribution Width 14.7, Platelet Count 217, Mean Platelet Volume 8.3, Neutrophils (%) (Auto) 73, Lymphocytes (%) (Auto) 14, Monocytes (%) (Auto) 10, Eosinophils (%) (Auto) 3, Basophils (%) (Auto) 0, Neutrophils # (Auto) 8.0, Lymphocytes # (Auto) 1.5, Monocytes # (Auto) 1.1, Eosinophils # (Auto) 0.3, Basophils # (Auto) 0.0, Sodium Level 131, Potassium Level 4.5, Chloride Level 99, Carbon Dioxide Level 21, Anion Gap 11, Blood Urea Nitrogen 21, Creatinine 1.17, Estimat Glomerular Filtration Rate 44, BUN/ Creatinine Ratio 18, Glucose Level 117, Calcium Level 9.9, Corrected Calcium 10.3, Total Bilirubin 1.3, Aspartate Amino Transf (AST/SGOT) 24, Alanine Aminotransferase (ALT/SGPT) 20, Alkaline Phosphatase 70, Total Protein 6.6, Albumin 3.5 12/12/18 18:30: Urine Color YELLOW, Urine Clarity SLIGHTLY CLOUDY, Urine pH 7, Urine Specific [place] 1.005, Urine Protein 2+, Urine Glucose (UA) NEGATIVE, Urine Ketones NEGATIVE, Urine Nitrite NEGATIVE, Urine Bilirubin NEGATIVE, Urine Urobilinogen NORMAL, Urine Leukocyte Esterase 3+, Urine RBC (Auto) 4+, Urine RBC 5-10, Urine WBC >100, Urine Crystals NONE, Urine Bacteria LARGE, Urine Casts NONE, Urine Mucus NEGATIVE, Urine Culture Indicated YES 12/13/18 09:00: Thyroid Stimulating Hormone (TSH) 1.65 12/13/18 09:05: White Blood Count 8.4, Red Blood Count 3.20, Hemoglobin 10.1, Hematocrit 31, Mean Corpuscular Volume 98, Mean Corpuscular Hemoglobin 32, Mean Corpuscular Hemoglobin Concent 32, Red Cell Distribution Width 14.6, Platelet Count 188, Mean Platelet Volume 8.5, Neutrophils (%) (Auto) 72, Lymphocytes (%) (Auto) 14, Monocytes (%) (Auto) 9, Eosinophils (%) (Auto) 5, Basophils (%) (Auto) 1, Neutrophils # (Auto) 6.1, Lymphocytes # (Auto) 1.2, Monocytes # (Auto) 0.8, Eosinophils # (Auto) 0.4, Basophils # (Auto) 0.0, Sodium Level 128, Potassium Level 4.1, Chloride Level 97, Carbon Dioxide Level 22, Anion Gap 9, Blood Urea Nitrogen 22, Creatinine 1.26, Estimat Glomerular Filtration Rate 41, BUN/ Creatinine Ratio 17, Glucose Level 161, Calcium Level 9.7, Corrected Calcium 10.4, Total Bilirubin 0.8, Aspartate Amino Transf (AST/SGOT) 24, Alanine Aminotransferase (ALT/SGPT) 17, Alkaline Phosphatase 61, Total Protein 5.9, Albumin 3.1 12/14/18 09:40: Cortisol AM Sample 10.6 12/16/18 05:39: White Blood Count 6.6, Red Blood Count 3.30, Hemoglobin 10.6, Hematocrit 32, Mean Corpuscular Volume 96, Mean Corpuscular Hemoglobin 32, Mean Corpuscular Hemoglobin Concent 34, Red Cell Distribution Width 14.8, Platelet Count 233, Mean Platelet Volume 8.8, Neutrophils (%) (Auto) 49, Lymphocytes (%) (Auto) 25, Monocytes (%) (Auto) 16, Eosinophils (%) (Auto) 9, Basophils (%) (Auto) 1, Neutrophils # (Auto) 3.2, Lymphocytes # (Auto) 1.6, Monocytes # (Auto) 1.1, Eosinophils # (Auto) 0.6, Basophils # (Auto) 0.1, Sodium Level 134, Potassium Level 4.7, Chloride Level 100, Carbon Dioxide Level 23, Anion Gap 11, Blood Urea Nitrogen 27, Creatinine 1.32, Estimat Glomerular Filtration Rate 39, BUN/ Creatinine Ratio 20, Glucose Level 89, Calcium Level 10.0, Corrected Calcium 10.6, Total Bilirubin 0.6, Aspartate Amino Transf (AST/SGOT) 20, Alanine Aminotransferase (ALT/SGPT) 17, Alkaline Phosphatase 65, Total Protein 6.2, Albumin 3.2 12/18/18 05:31: White Blood Count 7.0, Red Blood Count 3.38, Hemoglobin 10.7, Hematocrit 32, Mean Corpuscular Volume 96, Mean Corpuscular Hemoglobin 32, Mean Corpuscular Hemoglobin Concent 33, Red Cell Distribution Width 14.8, Platelet Count 232, Mean Platelet Volume 8.5, Neutrophils (%) (Auto) 44, Lymphocytes (%) (Auto) 29, Monocytes (%) (Auto) 18, Eosinophils (%) (Auto) 9, Basophils (%) (Auto) 1, Neutrophils # (Auto) 3.1, Lymphocytes # (Auto) 2.0, Monocytes # (Auto) 1.3, Eosinophils # (Auto) 0.6, Basophils # (Auto) 0.0, Sodium Level 132, Potassium Level 4.6, Chloride Level 98, Carbon Dioxide Level 23, Anion Gap 11, Blood Urea Nitrogen 25, Creatinine 1.26, Estimat Glomerular Filtration Rate 41, BUN/ Creatinine Ratio 20, Glucose Level 93, Calcium Level 9.8, Corrected Calcium 10.4 , Total Bilirubin 0.6, Aspartate Amino Transf (AST/SGOT) 23, Alanine Aminotransferase (ALT/SGPT) 18, Alkaline Phosphatase 58, Total Protein 6.2, Albumin 3.2 12/23/18 04:46: White Blood Count 9.3, Red Blood Count 3.24, Hemoglobin 10.2, Hematocrit 31, Mean Corpuscular Volume 95, Mean Corpuscular Hemoglobin 32, Mean Corpuscular Hemoglobin Concent 33, Red Cell Distribution Width 14.3, Platelet Count 221, Mean Platelet Volume 8.6, Neutrophils (%) (Auto) 66, Lymphocytes (%) (Auto) 15, Monocytes (%) (Auto) 14, Eosinophils (%) (Auto) 5, Basophils (%) (Auto) 1, Neutrophils # (Auto) 6.1, Lymphocytes # (Auto) 1.4, Monocytes # (Auto) 1.3, Eosinophils # (Auto) 0.5, Basophils # (Auto) 0.1, Sodium Level 132, Potassium Level 4.4, Chloride Level 98, Carbon Dioxide Level 25, Anion Gap 9, Blood Urea Nitrogen 30, Creatinine 1.34, Estimat Glomerular Filtration Rate 38, BUN/ Creatinine Ratio 22, Glucose Level 92, Calcium Level 9.7, Corrected Calcium 10.4 , Total Bilirubin 0.7, Aspartate Amino Transf (AST/SGOT) 21, Alanine Aminotransferase (ALT/SGPT) 17, Alkaline Phosphatase 67, Total Protein 5.9, Albumin 3.1 12/26/18 09:50: White Blood Count 6.2, Red Blood Count 3.48, Hemoglobin 10.9, Hematocrit 33, Mean Corpuscular Volume 95, Mean Corpuscular Hemoglobin 31, Mean Corpuscular Hemoglobin Concent 33, Red Cell Distribution Width 14.7, Platelet Count 243, Mean Platelet Volume 8.0, Neutrophils (%) (Auto) 62, Lymphocytes (%) (Auto) 15, Monocytes (%) (Auto) 15, Eosinophils (%) (Auto) 7, Basophils (%) (Auto) 1, Neutrophils # (Auto) 3.9, Lymphocytes # (Auto) 0.9, Monocytes # (Auto) 1.0, Eosinophils # (Auto) 0.4, Basophils # (Auto) 0.0, Sodium Level 131, Potassium Level 4.6, Chloride Level 98, Carbon Dioxide Level 23, Anion Gap 10, Blood Urea Nitrogen 32, Creatinine 1.39, Estimat Glomerular Filtration Rate 36, BUN/ Creatinine Ratio 23, Glucose Level 111, Calcium Level 10.0, Corrected Calcium 10.5, Total Bilirubin 0.6, Aspartate Amino Transf (AST/SGOT) 22, Alanine Aminotransferase (ALT/SGPT) 18, Alkaline Phosphatase 71, Total Protein 6.5, Albumin 3.4 Discharge Home Medications: Active Scripts Active Detrol LA (Tolterodine Tartrate) 4 Mg Cap 4 Mg PO HS Famotidine 20 Mg Tablet 20 Mg PO DAILY Reported Tylenol (Acetaminophen) 325 Mg Tablet 650 Mg PO DAILY PRN Aspirin 325 Mg Tablet 325 Mg PO 1800 Calcium (Calcium Carbonate) 600 Mg Tablet 600 Mg PO BID Voltaren (Diclofenac Sodium) 100 Gm Gel..gram. TP QID PRN Iprat-Albut 0.5-3(2.5) mg/3 ml (Ipratropium/Albuterol Sulfate) 3 Ml Ampul.neb 3 Ml IH Q4H PRN Loratadine 10 Mg Tablet 10 Mg PO DAILY Colace (Docusate Sodium) 100 Mg Capsule 100 Mg PO DAILY Zofran (Ondansetron HCl) 4 Mg Tab 4 Mg PO Q6H PRN Multivitamins (Multivitamin) 1 Each Capsule 1 Cap PO DAILY Tramadol HCl 50 Mg Tablet 100 Mg PO Q6H PRN TAKES 2 (50MG) TABLETS Spiriva Respimat 1.25MCG/ACTUATION (Tiotropium [place]) 4 Gm Mist.inhal 2 Puff INH DAILY Proair Hfa (Albuterol Sulfate) 1 Puff Puff 2 Puff INH Q6H PRN Losartan Potassium 100 Mg Tablet 100 Mg PO DAILY Montelukast Sodium 10 Mg Tablet 10 Mg PO HS Lansoprazole 30 Mg Capsule.dr 30 Mg PO BID Gabapentin 100 Mg Capsule 200 Mg PO BID Paroxetine HCl 20 Mg Tablet 20 Mg PO DAILY Niaspan (Niacin) 500 Mg Tab.er.24h 500 Mg PO HS Carvedilol 25 Mg Tablet 25 Mg PO BID Amlodipine Besylate 10 Mg Tablet 10 Mg PO DAILY Folic Acid 1 Mg Tablet 1 Mg PO DAILY Clonidine HCl 0.1 Mg Tablet 0.1 Mg PO TID Instructions to patient/family Please see electronic discharge instructions given to patient. Diagnosis/Problems Diagnosis/Problems (1) Debility Status: Acute (2) Psoriatic arthritis Status: Chronic (3) Immunosuppression Status: Chronic (4) History of CVA (cerebrovascular accident) Status: Chronic (5) Asthma Status: Chronic Qualifiers: Qualified Codes: J45.40 - Moderate persistent asthma, uncomplicated (6) Cardiac murmur Status: Chronic (7) Compression fracture Status: Chronic (8) Hypertension Status: Chronic Qualifiers: Qualified Codes: I10 - Essential (primary) hypertension (9) Right anterior shoulder pain Status: Acute (10) Hyponatremia Status: Chronic (11) Weakness Status: Acute (12) LILI on CPAP Status: Chronic (13) Lung crackles Status: Acute (14) Shoulder pain, right Status: Acute Qualifiers: Qualified Codes: M25.511 - Pain in right shoulder (15) Incontinence Status: Chronic Qualifiers: Qualified Codes: R32 - Unspecified urinary incontinence (16) UTI (urinary tract infection) Clinical Quality Measures DVT/VTE Risk/Contraindication: Risk Factor Score Per Nursin RFS Level Per Nursing on Admit: 4+=Very High JANELLE ROBERTS DO Dec 27, 2018 16:44
[2018-12-27] MEDS: ASPIRIN E.C. 325 MG (ECOTRIN) TABLET PO SCH (17:04)
[2018-12-27 17:42] VITALS: BP 143/72
--- NOTE | 2018-12-27 19:45 | NUR ---
DARRIAN HAINES demonstrates understanding of discharge instructions and accurately returns instructions upon questioning. Copy of Post-Discharge Instructions given to patient and family. DARRIAN HAINES is not able to manage continuing needs after discharge. Patients belongings returned to patient and family. Patient discharged from [facility] on 12/27/18 at 1945. DARRIAN HAINES left floor via wheelchair, accompanied by staff and family.
--- NOTE | 2018-12-27 21:15 | NUR ---
Patient was originally scheduled for discharge tomorrow; however, patient was to complete an evening home visit and upcoming inclement weather, team has recommended to proceed with discharge this evening. Patient and family are agreeable and granddaughter will provide transport home. [facility] CARET[facility]ER will follow up with [facility] tomorrow regarding ability to start care. Due to safety concerns at home, LA[facility] CARET[facility]ER will contact [facility] for hotline. Addendum: 12/28/18 at 1355 by DARLIN PEREZ LAWN CARETAKER reviewed IMM and advised patient/family of right to appeal discharge, no concerns expressed with discharge.
--- NOTE | 2018-12-28 12:19 | Therapy Team Discharge Summary ---
Therapy Discharge Summary Discharge Recommendations Date of Discharge Dec 27, 2018 at 19:45 Therapy D/C Recommendations: 24 hr Supervision Physical Therapy This patient was transferred to ARU post acute hospital stay with a diagnosis of debility. Prior to her hospital admit, she required min assist in general with mobilty and self care. Upon admit to this unit, she was mod assist with transfers, walked 15 ft with mod assist and was mod assist with wc mobility; she is/was unable to attempt stairs. Treatment has focused on functional strength training to progress her transfers, bed mobiltiy and gait. She made some functional gains; although her goals were not fully met. At md, she is mod assist with transfers, walked short distances with assist and min assist with wc mobility. Pt to discharge home with her granddaughter's assist per their desire. Recommend continued care at LTC facility, but they chose home. Recommend [facility] to follow. [place] PT. Occupational Therapy Decreased Activ Tolerance, Decreased UE Strength, Dependent Transfers, Impaired Bed Mobility, Impaired Funct Balance, Impaired I ADL's, Impaired Self-Care Skills, Restricted Funct UE ROM PT Correction Goals Correction Goals PT Correction Goals Time Frame: Dec 29, 2018 Transfers (B,C,W/C) (FIM): 5 Roll Left to Right (QC): 5 Sit to Lying (QC): 5 Lying-Sitting on Side/Bed(QC): 5 Sit to Stand (QC): 5 Chair/Lub-qt-Elfwp Xfer(QC): 5 Car Transfer (QC): 5 Does the Patient Walk: Yes Gait (FIM): 2 Distance: 125' Walk 10 feet (QC): 5 Walk 10ft-Uneven Surface(QC): 5 Walk 50ft with 2 Turns (QC): 5 Walk 150 ft (QC): 88 Gait Level of Assist: 5 Gait Assistive Device: Walker 4 Wheeled, FWW Wheelchair (FIM): 2 Wheelchair distance (FIM): 1=up to 49 ft Distance: 100' Wheelchair Level of Assist: 5 Wheel 50 feet with 2 turns (QC: 5 Stairs (FIM): 1 Goals unmet; recommend continued care at LTC facility; however, pt and daughter desire to try to manage at home. Recommend [facility] if she is going to be home. OT [employer] Goals Correction Goals Time Frame: Dec 29, 2018 Eating (FIM): 7 Eating (QC): 6 Oral Hygiene (QC): 6 Grooming(FIM): 6 Bathing(FIM): 6 Shower/Bathe Self (QC): 6 Upper Body Dressing(FIM): 6 Upper Body Dressing (QC): 6 Lower Body Dressing(FIM): 6 Lower Body Dressing (QC): 6 On/Off Footwear (QC): 6 Toileting(FIM): 6 Toileting Hygiene (QC): 6 Toilet/Commode Transfer(FIM): 6 Toilet/Commode Transfer (QC): 6 Shower Transfer(FIM): 6 Additional Goals: 1-Demonstrate ADL Tasks, 2-Verbalize Understanding, 3- ImproveStrength/Kandi 1=Demonstrate adherence to instructed precautions during ADL tasks. 2=Patient will verbalize/demonstrate understanding of assistive devices/ modifications for ADL. 3=Patient will improve strength/tolerance for activity to enable patient to perform ADL's. DEEPA HERNDON PT Dec 28, 2018 12:19
== END 2018-12-27 19:45 | disposition home health service (06) | DRG 57 ==
PROVIDERS: ADMIT Internal Medicine; ATTEND Internal Medicine
DX: I69.398 Other sequelae of cerebral infarction (principal); R53.1 Weakness; E87.1 Hypo-osmolality and hyponatremia; L40.50 Arthropathic psoriasis, unspecified; J45.40 Moderate persistent asthma, uncomplicated; E78.5 Hyperlipidemia, unspecified; I12.9 Hypertensive chronic kidney disease with stage 1 through stage 4 chronic kidney disease, or unspecified chronic kidney disease; N18.3 Chronic kidney disease, stage 3 (moderate); I08.0 Rheumatic disorders of both mitral and aortic valves; K59.01 Slow transit constipation; K21.9 Gastro-esophageal reflux disease without esophagitis; G47.33 Obstructive sleep apnea (adult) (pediatric); M81.0 Age-related osteoporosis without current pathological fracture; F41.9 Anxiety disorder, unspecified; R01.1 Cardiac murmur, unspecified; N39.46 Mixed incontinence; M19.111 Post-traumatic osteoarthritis, right shoulder; M19.121 Post-traumatic osteoarthritis, right elbow; N39.0 Urinary tract infection, site not specified; R09.89 Other specified symptoms and signs involving the circulatory and respiratory systems; N36.42 Intrinsic sphincter deficiency (ISD); N32.81 Overactive bladder
CPT/HCPCS: 36415; 73030; 80053; 81000; 82533; 84443; 85007; 85025; 85027; 87077; 87088; 87186; 94640; 94664; 94760